=== PATIENT | female | born 1950 | race Caucasian/White ===

== ENCOUNTER 2018-04-04 17:33 | Inpatient (IN) | payer MEDICARE, SELFPAY ==
[2018-04-04] VITALS (7 sets, daily range): BP systolic 137–157; BP diastolic 79–88; PULSE 57–83; RESP 16–18; TEMP 36.6–36.8; O2SAT 94–99; BMI 20.1
--- NOTE | 2018-04-04 17:55 | EKG12_ITS ---
Test Reason : ADMIT EKG Blood Pressure : / mmHG Vent. Rate : 064 BPM Atrial Rate : 064 BPM P-R Int : 160 ms QRS Dur : 074 ms QT Int : 420 ms P-R-T Axes : 075 -65 054 degrees QTc Int : 433 ms Normal sinus rhythm Left anterior fascicular block Abnormal ECG When compared with ECG of 13-MAY-2017 10:36, Premature ventricular complexes are no longer Present Confirmed by ADA BRISCOE, STEPHY ([id number]), videotape editor MEJIA HERNÁNDEZ ([id number]) on 04/09/2018 2:33:49 PM Referred By: Pablo Sena Confirmed By:STEPHY CABALLERO MD
--- NOTE | 2018-04-04 18:12 | PCM.HP.STD ---
Problem List (1) Atypical chest pain Status: Acute (2) Hypertension Status: Chronic (3) Dyslipidemia Status: Chronic (4) Non Hodgkin's lymphoma Status: Chronic (5) Right breast cancer partial mastectomy Status: Chronic History of Present Illness Date of Admission: 04/04/18 Chief Complaint: Recurrent chest pain for about 1 month The patient is a 67 year old F with history of hypertension and dyslipidemia is directly admitted from [facility] where she went 3 times in last 1 month for chest pain. Today, she had sudden onset of chest heaviness with radiation to neck and jaws along with mild diaphoresis and shortness of breath. Prior to that C had similar chest heaviness with collapse and shortness of breath on past Saturday. She had a stress test recently by Dr. Herron on 03/25/2018 which reported as moderate perfusion defect at basal mid inferior septal wall, mid basal anterior wall. EF 44% with diffuse hypokinesis. ER physician Dr. Jacques discussed with her senior maintenance machinist Dr. Herron and he recommended transfer to [facility] for possible cardiac catheterization. He already discussed with Dr. landon. 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 She also has right breast cancer status post partial mastectomy about 25 years ago and is in remission. She Follows [facility] Past Medical History Past Medical History (Chronic Problems): Chronic Problems (Last Updated 12/21/17 @ 09:15 by Savanna Carrillo) Hypertension (Chronic) Dyslipidemia (Chronic) Non Hodgkin's lymphoma (Chronic) Right breast cancer partial mastectomy (Chronic) Allergies No Known Allergies Allergy (Verified 12/21/17 09:14) Home Medications: Ambulatory Orders Medication Instructions Recorded Acetaminophen [Tylenol] 325 mg PO PRN PRN 05/27/15 Multivitamins,Therapeutic 1 tab PO DAILY 05/27/15 [Multivitamin] Sertraline HCl 25 mg PO DAILY 05/27/15 Lisinopril [Lisinopril] 20 mg PO DAILY 04/04/18 Smoking Status: Never smoker - *Family History Paternal History Items: Hypertension Review of Systems Constitutional: Denies: Chills, Fever, Weight Change HEENT: Denies: Head Aches, Sinus Congestion, Sinus Drainage Cardiovascular: Denies: Chest Pain, Palpitations Respiratory: Denies: Cough, Shortness of breath at rest, Sputum production Gastrointestinal: Denies: Abdominal Pain, Nausea, Vomiting Genitourinary: Denies: Dysuria Musculoskeletal: Denies: Joint Pain, Joint Tenderness Skin: Denies: Rash, Wounds Neurological: Denies: Numbness, Tingling, Focal weakness Psychiatric: Denies: Anxiety, Depression, Homicidal Ideations, Suicidal Ideations Hematologic/ Lymphatic: Denies: Easy Bruising, Easy Bleeding VTE Information - Inpt Only VTE Present on Admission: No VTE Mechan Device Prophylaxis: SCD's VTE Pharm Prophylaxis ordered?: Yes Patient Problems: Active and Suspected Problems (Last Updated 12/21/17 @ 09:15 by Savanna Carrillo) Atypical chest pain (Acute) - Physical Exam General: Alert, Oriented x3, Cooperative HEENT: Atraumatic, PERRLA, EOMI, Normocephalic Neck: Supple, No JVD, Negative Carotid Bruits Lungs: Clear to auscultation, Normal air movement Cardiovascular: Regular rate, Regular Rhythm, Normal S1, Normal S2, No murmurs, - - Occasional PVCs on EKG Abdomen: Bowel Sounds Present, Soft, Non Tender, Non-Distended Extremities: No edema, Capillary Refill Less than 3 Seconds Skin: No rashes, No breakdown Musculoskeletal: No Tenderness to Palpation of Joints or Extremities, Arthritic Changes Neurological: Cranial nerves II-XII grossly intact Psych/Mental Status: Normal Affect, Appropriate Vital Signs Temp Pulse Resp BP Pulse Ox 97.8 F 67 18 157/88 H 99 04/04/18 17:36 04/04/18 17:36 04/04/18 17:36 04/04/18 17:36 04/04/18 17:36 Oxygen Delivery Method Room Air Weight: 132 lb 0.91 oz Body Mass Index (BMI) 20.0 Assessment/Plan Active and Suspected Problems (Last Updated 12/21/17 @ 09:15 by Savanna Carrillo) Atypical chest pain (Acute) The patient is a 67 year old F with history of hypertension and dyslipidemia is directly admitted from [facility] where she went 3 times in last 1 month for chest pain. Today, she had sudden onset of chest heaviness with radiation to neck and jaws along with mild diaphoresis and shortness of breath. Prior to that C had similar chest heaviness with collapse and shortness of breath on past Saturday. She had a stress test recently by Dr. Herron on 03/25/2018 which reported as moderate perfusion defect at basal mid inferior septal wall, mid basal anterior wall. EF 44% with diffuse hypokinesis. ER physician Dr. Jacques discussed with her senior maintenance machinist Dr. Herron and he recommended transfer to [facility] for possible cardiac catheterization. He already discussed with Dr. landon. 1. Atypical chest pain with abnormal stress test, possibility of unstable angina: The patient is admitted directly on PCU. Serial cardiac enzymes ordered. Board Writer Dr. Landon is aware and is being consulted. On nitroglycerin ointment as needed for chest pain and baby aspirin. Heart rate is controlled in 60s-70s. Will start on low-dose of metoprolol. Initial workup in ER in [place] shows normal chest x-ray. CBC, BMP normal except glucose 140. First set of troponin normal. EKG shows normal sinus rhythm with left axis deviation, QRS duration 78 ms, LVH with left anterior fascicular block with nonspecific ST-T changes 2. Hypertension: Blood pressure is slightly elevated. On lisinopril 20 mg daily. 3. 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 She also has right breast cancer status post partial mastectomy about 25 years ago and is in remission. She Follows [facility] DVT prophylaxis: On heparin 5000 units subcutaneous twice daily and bilateral SCDs. Code Visit Inpatient E&M: 68418 Init Hosp L3
--- NOTE | 2018-04-04 18:23 | HP.PCM_ITS ---
Problem List (1) Atypical chest pain Status: Acute (2) Hypertension Status: Chronic (3) Dyslipidemia Status: Chronic (4) Non Hodgkin's lymphoma Status: Chronic (5) Right breast cancer partial mastectomy Status: Chronic History of Present Illness Date of Admission: 04/04/18 Chief Complaint: Recurrent chest pain for about 1 month The patient is a 67 year old F with history of hypertension and dyslipidemia is directly admitted from [place] [facility] where she went 3 times in last 1 month for chest pain. Today, she had sudden onset of chest heaviness with radiation to neck and jaws along with mild diaphoresis and shortness of breath. Prior to that C had similar chest heaviness with collapse and shortness of breath on past Saturday. She had a stress test recently by Dr. Herron on 03/25/2018 which reported as moderate perfusion defect at basal mid inferior septal wall, mid basal anterior wall. EF 44% with diffuse hypokinesis. ER physician Dr. Jacques discussed with her pulp screen operator Dr. Herron and he recommended transfer to [facility] for possible cardiac catheterization. He already discussed with Dr. landon. 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 She also has right breast cancer status post partial mastectomy about 25 years ago and is in remission. She Follows [facility] Past Medical History Past Medical History (Chronic Problems): Chronic Problems (Last Updated 12/21/17 @ 09:15 by Savanna Carrillo) Hypertension (Chronic) Dyslipidemia (Chronic) Non Hodgkin's lymphoma (Chronic) Right breast cancer partial mastectomy (Chronic) Allergies No Known Allergies Allergy (Verified 12/21/17 09:14) Home Medications: Ambulatory Orders Medication Instructions Recorded Acetaminophen [Tylenol] 325 mg PO PRN PRN 05/27/15 Multivitamins,Therapeutic 1 tab PO DAILY 05/27/15 [Multivitamin] Sertraline HCl 25 mg PO DAILY 05/27/15 Lisinopril [Lisinopril] 20 mg PO DAILY 04/04/18 Smoking Status: Never smoker - *Family History Paternal History Items: Hypertension Review of Systems Constitutional: Denies: Chills, Fever, Weight Change HEENT: Denies: Head Aches, Sinus Congestion, Sinus Drainage Cardiovascular: Denies: Chest Pain, Palpitations Respiratory: Denies: Cough, Shortness of breath at rest, Sputum production Gastrointestinal: Denies: Abdominal Pain, Nausea, Vomiting Genitourinary: Denies: Dysuria Musculoskeletal: Denies: Joint Pain, Joint Tenderness Skin: Denies: Rash, Wounds Neurological: Denies: Numbness, Tingling, Focal weakness Psychiatric: Denies: Anxiety, Depression, Homicidal Ideations, Suicidal Ideations Hematologic/ Lymphatic: Denies: Easy Bruising, Easy Bleeding VTE Information - Inpt Only VTE Present on Admission: No VTE Mechan Device Prophylaxis: SCD's VTE Pharm Prophylaxis ordered?: Yes Patient Problems: Active and Suspected Problems (Last Updated 12/21/17 @ 09:15 by Savanna Carrillo) Atypical chest pain (Acute) - Physical Exam General: Alert, Oriented x3, Cooperative HEENT: Atraumatic, PERRLA, EOMI, Normocephalic Neck: Supple, No JVD, Negative Carotid Bruits Lungs: Clear to auscultation, Normal air movement Cardiovascular: Regular rate, Regular Rhythm, Normal S1, Normal S2, No murmurs, - - Occasional PVCs on EKG Abdomen: Bowel Sounds Present, Soft, Non Tender, Non-Distended Extremities: No edema, Capillary Refill Less than 3 Seconds Skin: No rashes, No breakdown Musculoskeletal: No Tenderness to Palpation of Joints or Extremities, Arthritic Changes Neurological: Cranial nerves II-XII grossly intact Psych/Mental Status: Normal Affect, Appropriate Vital Signs Temp Pulse Resp BP Pulse Ox 97.8 F 67 18 157/88 H 99 04/04/18 17:36 04/04/18 17:36 04/04/18 17:36 04/04/18 17:36 04/04/18 17:36 Oxygen Delivery Method Room Air Weight: 132 lb 0.91 oz Body Mass Index (BMI) 20.0 Assessment/Plan Active and Suspected Problems (Last Updated 12/21/17 @ 09:15 by Savanna Carrillo) Atypical chest pain (Acute) The patient is a 67 year old F with history of hypertension and dyslipidemia is directly admitted from [place] [facility] where she went 3 times in last 1 month for chest pain. Today, she had sudden onset of chest heaviness with radiation to neck and jaws along with mild diaphoresis and shortness of breath. Prior to that C had similar chest heaviness with collapse and shortness of breath on past Saturday. She had a stress test recently by Dr. Herron on 03/25/2018 which reported as moderate perfusion defect at basal mid inferior septal wall, mid basal anterior wall. EF 44% with diffuse hypokinesis. ER physician Dr. Jacques discussed with her pulp screen operator Dr. Herron and he recommended transfer to [facility] for possible cardiac catheterization. He already discussed with Dr. landon. 1. Atypical chest pain with abnormal stress test, possibility of unstable angina: The patient is admitted directly on PCU. Serial cardiac enzymes ordered. Shirrer Dr. Landon is aware and is being consulted. On nitroglycerin ointment as needed for chest pain and baby aspirin. Heart rate is controlled in 60s-70s. Will start on low-dose of metoprolol. Initial workup in ER in [place] shows normal chest x-ray. CBC, BMP normal except glucose 140. First set of troponin normal. EKG shows normal sinus rhythm with left axis deviation, QRS duration 78 ms, LVH with left anterior fascicular block with nonspecific ST-T changes 2. Hypertension: Blood pressure is slightly elevated. On lisinopril 20 mg daily. 3. 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 She also has right breast cancer status post partial mastectomy about 25 years ago and is in remission. She Follows [facility] DVT prophylaxis: On heparin 5000 units subcutaneous twice daily and bilateral SCDs. Code Visit Inpatient E&M: 80938 Init Hosp L3
[2018-04-04 19:08] LABS: BNP,B-Type NATRIURETIC PEPTIDE 124.7 pg/mL (0-100)
[2018-04-04] MEDS: Metoprolol Tartrate 25 MG Tablet 12.5 MG PO (19:14)
[2018-04-04] MEDS: Atorvastatin Calcium 40 MG Tablet PO (22:09)
[2018-04-04] MEDS: Heparin Injection (Vial) 5,000 UNIT/ML VIAL 5000 UNIT SC (22:09)
[2018-04-05] VITALS (14 sets, daily range): BP systolic 112–143; BP diastolic 59–89; PULSE 55–74; RESP 16; TEMP 36.6–36.9; O2SAT 95–98
[2018-04-05] MEDS: Ondansetron 4 MG/2 ML Vial IV (01:17)
[2018-04-05] MEDS: 0.9% NaCl Peripheral Flush Adult/Peds IV ×2 (01:17→21:28)
[2018-04-05 03:53] LABS: Anion Gap 7 (5-15); BUN 8 mg/dL (7-18); BUN/Creat Ratio 13.8 RATIO (10-20); Calcium,Total 8.5 mg/dL (8.5-10.1); Chloride 109 mmol/L (98-107); Cholesterol 177 mg/dL (200); Creatinine, Serum 0.58 mg/dL (0.55-1.02); EST Glomerular Filtration Rate 110 mL/min (>60); Est Glom Filt Rate - Afr Amer 133 mL/min (>60); Estimated Creatinine Clearance 50.92 ml/min; Glucose 100 mg/dL (74-106); High Density Lipoprotein 86 mg/dL; Potassium 3.8 mmol/L (3.5-5.1); Sodium Level 144 mmol/L (136-145); Thyroid Stim Hormone (TSH) 2.45 uIU/mL (0.358-3.74); Triglycerides 47 mg/dL; Very Low Density Lipoprotein 9 mg/dL (5-40)
--- NOTE | 2018-04-05 04:00 | EKG12_ITS ---
Test Reason : AM EKG Blood Pressure : / mmHG Vent. Rate : 058 BPM Atrial Rate : 058 BPM P-R Int : 170 ms QRS Dur : 084 ms QT Int : 454 ms P-R-T Axes : 077 -55 055 degrees QTc Int : 445 ms Sinus bradycardia Left anterior fascicular block Left ventricular hypertrophy Abnormal ECG When compared with ECG of 04-APR-2018 20:25, MANUAL COMPARISON REQUIRED, DATA IS UNCONFIRMED Confirmed by ADA BRISCOE, STEPHY ([id number]), dictionary editor MEJIA HERNÁNDEZ ([id number]) on 04/09/2018 2:29:40 PM Referred By: Pablo Sena Confirmed By:STEPHY CABALLERO MD
[2018-04-05 04:11] LABS: Hematocrit 34.4 % (37-47); Hemoglobin 11.5 g/dl (12.0-15.0); Mean Corp Hgb Conc 33.4 g/gl (32-36); Mean Corpuscular Hgb 34.2 pg (27.0-32.0); Mean Corpuscular Volume 102.4 fL (81-99); Mean Platelet Vol. 8.8 fl (6.2-12.0); Platelet Count 211 K/mm3 (150-450); RBC Distribution Width CV 12.9 % (11.6-14.6); RBC Distribution Width SD 48.2 fl (35.1-43.9); Red Blood Count 3.36 M/mm3 (4.2-5.4); White Blood Count 3.7 K/mm3 (4.4-11.0)
[2018-04-05 04:22] LABS: Scan Indicated on CBC? Y/N NO
[2018-04-05] MEDS: Lisinopril 20 MG Tablet PO (06:08)
[2018-04-05] MEDS: Aspirin E.C. 81 MG Tablet PO (06:08)
[2018-04-05] MEDS: Metoprolol Tartrate 25 MG Tablet 12.5 MG PO ×2 (06:09→21:27)
--- NOTE | 2018-04-05 07:19 | PN_ITS ---
Patient Problems: Active and Suspected Problems (Last Updated 12/21/17 @ 09:15 by Savanna Carrillo) Atypical chest pain (Acute) Subjective: Patient was seen and examined. Denies chest pain or shortness of breath or palpitations. Discussed with cardiology, patient will have cardiac cath on Saturday. Vitals/I&O's: Vital Signs Temp Pulse Resp BP Pulse Ox 98.4 F 74 16 141/77 H 95 04/05/18 06:01 04/05/18 06:09 04/05/18 06:01 04/05/18 06:01 04/05/18 06:01 Oxygen Delivery Method Room Air Weight: 59.9 kg Body Mass Index (BMI) 20.0 General: Alert, Oriented x3, Cooperative HEENT: Atraumatic, PERRLA, EOMI, Normocephalic Oral: Moist Mucosa Neck: Supple Lungs: Clear to auscultation, Normal air movement Cardiovascular: Regular rate, Regular Rhythm, Normal S1, Normal S2, No murmurs Abdomen: Bowel Sounds Present, Soft, Non Tender, Non-Distended, No Hepato- splenomegaly Extremities: No edema Skin: No rashes, No breakdown Musculoskeletal: No Tenderness to Palpation of Joints or Extremities Lymphatic: No Cervical, Supraclavicular, or Inguinal Adenopathy Neurological: Cranial nerves II-XII grossly intact Psych/Mental Status: Normal Affect, Appropriate Laboratory Results 04/04/18 18:30: B-Natriuretic Peptide 124.7 H 04/04/18 18:30: Troponin I < 0.02 04/04/18 21:37: Troponin I < 0.02 04/05/18 02:40: Sodium 144, Potassium 3.8, Chloride 109 H, Carbon Dioxide 28.0, Anion Gap 7, BUN 8, Creatinine 0.58, Estim Creat Clear Calc 50.92, Est GFR (MDRD ) Af Amer 133, Est GFR (MDRD) Non-Af 110, BUN/Creatinine Ratio 13.8, Glucose 100 , Calcium 8.5, Triglycerides 47, Cholesterol 177, LDL Cholesterol 82, VLDL Cholesterol 9, HDL Cholesterol 86, TSH 2.45 04/05/18 02:40: Troponin I < 0.02 04/05/18 02:40: Hemoglobin A1c Pending 04/05/18 02:40: WBC 3.7 L, RBC 3.36 L, Hgb 11.5 L, Hct 34.4 L, MCV 102.4 H, MCH 34.2 H, MCHC 33.4, RDW 12.9, RDW Differential 48.2 H, Plt Count 211, MPV 8.8 Current Medications Aspirin (Ecotrin) 81 mg PO DAILY@0800 [facility] Last Admin: 04/05/18 06:08 Dose: 81 mg Atorvastatin Calcium (Lipitor) 40 mg PO QHS [facility] Last Admin: 04/04/18 22:09 Dose: 40 mg Heparin Sodium (Porcine) (Heparin Na) 5,000 unit SC BID [facility] Last Admin: 04/04/18 22:09 Dose: 5,000 units Lisinopril (Zestril) 20 mg PO DAILY [facility] Last Admin: 04/05/18 06:08 Dose: 20 mg Metoprolol Tartrate (Lopressor (Beta Morris)) 12.5 mg PO BID [facility] Last Admin: 04/05/18 06:09 Dose: 12.5 mg [facility]ivit[facility] ([facility]ivitamin) [facility] Nitroglycerin (Nitrostat) 0.4 mg SUBLINGUAL Q5M PRN PRN Reason: CHEST PAIN Nitroglycerin (Nitrobid) 1 inch TRANSDERM. Q6H PRN PRN PRN Reason: chest pain Ondansetron HCl (Zofran) 4 mg IV Q8H PRN PRN PRN Reason: NAUSEA Last Admin: 04/05/18 01:17 Dose: 4 mg Sertraline HCl (Zoloft) 25 mg PO DAILY [facility] Sodium Chloride () 5 - 30 ml IV UD PRN PRN Reason: SALINE FLUSH Last Admin: 04/05/18 01:17 Dose: 10 ml Medical Necessity - Tobacco Use Smoking Status: Never smoker Assessment/Plan Active and Suspected Problems (Last Updated 12/21/17 @ 09:15 by Savanna Carrillo) Atypical chest pain (Acute) 67-year-old female with past medical history of hypertension, hyperlipidemia, abnormal stress test comes in with complaints of chest pain, atypical, concerning for unstable angina. 1. Atypical chest pain, recent abnormal stress test with moderate perfusion deficit at the base mid inferior septal wall, myopathy with EF of 44% with diffuse hypokinesis, stable vitals, troponins have been negative, going for cardiac cath on Saturday 2. Hypertension, controlled, on Lisinopril, metoprolol 3. Hyperlipidemia, on statin 4. History of non-Hodgkin's lymphoma/breast cancer status post mastectomy, follows with Dr. Paredes. Code Visit Inpatient E&M: 01960 Subs Hosp L2
[2018-04-05 08:58] LABS: Hemoglobin A1c 5.2 % (4.2-6.3)
--- NOTE | 2018-04-05 09:09 | CON.PCM_ITS ---
Reason for Consult Date of Consultation: 04/05/18 History of Present Illness: The patient is a 67 year old F with a past medical history significant for lymphoma status post Rituxan treatment who has had 4 presentations to the emergency room at [facility] over the last 4 days as well as complaints of chest discomfort. She describes this as a heaviness across her chest and also radiating to her right side of her neck. She was admitted to the hospital there were no associated EKG or troponin changes but she had a pharmacologic stress test which demonstrated asymmetric wall motion abnormalities as well as moderate perfusion defect in the basal to mid inferior wall and the mid to basal anterior wall. She was noted to have an ejection fraction of 44%. Yesterday she saw Dr. Mitchell Herron in his office and he was planning on arranging for an outpatient cardiac catheterization. Shortly after that she experienced chest discomfort again and went back to [facility] and we were called for the patient to be transferred here. The patient has had intermittent heaviness while she has been here. She has not had any dizziness or diaphoresis no near syncope or syncope and she has been compliant with her medications. She does admit that she does have some issues with anxiety. [] Past Medical History Allergies/Adverse Reactions: Allergies No Known Allergies Allergy (Verified 12/21/17 09:14) Home Medications: Ambulatory Orders Medication Instructions Recorded Acetaminophen [Tylenol] 325 mg PO PRN PRN 05/27/15 Multivitamins,Therapeutic 1 tab PO DAILY 05/27/15 [Multivitamin] Sertraline HCl 25 mg PO DAILY 05/27/15 Lisinopril [Lisinopril] 20 mg PO DAILY 04/04/18 Past Medical History (Chronic Problems): Chronic Problems (Last Updated 12/21/17 @ 09:15 by Savanna Carrillo) Hypertension (Chronic) Dyslipidemia (Chronic) Non Hodgkin's lymphoma (Chronic) Right breast cancer partial mastectomy (Chronic) - *Family History Paternal History Items: Hypertension Smoking Status: Never smoker Alcohol: None Drugs: None Review of Systems - Review of Systems General: Denies: Fever, Night Sweats, Fatigue Cardiovascular: Reports: Chest Discomfort, Chest Discomfort with Exertion. Denies: Shortness of Breath, Orthopnea, PND, Peripheral Edema, Palpitations, Lightheadedness, Dizziness, Near Syncope, Syncope Respiratory: Denies: Cough, Sputum Production, Hemoptysis Gastrointestinal: Denies: Hematemesis, Hematochezia, Melena Genitourinary: Denies: Dysuria, Hematuria Skin: Denies: Rash Subjectve: Patient seen and evaluated. Objective: Vital Signs Temp Pulse Resp BP Pulse Ox 98.4 F 60 16 141/77 H 95 04/05/18 06:01 04/05/18 06:58 04/05/18 06:01 04/05/18 06:01 04/05/18 06:01 Oxygen Delivery Method Room Air Weight: 132 lb 0.91 oz Body Mass Index (BMI) 20.0 General: Awake, Alert, Oriented x 3 HEENT: PERRL, EOMI, Sclera Non Icteric Neck: Supple, Good ROM, No Lymph Node Enlargement Lungs: Clear to auscultation Cardiovascular: Regular Rhythm, Normal S1, Normal S2, No Murmurs, No Rubs, No Gallops Vascular: No Carotid Bruits, Normal Femoral Pulses, Normal Radial Pulses, Normal Dorsalis Pedal Pulse, Normal Posterior Tibial Pulses Abdomen: Bowel Sounds Present, Soft, Non Tender, No HSM, No Organomegaly Extremities: No Cyanosis, No Clubbing, No edema Neurological: No Focal Motor or Sensory Deficit 04/04/18 18:30: B-Natriuretic Peptide 124.7 H 04/04/18 18:30: Troponin I < 0.02 04/04/18 21:37: Troponin I < 0.02 04/05/18 02:40: Sodium 144, Potassium 3.8, Chloride 109 H, Carbon Dioxide 28.0, Anion Gap 7, BUN 8, Creatinine 0.58, Est GFR (MDRD) Af Amer 133, Est GFR (MDRD) Non-Af 110, BUN/Creatinine Ratio 13.8, Glucose 100, Calcium 8.5, Triglycerides 47, Cholesterol 177, LDL Cholesterol 82, VLDL Cholesterol 9, HDL Cholesterol 86 04/05/18 02:40: Troponin I < 0.02 04/05/18 02:40: Hemoglobin A1c 5.2 04/05/18 02:40: WBC 3.7 L, RBC 3.36 L, Hgb 11.5 L, Hct 34.4 L, MCV 102.4 H, MCH 34.2 H, MCHC 33.4, RDW 12.9, RDW Differential 48.2 H, Plt Count 211, MPV 8.8 Rhythm: EKG: Sinus bradycardia with a rate of 58 bpm left anterior fascicular block. Assessment/Plan 1. Chest pain with abnormal stress test. She presents with recurrent chest pain with an abnormal stress test and has had 4 admissions to the emergency room in the last 96 hours. At this time I would recommend that she consider a left heart catheterization as previously recommended by her primary aircraft powerplant repairer. This has been mentioned to her the risk benefits and alternatives she understands and agrees to proceed. Depending on the findings further recommendations will be made. 2. Hypertension Patient seen and evaluated her blood pressure appears to be better today. She will continue on the lisinopril at the same dosages. Thank you for allowing me to participate in the care of your patient. Please don't hesitate to call if any issues arise
[2018-04-05 09:38] LABS: Prothrombin Time (Protime)PT. 13.6 SECONDS (11.7-14.9)
[2018-04-05 09:39] LABS: Partial Thromboplast Time 26.9 Seconds (24.1-36.2)
[2018-04-05] MEDS: Clopidogrel Bisulfate 300 MG Tablet PO (10:25)
[2018-04-05] MEDS: 0.9% Normal Saline 1,000 ML 15 ML IV (10:25)
[2018-04-05] MEDS: Sertraline 50 MG Tablet 25 MG PO (13:55)
[2018-04-05] MEDS: Multivitamins,Therapeutic Tablet 1 TABLET PO (13:55)
[2018-04-05] MEDS: Heparin Injection (Vial) 5,000 UNIT/ML VIAL 5000 UNIT SC ×2 (14:18→21:27)
[2018-04-05] MEDS: Atorvastatin Calcium 40 MG Tablet PO (21:28)
[2018-04-06] VITALS (12 sets, daily range): BP systolic 107–126; BP diastolic 61–76; PULSE 54–92; RESP 12–18; TEMP 36.3–36.8; O2SAT 96–98
[2018-04-06] MEDS: Multivitamins,Therapeutic Tablet 1 TABLET PO (09:29)
[2018-04-06] MEDS: Aspirin E.C. 81 MG Tablet PO (09:29)
[2018-04-06] MEDS: Metoprolol Tartrate 25 MG Tablet 12.5 MG PO ×2 (09:29→21:38)
[2018-04-06] MEDS: Heparin Injection (Vial) 5,000 UNIT/ML VIAL 5000 UNIT SC ×2 (09:29→21:39)
[2018-04-06] MEDS: Clopidogrel Bisulfate 75 MG Tablet PO (09:30)
[2018-04-06] MEDS: Sertraline 50 MG Tablet 25 MG PO (09:30)
[2018-04-06] MEDS: Lisinopril 20 MG Tablet PO (09:30)
--- NOTE | 2018-04-06 09:46 | PN_ITS ---
<Juni Bejarano - Last Filed: 04/06/18 09:42> Patient Problems: Active and Suspected Problems (Last Updated 12/21/17 @ 09:15 by Savanna Carrillo) Atypical chest pain (Acute) Subjective: Pt currently without complaints, found ambulating around room with no issues. She has no CP/tightness/pressure, no further symptoms into neck, no dizziness, sweating, LH, SOB, nausea or vomiting. No edema. She is anxious. She is agreeable to cath tomorrow. She denies prior heart disease. - Physical Exam General: Alert, Oriented x3, Cooperative, - - frail HEENT: Atraumatic, PERRLA, EOMI, Normocephalic Neck: Supple, No JVD, Negative Carotid Bruits Lungs: Clear to auscultation, Normal air movement Cardiovascular: Regular rate, No murmurs Abdomen: Bowel Sounds Present, Soft, Non Tender Extremities: No edema, Capillary Refill Less than 3 Seconds Skin: No rashes, No breakdown Musculoskeletal: No Tenderness to Palpation of Joints or Extremities Neurological: Cranial nerves II-XII grossly intact Psych/Mental Status: Anxious, Alert and oriented to time, place, person, mood and affect Vital Signs Temp Pulse Resp BP Pulse Ox 98.3 F 92 16 107/71 98 04/06/18 09:25 04/06/18 09:29 04/06/18 09:25 04/06/18 09:25 04/06/18 09:25 Oxygen Delivery Method Room Air Weight: 59.9 kg Body Mass Index (BMI) 20.0 Intake and Output for Last 24 Hours 04/04/18 04/05/18 04/06/18 23:59 23:59 23:59 Intake Total 650 / 650 360 / 360 Balance 650 / 650 360 / 360 Laboratory Tests Past 24 Hrs 04/05/18 09:16 Troponin I < 0.02 Medical Necessity - Tobacco Use Smoking Status: Never smoker Assessment/Plan Active and Suspected Problems (Last Updated 12/21/17 @ 09:15 by Savanna Carrillo) Atypical chest pain (Acute) 1. Chest pain - recurrent. Recent abnormal stress test. Pt of Dr. Spain. No events on tele overnight. Trop negx4. No current chest pain. Heart cath tomorrow per Dr. Maradiaga. Nitro PRN. on asa/statin added at admit. LDL82. BNP somewhat elevated 124.7. 2. HTN - continue current medications. 3. Anxiety - zoloft 4. Mild macrocytic anemia - check folate/b12. DVT ppx: heparin DC planning: home pending results of cath. This patient was seen by Juni Bejarano PA-C under the supervision of Doctor Rachel. <Rossi Ramos - Last Filed: 04/06/18 11:53> - Physical Exam Vital Signs Temp Pulse Resp BP Pulse Ox 98.3 F 65 16 107/71 98 04/06/18 09:25 04/06/18 11:00 04/06/18 09:25 04/06/18 09:25 04/06/18 09:25 Oxygen Delivery Method Room Air Weight: 59.9 kg Body Mass Index (BMI) 20.0 Intake and Output for Last 24 Hours 04/04/18 04/05/18 04/06/18 23:59 23:59 23:59 Intake Total 650 / 650 360 / 360 Balance 650 / 650 360 / 360 Laboratory Tests Past 24 Hrs 04/06/18 04/06/18 10:20 10:20 Vitamin B12 Pending Folate 61.90 H Assessment/Plan Patient was seen and examined independently of physician environmental engineering assistant Juni Bejarano. I agree with his above interval history, physical exam and assessment and plan. Patient denies any new complaints. No chest pain no dizziness or palpitation. No acute events on telemetry. Vitals reviewed, were stable, physical exam is unremarkable. Labs reviewed, stable Patient will possibly have a heart cath tomorrow, continue to monitor on telemetry Code Visit Inpatient E&M: 90396 Subs Hosp L2
--- NOTE | 2018-04-06 10:37 | PN.CARD_ITS ---
Subjectve: Patient seen and evaluated and appears to be doing well has not had any more chest discomfort this morning. Objective: Vital Signs Temp Pulse Resp BP Pulse Ox 98.3 F 92 16 107/71 98 04/06/18 09:25 04/06/18 09:29 04/06/18 09:25 04/06/18 09:25 04/06/18 09:25 Oxygen Delivery Method Room Air Weight: 132 lb 0.91 oz Body Mass Index (BMI) 20.0 Intake and Output for Last 24 Hours 04/04/18 04/05/18 04/06/18 23:59 23:59 23:59 Intake Total 650 / 650 360 / 360 Balance 650 / 650 360 / 360 General: Awake, Alert, Oriented x 3 HEENT: PERRL, EOMI, Sclera Non Icteric Neck: Supple, Good ROM, No Lymph Node Enlargement Lungs: Clear to auscultation Cardiovascular: Regular Rhythm, Normal S1, Normal S2, No Murmurs, No Rubs, No Gallops Vascular: No Carotid Bruits, Normal Femoral Pulses, Normal Radial Pulses, Normal Dorsalis Pedal Pulse, Normal Posterior Tibial Pulses Abdomen: Bowel Sounds Present, Soft, Non Tender, No HSM, No Organomegaly Extremities: No Cyanosis, No Clubbing, No edema Neurological: No Focal Motor or Sensory Deficit Rhythm: EKG: ECHO: Stress Test: Cardiac Cath: PCI: CT Surgery: Holter monitor: EPS: PPM: CXR: Chest CT Scan: Medical Necessity - Tobacco Use Smoking Status: Never smoker Assessment/Plan 1. Chest pain with abnormal stress test. She presents with recurrent chest pain with an abnormal stress test and has had 4 admissions to the emergency room in the last 96 hours. At this time I would recommend that she consider a left heart catheterization as previously recommended by her primary on site services specialist. This has been mentioned to her the risk benefits and alternatives she understands and agrees to proceed. Depending on the findings further recommendations will be made. This will be scheduled for the a.m. 2. Hypertension Patient seen and evaluated her blood pressure appears to be better today. She will continue on the lisinopril at the same dosages. Thank you for allowing me to participate in the care of your patient. Please don't hesitate to call if any issues arise
[2018-04-06 21:17] LABS: Bacteria 0 SEEN /hpf (None Seen); Mucous, Urine 0 SEEN /hpf (<or=2+); Red Blood Cells-Urine 0 SEEN /hpf (0-5); White Blood Cells 0 SEEN /hpf (0-5)
[2018-04-06 21:21] LABS: Color, Urine Yellow (Yellow); Glucose, Dipstick Normal (Normal); Ketone-Dipstick Negative (Negative); Leukocyte Esterase-Dipstick 25 /ul (Negative); Nitrite-Dipstick Negative (Negative); Occult Blood-Urine Negative /ul (Negative); Protein-Dipstick Negative (Negative); Specific Gravity, Urine 1.005 (1.002-1.030); Urine Bilirubin Dipstick Negative (Negative); Urine Clarity Clear (Clear); Urine Urobilinogen Normal (Normal); Urine pH 6.5 (5.0 - 8.0)
[2018-04-06 21:25] LABS: Squamous Epithelial Cells - UA 0-5 SEEN /hpf (5-10)
[2018-04-06] MEDS: Atorvastatin Calcium 40 MG Tablet PO (21:38)
[2018-04-07] VITALS (14 sets, daily range): BP systolic 112–140; BP diastolic 61–90; PULSE 52–73; RESP 12–18; TEMP 36.2–36.8; O2SAT 96–99
[2018-04-07 05:17] LABS: Absolute Lymphocyte Count 0.74 X10^3/ul (0.83-4.51); Absolute Neutrophil Count 2.7 X10^3/uL (2.0-7.7); Basophil# 0.02 X10^3/uL; Basophil% 0.5 % (0-1); Eosinophil# 0.24 X10^3/uL; Eosinophils% 5.9 % (0-5); Hematocrit 35.7 % (37-47); Hemoglobin 11.9 g/dl (12.0-15.0); Lymphocyte # 0.74 X10^3/ul (4.0); Mean Corp Hgb Conc 33.3 g/gl (32-36); Mean Corpuscular Hgb 34.6 pg (27.0-32.0); Mean Corpuscular Volume 103.8 fL (81-99); Mean Platelet Vol. 8.3 fl (6.2-12.0); Monocyte# 0.35 X10^3/uL; Monocyte% 8.5 % (0-10); Neutrophil # 2.74 X10^3/uL (2.7-7.7); Neutrophil % 66.9 % (47-70); Platelet Count 208 K/mm3 (150-450); RBC Distribution Width CV 12.4 % (11.6-14.6); RBC Distribution Width SD 45.4 fl (35.1-43.9); Red Blood Count 3.44 M/mm3 (4.2-5.4); White Blood Count 4.1 K/mm3 (4.4-11.0)
[2018-04-07 05:21] LABS: Prothrombin Time (Protime)PT. 13.4 SECONDS (11.7-14.9)
[2018-04-07 05:22] LABS: Partial Thromboplast Time 34.3 Seconds (24.1-36.2)
[2018-04-07 05:28] LABS: Anion Gap 6 (5-15); BUN 8 mg/dL (7-18); Calcium,Total 8.5 mg/dL (8.5-10.1); Chloride 109 mmol/L (98-107); Creatinine, Serum 0.62 mg/dL (0.55-1.02); EST Glomerular Filtration Rate 102 mL/min (>60); Est Glom Filt Rate - Afr Amer 124 mL/min (>60); Estimated Creatinine Clearance 50.92 ml/min; Glucose 93 mg/dL (74-106); Potassium 4.1 mmol/L (3.5-5.1); Sodium Level 143 mmol/L (136-145)
[2018-04-07 05:34] LABS: POSITIVE COUNT NO; POSITIVE DIFFERENTIAL NO; POSITIVE MORPHOLOGY NO
--- NOTE | 2018-04-07 05:55 | EKG12_ITS ---
Test Reason : MORNING EKG Blood Pressure : / mmHG Vent. Rate : 061 BPM Atrial Rate : 061 BPM P-R Int : 184 ms QRS Dur : 086 ms QT Int : 438 ms P-R-T Axes : 075 -54 057 degrees QTc Int : 440 ms Normal sinus rhythm Left anterior fascicular block Abnormal ECG When compared with ECG of 05-APR-2018 05:44, MANUAL COMPARISON REQUIRED, DATA IS UNCONFIRMED Confirmed by ADA BRISCOE, STEPHY ([id number]), editor managing newspaper MEJIA HERNÁNDEZ ([id number]) on 04/09/2018 2:26:19 PM Referred By: Pablo Sena Confirmed By:STEPHY CABALLERO MD
--- NOTE | 2018-04-07 05:55 | RAD_ITS ---
STUDY: X-RAY CHEST REASON FOR EXAM: Female, 67 years old. Preop evaluation prior to cardiac catheterization. TECHNIQUE: Two AP portable views of the chest. COMPARISON: May 13, 2017. FINDINGS: Cardiac monitoring leads are present. Lungs are hyperexpanded. Lungs appear to be clear. There is no demonstrated pleural abnormality. There is mild cardiac enlargement. Normal mediastinum and ana. Normal visualized pulmonary arteries. There is atherosclerotic calcification of the aortic arch with tortuosity. There is demineralization of the osseous structures. Normal visualized ribs, clavicles, and shoulders. Surgical clips are visible in the right axilla. Patient may have had right-sided breast surgery. There is no demonstrated abnormality of the visualized soft tissue structures of the upper abdomen. RAD/Chest 1 View (Portable) IMPRESSION: No radiographic evidence of acute cardiopulmonary disease. Electronically Signed: Shahrzad Barba MD at 6:58 EDT , Service support ,
[2018-04-07] MEDS: Aspirin E.C. 81 MG Tablet PO (06:14)
[2018-04-07] MEDS: Metoprolol Tartrate 25 MG Tablet 12.5 MG PO (06:14)
[2018-04-07] MEDS: Clopidogrel Bisulfate 75 MG Tablet PO (06:15)
[2018-04-07] MEDS: Lisinopril 20 MG Tablet PO (06:15)
[2018-04-07] MEDS: 0.9% NaCl Peripheral Flush Adult/Peds IV (06:20)
--- NOTE | 2018-04-07 06:57 | NURSING ---
Called and gave report to ALPHONSO in [employer] at this time. No further questions. Patient still scheduled for same time.
--- NOTE | 2018-04-07 08:08 | PN.CARD_ITS ---
Subjectve: Patient seen and evaluated. Objective: Vital Signs Temp Pulse Resp BP Pulse Ox 97.4 F L 67 18 140/78 H 98 04/07/18 06:10 04/07/18 07:00 04/07/18 06:10 04/07/18 06:14 04/07/18 06:10 Oxygen Delivery Method Room Air Weight: 132 lb 0.91 oz Body Mass Index (BMI) 20.0 Intake and Output for Last 24 Hours 04/05/18 04/06/18 04/07/18 23:59 23:59 23:59 Intake Total 650 / 650 1100 / 1100 600 / 600 Balance 650 / 650 1100 / 1100 600 / 600 General: Awake, Alert, Oriented x 3 HEENT: PERRL, EOMI, Sclera Non Icteric Neck: Supple, Good ROM, No Lymph Node Enlargement Lungs: Clear to auscultation Cardiovascular: Regular Rhythm, Normal S1, Normal S2, No Murmurs, No Rubs, No Gallops Vascular: No Carotid Bruits, Normal Femoral Pulses, Normal Radial Pulses, Normal Dorsalis Pedal Pulse, Normal Posterior Tibial Pulses Abdomen: Bowel Sounds Present, Soft, Non Tender, No HSM, No Organomegaly Extremities: No Cyanosis, No Clubbing, No edema Neurological: No Focal Motor or Sensory Deficit 04/06/18 20:23: Urine Color Yellow, Urine Clarity Clear, Urine pH 6.5, Ur Specific [place] 1.005, Urine Protein Negative, Urine Glucose (UA) Normal, Urine Ketones Negative, Urine Occult Blood Negative, Urine Nitrite Negative, Urine Bilirubin Negative, Urine Urobilinogen Normal, Ur Leukocyte Esterase 25 H , Urine RBC 0 SEEN, Urine WBC 0 SEEN 04/07/18 05:04: WBC 4.1 L, RBC 3.44 L, Hgb 11.9 L, Hct 35.7 L, MCV 103.8 H, MCH 34.6 H, MCHC 33.3, RDW 12.4, RDW Differential 45.4 H, Plt Count 208, MPV 8.3, Immature Gran % (Auto) 0.200, Neut % (Auto) 66.9, Lymph % (Auto) 18.0 L, [place] % (Auto) 8.5, Eos % (Auto) 5.9 H, Baso % (Auto) 0.5, Absolute Neuts (auto) 2.7, Total Counted Not Reportable 04/07/18 05:04: PT 13.4, INR 1.0, APTT 34.3 04/07/18 05:04: Sodium 143, Potassium 4.1, Chloride 109 H, Carbon Dioxide 28.0, Anion Gap 6, BUN 8, Creatinine 0.62, Est GFR (MDRD) Af Amer 124, Est GFR (MDRD) Non-Af 102, BUN/Creatinine Ratio 13.0, Glucose 93, Calcium 8.5 Rhythm: EKG: ECHO: Stress Test: Cardiac Cath: PCI: CT Surgery: Holter monitor: EPS: PPM: CXR: Chest CT Scan: Medical Necessity - Tobacco Use Smoking Status: Never smoker Assessment/Plan 1. Chest pain with abnormal stress test. She presents with recurrent chest pain with an abnormal stress test and has had 4 admissions to the emergency room in the last 96 hours. Patient underwent cardiac catheterization this morning which demonstrated the following: Left main coronary artery which was normal. Left anterior descending artery with 40% proximal stenosis. Left circumflex artery with no significant stenosis. Dominant right coronary artery with no significant stenosis. Preserved ejection fraction. Based on the above angiographic findings it appears that the stress test findings were a false positive I do not see any significant angiographic lesion to explain her findings. I will therefore recommend aggressive medical therapy. 2. Hypertension Patient seen and evaluated her blood pressure appears to be better today. She will continue on the lisinopril at the same dosages. Thank you for allowing me to participate in the care of your patient. Please don't hesitate to call if any issues arise. She can be discharged later today.
--- NOTE | 2018-04-07 08:19 | CL.D_ITS ---
Patient Name: DIANNA WEBSTER Study Date: 04/07/2018 Performing: Jimbo Maradiaga MD Ht: 68.11 inches 173 cm : 1950 Wt: 132.28 lbs 60 kg Age: 67 Gender: female BSA: 1.72 PROCEDURE(S) PERFORMED TC21-VWL/COR/LV CLINICAL PROFILE AND INDICATIONS Indications: Suspected CAD Heart Failure: None Stress/Imaging Stress Test w/SPECT MPI: Yes Result: Positive Low RiskStress Test with SPECT MPI: Positive Low Risk Angina Classification Anginal Classification w/in 2 Weeks: CCS IV CAD Presentations: Symptom unlikely to be ischemic. CONCLUSIONS Mild CAD in the left anterior descending artery not thought to be significant. RECOMMENDATIONS Medical therapy DESCRIPTION OF PROCEDURE The patient arrived to the procedure lab. The risks and benefits of the procedure as well as a full d escription of our services here and current unavailability of surgical backup were fully explained to the patient and/or their significant other prior to the catheterization. The Timeout was completed, verifying the correct patient and procedure. The patient's procedural site was prepped and draped in the usual fashion. Local anesthetic was given subcutaneously to right radial region with Lidocaine 2% . Using a modified Seldinger technique, arterial access was obtained via the right radial artery, a 5 Fr sheath was inserted. Left Coronary Artery selective angiography was performed in multiple views u sing a 5 Fr. 4.0 Goodman catheter. Right Coronary Artery selective angiography was then performed in mu ltiple views using a 5 Fr. 4.0 Goodman catheter. Left Ventriculography was performed in CRUM projection using a 5 Fr. Pigtail catheter. LV to AO pullback pressures were then recorded.The arterial sheath wa s pulled and a TR Band was applied for hemostasis CORONARY ANGIOGRAPHY DOMINANCE: Right Dominant LEFT HEART ASSESSMENT Left Ventricular Ejection Fraction: by LV Gram 60 % Normal LV wall motion Normal Left Ventricular systolic function LEFT MAIN: Angiographically normal LEFT ANTERIOR DECENDING ARTERY: PROX LAD: 40 % Stenosis CIRCUMFLEX ARTERY: Angiographically normal RIGHT CORONARY ARTERY: Angiographically normal COMPLICATIONS No Complications PROCEDURE MEDICATIONS Fentanyl 50 mcg IV Versed 1 mg IV Oxygen: 2 L/min via nasal cannula Heparin diluted in 23cc Heparinized saline. Patient given 10cc IA of this solution. 04/07/2018 07:49:2 1 Verapamil 2.5mg, Ntg 100mcgs, 2000 units of Heparin diluted in 23cc Heparinized saline. Patient give n 10cc IA of this solution. 04/07/2018 07:49:21 SUMMARY OF HEMODYNAMIC DATA Time AIR REST ECG 07:31:48 AO 111/61 (82) SA 07:52:02 LV 112/-15, 0 07:58:34 LV 122/-15, 1 07:58:41 LV 111/-10, 4 07:59:31 AOp 115/54 (79) 07:59:41 Signed By Jimbo Maradiaga MD On 04/07/2018 8:18:56 AM Jimbo Maradiaga MD
[2018-04-07] MEDS: 0.9% Normal Saline 1,000 ML 75 ML IV (08:26)
[2018-04-07] MEDS: Multivitamins,Therapeutic Tablet 1 TABLET PO (08:46)
[2018-04-07] MEDS: Sertraline 50 MG Tablet 25 MG PO (08:46)
--- NOTE | 2018-04-07 10:07 | CASEMGMT ---
Face to Face with patient for initial transition planning/care coordination assessment. BUSTER ROSAS introduced self and role at [facility], pt voices understanding and consents to assessment at this time. Pt is lying in bed in no distress at this time. Pt is A/O x4 at this time and answers all questions appropriately at this time. Care providers, pharmacy, and demographics verified. See attached link. Pt voices no further questions/concerns/needs at this time. Advised pt to ask for CM if any further questions/concerns/needs arise, voices understanding. PLAN: [place] BUSTER ROSAS
--- NOTE | 2018-04-07 11:34 | PCM.DC ---
- Discharge Diagnoses Current Active Problems: Current Active and Chronic Problems (Last Updated 12/21/17 @ 09:15 by Savanna Carrillo) Atypical chest pain (Acute) Hypertension (Chronic) Dyslipidemia (Chronic) Non Hodgkin's lymphoma (Chronic) Right breast cancer partial mastectomy (Chronic) You will use the following diet at home:: Cardiac Your food should be the consistency of: Regular Your liquids should be the consistency of: Regular/Thin Discharge Activity: Return to Normal Activity Allergies/Adverse Reactions: Allergies No Known Allergies Allergy (Verified 12/21/17 09:14) Medications to take at Discharge Acetaminophen [Tylenol] 325 mg PO PRN PRN 05/27/15 Multivitamins,Therapeutic [Multivitamin] 1 tab PO DAILY 05/27/15 Sertraline HCl 25 mg PO DAILY 05/27/15 Lisinopril 20 mg PO DAILY 04/04/18 Aspirin E.C. [Ecotrin] 81 mg PO DAILY@0800 tablet 04/07/18 Atorvastatin Calcium [Lipitor] 40 mg PO QHS #30 tab 04/07/18 Metoprolol Tartrate [Lopressor (beta joel)] 12.5 mg PO BID #60 tab 04/07/18 The following prescriptions were given: Atorvastatin Calcium [Lipitor] 40 mg PO QHS #30 tab Metoprolol Tartrate [Lopressor (beta joel)] 12.5 mg PO BID #60 tab Primary Care Physician: Mitra Lackey MD [Primary Care Provider] - Please follow up with your Primary Care Physician in: 1-2 weeks Please Follow Up With: Anthony Spain MD When: 1-2 weeks Proposed Discharge Date: 04/07/18
[2018-04-07 12:21] LABS: Vitamin B12 610 pg/mL (211-911)
--- NOTE | 2018-04-07 14:29 | PCM.DC.SUM ---
Discharge Date and Diagnosis Date of Admission: 04/04/18 Date of Discharge: 04/07/18 - Primary Discharge Diagnosis Chest pain - musculoskeletal Anxiety HTN Atherosclerosis - Secondary Discharge Diagnosis Chronic Problems (Last Updated 12/21/17 @ 09:15 by Savanna Carrillo) Hypertension (Chronic) Dyslipidemia (Chronic) Non Hodgkin's lymphoma (Chronic) Right breast cancer partial mastectomy (Chronic) Hospital Course and Treatment Imaging Results: RAD/Chest 1 View (Portable) IMPRESSION: No radiographic evidence of acute cardiopulmonary disease. CORONARY ANGIOGRAPHY: DOMINANCE: Right Dominant LEFT HEART ASSESSMENT Left Ventricular Ejection Fraction: by LV Gram 60 % Normal LV wall motion Normal Left Ventricular systolic function LEFT MAIN: Angiographically normal LEFT ANTERIOR DECENDING ARTERY: PROX LAD: 40 % Stenosis CIRCUMFLEX ARTERY: Angiographically normal RIGHT CORONARY ARTERY: Angiographically normal Consultations: Hiren-cardiology Operations: None Procedures: Cardiac catheterization Summary of Care Provided: Physical exam on day of discharge: General: Resting comfortably NAD Psych: A/Ox3 normal affect HEENT: PEARRLA AT NC Neck: Supple NT CV: RRR no m/t/r/g/h Resp: CTA Abd: [id number] Soft NT no guarding or rigidity Ext: DP2+= no edema Skin: W/D normal turgor Lymph/Heme: No active bleeding or adenopathy Neuro: CN2-12 intact Hospital course: The patient is a 67 year old F who had presented to the ER 4 times in 96 hours for recurring chest pain who was sent here from [place] for left heart cath. She is a patient of Dr. Spain. She had intermittent substernal pressure with radiation into the jaw and lightheadedness. She had negative EKG and troponin. She had a prior stress test that was abnormal. She was maintained on tele and underwent a heart cath the following morning. No significant blockage was found that was felt to be contributing to her symptoms. She did have a lesion with 40% stenosis of the Proximal LAD. She had a 60% EF. She was placed on asa/statin/beta joel/ and maintained on her home lisinopril. She remained in stable condition without symptoms and was discharged home. Please follow up with Dr. Miller and your PCP in 1-2 weeks. This patient was seen by Juni Bejarano PA-C under the supervision of Doctor Rosanne. [] Discharge Diet: Low fat/ Low Cholesterol, 2000 mg Sodium Diet Discharge Activity: Return to Normal Activity Home Medications: Medications to take at Discharge Acetaminophen [Tylenol] 325 mg PO PRN PRN 05/27/15 Multivitamins,Therapeutic [Multivitamin] 1 tab PO DAILY 05/27/15 Sertraline HCl 25 mg PO DAILY 05/27/15 Lisinopril 20 mg PO DAILY 04/04/18 Aspirin E.C. [Ecotrin] 81 mg PO DAILY@0800 tablet 04/07/18 Atorvastatin Calcium [Lipitor] 40 mg PO QHS #30 tab 04/07/18 Metoprolol Tartrate [Lopressor (beta joel)] 12.5 mg PO BID #60 tab 04/07/18 Following Prescrptions Were Given to Patient: Atorvastatin Calcium [Lipitor] 40 mg PO QHS #30 tab Metoprolol Tartrate [Lopressor (beta joel)] 12.5 mg PO BID #60 tab Primary Care Physician: Mitra Lackey MD [Primary Care Provider] - Please follow up with your Primary Care Physician in: 1-2 weeks Please Follow Up With: Anthony Spain MD When: 1-2 weeks Disposition: Home Minutes spent on discharge:: 35 Patient Condition:: Stable Medical Necessity - Tobacco Use Smoking Status: Never smoker Meaningful Use Info Meaningful Use Diagnoses (Choose all that apply): None applicable
--- NOTE | 2018-04-07 14:39 | DS.PCM_ITS ---
Discharge Date and Diagnosis Date of Admission: 04/04/18 Date of Discharge: 04/07/18 - Primary Discharge Diagnosis Chest pain - musculoskeletal Anxiety HTN Atherosclerosis - Secondary Discharge Diagnosis Chronic Problems (Last Updated 12/21/17 @ 09:15 by Savanna Carrillo) Hypertension (Chronic) Dyslipidemia (Chronic) Non Hodgkin's lymphoma (Chronic) Right breast cancer partial mastectomy (Chronic) Hospital Course and Treatment Imaging Results: RAD/Chest 1 View (Portable) IMPRESSION: No radiographic evidence of acute cardiopulmonary disease. CORONARY ANGIOGRAPHY: DOMINANCE: Right Dominant LEFT HEART ASSESSMENT Left Ventricular Ejection Fraction: by LV Gram 60 % Normal LV wall motion Normal Left Ventricular systolic function LEFT MAIN: Angiographically normal LEFT ANTERIOR DECENDING ARTERY: PROX LAD: 40 % Stenosis CIRCUMFLEX ARTERY: Angiographically normal RIGHT CORONARY ARTERY: Angiographically normal Consultations: Hiren-cardiology Operations: None Procedures: Cardiac catheterization Summary of Care Provided: Physical exam on day of discharge: General: Resting comfortably NAD Psych: A/Ox3 normal affect HEENT: PEARRLA AT NC Neck: Supple NT CV: RRR no m/t/r/g/h Resp: CTA Abd: [id number] Soft NT no guarding or rigidity Ext: DP2+= no edema Skin: W/D normal turgor Lymph/Heme: No active bleeding or adenopathy Neuro: CN2-12 intact Hospital course: The patient is a 67 year old F who had presented to the ER 4 times in 96 hours for recurring chest pain who was sent here from [place] for left heart cath. She is a patient of Dr. Spain. She had intermittent substernal pressure with radiation into the jaw and lightheadedness. She had negative EKG and troponin. She had a prior stress test that was abnormal. She was maintained on tele and underwent a heart cath the following morning. No significant blockage was found that was felt to be contributing to her symptoms. She did have a lesion with 40 % stenosis of the Proximal LAD. She had a 60% EF. She was placed on asa/statin/ beta joel/ and maintained on her home lisinopril. She remained in stable condition without symptoms and was discharged home. Please follow up with Dr. Miller and your PCP in 1-2 weeks. This patient was seen by Juni Bejarano PA-C under the supervision of Doctor Rosanne. [] Discharge Diet: Low fat/ Low Cholesterol, 2000 mg Sodium Diet Discharge Activity: Return to Normal Activity Home Medications: Medications to take at Discharge Acetaminophen [Tylenol] 325 mg PO PRN PRN 05/27/15 Multivitamins,Therapeutic [Multivitamin] 1 tab PO DAILY 05/27/15 Sertraline HCl 25 mg PO DAILY 05/27/15 Lisinopril 20 mg PO DAILY 04/04/18 Aspirin E.C. [Ecotrin] 81 mg PO DAILY@0800 tablet 04/07/18 Atorvastatin Calcium [Lipitor] 40 mg PO QHS #30 tab 04/07/18 Metoprolol Tartrate [Lopressor (beta joel)] 12.5 mg PO BID #60 tab 04/07/18 Following Prescrptions Were Given to Patient: Atorvastatin Calcium [Lipitor] 40 mg PO QHS #30 tab Metoprolol Tartrate [Lopressor (beta joel)] 12.5 mg PO BID #60 tab Primary Care Physician: Mitra Lackey MD [Primary Care Provider] - Please follow up with your Primary Care Physician in: 1-2 weeks Please Follow Up With: Anthony Spain MD When: 1-2 weeks Disposition: Home Minutes spent on discharge:: 35 Patient Condition:: Stable Medical Necessity - Tobacco Use Smoking Status: Never smoker Meaningful Use Info Meaningful Use Diagnoses (Choose all that apply): None applicable
== END 2018-04-07 12:08 | disposition home or self-care (01) | DRG 287 ==
PROVIDERS: Internal Medicine Cardiovascular Disease; Physician Assistant; Admitting Provider Internal Medicine; Family Provider Internal Medicine; PCP Internal Medicine; Visit Provider Internal Medicine
DX: R07.89 Other chest pain (principal); I25.10 Atherosclerotic heart disease of native coronary artery without angina pectoris; D53.9 Nutritional anemia, unspecified; I10 Essential (primary) hypertension; E78.5 Hyperlipidemia, unspecified; R94.39 Abnormal result of other cardiovascular function study; F41.9 Anxiety disorder, unspecified; Z79.899 Other long term (current) drug therapy; Z85.3 Personal history of malignant neoplasm of breast; Z85.72 Personal history of non-Hodgkin lymphomas; Z90.11 Acquired absence of right breast and nipple
CPT/HCPCS: 36415; 71045; 80048; 80061; 81001; 82607; 82746; 83036; 83880; 84443; 84484; 85025; 85027; 85610; 85730; 93005; 93458; 97802; 99152; 99153; J7030; A4216; C1769; C1894; J2405; Q9967

== ENCOUNTER 2018-05-29 13:30 | Emergency (ER) | payer MEDICARE, SELFPAY ==
[2018-05-29 13:31] VITALS: BP 153/97; PULSE 77; RESP 16; TEMP 36.6; O2SAT 98; BMI 20.3
--- NOTE | 2018-05-29 13:43 | VDLE_ITS ---
Reason For Study: LEG PAIN RIGHT LEFT CFV is compressible, spontaneous, phasic, CFV is compressible, spontaneous, phasic, competent and demonstrates normal competent, and demonstrates normal augmentation. augmentation. Procedure GSV is normal. Exam performed portable in ED. FV is compressible, spontaneous, phasic, A preliminary report was called and/or faxed competent and demonstrates normal to Dr. Liu. augmentation. POP V is compressible, spontaneous, phasic, competent and demonstrates normal augmentation. T/P Trunk is compressible. PTV is compressible. LT PerV is compressible. Interpretation Summary Deep veins of the left lower extremity are patent and compressible segmentally. There is no evidence of left lower extremity deep vein thrombosis. Valvular competence appears intact within the proximal deep venous system on the left . The left greater saphenous vein appears patent and compressible segmentally. Ordering Physician: Amrik Liu Referring Physician: Mitra Lackey Performed By: Missy Brooks RVT
--- NOTE | 2018-05-29 14:30 | ED.DCSUM_ITS ---
- ER Visit Summary Date of Service: 05/29/18 Chief Complaint: Pain left leg] History of Present Illness: The patient is a 67 F [presents the emergency department with discomfort in her left leg for about 3-4 weeks. Patient states that she had been doing a lot of lifting and moving of things in her home and thought maybe she strained her groin. Patient was seen at urgent care today and was sent to the ER for concern about possible blood clot in the leg. Patient is to travel in 2 weeks to [place] and she was concerned about getting on an airplane without having it evaluated. Patient denies any chest pain or shortness of breath. Patient denies recent travel or surgery. She does not take any hormone replacement. Patient states that the pain seems to be localized to her left groin and then when she stands up on the leg or with certain movements she has a pain that shoots down to her knee anteriorly and laterally.] Physical Examination: [HEENT-PERRLA, EOMI. Cranial nerves II through XII grossly intact. TMs clear. Mucous membranes moist. No adenopathy. Cardiovascular-regular rate and rhythm without murmur or ectopy Lungs-clear to auscultation, chest wall stable without crepitus or subcu emphysema Abdomen-normoactive bowel sounds, soft, nontender, no rebound or rigidity, no peritoneal signs. Extremities-intact ?4, normal range of motion, normal pulses, atraumatic]. Left leg-patient has no tenderness over the left hip and negative straight leg raise. Patient has normal pulses at the femoral, popliteal, dorsal pedal, and posterior tibial locations. No significant edema noted. Patient has some mild discomfort over the left inguinal ligament somewhat reproduces her pain. Test Results: Venous duplex of the left lower extremity was negative for DVT [] Emergency Department Course and Treatment: [Patient is now anything for pain. Patient states that when she takes Tylenol at home that that seems to alleviate her discomfort.] Treatment Plan: [Patient to continue with her Tylenol and use heat to the area. Patient to follow-up with her primary care physician in 5-7 days.] Disposition: [Discharged home in stable condition] Impression: [Left groin strain-suspect meralgia paresthetica] This note was generated with [employer] software. It may contain incorrect words, spelling, and punctuation that were not noted in review of the chart prior to signing ED Disposition - Plan for ED Patient: Chief Complaint: Lower Extremity Injury Referrals: Mitra Lackey MD [Primary Care Provider] -
--- NOTE | 2018-05-29 14:30 | ED.DEP ---
ED Disposition - Plan for ED Patient: Chief Complaint: Lower Extremity Injury Instructions: ED Strain Groin Referrals: Mitra Lackey MD [Primary Care Provider] - 5-7 Days
[2018-05-29 14:34] VITALS: BP 135/75; PULSE 85; RESP 16; O2SAT 99
== END 2018-05-29 14:40 | disposition home or self-care (01) ==
LOC: ED 13:50
PROVIDERS: Emergency Provider Emergency Medicine; Family Provider Internal Medicine; PCP Internal Medicine
DX: S39.011A Strain of muscle, fascia and tendon of abdomen, initial encounter (principal); X50.9XXA Other and unspecified overexertion or strenuous movements or postures, initial encounter; Y93.9 Activity, unspecified; Y92.9 Unspecified place or not applicable; Y99.9 Unspecified external cause status; I10 Essential (primary) hypertension; Z79.899 Other long term (current) drug therapy; Z85.72 Personal history of non-Hodgkin lymphomas; Z85.3 Personal history of malignant neoplasm of breast
CPT/HCPCS: 93971; 99282

== ENCOUNTER 2019-05-18 13:18 | Day surgery (SDC) | payer MEDICARE, SELFPAY ==
--- NOTE | 2019-05-17 21:10 | HP.PCM_ITS ---
History and Physical Date of Admission: 05/18/19 Francine Polk 1950 ? ? REFERRING PHYSICIAN: Mary Paredes MD ? CHIEF COMPLAINT: New Patient (Port placement) ? HPI: The patient is a 68 year old female is here for consideraion of portacath She is found to have new diagnosis of lymphoma Denies history of rib or clavicular fractures. Had previous left sided port placed. Denies history of blood clots Has poor peripheral IV access. ? PAST MEDICAL HISTORY ? Family history of malignant neoplasm of gastrointestinal tract ? ? Hypertension ? ? Lymphoma (HCC) 2014 ? neck ? Malignant neoplasm of breast (female), unspecified site 1994 ? with lynphnode envolvement, right ? Osteoporosis, unspecified ? ? Personal history of malignant neoplasm of breast 05/13/2006 ? Rheumatic fever ? ? Screening for intestinal cancer 08/31/2011 ? SKIN CARCINOMA CHEST WALL 03/29/2009 ? Skin lesion 08/31/2011 ? PAST SURGICAL HISTORY ? ADD MAMOTOME BX Right 12/13/15 ? U/S mamotome bx right neck LN ? BX/REMV,LYMPH NODE,DEEP CERV Right 05-30-15 ? COLONOSCOP W/ OR W/O BRSH SPEC ? 09/21/11 ? CYSTOSCOPY ? 11/12/12 ? with bx-benign results ? FNA WITH IMAGING Right 05/24/15 ? U/S FNA right neck mass ? MAL LESION TRUNK,ARM,LEG 1.1-2.0 CM ? 03/23/09 ? Exc. chest lesions x 2 ? MASTEC PARTIAL W AXILL NODE REMOV ? 1994 ? Right- hx of radiation and chemo ? NEEDLE BIOPSY ? 2004 ? L breast ? PAST SURGICAL HISTORY OF ? 2003 ? Right stapedectomy ? PAST SURGICAL HISTORY OF ? 1978 ? left stapedectomy ? PAST SURGICAL HISTORY OF ? 10-05-08 ? BCCA nose ? SKIN BX, 1 LESION ? 09/01/11 ? Shave bx left medial proximal thigh lesion ? TUNNEL VAD W SUB Q PORT >=5 Left 06-23-15 ? ? Current Outpatient Medications: LORazepam (ATIVAN) 0.5 mg tab Take 0.5 mg by mouth twice daily as needed. atorvastatin (LIPITOR) 20 mg tablet Take 1 tablet by mouth once daily. metoprolol tartrate, short acting, (LOPRESSOR) 25 mg tablet Take 0.5 tablets by mouth twice daily. lisinopril (ZESTRIL, PRINIVIL) 20 mg tablet Take 1 tablet by mouth once daily. nitroglycerin sublingual (NITROSTAT) 0.4 mg SL tablet Dissolve 1 tablet under the tongue as needed for Chest Pain. If no pain relief call 911. aspirin 81 mg chewable tablet Take 1 tablet by mouth once daily. acetaminophen(TYLENOL EXTRA STRENGTH 500 MG TAB) as necessary. COMPLETE MULTIVITAMIN TAB Take one(1) tablet daily. prochlorperazine (COMPAZINE) 10 mg tablet Take 1 tablet by mouth every 6 hours as needed. allopurinol (ZYLOPRIM) 300 mg tablet Take 1 tablet by mouth once daily. X 7 - 10 days during chemotherapy CALCIUM CARBONATE/VITAMIN D3 (CALCIUM + D ORAL) Take 1 tablet by mouth once daily. ? ? ALLERGIES: Patient has no known allergies. ? PERSONAL HISTORY: Social History Socioeconomic History Marital status: Spouse name: Ti Number of children: 0 Years of education: Not on file Highest education level: Not on file Social Needs Financial resource strain: Not on file Food insecurity - worry: Not on file Food insecurity - inability: Not on file Transportation needs - medical: Not on file Transportation needs - non-medical: Not on file Occupational History Occupation: Retired Tobacco Use Smoking status: Former Smoker Packs/day: 0.50 Types: Cigarettes Start date: 12/05/1967 Quit date: 12/05/1970 Years since quittin.4 Smokeless tobacco: Never Used Substance and Sexual Activity Alcohol use: Yes Comment: occ Drug use: No Sexual activity: Not on file Other Topics Concerns: Not on file Social History Narrative Not on file FAMILY HISTORY ? Alzheimer's Disease Father ? ? Colon Cancer Father 78 ? Hypertension Mother ? ? Diabetes Paternal Grandmother ? ? ? REVIEW OF SYSTEMS: General: The patient NOTES fatigue, NOTES weight loss, denies weight gain, denies feeling hot, and denies feelings of cold. Eyes: The patient denies glaucoma, denies eye injury/surgery, wears g lasses or contacts. Ear/Nose/Throat: The patient denies allergies, denies hayfever, denies ear infections, and denies bloody noses. Cardiovascular: The patient denies chest pain, denies heart disease, NOTES high blood pressure,denies cardiac stent, denies prior heart attack, denies irregular heart beat, denies high cholesterol, denies poor circulation, denies heart failure, other cardiac issues, denies claudication, denies cold feet, denies peripheral arterial stent. Respiratory: The patient denies tuberculosis, denies pneumonia, denies frequent cough, denies pulmonary embolism, denies shortness of breath, and denies coughing up blood. Gastrointestinal: The patient denies difficulty swallowing, denies acid reflux, denies ulcers, denies vomiting, denies jaundice/hepatitis, denies gallbladder problems, denies black or tarry stools, denies hemorrhoids, denies bleeding from rectum, denies diverticulitis, denies constipation, denies diarrhea, denies loss of stool control, and denies hernias. Kidney/Bladder: The patient denies kidney stones, denies urine infections, and denies bloody urine. Skin: The patient denies a history of skin cancer, denies ble eding/changing moles, and denies a history of skin rash. Neurologic: The patient denies a history of epilepsy/convulsions, denies headaches, denies head/spinal injuries, and denies stroke/TIA. Psychiatric: The patient denies psychiatric medications, denies depression, and denies voices, denies substance abuse. Endocrine: The patient denies thyroid disorders, denies diabetes, and denies hormonal problems. Hematologic: The patient denies a history of bruising, denies bleeding, and denies anemia, denies blood clots. Infections: The patient denies a history of measles and mumps, NOTES rheumatic fever, and denies sexually transmitted diseases. Musculoskeletal: The patient denies back pain/injury, denies back problems, denies sciatica, denies knee/foot trouble, denies arthritis, or denies gout. ? PHYSICAL EXAMINATION: General: The patient is 68 year old female, well nourished, well hydrated in no acute distress. The patient is oriented to time, place, and person. VITALS: Blood pressure 132/76, pulse 76, temperature 36.3 ?C (97.3 ?F), resp. rate 16, height 171.5 cm (5' 7.5), weight 58.2 kg (128 lb 6.4 oz), SpO2 97 %. Body mass index is 19.81 kg/m?. Head ? Normocephalic. EOM intact with sclera clear and no icterus noted. Wearing glasses. Mouth with mucus membranes moist. Neck - supple with no jugular venous distention noted. Trachea is midline. Left submandibular mass noted Lungs ? clear to auscultation. Normal breath sounds. No rales/rhonchi/wheezing noted. No labored breathing noted, such as retractions. Heart ? normal S1 and S2 auscultated. No rubs/clicks/murmurs noted. Regular rate. Abdomen ? soft and benign. Normal bowel sounds. Extremities ? no pitting edema noted. Skin ? normal skin integrity. Lymph ? no cervical adenopathy detected, no supraclavicular adenopathy detected, submandibular mass as above Neurological ? gait normal, no focal deficits noted Psych ? calm and appropriate ? ? IMPRESSION: lymphoma, need for IV access ? PLAN: I have discussed the above with the patient and her who is present with her. I have offered placement of left sided portacath I have explained the procedure to the patient. Patient has been counseled as to the risks/benefits of the procedure. I have explained the risks of the surgery, including but not limited to: infection, bleeding, injury to any blood vessels/nerves, injury to lungs (such as pneumothorax or hemothorax and need for chest tube), not having any access, nonfunctioning of port due to thrombosis, infection of port, etc. ? the patient understands. The patient wishes to proceed. I have answered all questions to the patient?s satisfaction and the patient has no further questions. . ? Jasmin Gee MD
[2019-05-18 13:38] VITALS: BP 151/92; PULSE 70; RESP 18; TEMP 36.2; O2SAT 99; BMI 19.0
[2019-05-18] MEDS: Cefazolin 2 GM in 0.9% Normal Saline 100 ML IV (16:49)
--- NOTE | 2019-05-18 17:39 | PCM.OPRPT ---
Report of Operation Date of Procedure: 05/18/19 Pre-Operative Diagnosis: lymphoma, poor IV access Post-Operative Diagnosis: same Surgery/Procedure Performed:: placement of permanent indwelling tunnelled catheter in the left subclavian vein Description of Surgical Findings:: normal left subclavian anatomy to the SVC Type of Anesthesia:: General Anesthesiologist: Trisha Medrano Specimen's removed: none Estimated Blood Loss (mL): < 5 ml Fluids Replaced: 300 ml Description of Procedure: After informed consent was given, the patient was brought to the Operating Room. Appropriate time out protocol was followed. She was then placed in the supine position. She was then placed under anesthesia. The patient?s upper chest and neck were then prepped with a surgical skin preparation and sterile surgical drapes were placed. After proper landmarks were ascertained, the skin at the upper left chest area was then infiltrated with 1% xylocaine with epinephrine. A needle trocar was then inserted into the left subclavian vein and there was good aspiration of venous blood. A wire was then threaded into the needle trocar and this was visualized under fluoroscopy to ensure that the wire was in the left subclavian vein. Once this was done, then the needle trocar was removed. A small skin roselia was made with an 11 blade knife at the wire entrance site. The dilator with the introducer sheath attached was then placed over the wire into the left subclavian vein via the Seldinger technique and this was visualized under fluoroscopy. The dilator and sheath were in proper position as visualized by fluoroscopy. The wire and dilator were then removed. The catheter was then threaded into the introducer sheath and was positioned with its tip at the junction of the superior vena cava and the right atrium as visualized under fluoroscopy. The catheter was flushed with a heparin saline mixture prior to placement. A subcutaneous pocket was then created caudad to the catheter insertion site. A transverse skin incision was made at the previous incision site after the skin and subcutaneous tissues were infiltrated with local anesthetic. Blunt dissection was then used to create a space large enough for placement of the subcutaneous port. Hemostasis was carefully controlled with electrocautery. The port was sutured to the subcutaneous fascia using vicryl suture at three sites. The catheter was then tunneled into the subcutaneous pocket. The excess catheter was transected. The catheter was then attached to the subcutaneous port using supervisor slate splitting?s guidelines. The port was then placed in the subcutaneous pocket and the sutures were ligated. The subdermal incisional sites were reapproximated with interrupted vicryl suture. The skin was reapproximated with monocryl suture in a subcuticular fashion. Cavilon and steristrips were used for reinforcement of the skin closure and a sterile opsite dressing was applied. The patient was brought to the Recovery Room in stable condition. - Complications none noted - Admit VTE Documentation VTE Present on Admission: Yes VTE Mechan Device Prophylaxis: SCD's
--- NOTE | 2019-05-18 17:43 | DCINST_ITS ---
Discharge Diet: No Restrictions Discharge Activity: Return to Normal Activity, May not drive while taking narcotic pain medications. Call your doctor if your incision/area has: Continuous Slow Oozing, Foul Smelling Discharge Call your doctor if you observe: Fever of 101 or Higher Additional Dressing/Incision Instructions:: Leave dressing in place. May get wet in shower. Do not soak - no tub baths/swimming Allergies/Adverse Reactions: Allergies No Known Allergies Allergy (Verified 05/15/19 09:05) Medications to take at Discharge RX: Acetaminophen [Tylenol] 325 mg PO PRN PRN 05/27/15 RX: Multivitamins,Therapeutic [Multivitamin] 1 tab PO DAILY 05/27/15 RX: Lisinopril 20 mg PO DAILY 04/04/18 Aspirin [Aspirin, Baby] 81 mg PO DAILY@0800 05/15/19 RX: Atorvastatin Calcium [Lipitor] 20 mg PO DAILY 05/15/19 RX: Metoprolol Tartrate [Lopressor (beta joel)] 12.5 mg PO BID 05/15/19 Primary Care Physician: Mitra Lackey MD [Primary Care Provider] - Test Results: Test results from this visit will be discussed in further detail at your follow- up appointment, if applicable. Please Follow Up With: Jasmin Gee MD - call When: to be seen in 7-10 days, please call for time and date, thank you
[2019-05-18 17:50] VITALS: BP 135/69; BP 151/92; PULSE 79; RESP 16; TEMP 36.6; O2SAT 96
[2019-05-18 18:00] VITALS: BP 132/73; BP 151/92; PULSE 67; RESP 16; O2SAT 93
--- NOTE | 2019-05-18 18:10 | RAD_ITS ---
STUDY: X-RAY CHEST REASON FOR EXAM: Female, 68 years old. Chest port placement TECHNIQUE: Single AP portable view of the chest. COMPARISON: 04/07/2018 FINDINGS: Interval placement of left subclavian chest port with tip of the catheter overlying the superior vena cava. No pneumothorax. Status post right axillary lymph node dissection. The lungs are clear and expanded. There is no demonstrated pleural abnormality. There is moderate cardiac enlargement. Normal mediastinum and ana. Normal visualized pulmonary arteries. Normal visualized aortic arch and descending thoracic aorta. Normal visualized thoracic spine. Normal visualized ribs, clavicles, and shoulders. There is no demonstrated abnormality of the visualized soft tissue structures of the upper abdomen. RAD/CXR for Line Placement IMPRESSION: Interval placement of left subclavian chest port with tip of the catheter overlying the superior vena cava and no pneumothorax. Electronically Signed: Tom Thao MD at 18:30 EDT Tel , Service support ,
[2019-05-18 18:15] VITALS: BP 133/78; BP 151/92; PULSE 68; RESP 16; O2SAT 97
[2019-05-18 18:28] VITALS: BP 128/78; BP 151/92; PULSE 63; RESP 16; TEMP 36.8; O2SAT 100
[2019-05-18 18:45] VITALS: BP 151/92
== END 2019-05-18 18:51 | disposition home or self-care (01) ==
LOC: SDC 13:19 → AC 13:21
PROVIDERS: Family Provider Internal Medicine; PCP Internal Medicine; Referring Provider Surgery; Visit Provider Surgery
PROC: (CPT 36561; principal; 2019-05-18 14:35)
DX: Z45.2 Encounter for adjustment and management of vascular access device (principal); C85.91 Non-Hodgkin lymphoma, unspecified, lymph nodes of head, face, and neck; I10 Essential (primary) hypertension; M81.0 Age-related osteoporosis without current pathological fracture; Z79.899 Other long term (current) drug therapy; Z79.82 Long term (current) use of aspirin; Z78.0 Asymptomatic menopausal state; Z85.3 Personal history of malignant neoplasm of breast; Z92.21 Personal history of antineoplastic chemotherapy; Z92.3 Personal history of irradiation; Z87.891 Personal history of nicotine dependence
CPT/HCPCS: 00532; 36561; 71045; 77001; J7050; J7120; C1788; J2405

== ENCOUNTER 2021-08-25 08:31 | Observation (INO) | payer MEDICARE, SELFPAY ==
[2021-08-25] VITALS (7 sets, daily range): BP systolic 122–154; BP diastolic 74–88; PULSE 68–89; RESP 12–20; TEMP 36.9–37.2; O2SAT 94–99; BMI 19.0; BMI 16.6
--- NOTE | 2021-08-25 09:28 | EDS_ITS ---
HPI History of Present Illness Chief Complaint: General Illness Informant: patient Onset/Context/Timing Onset: Days (8) Context: Gradual Onset Timing: Intermittent Quality: Sharp Location: Right parasternal chest Worsened by: Cough Relieved by: Nothing Narrative Narrative: Presents with persistent cough. Patient tested positive for Covid 8 days ago. Patient denies any sputum production. Patient states she gets a sharp pain in her chest whenever she coughs. Patient states it is over the right parasternal area. Patient also admits to a fever of 101 at home. Patient denies any shortness of breath. Patient denies any palpitations. Patient denies any nausea or vomiting. Patient has a history of breast cancer and lymphoma and her oncologist referred her to the emergency department to get checked out before she can continue her cancer treatments. [facility] Medical History History of breast cancer HTN (hypertension) Home Medications acetaminophen 325 mg PO PRN PRN 05/27/15 [History Last Taken 04/04/18 08:00] multivitamin with folic acid 1 tab PO DAILY 05/27/15 [History Last Taken 04/04/18 05:00] lisinopril 20 mg PO DAILY 04/04/18 [History Last Taken 05/18/19] aspirin 81 mg PO DAILY@0800 05/15/19 [History Last Taken 05/17/19] atorvastatin 20 mg PO DAILY 05/15/19 [History Last Taken Unknown] metoprolol tartrate 12.5 mg PO BID 05/15/19 [History Last Taken 05/18/19] meloxicam 15 mg PO PRN PRN 08/25/21 [History Last Taken Unknown] Allergy/AdvReac Type Severity Reaction Status Date / Time No Known Allergies Allergy Verified 08/25/21 08:32 Surgical History Hx of cardiac catheterization S/P colonoscopy S/P mastectomy Social History Smoking Status: Never smoker ROS ROS ED Constitutional Constitutional ED: Reports fever(s); Denies chills Eyes Eyes: Denies blurry vision or change in vision ENT ENT ED: Denies rhinorrhea or sore throat Cardiovascular Cardiovascular: Reports chest pain; Denies palpitations Respiratory/Chest Respiratory/Chest: Reports cough; Denies dyspnea Gastrointestinal Gastrointestinal: Denies nausea or vomiting Genitourinary Genitourinary ED: Denies dysuria or hematuria Musculoskeletal Musculoskeletal: Denies back pain or neck pain Integumentary Denies abscess or rash Neurologic Neurologic: Denies headache(s) or weakness Allergic/Immunologic Allergic/Immunologic ED: Denies mouth swelling or urticaria EXAM Physical Exam Const Vital Signs: 08/25/21 08:33 08/25/21 08:59 08/25/21 12:35 Temperature 98.4 F Temperature Source Temporal Pulse Rate 89 76 Respiratory Rate 12 19 H Respiratory Effort Normal Respiratory Pattern Normal Blood Pressure 122/82 H 145/78 H Blood Pressure Mean 95 100 Pulse Ox 95 96 Oxygen Delivery Method Room Air Room Air Positive well nourished and well developed General Appearance ED: well developed HEENT Reports moist mucous membranes Neck supple and no JVD Chest Wall Chest Narrative: There is tenderness palpation over the right parasternal chest. There is no bony crepitance or step-off. There is no edema or ecchymosis. Resp normal respiratory effort and clear to auscultation bilaterally Cardio regular rate, regular rhythm and no murmurs GI normal to inspection, nondistended, normoactive bowel sounds and non-tender Palpation: soft Neuro oriented x3, CN's II-XII intact bilaterally and no sensory deficits noted Sensorium / Orientation: alert Motor Exam: strength 5/5 throughout Psych mental status grossly normal MDM MDM MDM Narrative Medical decision making narrative: EKG was obtained. On my interpretation, it showed a normal sinus rhythm with a rate of 80. DC interval, QRS interval, and QTc intervals were all normal. There is left axis deviation at -64 with a left anterior fascicular block. There is left ventricular hypertrophy is noted. There are no acute ST or T wave changes. CBC shows a white blood cell count of 0.7. Platelets were low at 122. Absolute neutrophil count was 0.2. Comprehensive metabolic profile was within normal limits. Urinalysis does not show any evidence of urinary tract infection. Portable 1 view chest x-ray was obtained. On my interpretation, lung lake are clear. There is some hyperinflation noted. There is normal cardiac silhouette. Bony thorax is normal. There is no acute process noted. Radiologist also interpreted the x- ray and agrees. Case was discussed with Dr. Bermudez. He stated the patient call their office and told them that she had a fever. Because of this, the patient will be admitted for neutropenic fever. Lactate and blood cultures were ordered. Patient was started on vancomycin and Zosyn. Case was discussed with the hospitalist. He will admit the patient to his service. Patient understood and was agreeable with the plan. All questions were answered. Lab Data Attestation: I reviewed the patient's lab results. Labs: Laboratory Results - last 24 hr 08/25/21 08/25/21 08/25/21 10:00 10:00 10:00 WBC 0.7 L* RBC 3.49 L Hgb 12.6 Hct 35.5 L MCV 101.7 H MCH 36.1 H MCHC 35.5 RDW Std Deviation 43.6 RDW Coeff of Stevenson 11.6 Plt Count 122 L MPV 9.1 Neut % (Auto) Not Reportable Absolute Neuts (auto) 0.2 L Absolute Lymphs (auto) 0.20 L Total Counted 100 Neutrophils % (Manual) 27 L Lymphocytes % (Manual) 24 Monocytes % (Manual) 48 H Metamyelocytes % 1 Diff Path Review May foll Platelet Estimate SLT DEC RBC Morphology NORM C+C Sodium 134 L Potassium 3.7 Chloride 99 Carbon Dioxide 30.0 Anion Gap 5 BUN 9 Creatinine 0.63 Estim Creat Clear Calc 46.19 Est GFR (MDRD) Af Amer 119 Est GFR (MDRD) Non-Af 98 BUN/Creatinine Ratio 14.2 Glucose 104 Lactic Acid Calcium 9.0 Phosphorus 3.1 Total Bilirubin 0.50 AST 45 H ALT 35 Alkaline Phosphatase 65 Lactate Dehydrogenase Total Creatine Kinase Troponin I High Sens C-React Prot Ext Range B-Natriuretic Peptide Total Protein 6.1 L Albumin 2.7 L Globulin 3.4 Albumin/Globulin Ratio 0.8 L Procalcitonin Urine Color Urine Clarity Urine pH Ur Specific [place] Urine Protein Urine Glucose (UA) Urine Ketones Urine Occult Blood Urine Nitrite Urine Bilirubin Urine Urobilinogen Ur Leukocyte Esterase Urine RBC Urine WBC Ur Squamous Epith Cells Urine Bacteria Urine Mucus 08/25/21 08/25/21 08/25/21 10:00 10:00 10:00 WBC RBC Hgb Hct MCV MCH MCHC RDW Std Deviation RDW Coeff of Stevenson Plt Count MPV Neut % (Auto) Absolute Neuts (auto) Absolute Lymphs (auto) Total Counted Neutrophils % (Manual) Lymphocytes % (Manual) Monocytes % (Manual) Metamyelocytes % Diff Path Review Platelet Estimate RBC Morphology Sodium Potassium Chloride Carbon Dioxide Anion Gap BUN Creatinine Estim Creat Clear Calc Est GFR (MDRD) Af Amer Est GFR (MDRD) Non-Af BUN/Creatinine Ratio Glucose Lactic Acid Calcium Phosphorus Total Bilirubin AST ALT Alkaline Phosphatase Lactate Dehydrogenase 223 Total Creatine Kinase 84 Troponin I High Sens 32 C-React Prot Ext Range 8.13 H B-Natriuretic Peptide 49.6 Total Protein Albumin Globulin Albumin/Globulin Ratio Procalcitonin 0.07 Urine Color Urine Clarity Urine pH Ur Specific [place] Urine Protein Urine Glucose (UA) Urine Ketones Urine Occult Blood Urine Nitrite Urine Bilirubin Urine Urobilinogen Ur Leukocyte Esterase Urine RBC Urine WBC Ur Squamous Epith Cells Urine Bacteria Urine Mucus 08/25/21 08/25/21 12:35 14:10 WBC RBC Hgb Hct MCV MCH MCHC RDW Std Deviation RDW Coeff of Stevenson Plt Count MPV Neut % (Auto) Absolute Neuts (auto) Absolute Lymphs (auto) Total Counted Neutrophils % (Manual) Lymphocytes % (Manual) Monocytes % (Manual) Metamyelocytes % Diff Path Review Platelet Estimate RBC Morphology Sodium Potassium Chloride Carbon Dioxide Anion Gap BUN Creatinine Estim Creat Clear Calc Est GFR (MDRD) Af Amer Est GFR (MDRD) Non-Af BUN/Creatinine Ratio Glucose Lactic Acid 0.6 Calcium Phosphorus Total Bilirubin AST ALT Alkaline Phosphatase Lactate Dehydrogenase Total Creatine Kinase Troponin I High Sens C-React Prot Ext Range B-Natriuretic Peptide Total Protein Albumin Globulin Albumin/Globulin Ratio Procalcitonin Urine Color Yellow Urine Clarity Sl. Cloudy Urine pH 7.0 Ur Specific [place] 1.005 Urine Protein Negative Urine Glucose (UA) Normal Urine Ketones 5 H Urine Occult Blood Negative Urine Nitrite Negative Urine Bilirubin Negative Urine Urobilinogen Normal Ur Leukocyte Esterase Negative Urine RBC 0 SEEN Urine WBC 0 SEEN Ur Squamous Epith Cells 0 SEEN Urine Bacteria 0 SEEN Urine Mucus 0 SEEN Radiography Chest X-Ray - ED: 1 View, Read by ED Physician, Read by Radiologist and Normal Diagnostic Testing: Radiology Impression Chest X-Ray 08/25/21 09:40 IMPRESSION: Hyperinflation. The lungs are clear. Electronically Signed: Shady Fox MD at 10:13 EDT , Service support , EKG Initial EKG: Attestation: I personally reviewed and interpreted this EKG as follows: Interpretation: Sinus Rhythm (80), No Acute Injury Pattern and LAFB Comments: Left ventricular hypertrophy Prior EKG tracings: available for review Prior: Unchanged (04/07/2018) Treatment and Re-Evaluation Vital Sign Attestation:: Vital signs were reviewed prior to admission. They are stable. Discharge Plan Dx/Rx/DC Orders Clinical Impression: Neutropenic fever, COVID-19 Disposition Disposition: Acute Care [facility] Discharge Date/Time: 08/25/21 15:45
--- NOTE | 2021-08-25 09:29 | EKG12_ITS ---
Test Reason : SOB Blood Pressure : / mmHG Vent. Rate : 080 BPM Atrial Rate : 080 BPM P-R Int : 162 ms QRS Dur : 080 ms QT Int : 398 ms P-R-T Axes : 085 -64 071 degrees QTc Int : 459 ms Normal sinus rhythm Left anterior fascicular block Left ventricular hypertrophy Abnormal ECG Confirmed by CHAUNCEY BRISCOE, WILLAM ([id number]), ovens supervisor MARCUS LIM ([id number]) on 08/28/2021 12:46:47 PM Referred By: Rossi Rowley Confirmed By:WILLAM GROSSMAN MD
--- NOTE | 2021-08-25 09:40 | RAD_ITS ---
STUDY: X-RAY CHEST REASON FOR EXAM: Female, 70 years old. Cough TECHNIQUE: Single AP portable view of the chest. COMPARISON: Comparison is made with prior study dated 05/18/2019. FINDINGS: Surgical clips are seen in the right axillary region. The patient is status post right mastectomy. A left-sided portacatheter seen with the tip at the junction of the superior vena cava and right atrium. There is hyperinflation of the lungs consistent with chronic obstructive lung disease (COPD). There is no demonstrated pleural abnormality. There is mild cardiac enlargement. Normal mediastinum and ana. Normal visualized pulmonary arteries. Normal visualized aortic arch and descending thoracic aorta. Normal visualized thoracic spine. Normal visualized ribs, clavicles, and shoulders. There is no demonstrated abnormality of the visualized soft tissue structures of the upper abdomen. RAD/Chest 1 View (Portable) IMPRESSION: Hyperinflation. The lungs are clear. Electronically Signed: Shady Fox MD at 10:13 EDT , Service support ,
[2021-08-25 10:12] LABS: Hematocrit 35.5 % (37-47); Hemoglobin 12.6 g/dL (12.0-15.0); Mean Corp Hgb Conc 35.5 g/dL (32-36); Mean Corpuscular Hgb 36.1 pg (27.0-32.0); Mean Corpuscular Volume 101.7 fL (81-99); Mean Platelet Vol. 9.1 fl (6.2-12.0); POSITIVE COUNT YES; POSITIVE DIFFERENTIAL YES; POSITIVE MORPHOLOGY YES; Platelet Count 122 K/mm3 (150-450); RBC Distribution Width CV 11.6 % (11.6-14.6); RBC Distribution Width SD 43.6 fl (35.1-43.9); Red Blood Count 3.49 M/mm3 (4.2-5.4)
[2021-08-25 10:19] LABS: Differential Indicated MANUAL DIFF
[2021-08-25 10:25] LABS: White Blood Count 0.7 K/mm3 (4.4-11.0)
[2021-08-25 10:28] LABS: ALB/GLOB Ratio 0.8 RATIO (0.9-2.4); AST(SGOT) 45 U/L (15-37); Alanine Aminotransfer ALT/SGPT 35 U/L (13-56); Albumin, Serum 2.7 g/dL (3.2-5.0); Alkaline Phosphatase 65 U/L (45-117); Anion Gap 5 (5-15); BUN 9 mg/dL (7-18); BUN/Creat Ratio 14.2 RATIO (10-20); Chloride 99 mmol/L (98-107); Creatinine, Serum 0.63 mg/dL (0.55-1.02); EST Glomerular Filtration Rate 98 mL/min (>60); Est Glom Filt Rate - Afr Amer 119 mL/min (>60); Estimated Creatinine Clearance 46.19 ml/min; Globulin 3.4 g/dL (2.2-4.2); Glucose 104 mg/dL (74-106); Potassium 3.7 mmol/L (3.5-5.1); Protein, Total 6.1 g/dL (6.4-8.2); Sodium Level 134 mmol/L (136-145)
[2021-08-25 10:54] LABS: Lymphocyte 24 % (19-41); Metamyelocyte 1 % (0-1); Monocyte 48 % (0-10); Neutrophil-Segmented 27 % (47-70); Platelet Estimate SLT DEC (ADEQ); Red Cell Morphology NORM C+C NORMAL (NORM C&C); Total Cells Counted 100 (MANUAL DIFF)
[2021-08-25 10:59] LABS: Absolute Neutrophil Count 0.2 X10^3/uL (2.0-7.7)
[2021-08-25 12:40] LABS: Bacteria 0 SEEN /hpf (None Seen); Mucous, Urine 0 SEEN /hpf (<or=2+); Red Blood Cells-Urine 0 SEEN /hpf (0-5); Squamous Epithelial Cells - UA 0 SEEN /hpf (5-10); White Blood Cells 0 SEEN /hpf (0-5)
[2021-08-25 12:45] LABS: Color, Urine Yellow (Yellow); Glucose, Dipstick Normal (Normal); Ketone-Dipstick 5 mg/dl (Negative); Leukocyte Esterase-Dipstick Negative /ul (Negative); Nitrite-Dipstick Negative (Negative); Occult Blood-Urine Negative /ul (Negative); Protein-Dipstick Negative (Negative); Specific Gravity, Urine 1.005 (1.002-1.030); Urine Bilirubin Dipstick Negative (Negative); Urine Clarity Sl. Cloudy (Clear); Urine Urobilinogen Normal (Normal)
[2021-08-25 14:53] LABS: Lactic Acid 0.6 mmol/L (0.4-1.9)
--- NOTE | 2021-08-25 15:21 | PCM.HP.STD ---
HPI - General HPI Narrative DIANNA WEBSTER, is a 70 F who went for routine follow-up with Dr. Paredes before next chemotherapy supposed to be on 08/28 and was sent to ER for low-grade fever since last , 8 days ago along with dry cough and pleuritic chest pain whenever she coughs. Pain is mainly on the right parasternal area. Patient noticed fever 101 at home today. Denies any shortness of breath, vomiting, burning micturition or change in the urinary frequency or urgency. Patient has chronic loose bowel movement once or twice a day but did not report any change. Patient is on immunotherapy for NHL once in 2 months, last one about 2 months ago. Not on any chemotherapeutic agent at home. [facility] Medical History History of breast cancer HTN (hypertension) Home Medications acetaminophen 325 mg PO PRN PRN 05/27/15 [History Last Taken 04/04/18 08:00] multivitamin with folic acid 1 tab PO DAILY 05/27/15 [History Last Taken 04/04/18 05:00] lisinopril 20 mg PO DAILY 04/04/18 [History Last Taken 05/18/19] aspirin 81 mg PO DAILY@0800 05/15/19 [History Last Taken 05/17/19] atorvastatin 20 mg PO DAILY 05/15/19 [History Last Taken Unknown] metoprolol tartrate 12.5 mg PO BID 05/15/19 [History Last Taken 05/18/19] meloxicam 15 mg PO PRN PRN 08/25/21 [History Last Taken Unknown] Allergy/AdvReac Type Severity Reaction Status Date / Time No Known Allergies Allergy Verified 08/25/21 08:32 Surgical History Hx of cardiac catheterization S/P colonoscopy S/P mastectomy Social History Smoking Status: Never smoker ROS ROS Narrative Constitutional: Reports extreme fatigue and weakness HEENT: Reports systems reviewed and no addt'l complaints, except as documented Respiratory/Chest: As mentioned in HPI Gastrointestinal: Denies coffee ground emesis, hematemesis or vomiting. Genitourinary: Denies burning urination or new urinary tract symptoms Musculoskeletal: Reports joint pain and limited range of motion Neurologic: Denies seizure-like activity skin: No ulcer. No rash Endocrinology: Reports systems reviewed and no addt'l complaints, except as documented Hematologic/Lymphatic: Reports systems reviewed and no addt'l complaints, except as documented Rest 12 ROS are negative except as mentioned in HPI Vital Signs Vital Signs Vital Signs: 08/25/21 08:33 08/25/21 08:59 08/25/21 12:35 Temperature 98.4 F Temperature Source Temporal Pulse Rate 89 76 Respiratory Rate 12 19 H Respiratory Effort Normal Respiratory Pattern Normal Blood Pressure 122/82 H 145/78 H Blood Pressure Mean 95 100 Pulse Ox 95 96 Oxygen Delivery Method Room Air Room Air Weight Weight: 125 lb Body Mass Index (BMI) 19.0 Physical Exam Narrative Physical exam General: Alert, Oriented x3, Cooperative HEENT: Atraumatic, PERRLA, EOMI, Normocephalic Oral: No Gingival or Mucosal Lesions/ Ulcerations Neck: Supple, No JVD, Negative Carotid Bruits Lungs: Air entry equal in bilateral lung bases. No crepitation/rhonchi. No hypoxia or tachypnea Cardiovascular: Regular rate, Regular Rhythm, Normal S1, Normal S2, No murmurs Abdomen: Bowel Sounds Present, Soft, Non Tender, Non-Distended : No renal angle tenderness. No suprapubic tenderness. Extremities: No edema, Capillary Refill Less than 3 Seconds Skin: No rashes, No breakdown Musculoskeletal: No Tenderness to Palpation of Joints or Extremities Neurological: Cranial nerves II-XII grossly intact, DTR 2+/4 and Symmetrical, Neuro grossly intact Psych/Mental Status: Flat affect. Results Lab / Micro Data Result Diagrams: 08/25/21 10:00 08/25/21 10:00 Labs: Laboratory Results - last 24 hr 08/25/21 10:00: WBC 0.7 L*, RBC 3.49 L, Hgb 12.6, Hct 35.5 L, MCV 101.7 H, MCH 36.1 H, MCHC 35.5, RDW Std Deviation 43.6, RDW Coeff of Stevenson 11.6, Plt Count 122 L, MPV 9.1, Neut % (Auto) Not Reportable, Absolute Neuts (auto) 0.2 L, Absolute Lymphs (auto) 0.20 L, Total Counted 100, Neutrophils % (Manual) 27 L, Lymphocytes % (Manual) 24, Monocytes % (Manual) 48 H, Metamyelocytes % 1, Diff Path Review April, Platelet Estimate SLT DEC, RBC Morphology NORM C+C 08/25/21 10:00: Sodium 134 L, Potassium 3.7, Chloride 99, Carbon Dioxide 30.0, Anion Gap 5, BUN 9, Creatinine 0.63, Estim Creat Clear Calc 46.19, Est GFR (MDRD) Af Amer 119, Est GFR (MDRD) Non-Af 98, BUN/Creatinine Ratio 14.2, Glucose 104, Calcium 9.0, Total Bilirubin 0.50, AST 45 H, ALT 35, Alkaline Phosphatase 65, Total Protein 6.1 L, Albumin 2.7 L, Globulin 3.4, Albumin/Globulin Ratio 0.8 L 08/25/21 12:35: Urine Color Yellow, Urine Clarity Sl. Cloudy, Urine pH 7.0, Ur Specific [place] 1.005, Urine Protein Negative, Urine Glucose (UA) Normal, Urine Ketones 5 H, Urine Occult Blood Negative, Urine Nitrite Negative, Urine Bilirubin Negative, Urine Urobilinogen Normal, Ur Leukocyte Esterase Negative, Urine RBC 0 SEEN, Urine WBC 0 SEEN, Ur Squamous Epith Cells 0 SEEN, Urine Bacteria 0 SEEN, Urine Mucus 0 SEEN 08/25/21 14:10: Lactic Acid 0.6 Radiology Impression Chest X-Ray 08/25/21 09:40 IMPRESSION: Hyperinflation. The lungs are clear. Electronically Signed: Shady Fox MD at 10:13 EDT , Service support , Assessment & Plan Assessment/Plan (1) Neutropenic fever: (2) COVID-19: PLAN: This 70-year-old female was sent by her oncologist to ER for low-grade fever. 1. Neutropenic fever, exact source unclear possible COVID-19 infection: Patient is being admitted to [facility] floor. Patient was tested positive for Covid about 8 days ago, last although documentary evidence not available. COVID-19 PCR and respiratory panel ordered. Panculture with blood culture, sputum culture urinary antigens, urine culture ordered. Patient is started on IV cefepime. 2. 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 ALC 0.2 thousand. Manual count neutrophils 27%, lymphocytes 24%, monocyte 48%. Metamyelocytes 1%. Patient is started on Neupogen. Monitor CBC daily. H&H 12.6/35 platelet count 122,000. Continue multivitamin and multivitamin. 3. Mild to moderate coronary artery disease: Patient was admitted in April 2018 for atypical chest pain. At that time cardiac cath was done showed EF 60% with normal LV wall motion LAD 40% stenosis in the right other normal. On medical management. On aspirin, metoprolol, lisinopril and atorvastatin. 4. Anxiety: Currently not on antianxiety and depression pill. Patient was on Zoloft in the past. 5 HTN - continue current medications. VT prophylaxis, high risk with COVID-19 infection and cancer history: Lovenox 30 mg subcu twice daily. Discontinue if platelet count drops less than 50,000 or hemoglobin less than 8 g% Living will/advanced directive/end of life care: Patient does have living will and advanced directive and patient's is power of health care attorney for health.. After discussion of benefits/risks procedures involved with full code, DNR CC arrest and DNR CC, the patient and her is not very sure but elected full code for now. Patient does want artificial life support including intubation, tube feed, ventilator and/chest compression, central venous catheter, vasopressor and DC shock if needed Total time spent in [id number] encounter in discussion of advanced directive 16 minutes. Charges/Coding Visit Charges Inpatient E&M: 69127 Init Hosp L3 Procedures Hospitalists Procedures: 15598 Advncd Care Plan 30 Min
[2021-08-25 16:25] LABS: CPK Total, Creatine Kinase 84 U/L (26-192); CRP 8.13 mg/L (0.0-3.0); LDH 223 U/L (84-246); Troponin-I HS 32 pg/mL (3.0-54.0)
[2021-08-25 16:32] LABS: Procalcitonin 0.07 ng/mL (0.00-0.09)
[2021-08-25 16:33] LABS: Probe Check PASS; Specimen Processing Control PASS
[2021-08-25 16:37] LABS: Phosphorus 3.1 mg/dL (2.5-4.9)
[2021-08-25] MEDS: 0.9% Normal Saline 1,000 ML 100 ML IV (16:47)
[2021-08-25] MEDS: TBO-FILGRASTIM 480 MCG/0.8 ML ML SC (16:49)
[2021-08-25 16:56] LABS: BNP,B-Type NATRIURETIC PEPTIDE 49.6 pg/mL (0-100)
[2021-08-25 16:57] LABS: Prothrombin Time (Protime)PT. 12.9 SECONDS (11.7-14.9)
[2021-08-25 16:58] LABS: Partial Thromboplast Time 27.1 Seconds (24.1-36.2)
[2021-08-25 16:59] LABS: Fibrinogen 479 mg/dl (203-444)
[2021-08-25 17:19] LABS: D-Dimer Quantitative (DVT/PE) 1.51 FEU/ug/m (0.27-0.49)
--- NOTE | 2021-08-25 17:49 | CT_ITS ---
HISTORY: SOB, COVID EXAMINATION: CTA Chest WO/W Contrast Injection TECHNIQUE: Helically acquired images were obtained of the chest following IV contrast as per pulmonary angiogram protocol with 3D reconstructions. A radiation dose optimization technique was used for this scan. IV Contrast dosage and agent: 100mL [id number] COMPARISON: None FINDINGS: LUNGS, PLEURA AND LARGE AIRWAYS: Left lower lobe bronchiectasis. Patchy peripheral groundglass opacities without consolidations or pleural effusions. No pneumothorax. No pulmonary masses. THYROID: No thyroid lesions. PULMONARY ARTERIES: Normal in caliber. No pulmonary embolism. AORTA AND GREAT VESSELS: No aneurysm or dissection. HEART AND PERICARDIUM: Heart size is normal. No pericardial effusion. MEDIASTINUM AND ALEX: No mediastinal or hilar adenopathy. Esophagus is unremarkable. No hiatal hernia. UPPER ABDOMEN: No acute pathology. BONES: No acute or aggressive abnormality. CT/CTA Chest W/WO Contrast IMPRESSION: Negative CTA Chest. Left basilar bronchiectasis. Pulmonary findings suspicious for pneumonia including atypical or viral pneumonia. Individualized dose optimization techniques were used for this CT. at 2010 Reported and signed by: Bradley Sutherland MD Electronically Signed: Braldey Sutherland MD at 20:08 EDT Tel , Service support ,
--- NOTE | 2021-08-25 22:50 | PCS.PANDOC ---
PANDEMIC DOCUMENTATION INITIATED: Date: 08/25/2021 Time:
[2021-08-25] MEDS: Enoxaparin 30 MG/0.3 ML Syringe SC (23:19)
[2021-08-25] MEDS: Metoprolol Tartrate 25 MG Tablet 12.5 MG PO (23:19)
[2021-08-26] VITALS (8 sets, daily range): BP systolic 121–149; BP diastolic 76–86; PULSE 66–93; RESP 18–20; TEMP 36.6–37.2; O2SAT 93–95
[2021-08-26 08:17] LABS: Hematocrit 36.3 % (37-47); Hemoglobin 12.2 g/dL (12.0-15.0); Mean Corp Hgb Conc 33.6 g/dL (32-36); Mean Corpuscular Hgb 35.4 pg (27.0-32.0); Mean Corpuscular Volume 105.2 fL (81-99); Mean Platelet Vol. 9.3 fl (6.2-12.0); POSITIVE COUNT YES; POSITIVE DIFFERENTIAL YES; POSITIVE MORPHOLOGY YES; Platelet Count 116 K/mm3 (150-450); RBC Distribution Width CV 11.7 % (11.6-14.6); RBC Distribution Width SD 45.1 fl (35.1-43.9); Red Blood Count 3.45 M/mm3 (4.2-5.4)
[2021-08-26 08:19] LABS: Differential Indicated MANUAL DIFF
[2021-08-26] MEDS: 0.9% Normal Saline 1,000 ML 100 ML IV (08:32)
[2021-08-26] MEDS: Multivitamins,Therapeutic Tablet 1 TABLET PO (08:34)
[2021-08-26] MEDS: Aspirin 81 MG TAB.CHEW PO (08:34)
[2021-08-26 08:45] LABS: Anion Gap 8 (5-15); BUN 8 mg/dL (7-18); BUN/Creat Ratio 12.4 RATIO (10-20); Calcium,Total 8.1 mg/dL (8.5-10.1); Chloride 104 mmol/L (98-107); Creatinine, Serum 0.65 mg/dL (0.55-1.02); EST Glomerular Filtration Rate 96 mL/min (>60); Est Glom Filt Rate - Afr Amer 116 mL/min (>60); Estimated Creatinine Clearance 40.41 ml/min; Glucose 89 mg/dL (74-106); Potassium 3.3 mmol/L (3.5-5.1); Sodium Level 137 mmol/L (136-145)
[2021-08-26 08:47] LABS: Eosinophil 1 % (0-5); Lymphocyte 25 % (19-41); Monocyte 3 % (0-10); Neutrophil-Band 4 % (0-5); Neutrophil-Segmented 67 % (47-70); Platelet Estimate SLT DEC (ADEQ); Red Cell Morphology NORM C+C NORMAL (NORM C&C); Total Cells Counted 100 (MANUAL DIFF)
[2021-08-26 08:52] LABS: Absolute Neutrophil Count 1.4 X10^3/uL (2.0-7.7); Neutrophil # 1.35 X10^3/uL (2.7-7.7); White Blood Count 1.9 K/mm3 (4.4-11.0)
[2021-08-26 08:53] LABS: Absolute Lymphocyte Count 0.48 X10^3/uL (0.83-4.51); Lymphocyte # 0.48 X10^3/ul (0.83-4.51)
--- NOTE | 2021-08-26 09:31 | PCM.PN.HOSP ---
Subjective Subjective Patient was seen and examined. No fevers overnight. She feels improved. She is not on oxygen. No other acute events overnight Objective Data Objective Data Vital Signs: Vital Signs Temp Pulse Resp BP Pulse Ox 99.0 F 72 20 H 133/76 H 93 08/26/21 08:35 08/26/21 08:48 08/26/21 08:48 08/26/21 08:35 08/26/21 08:48 Oxygen Delivery Method Room Air Weight: 49.612 kg Body Mass Index (BMI) 16.6 Intake & Output: Intake and Output for Last 24 Hours 08/24/21 08/25/21 08/26/21 23:59 23:59 23:59 Intake Total 768.34 / 768.34 1096.66 / 1096.66 Output Total 200 / 200 Balance 768.34 / 768.34 896.66 / 896.66 Lab / Micro Data Result Diagrams: 08/26/21 06:35 08/26/21 06:35 Labs: Laboratory Results - last 24 hr 08/25/21 10:00: WBC 0.7 L*, RBC 3.49 L, Hgb 12.6, Hct 35.5 L, MCV 101.7 H, MCH 36.1 H, MCHC 35.5, RDW Std Deviation 43.6, RDW Coeff of Stevenson 11.6, Plt Count 122 L, MPV 9.1, Neut % (Auto) Not Reportable, Absolute Neuts (auto) 0.2 L, Absolute Lymphs (auto) 0.20 L, Total Counted 100, Neutrophils % (Manual) 27 L, Lymphocytes % (Manual) 24, Monocytes % (Manual) 48 H, Metamyelocytes % 1, Diff Path Review April, Platelet Estimate SLT DEC, RBC Morphology NORM C+C 08/25/21 10:00: Sodium 134 L, Potassium 3.7, Chloride 99, Carbon Dioxide 30.0, Anion Gap 5, BUN 9, Creatinine 0.63, Estim Creat Clear Calc 46.19, Est GFR (MDRD) Af Amer 119, Est GFR (MDRD) Non-Af 98, BUN/Creatinine Ratio 14.2, Glucose 104, Calcium 9.0, Total Bilirubin 0.50, AST 45 H, ALT 35, Alkaline Phosphatase 65, Total Protein 6.1 L, Albumin 2.7 L, Globulin 3.4, Albumin/Globulin Ratio 0.8 L 08/25/21 10:00: Phosphorus 3.1 08/25/21 10:00: Lactate Dehydrogenase 223, Total Creatine Kinase 84, Troponin I High Sens 32, C-React Prot Ext Range 8.13 H 08/25/21 10:00: B-Natriuretic Peptide 49.6 08/25/21 10:00: Procalcitonin 0.07 08/25/21 12:35: Urine Color Yellow, Urine Clarity Sl. Cloudy, Urine pH 7.0, Ur Specific [place] 1.005, Urine Protein Negative, Urine Glucose (UA) Normal, Urine Ketones 5 H, Urine Occult Blood Negative, Urine Nitrite Negative, Urine Bilirubin Negative, Urine Urobilinogen Normal, Ur Leukocyte Esterase Negative, Urine RBC 0 SEEN, Urine WBC 0 SEEN, Ur Squamous Epith Cells 0 SEEN, Urine Bacteria 0 SEEN, Urine Mucus 0 SEEN 08/25/21 14:10: Lactic Acid 0.6 08/25/21 15:38: COVID-19 (ANCELMO) Positive 08/25/21 16:30: PT 12.9, INR 1.0, APTT 27.1, Fibrinogen 479 H, D-Dimer Quant (PE/DVT) 1.51 H* 08/26/21 06:35: WBC 1.9 L, RBC 3.45 L, Hgb 12.2, Hct 36.3 L, MCV 105.2 H, MCH 35.4 H, MCHC 33.6 D, RDW Std Deviation 45.1 H, RDW Coeff of Stevenson 11.7, Plt Count 116 L, MPV 9.3, Neut % (Auto) Not Reportable, Absolute Neuts (auto) 1.4 L, Absolute Lymphs (auto) 0.48 L, Total Counted 100, Neutrophils % (Manual) 67, Band Neutrophils % 4, Lymphocytes % (Manual) 25, Monocytes % (Manual) 3, Eosinophils % (Manual) 1, Platelet Estimate SLT DEC, RBC Morphology NORM C+C 08/26/21 06:35: Sodium 137, Potassium 3.3 L, Chloride 104, Carbon Dioxide 25.0, Anion Gap 8, BUN 8, Creatinine 0.65, Estim Creat Clear Calc 40.41, Est GFR (MDRD) Af Amer 116, Est GFR (MDRD) Non-Af 96, BUN/Creatinine Ratio 12.4, Glucose 89, Calcium 8.1 L Micro: Microbiology 08/25/21 15:38 Mucosa - Nasopharyngeal Respiratory Panel (PCR) - Final 08/25/21 12:35 Urine, Clean Catch Streptococcus pneumoniae Antigen (M - Final 08/25/21 12:35 Urine, Clean Catch Legionella Antigen - Final Radiography Diagnostic Testing: Radiology Impression Chest X-Ray 08/25/21 09:40 IMPRESSION: Hyperinflation. The lungs are clear. Electronically Signed: Shady Fox MD at 10:13 EDT , Service support , Chest CTA 08/25/21 17:49 IMPRESSION: Negative CTA Chest. Left basilar bronchiectasis. Pulmonary findings suspicious for pneumonia including atypical or viral pneumonia. Individualized dose optimization techniques were used for this CT. at 2010 Reported and signed by: Bradley Sutherland MD Electronically Signed: Bradley Sutherland MD at 20:08 EDT Tel , Service support , Physical Exam Narrative Physical exam: General: Alert, Oriented x3, Cooperative, No apparent distress, Well developed HEENT: Atraumatic Oral: Moist Mucosa Neck: Supple Lungs: Clear to auscultation Cardiovascular: HS I+II, regular, no murmurs Abdomen: Bowel Sounds Present, Soft, Non Tender Extremities: No edema Assessment & Plan Assessment/Plan (1) Neutropenic fever: (2) COVID-19: PLAN: 1. Acute neutropenic fever, likely secondary to acute COVID-19 infection/pneumonia Present generally is stable WBC count is improved from 0.2-1.4 Absolute neutrophil count was 1400 We will continue to monitor on IV cefepime Repeat blood work in a.m. 2. Acute pancytopenia secondary to immunotherapy, improving Off immunotherapy, on Neupogen 3. Acute COVID-19 pneumonia without hypoxia, Patient does not qualify for dexamethasone Will continue to encourage use of incentive spirometer Continue to monitor oxygen requirements 4. Rest of chronic medical conditions including CAD, anxiety, hypertension all remained stable Continue on aspirin, statin, metoprolol, lisinopril Charges/Coding Visit Charges Inpatient E&M: 00989 Subs Hosp L2
[2021-08-26] MEDS: TBO-FILGRASTIM 480 MCG/0.8 ML ML SC (09:43)
[2021-08-26] MEDS: Atorvastatin Calcium 20 MG Tablet PO (09:43)
[2021-08-26] MEDS: Lisinopril 20 MG Tablet PO (09:44)
[2021-08-26] MEDS: Enoxaparin 30 MG/0.3 ML Syringe SC ×2 (09:45→21:00)
[2021-08-26] MEDS: Metoprolol Tartrate 25 MG Tablet 12.5 MG PO ×2 (09:45→21:00)
--- NOTE | 2021-08-26 10:04 | NURSING ---
assisted pt with making phone call to pt oriented to hospital setting, unsure of day, blind lifted to orient to time of day bed exit is on
--- NOTE | 2021-08-26 11:26 | CASEMGMT ---
BUSTER ROSAS Assessment: Initial transition planning/care coordination assessment. RN ALISON introduced self and role at [facility], pt voices understanding and consents to assessment. Pt is A/Ox4 and answers all questions appropriately. Pt is currently on room air and in no distress. Pt states no concerns getting resources once home. Care providers, pharmacy, and demographics verified. Presentation: Pt sent by Dr. Paredes's office d/t COVID + and to be evaluated prior to getting treatment for cancer next week Admitting dx: Neutropenic fever w/ COVID PCP: Ziyad Specialists: magali Paredes Preferred Pharmacy: [facility] Insurance: [facility] Prescription Benefit: AnthR Living Will/HPOA: Pt states has LW/HPOA and states her , Ti Polk, is HPOA. LNOK: Ti Polk, ; Halle Shabazz, sister Living Arrangements: Pt states lives with in 1 story home and states no concerns at home. Pt states is independent with ADL's. Transportation: Pt states drives self or drives and states no transportation concerns. DME/HHC: Pt states no current DME or need for any DME. CM to follow for home oxygen need and pt states no preference for DME company, if qualifies for home oxygen at discharge. Pt states no hx of HHC or SNF. Pt states no concerns with going home at time of discharge. Pt is retired. Pt states does not smoke cigarettes but does have a glass of wine occasionally. Pt states no further concerns/needs. CM to follow for home oxygen testing and any further discharge planning/needs. Advised pt to ask for CM if any further questions/concerns/needs arise, voices understanding. Pt Goal: Home Plan: Home, pending home oxygen testing. S[place]en BUSTER ROSAS
--- NOTE | 2021-08-26 12:44 | CON.PCM_ITS ---
HPI Consult Data Date of Consult: 08/26/21 HPI Narrative HPI Narrative: DIANNA WEBSTER, is a 70 F who presents with fever, COVID infection. history of diffuse large B ell lymphoma 2015 eceied treatment with RCHOP x 6, [place], persistent disease noted, follicular NHL grade 2, currently post bendamustine obinotuzumab receiving maintenance obinotuzumab, has had progressiv e neutropenia requiring treatment delays. now hospitalized with COVID, noted to be profoundly neutropenic on presentation. received 2 doses Granix since admission ANC much better. [facility] Medical History History of breast cancer HTN (hypertension) Medical History unable to obtain Home Medications acetaminophen 325 mg PO PRN PRN 05/27/15 [History Last Taken 04/04/18 08:00] multivitamin with folic acid 1 tab PO DAILY 05/27/15 [History Last Taken 04/04/18 05:00] lisinopril 20 mg PO DAILY 04/04/18 [History Last Taken 05/18/19] aspirin 81 mg PO DAILY@0800 05/15/19 [History Last Taken 05/17/19] atorvastatin 20 mg PO DAILY 05/15/19 [History Last Taken Unknown] metoprolol tartrate 12.5 mg PO BID 05/15/19 [History Last Taken 05/18/19] meloxicam 15 mg PO PRN PRN 08/25/21 [History Last Taken Unknown] Allergy/AdvReac Type Severity Reaction Status Date / Time No Known Allergies Allergy Verified 08/25/21 08:32 Surgical History Hx of cardiac catheterization S/P colonoscopy S/P mastectomy Social History Smoking Status: Never smoker ROS Review of Systems ROS Unobtainable: other Lab / Micro Data Result Diagrams: 08/26/21 06:35 08/26/21 06:35 Labs: Laboratory Results - last 24 hr 08/25/21 10:00: Phosphorus 3.1 08/25/21 10:00: Lactate Dehydrogenase 223, Total Creatine Kinase 84, Troponin I High Sens 32, C-React Prot Ext Range 8.13 H 08/25/21 10:00: B-Natriuretic Peptide 49.6 08/25/21 10:00: Procalcitonin 0.07 08/25/21 12:35: Urine Color Yellow, Urine Clarity Sl. Cloudy, Urine pH 7.0, Ur Specific [place] 1.005, Urine Protein Negative, Urine Glucose (UA) Normal, Urine Ketones 5 H, Urine Occult Blood Negative, Urine Nitrite Negative, Urine Bilirubin Negative, Urine Urobilinogen Normal, Ur Leukocyte Esterase Negative, Urine RBC 0 SEEN, Urine WBC 0 SEEN, Ur Squamous Epith Cells 0 SEEN, Urine Bacteria 0 SEEN, Urine Mucus 0 SEEN 08/25/21 14:10: Lactic Acid 0.6 08/25/21 15:38: COVID-19 (ANCELMO) Positive 08/25/21 16:30: PT 12.9, INR 1.0, APTT 27.1, Fibrinogen 479 H, D-Dimer Quant (PE/DVT) 1.51 H* 08/26/21 06:35: WBC 1.9 L, RBC 3.45 L, Hgb 12.2, Hct 36.3 L, MCV 105.2 H, MCH 35.4 H, MCHC 33.6 D, RDW Std Deviation 45.1 H, RDW Coeff of Stevenson 11.7, Plt Count 116 L, MPV 9.3, Neut % (Auto) Not Reportable, Absolute Neuts (auto) 1.4 L, Absolute Lymphs (auto) 0.48 L, Total Counted 100, Neutrophils % (Manual) 67, Band Neutrophils % 4, Lymphocytes % (Manual) 25, Monocytes % (Manual) 3, Eosinophils % (Manual) 1, Platelet Estimate SLT DEC, RBC Morphology NORM C+C 08/26/21 06:35: Sodium 137, Potassium 3.3 L, Chloride 104, Carbon Dioxide 25.0, Anion Gap 8, BUN 8, Creatinine 0.65, Estim Creat Clear Calc 40.41, Est GFR (MDRD) Af Amer 116, Est GFR (MDRD) Non-Af 96, BUN/Creatinine Ratio 12.4, Glucose 89, Calcium 8.1 L Micro: Microbiology 08/25/21 15:38 Mucosa - Nasopharyngeal Respiratory Panel (PCR) - Final 08/25/21 12:35 Urine, Clean Catch Streptococcus pneumoniae Antigen (M - Final 08/25/21 12:35 Urine, Clean Catch Legionella Antigen - Final Radiology Impression Chest CTA 08/25/21 17:49 IMPRESSION: Negative CTA Chest. Left basilar bronchiectasis. Pulmonary findings suspicious for pneumonia including atypical or viral pneumonia. Individualized dose optimization techniques were used for this CT. at 2010 Reported and signed by: Bradley Sutherland MD Electronically Signed: Bradley Sutherland MD at 20:08 EDT Tel , Service support , Charges/Coding Visit Charges Inpatient E&M: 82534 Init Hosp L1
--- NOTE | 2021-08-26 14:44 | NURSING ---
per dr romo-no flu vaccine at this time
--- NOTE | 2021-08-26 15:01 | NURSING ---
spoke w/ shirlene in micro and she verified there is enough stool to complete both c-diff and enteric panels
[2021-08-27 02:26] LABS: Pathologist Review May foll
[2021-08-27 02:31] VITALS: BP 131/87; PULSE 80; RESP 20; TEMP 37.6; O2SAT 94
[2021-08-27 06:12] LABS: Hematocrit 35.7 % (37-47); Hemoglobin 12.2 g/dL (12.0-15.0); Mean Corp Hgb Conc 34.2 g/dL (32-36); Mean Corpuscular Hgb 35.5 pg (27.0-32.0); Mean Corpuscular Volume 103.8 fL (81-99); Mean Platelet Vol. 9.8 fl (6.2-12.0); POSITIVE COUNT YES; POSITIVE DIFFERENTIAL YES; POSITIVE MORPHOLOGY YES; Platelet Count 112 K/mm3 (150-450); RBC Distribution Width CV 11.6 % (11.6-14.6); RBC Distribution Width SD 44.2 fl (35.1-43.9); Red Blood Count 3.44 M/mm3 (4.2-5.4)
[2021-08-27 06:45] LABS: ALB/GLOB Ratio 0.8 RATIO (0.9-2.4); AST(SGOT) 45 U/L (15-37); Alanine Aminotransfer ALT/SGPT 31 U/L (13-56); Albumin, Serum 2.4 g/dL (3.2-5.0); Alkaline Phosphatase 56 U/L (45-117); Anion Gap 9 (5-15); BUN 7 mg/dL (7-18); BUN/Creat Ratio 11.9 RATIO (10-20); Calcium,Total 8.1 mg/dL (8.5-10.1); Chloride 104 mmol/L (98-107); Creatinine, Serum 0.59 mg/dL (0.55-1.02); EST Glomerular Filtration Rate 107 mL/min (>60); Est Glom Filt Rate - Afr Amer 130 mL/min (>60); Estimated Creatinine Clearance 40.41 ml/min; Globulin 3.1 g/dL (2.2-4.2); Glucose 97 mg/dL (74-106); Potassium 2.9 mmol/L (3.5-5.1); Protein, Total 5.5 g/dL (6.4-8.2); Sodium Level 138 mmol/L (136-145)
[2021-08-27 06:46] LABS: Differential Indicated MANUAL DIFF
[2021-08-27 07:05] LABS: Lymphocyte 3 % (19-41); Metamyelocyte 4 % (0-1); Monocyte 10 % (0-10); Neutrophil-Band 22 % (0-5); Neutrophil-Segmented 61 % (47-70); Total Cells Counted 100 (MANUAL DIFF)
[2021-08-27 07:06] LABS: Hypersegmented Neutrophils RARE; Neutrophil # 2.49 X10^3/uL (2.7-7.7); Platelet Estimate SLT DEC (ADEQ); Red Cell Morphology NORM C+C NORMAL (NORM C&C)
[2021-08-27 07:07] LABS: Absolute Neutrophil Count 0.1 X10^3/uL (2.0-7.7); Lymphocyte # 0.09 X10^3/ul (0.83-4.51)
[2021-08-27 07:38] LABS: Magnesium 1.4 mg/dL (1.6-2.6)
[2021-08-27 08:03] VITALS: BP 138/82; PULSE 86; RESP 18; TEMP 37.7; O2SAT 94
[2021-08-27 08:10] LABS: Absolute Lymphocyte Count 0.09 X10^3/uL (0.83-4.51)
--- NOTE | 2021-08-27 08:23 | NURSING ---
mag supp and or k-riders not on unit for pt administration
[2021-08-27 08:32] VITALS: O2SAT 94
[2021-08-27] MEDS: Potassium Chloride Oral Tablet 20 MEQ 60 MEQ PO (08:44)
[2021-08-27] MEDS: Multivitamins,Therapeutic Tablet 1 TABLET PO (08:46)
[2021-08-27] MEDS: Potassium Chloride 10mEq/100mL 10 MEQ/100 ML IV.SOLN. 100 MEQ IV BOLUS ×4 (08:46→12:44)
[2021-08-27] MEDS: Atorvastatin Calcium 20 MG Tablet PO (08:46)
[2021-08-27] MEDS: Lisinopril 20 MG Tablet PO (08:46)
[2021-08-27] MEDS: Aspirin 81 MG TAB.CHEW PO (08:46)
[2021-08-27] MEDS: Enoxaparin 30 MG/0.3 ML Syringe SC (08:46)
[2021-08-27 08:47] VITALS: PULSE 88
[2021-08-27] MEDS: Metoprolol Tartrate 25 MG Tablet 12.5 MG PO (08:47)
--- NOTE | 2021-08-27 11:38 | DS.PCM_ITS ---
Providers Date of Admission: 08/25/21 Date of Discharge: 08/27/21 Primary Care Physician: Dr. Mitra Lackey MD Consultations 08/25/21 15:54 Consult: Oncology/Hematology Routine Consulting Provider: CCAlyson Hem/Onc Kareen Reason for Consult: NHL, neutropenic fever with COVID-19 infection EMERGENT Consult: Yes MD Notified: Yes Date Notified: 08/26/21 Time Notified: 07:40 Method of Notification: Page Method of Consult:: In-Person Reason For Visit: NEUTROPENIC FEVER WITH COVID Diagnosis Discharge Diagnosis (1) Neutropenic fever: Status: Acute Code(s): D70.9 - Neutropenia, unspecified; R50.81 - Fever presenting with conditions classified elsewhere (2) COVID-19: Status: Acute Code(s): U07.1 - COVID-19 Medications at Discharge Home Medications multivitamin with folic acid 1 tab PO DAILY 05/27/15 lisinopril 20 mg PO DAILY 04/04/18 aspirin 81 mg PO DAILY@0800 05/15/19 atorvastatin 20 mg PO DAILY 05/15/19 metoprolol tartrate 12.5 mg PO BID 05/15/19 loperamide 2 mg PO Q2H PRN PRN 3 Days #10 cap 08/27/21 magnesium oxide 400 mg PO DAILY 5 Days #5 cap 08/27/21 potassium chloride [Klor-Con M20] 40 meq PO DAILY 3 Days #6 tab 08/27/21 Hospital Course Operations None Procedures None Summary of Care Provided Minutes Spent on Discharge: 45 Hospital Course: 70-year-old female with past medical history of non-Hodgkin's lymphoma, who has been vaccinated comes in from the oncologist office with low- grade fever, dry cough and pleuritic chest pain ongoing for 8 days. Patient was found to have COVID-19 infection. She was admitted to the [facility] floor and started on IV cefepime. Blood cultures were negative. Patient never required oxygen. Patient developed diarrhea during the hospital stay. Stool for C. difficile enteric panel were negative. Patient was seen by oncology during this hospital stay. She had electrolyte imbalances from the diarrhea. These were replaced. Patient will follow-up with her primary care doctor and oncologist within 1 to 2 weeks. Physical Exam Narrative Physical exam: General: Alert, Oriented x3, Cooperative, No apparent distress, appears frail HEENT: Atraumatic Oral: Moist Mucosa Neck: Supple Lungs: Clear to auscultation Cardiovascular: HS I+II, regular, no murmurs Abdomen: Bowel Sounds Present, Soft, Non Tender Extremities: No edema Weight / BMI Weight Weight: 49.612 kg Body Mass Index (BMI) 16.6 ABG / Lab / Microbiology Data Result Diagrams: 08/27/21 05:35 08/27/21 05:35 Laboratory: Laboratory Results - last 24 hr 08/26/21 06:35: Diff Path Review April foll 08/27/21 05:35: WBC 3.0 L, RBC 3.44 L, Hgb 12.2, Hct 35.7 L, MCV 103.8 H, MCH 35.5 H, MCHC 34.2, RDW Std Deviation 44.2 H, RDW Coeff of Stevenson 11.6, Plt Count 112 L, MPV 9.8, Neut % (Auto) Not Reportable, Absolute Neuts (auto) 0.1 L, Absolute Lymphs (auto) 0.09 L, Total Counted 100, Neutrophils % (Manual) 61, Band Neutrophils % 22 H, Lymphocytes % (Manual) 3 L, Monocytes % (Manual) 10, Metamyelocytes % 4 H, Diff Path Review April, Hypersegmented Neuts RARE, Platelet Estimate SLT DEC, RBC Morphology NORM C+C 08/27/21 05:35: Sodium 138, Potassium 2.9 L, Chloride 104, Carbon Dioxide 25.0, Anion Gap 9, BUN 7, Creatinine 0.59, Estim Creat Clear Calc 40.41, Est GFR (MDRD) Af Amer 130, Est GFR (MDRD) Non-Af 107, BUN/Creatinine Ratio 11.9, Glucose 97, Calcium 8.1 L, Total Bilirubin 0.40, AST 45 H, ALT 31, Alkaline Phosphatase 56, Total Protein 5.5 L, Albumin 2.4 L, Globulin 3.1, Albumin/Globulin Ratio 0.8 L 08/27/21 05:35: Magnesium 1.4 L Microbiology: Microbiology 08/25/21 12:35 Urine, Clean Catch Urine Culture - Final Mixed Gram Pos & Gram Neg Org 08/26/21 14:50 Stool Enteric Bacteriology - Final 08/26/21 14:50 Stool C. difficile DNA Amplification - Final 08/25/21 15:38 Mucosa - Nasopharyngeal Respiratory Panel (PCR) - Final 08/25/21 12:35 Urine, Clean Catch Streptococcus pneumoniae Antigen (M - Final 08/25/21 12:35 Urine, Clean Catch Legionella Antigen - Final D/C Instructions Discharge Diet: No restrictions Meaningful Use Info Meaningful Use Diagnoses (Choose all that apply): None applicable Discharge Plan Admission Admit Date/Time: 08/25/21 15:09 Primary Reason for Your Visit: Acute COVID-19 infection, neutropenia Attending Provider: Rossi Rowley Primary Care Provider: Mitra Lackey Consulting Providers: Mike Andrews ; Madeline Byrne ; Mary Paredes ; Laci Caballero ; Joshua Bermudez Instructions Additional Instructions / Restrictions: Continue to keep yourself hydrated. Continue to use your incentive spirometer. You may take an Imodium as needed for diarrhea. You have been referred for monoclonal antibody in the outpatient. Follow-up with your oncologist and primary care doctor within 1 week. Discharge Orders/Prescriptions Prescriptions: New loperamide 2 mg Capsule 2 mg PO Q2H PRN PRN (Reason: diarrhea) 3 Days Qty: 10 RF: 0 potassium chloride [Klor-Con M20] 20 mEq tablet,ER particles/crystals 40 meq PO DAILY 3 Days Qty: 6 RF: 0 magnesium oxide 400 mg magnesium capsule 400 mg PO DAILY 5 Days Qty: 5 RF: 0 Continued multivitamin with folic acid 1 TABLET tablet 1 tab PO DAILY RF: 0 lisinopril 20 MG tablet 20 mg PO DAILY RF: 0 aspirin 81 MG tablet,chewable 81 mg PO DAILY@0800 RF: 0 atorvastatin 40 MG tablet 20 mg PO DAILY RF: 0 metoprolol tartrate 25 MG tablet 12.5 mg PO BID RF: 0 Discontinued acetaminophen 325 MG tablet 325 mg PO PRN PRN (Reason: Pain) RF: 0 meloxicam 15 mg tablet 15 mg PO PRN PRN (Reason: Pain) RF: 0 Referrals / Follow Up: Mitra Lackey MD [Primary Care Provider] - Within 2 Weeks Mary Paredes MD [STAFF PHYSICIAN] - Within 2 Weeks Disposition Disposition (needs filled in before D/C Order can be placed): Home, Self Care Charges/Coding Visit Charges Inpatient E&M: 84432 Disch Hosp
--- NOTE | 2021-08-27 11:52 | NURSING ---
4 gm mag sulfate not on unit for pt administration
[2021-08-27] MEDS: Loperamide 2 MG Capsule PO (12:27)
--- NOTE | 2021-08-27 12:49 | NURSING ---
awaiting 2g dose of magnesium for iv administration to arrive to unit-#4th k rider currently running
[2021-08-27 15:01] VITALS: BP 121/75; PULSE 96; RESP 18; TEMP 37.1; O2SAT 96
[2021-08-27 15:57] VITALS: O2SAT 96
[2021-08-27 17:24] LABS: Potassium 3.2 mmol/L (3.5-5.1)
[2021-08-27] MEDS: 0.9 % NaCl (Sterile) Posiflush 10 mL IV (18:12)
[2021-08-27] MEDS: Potassium Chloride Oral Tablet 20 MEQ 40 MEQ PO (18:37)
[2021-08-28 14:02] LABS: Pathologist Review Reviewed
[2021-08-28 14:16] LABS: Pathologist Review Reviewed
--- NOTE | 2021-08-28 14:16 | CASEMGMT ---
BUSTER ROSAS Discharge Follow-up Phone Call: HERNAN: Aimee Strata: 3 Call Date: 08/28/21 Discharge Date: 08/27/21 Time of Call: 1417 Duration: 1 min Admitting Diagnosis: covid BUSTER ROSAS attempted to complete follow-up phone call after recent hospitalization. No answer, voice message left with return contact information.
== END 2021-08-27 18:16 | disposition home or self-care (01) | DRG 177 ==
LOC: ED 15:11 → MS3 08-26 07:06
PROVIDERS: Admitting Provider Internal Medicine; Emergency Provider Emergency Medicine; PCP Internal Medicine; Referring Provider Internal Medicine; Visit Provider Internal Medicine
DX: U07.1 COVID-19 (principal); C82.10 Follicular lymphoma grade II, unspecified site; D61.810 Antineoplastic chemotherapy induced pancytopenia; D70.9 Neutropenia, unspecified; J12.82 Pneumonia due to coronavirus disease 2019; R50.81 Fever presenting with conditions classified elsewhere; I25.10 Atherosclerotic heart disease of native coronary artery without angina pectoris; I10 Essential (primary) hypertension; F41.9 Anxiety disorder, unspecified; E87.8 Other disorders of electrolyte and fluid balance, not elsewhere classified; R19.7 Diarrhea, unspecified; Z79.82 Long term (current) use of aspirin; Z79.899 Other long term (current) drug therapy; Z85.3 Personal history of malignant neoplasm of breast; R50.9 Fever, unspecified; I44.4 Left anterior fascicular block; R94.31 Abnormal electrocardiogram [ECG] [EKG]; R07.82 Intercostal pain
CPT/HCPCS: 36415; 36591; 71045; 71275; 80048; 80053; 81001; 82550; 83605; 83615; 83735; 83880; 84100; 84132; 84145; 84484; 85025; 85379; 85384; 85610; 85730; 86140; 87040; 87086; 87088; 87449; 87493; 87506; 87633; 87635; 93005; 96361; 96365; 96366; 96367; 96372; 96375; 99218; 99251; 99285; J7030; J7050; Q9967; U0005; A4216; G0378; G0463; J1447; U0003

== ENCOUNTER 2021-09-23 17:56 | Inpatient (IN) | payer MEDICARE, SELFPAY ==
[2021-09-23] VITALS (8 sets, daily range): BP systolic 118–120; BP diastolic 55–64; PULSE 84–92; RESP 14–22; TEMP 37.2–37.5; O2SAT 85–100; BMI 15.0; BMI 17.2
--- NOTE | 2021-09-23 18:59 | EKG12_ITS ---
Test Reason : ARRYTHMIA Blood Pressure : / mmHG Vent. Rate : 103 BPM Atrial Rate : 103 BPM P-R Int : 166 ms QRS Dur : 076 ms QT Int : 376 ms P-R-T Axes : 067 -62 069 degrees QTc Int : 492 ms Sinus tachycardia Left anterior fascicular block Anteroseptal infarct , age undetermined , cannot be excluded Abnormal ECG Confirmed by CHAUNCEY BRISCOE, WILLAM ([id number]), content editor MARCUS LIM ([id number]) on 09/27/2021 9:46:58 AM Referred By: SEAN Confirmed By:WILLAM GROSSMAN MD
[2021-09-23] MEDS: 0.9% Normal Saline 1,000 ML 999 ML IV (19:19)
[2021-09-23 19:21] LABS: Absolute Lymphocyte Count 0.04 X10^3/uL (0.83-4.51); Absolute Neutrophil Count 0.6 X10^3/uL (2.0-7.7); Eosinophil# 0.02 X10^3/uL; Eosinophils% 2.3 % (0-5); Hematocrit 25.5 % (37-47); Hemoglobin 8.6 g/dL (12.0-15.0); Lymphocyte # 0.04 X10^3/ul (0.83-4.51); Lymphocyte % 4.5 % (19-41); Mean Corp Hgb Conc 33.7 g/dL (32-36); Mean Corpuscular Hgb 34.8 pg (27.0-32.0); Mean Corpuscular Volume 103.2 fL (81-99); Mean Platelet Vol. 9.7 fl (6.2-12.0); Monocyte# 0.21 X10^3/uL; Monocyte% 23.9 % (0-10); NRBC Flagged by Analyzer 0 % (0-5); Neutrophil # 0.59 X10^3/uL (2.7-7.7); POSITIVE COUNT YES; POSITIVE DIFFERENTIAL YES; POSITIVE MORPHOLOGY YES; Platelet Count 153 K/mm3 (150-450); RBC Distribution Width CV 12.5 % (11.6-14.6); RBC Distribution Width SD 46.5 fl (35.1-43.9); Red Blood Count 2.47 M/mm3 (4.2-5.4)
[2021-09-23 19:24] LABS: Differential Indicated SCAN CRITERIA MET; White Blood Count 0.9 K/mm3 (4.4-11.0)
[2021-09-23 19:29] LABS: ALB/GLOB Ratio 0.5 RATIO (0.9-2.4); AST(SGOT) 50 U/L (15-37); Alanine Aminotransfer ALT/SGPT 38 U/L (13-56); Albumin, Serum 1.8 g/dL (3.2-5.0); Alkaline Phosphatase 51 U/L (45-117); Anion Gap 7 (5-15); BUN 11 mg/dL (7-18); BUN/Creat Ratio 12.2 RATIO (10-20); Calcium,Total 8.4 mg/dL (8.5-10.1); Chloride 99 mmol/L (98-107); EST Glomerular Filtration Rate 65 mL/min (>60); Est Glom Filt Rate - Afr Amer 79 mL/min (>60); Estimated Creatinine Clearance 40.81 ml/min; Globulin 3.9 g/dL (2.2-4.2); Glucose 120 mg/dL (74-106); Lactic Acid 1.1 mmol/L (0.4-1.9); Potassium 4.4 mmol/L (3.5-5.1); Protein, Total 5.7 g/dL (6.4-8.2); Sodium Level 133 mmol/L (136-145); Troponin-I HS 21 pg/mL (3.0-54.0)
--- NOTE | 2021-09-23 19:29 | EDS_ITS ---
HPI History of Present Illness Chief Complaint: Fever Informant: patient Narrative Narrative: 70-year-old female with a history of non-Hodgkin's lymphoma presents with fever. The patient reportedly has had fevers up to 104 over the past 4 days. notes some diarrhea. Patient denies any pain. She had Covid at the end of August and was hospitalized here. She was receiving immunotherapy up until 6 months ago. states that she was hospitalized at [facility] 2 weeks ago. He states that that hospitalization was for pneumonia. notes that she is more confused than normal. Reportedly home health and Dr. Baugh sent her in. The tells me that she has not been eating over the past couple days and has lost close to [address] [facility] Medical History History of breast cancer HTN (hypertension) Home Medications multivitamin with folic acid 1 tab PO DAILY 05/27/15 [History Last Taken 04/04/18 05:00] aspirin 81 mg PO DAILY@0800 05/15/19 [History Last Taken 05/17/19] atorvastatin 20 mg PO DAILY 05/15/19 [History Last Taken Unknown] metoprolol tartrate 12.5 mg PO BID 05/15/19 [History Last Taken 05/18/19] loperamide 2 mg PO Q2H PRN PRN 3 Days #10 cap 08/27/21 [Rx Last Taken Unknown] potassium chloride [Klor-Con M20] 40 meq PO DAILY 3 Days #6 tab 08/27/21 [Rx Last Taken Unknown] amoxicillin-pot clavulanate 1 tab PO BID 09/23/21 [History Last Taken Unknown] Allergy/AdvReac Type Severity Reaction Status Date / Time No Known Allergies Allergy Verified 08/25/21 08:32 Surgical History Hx of cardiac catheterization S/P colonoscopy S/P mastectomy Social History (Updated 09/23/21 @ 19:[address] Jw Medina DO) Smoking Status: Never smoker substance use type: does not use ROS ROS ED Constitutional Constitutional ED: Reports chills and fever(s); Denies weight loss Eyes Eyes: Denies change in vision or diplopia ENT ENT ED: Denies ear pain, rhinorrhea or sore throat Cardiovascular Cardiovascular: Denies chest pain, orthopnea, palpitations or racing heartbeat Respiratory/Chest Respiratory/Chest: Denies cough, dyspnea or orthopnea Gastrointestinal Gastrointestinal: Reports diarrhea; Denies abdominal pain, nausea or vomiting Genitourinary Genitourinary ED: Denies dysuria, hematuria or urinary frequency Musculoskeletal Musculoskeletal: Denies arthralgias or myalgias Integumentary Denies abscess or rash Neurologic Neurologic: Denies headache(s) or weakness Psychiatric Psychiatric: Denies anxiety, depression, suicidal ideation or suicidal thoughts Endocrine Endocrinology: Denies polydipsia, polyphagia or polyuria Allergic/Immunologic Allergic/Immunologic ED: Denies mouth swelling, tongue swelling or urticaria EXAM Physical Exam Const Vital Signs: 09/23/21 17:57 09/23/21 18:07 09/23/21 19:34 Temperature 99.5 F H Temperature Source Oral Pulse Rate 84 92 Respiratory Rate 18 18 Respiratory Effort Respiratory Pattern Blood Pressure 118/55 L Blood Pressure Mean 76 Pulse Ox 85 94 98 Oxygen Delivery Method Room Air Nasal Cannula Nasal Cannula Oxygen Flow Rate (L/min) 2 2 09/23/21 20:37 09/23/21 20:38 Temperature Temperature Source Pulse Rate 84 Respiratory Rate 22 H Respiratory Effort Normal Respiratory Pattern Normal Blood Pressure Blood Pressure Mean Pulse Ox 96 Oxygen Delivery Method Room Air Oxygen Flow Rate (L/min) Positive well nourished and well developed General Appearance ED: well developed HEENT Reports normocephalic, head/scalp atraumatic, TM's clear and moist mucous membranes Negative for trauma Tympanic Membrane ED: Yes TM's clear Eyes PERRL and EOMs intact bilaterally Neck no lymphadenopathy, supple and no JVD Resp normal respiratory effort and clear to auscultation bilaterally Cardio regular rate, regular rhythm and no murmurs GI normal to inspection, nondistended, normoactive bowel sounds and non-tender Palpation: soft Back/Spine no CVA tenderness and normal ROM Extremity normal to inspection General Extremety ED: Negative for edema General Extremity: Negative for edema Neuro CN's II-XII intact bilaterally Sensorium / Orientation: alert and orientation impaired Motor Exam: strength 5/5 throughout Psych mental status grossly normal Mood & Affect: Negative for depressed or tearful Skin no rashes or lesions noted and no wounds MDM MDM MDM Narrative Medical decision making narrative: White blood cell count returns at 0.9 hemoglobin 8.6 platelets are 153. Lactic acid 1.1. The patient's chest x-ray appears to have bibasilar infiltrates. Similar in pattern to when she had Covid at the end of August. Reportedly she was hospitalized at [facility] 2 weeks ago for pneumonia. I wonder if this could just be Covid changes that have not yet resolved. I wonder this that she is not short of breath hypoxic or coughing. Blood cultures were obtained and the patient received cefepime. Lab Data Attestation: I reviewed the patient's lab results. Labs: Laboratory Results - last 24 hr 09/23/21 09/23/21 09/23/21 18:30 18:30 18:30 WBC 0.9 L* RBC 2.47 L Hgb 8.6 L Hct 25.5 L MCV 103.2 H MCH 34.8 H MCHC 33.7 RDW Std Deviation 46.5 H RDW Coeff of Stevenson 12.5 Plt Count 153 MPV 9.7 Immature Gran % (Auto) 2.300 H Neut % (Auto) 67.0 Lymph % (Auto) 4.5 L [place] % (Auto) 23.9 H Eos % (Auto) 2.3 Baso % (Auto) 0.0 Absolute Neuts (auto) 0.6 L Absolute Lymphs (auto) 0.04 L Nucleated RBC % 0 Differential Comment SCANNED Diff Path Review April foll PT INR APTT Sodium 133 L Potassium 4.4 Chloride 99 Carbon Dioxide 27.0 Anion Gap 7 BUN 11 Creatinine 0.90 Estim Creat Clear Calc 40.81 Est GFR (MDRD) Af Amer 79 Est GFR (MDRD) Non-Af 65 BUN/Creatinine Ratio 12.2 Glucose 120 H Lactic Acid 1.1 Calcium 8.4 L Total Bilirubin 0.30 AST 50 H ALT 38 Alkaline Phosphatase 51 Troponin I High Sens 21 Total Protein 5.7 L Albumin 1.8 L Globulin 3.9 Albumin/Globulin Ratio 0.5 L 09/23/21 19:10 WBC RBC Hgb Hct MCV MCH MCHC RDW Std Deviation RDW Coeff of Stevenson Plt Count MPV Immature Gran % (Auto) Neut % (Auto) Lymph % (Auto) [place] % (Auto) Eos % (Auto) Baso % (Auto) Absolute Neuts (auto) Absolute Lymphs (auto) Nucleated RBC % Differential Comment Diff Path Review PT 13.2 INR 1.1 APTT 35.3 Sodium Potassium Chloride Carbon Dioxide Anion Gap BUN Creatinine Estim Creat Clear Calc Est GFR (MDRD) Af Amer Est GFR (MDRD) Non-Af BUN/Creatinine Ratio Glucose Lactic Acid Calcium Total Bilirubin AST ALT Alkaline Phosphatase Troponin I High Sens Total Protein Albumin Globulin Albumin/Globulin Ratio Radiography Diagnostic Testing: Clinical Impression(s) from Imaging Studies Chest X-Ray 09/23/21 19:55 IMPRESSION: 1. Unfavorable change. Developing bibasilar pulmonary infiltrates, worrisome for pneumonia Electronically Signed: Srinath Cortes MD ([place]) at 20:21 EDT , Service support , Discharge Plan Dx/Rx/DC Orders Clinical Impression: Neutropenic fever Disposition Disposition: Acute Care [facility]
[2021-09-23 19:30] LABS: International Normalized Ratio 1.1; Prothrombin Time (Protime)PT. 13.2 SECONDS (11.7-14.9)
[2021-09-23 19:31] LABS: Partial Thromboplast Time 35.3 Seconds (24.1-36.2)
[2021-09-23 19:52] LABS: Differential Comment SCANNED
--- NOTE | 2021-09-23 19:55 | RAD_ITS ---
STUDY: X-RAY CHEST REASON FOR EXAM: Female, 70 years old. fever TECHNIQUE: AP COMPARISON: 08/25/2021 FINDINGS: Left subclavian chest port stable. Right mastectomy with surgical clips. There are groundglass and reticular opacities of the bilateral lungs particularly in the lung bases with some component of consolidation. No sizable effusion. Normal size heart. Normal mediastinum and ana. Normal visualized pulmonary arteries. Normal visualized aortic arch and descending thoracic aorta. No acute bony process. There is no demonstrated abnormality of the visualized soft tissue structures of the upper abdomen. RAD/Chest 1 View (Portable) IMPRESSION: 1. Unfavorable change. Developing bibasilar pulmonary infiltrates, worrisome for pneumonia Electronically Signed: Srinath Cortes MD ([place]) at 20:21 EDT , Service support ,
--- NOTE | 2021-09-23 20:40 | PCM.HP.STD ---
HPI - General General Date of Admission: 09/23/21 Date of Service: 09/23/21 Chief Complaint: Fevers HPI Narrative The patient is a 70 y/o F w/ PMHx: HTN, HLD, Non-hodgkins lymphoma on immunotherapy following w/ Dr. Paredes until ~ 6 weeks prior held at that time secondary to poor counts, breast CA s/p partial mastectomy, recent discharge 08/27/2021 with treatment for neutropenic fever and acute COVID-19 viral syndrome but at that time never required any oxygen therapy with diarrhea associated with Covid infection resulting in electrolyte imbalances that were corrected who now re-presents to the [facility] ED on 09/23/21 with history of persistent ongoing fatigue, malaise, poor oral intake with approximately 10 pound weight loss, ongoing mild confusion and intermittent diarrhea as well as dry cough and exertional dyspnea despite hospitalization and treatment with repeat admission per family report 2 weeks prior to current presentation at [place] similarly treated. does report that she seems to have decreased sense of taste and smell potentially contributing to poor intake. Patient reports being vaccinated against COVID-19 with a [employer] [facility] vaccination. Work-up in the ED included T 99.5, heart rate 84, BP 118/55, respiratory rate 18, initially 85% on room air with improvement to 94% on 2 L nasal cannula, CBC with WBC 0.9, hemoglobin 8.6, platelet 153 with increased immature granulocytes with neutropenia and lymphopenia present, unremarkable coags, CMP with sodium 133, glucose 120, lactic acid 1.1, AST 50/ALT 38, alk phos 51, high-sensitivity troponin for 21, presumptive negative influenza rapid panel, blood culture x2 pending per ED, chest x-ray with bibasilar pulmonary infiltrates. In the ED patient administered NS, cefepime. FORMERLY [facility], [facility]–1983 Medical History (Updated 09/23/21 @ 22:[address] Stefanie Durant MD) Dementia Former smoker History of breast cancer HTN (hypertension) Home Medications multivitamin with folic acid 1 tab PO DAILY 05/27/15 [History Last Taken 04/04/18 05:00] aspirin 81 mg PO DAILY@0800 05/15/19 [History Last Taken 05/17/19] atorvastatin 20 mg PO DAILY 05/15/19 [History Last Taken Unknown] metoprolol tartrate 12.5 mg PO BID 06/14/19 [History Last Taken 05/18/19] loperamide 2 mg PO Q2H PRN PRN 3 Days #10 cap 08/27/21 [Rx Last Taken Unknown] potassium chloride [Klor-Con M20] 40 meq PO DAILY 3 Days #6 tab 08/27/21 [Rx Last Taken Unknown] amoxicillin-pot clavulanate 1 tab PO BID 09/23/21 [History Last Taken Unknown] Allergy/AdvReac Type Severity Reaction Status Date / Time No Known Allergies Allergy Verified 08/25/21 08:32 Family History (Updated 09/23/21 @ 22:[address] Stefanie Durant MD) Mother Hypertension Father Colon cancer Alzheimer disease Surgical History (Updated 09/23/21 @ 22:[address] Stefanie Durant MD) H/O stapedectomy Hx of cardiac catheterization S/P colonoscopy S/P fine needle aspiration S/P mastectomy Social History (Updated 09/23/21 @ 22:[address] Stefanie Durant MD) household members: spouse Smoking Status: Never smoker alcohol intake: never substance use type: does not use ROS ROS Narrative Admission Review of Systems: CONSTITUTIONAL: + weight loss, fever, chills, weakness or fatigue. HEENT: + [place], sore throat. Eyes: No visual loss, blurred vision, double vision or yellow sclerae. Ears, Nose, Throat: No hearing loss, sneezing. SKIN: No rash or itching, lesions, wounds. CARDIOVASCULAR: No chest pain, chest pressure or chest discomfort, palpitations, edema, orthopnea, syncopal events. RESPIRATORY: + Cough, No shortness of breath, sputum, wheezing, hemoptysis. GASTROINTESTINAL: + Anorexia, diarrhea. No nausea, vomiting, abdominal pain, melena, BRBPR. GENITOURINARY: No dysuria, frequency, urgency or retention. NEUROLOGICAL: + Increased fatigue, malaise, headache, No dizziness, syncope, paralysis, ataxia, numbness or tingling in the extremities, focal weakness, change in bowel or bladder control, seizure. MUSCULOSKELETAL: + muscle, back pain, joint pain or stiffness. HEMATOLOGIC: + anemia, bleeding or bruising. LYMPHATICS: No enlarged nodes. No history of splenectomy. PSYCHIATRIC: No history of depression or anxiety. ENDOCRINOLOGIC: No reports of sweating, cold or heat intolerance. No polyuria or polydipsia. ALLERGIES: No history of asthma, hives, eczema or rhinitis. Vital Signs Vital Signs Vital Signs: 09/23/21 17:57 09/23/21 18:07 09/23/21 19:34 Temperature 99.5 F H Temperature Source Oral Pulse Rate 84 92 Respiratory Rate 18 18 Respiratory Effort Respiratory Pattern Blood Pressure 118/55 L Blood Pressure Mean 76 Pulse Ox 85 94 98 Oxygen Delivery Method Room Air Nasal Cannula Nasal Cannula Oxygen Flow Rate (L/min) 2 2 09/23/21 20:37 09/23/21 20:38 Temperature Temperature Source Pulse Rate 84 Respiratory Rate 22 H Respiratory Effort Normal Respiratory Pattern Normal Blood Pressure Blood Pressure Mean Pulse Ox 96 Oxygen Delivery Method Room Air Oxygen Flow Rate (L/min) Weight Weight: 99 lb 6.4 oz Body Mass Index (BMI) 15.0 Physical Exam Narrative Physical Examination: General: Awake, alert, oriented to self, place and some events, suspect some underlying cognitive impairment from discussion with spouse ongoing, seated upright in the ED bed, anxious. Skin: Normal color, normal turgor, no icterus, no cyanosis. HEENT: AT/NC, EOMI, PERRLA, dry MM, no carotid bruits or JVD noted. Lungs: Diminished, greater bases, mild crackles, no obvious evidence of any distress, no rales, ronchi or wheezing. Heart: Regular rate and rhythm; no gallop, rub audible. Abdomen: Soft, NTTP, ND, mildly hyperactive BS, no HSM. Extremities: No cyanosis, clubbing, or edema. Neurological: Patient awake, alert, oriented as noted, cognitive function decreased from baseline; pupils equally reactive to light and accommodation, cranial nerves II-XII grossly normal, moving all 4 extremities, no focal deficits, strength moderately to severely global decreased. Psychiatric: Affect appears fatigued and anxious, no acute evidence of depressive feelings. Results Lab / Micro Data Result Diagrams: 09/23/21 18:30 09/23/21 18:30 Labs: Laboratory Results - last 24 hr 09/23/21 18:30: WBC 0.9 L*, RBC 2.47 L, Hgb 8.6 L, Hct 25.5 L, MCV 103.2 H, MCH 34.8 H, MCHC 33.7, RDW Std Deviation 46.5 H, RDW Coeff of [place] 12.5, Plt Count 153, MPV 9.7, Immature Gran % (Auto) 2.300 H, Neut % (Auto) 67.0, Lymph % (Auto) 4.5 L, [place] % (Auto) 23.9 H, Eos % (Auto) 2.3, Baso % (Auto) 0.0, Absolute Neuts (auto) 0.6 L, Absolute Lymphs (auto) 0.04 L, Nucleated RBC % 0, Differential Comment SCANNED, Diff Path Review April09/23/21 18:30: Sodium 133 L, Potassium 4.4, Chloride 99, Carbon Dioxide 27.0, Anion Gap 7, BUN 11, Creatinine 0.90, Estim Creat Clear Calc 40.81, Est GFR (MDRD) Af Amer 79, Est GFR (MDRD) Non-Af 65, BUN/Creatinine Ratio 12.2, Glucose 120 H, Calcium 8.4 L, Total Bilirubin 0.30, AST 50 H, ALT 38, Alkaline Phosphatase 51, Troponin I High Sens 21, Total Protein 5.7 L, Albumin 1.8 L, Globulin 3.9, Albumin/Globulin Ratio 0.5 L 09/23/21 18:30: Lactic Acid 1.1 09/23/21 19:10: PT 13.2, INR 1.1, APTT 35.3 Micro: Microbiology 09/23/21 19:16 Mucosa - Nasopharyngeal Influenza Types A,B Direct FA (MERLENE) - Final Radiology Impression Chest X-Ray 09/23/21 19:55 IMPRESSION: 1. Unfavorable change. Developing bibasilar pulmonary infiltrates, worrisome for pneumonia Electronically Signed: Srinath Cortes MD ([place]) at 20:21 EDT , Service support , Assessment & Plan Assessment/Plan (1) Pneumonia due to COVID-19 virus: (2) Hypoxia: PLAN: The patient is a 70 y/o F w/ PMHx: HTN, HLD, Non-hodgkins lymphoma on immunotherapy following rubi/ Dr. Paredes until ~ 6 weeks prior held at that time secondary to poor counts, breast CA s/p partial mastectomy, recent discharge 08/27/2021 with treatment for neutropenic fever and acute COVID-19 viral syndrome but at that time never required any oxygen therapy with diarrhea associated with Covid infection resulting in electrolyte imbalances that were corrected who now re-presents to the [facility] ED on 09/23/21 with history of persistent ongoing fatigue, malaise, poor oral intake with approximately 10 pound weight loss, ongoing mild confusion and intermittent diarrhea as well as dry cough and exertional dyspnea despite hospitalization and treatment with repeat admission per family report 2 weeks prior to current presentation at [place] similarly treated. 1. Acute Hypoxia secondary to Acute Bilateral Pneumonia secondary to Acute Viral Syndrome, COVID-19 with Acute Pancytopenia/Neutropenia with Fever, Possible Superimposed bacterial infection: Will admit to the [facility], already completed quarantine since initial onset symptoms, will maintain on oxygen with wean as tolerated to room air, PRN albuterol, HOB, IS parameters w/ pending sputum cultures, respiratory viral panel and urine antigens, will obtain D-dimer, procalcitonin, CRP, CPK, Ferritin, LDH and BNP, continue supportive care including q 2 hour turning including prone given no prone bed availability and judicious hydration, closely monitor for worsening status for ARDS and multiorgan failure, given hypoxia will initiate and continue IV decadron x 10 doses given hypoxia, will start on abx therapy including Vanc and Zosyn pending further work-up although higher suspicion potentially advancing COVID infection. Given timeline patient is not remdesivir candidate. Will request ID consultation per discussion with family. PT/OT/CM consultation. Given intermittent diarrhea ED physician did initiate request for C. difficile, enteric pathogen and ova and parasites. Blood culture x2 pending per ED. 2. Severe protein calorie malnutrition: Evidenced by reduced BMI, poor oral intake, recent extensive weight loss likely secondary to underlying lymphoma and complicated by recent Covid infection with decreased sense of taste and smell, will request nutrition consultation and add supplementations per their discretion. 3. Non-Hodgkin's lymphoma with acute on chronic pancytopenia: Patient with previously ongoing immunotherapy following with Dr. Ann however they discontinued this approximately 6 weeks prior secondary to worsening lab values, specifically pancytopenia, magnesium and phosphorus levels requested, if necessary may consider oncology involvement. Will trend CBC. 4. History of breast cancer: Status post prior partial mastectomy, considered in remission, encourage continued follow-up with oncology. 5. Hypertension: Continue home regimen including metoprolol with hold parameters, PRN hydralazine. 6. Hyperlipidemia: We will continue patient on statin therapy. 7. DVT prophylaxis: SCDs, Lovenox. 8. CODE status: Patient HCPOA is her who is present and living will is currently in place. Discussed CODE status at length including difference between FULL code, DNR-CCA and DNR-CC status. Following discussions about the differences in these status, requested DNR-CCA, no intubation status. Advanced Care Planning Face to Face Time: 16 minutes. Charges/Coding Visit Charges Inpatient E&M: 73910 Init Hosp L3 Procedures Hospitalists Procedures: 83324 Advncd Care Plan 30 Min
[2021-09-23 20:45] LABS: Bacteria 0 SEEN /hpf (None Seen); Mucous, Urine 0 SEEN /hpf (<or=2+); Red Blood Cells-Urine 0 SEEN /hpf (0-5); Squamous Epithelial Cells - UA 0 SEEN /hpf (5-10); White Blood Cells 0 SEEN /hpf (0-5)
[2021-09-23 20:58] LABS: Color, Urine Yellow (Yellow); Glucose, Dipstick Normal (Normal); Ketone-Dipstick Negative (Negative); Leukocyte Esterase-Dipstick Negative /ul (Negative); Nitrite-Dipstick Negative (Negative); Occult Blood-Urine Negative /ul (Negative); Protein-Dipstick Negative (Negative); Specific Gravity, Urine 1.005 (1.002-1.030); Urine Bilirubin Dipstick Negative (Negative); Urine Clarity Clear (Clear); Urine Urobilinogen Normal (Normal)
--- NOTE | 2021-09-23 21:30 | PCS.PANDOC ---
PANDEMIC DOCUMENTATION INITIATED: Date: 07/17/2021 Time: 1900 Emergency documentation initiated 09/23/21 @ 2131
[2021-09-23 22:12] LABS: BNP,B-Type NATRIURETIC PEPTIDE 69.3 pg/mL (0-100)
[2021-09-23 22:18] LABS: D-Dimer Quantitative (DVT/PE) 4.82 FEU/ug/m (0.27-0.49)
[2021-09-23 22:28] LABS: Ferritin 2810 ng/mL (8-252); LDH 341 U/L (84-246); Magnesium 1.7 mg/dL (1.6-2.6); Phosphorus 2.7 mg/dL (2.5-4.9)
[2021-09-23] MEDS: 0.9% Normal Saline 1,000 ML 100 ML IV (22:30)
[2021-09-23] MEDS: Famotidine 20 MG Tablet PO (22:31)
[2021-09-23] MEDS: Metoprolol Tartrate 25 MG Tablet 12.5 MG PO (22:31)
--- NOTE | 2021-09-23 22:36 | CT_ITS ---
STUDY: CTA CHEST REASON FOR EXAM: Female, 70 years old. suspect PE RADIATION DOSAGE (If Supplied By Facility): CTDIvol = ( 9.85 ) mGy, DLP = ( 210.96 ) mGycm TECHNIQUE: The examination was performed with the intravenous administration of IV 75mL Isovue-370. Post-processing of the angiographic images was performed, with multiplanar reformation and 3D reconstruction. Individualized dose optimization techniques were used for this CT. COMPARISON: Chest x-ray from earlier today FINDINGS: Left chest port. Normal enhancement of the main pulmonary artery and right and left pulmonary arteries. Normal enhancement of the bilateral peripheral pulmonary arteries. There is no demonstrated pulmonary embolism. Normal thoracic aorta and visualized great vessels. There is no demonstrated aortic dissection. Stable cardiomegaly. Normal mediastinum. Normal hilar regions. Central, cylindrical bronchiectasis. The lungs are well expanded. Peribronchial thickening and peribronchial consolidation involving the bilateral lower lobes with patchy groundglass opacities and interstitial thickening of the left more than right upper lobes. Normal pleura. Normal chest wall structures. There are degenerative changes of thoracic spine. Pectus excavatum. Normal visualized upper abdomen. CT/CTA Chest W/WO Contrast IMPRESSION: 1. No central or segmental pulmonary embolism. 2. Multilobar infiltrates suggesting pneumonia including viral causes. Probable component of atelectasis in the lung bases. Electronically Signed: Srinath Cortes MD ([place]) at 23:24 EDT , Service support ,
--- NOTE | 2021-09-23 22:53 | PCM.RX.CS ---
Consult Pharmacy has been consulted to manage selected antiobiotic: Vancomycin Type of Consult: New start Suspected Infection: Pneumonia Labs: Sodium 133 mmol/L (136-145) L 09/23/21 18:30 Potassium 4.4 mmol/L (3.5-5.1) 09/23/21 18:30 Chloride 99 mmol/L (98-107) 09/23/21 18:30 Carbon Dioxide 27.0 mmol/L (21.0-32.0) 09/23/21 18:30 Anion Gap 7 (5-15) 09/23/21 18:30 BUN 11 mg/dL (7-18) 09/23/21 18:30 Creatinine 0.90 mg/dL (0.55-1.02) 09/23/21 18:30 Est GFR (MDRD) Af Amer 79 mL/min (>60) 09/23/21 18:30 Est GFR (MDRD) Non-Af 65 mL/min (>60) 09/23/21 18:30 BUN/Creatinine Ratio 12.2 RATIO (10-20) 09/23/21 18:30 Glucose 120 mg/dL (74-106) H 09/23/21 18:30 Microbiology: Microbiology 09/23/21 19:16 Mucosa - Nasopharyngeal Influenza Types A,B Direct FA (MERLENE) - Final Weight used for dosin.5 kg Estimated Creatinine Clearance: 46.6 Goal Trough: 15-20 mcg/mL Pharmacy Plan for Drug Dosing: Pharmacy Service will continue to monitor and adjust dosing as required. Medications Vancomycin HCl 1,250 mg/ (Sodium Chloride) 275 mls @ 167 mls/hr IV X1 ONE Stop: 09/23/21 23:38 Last Admin: 09/23/21 22:35 Dose: 167 mls/hr Documented by: Vancomycin HCl (Vancomycin) 1,000 mg in 200 mls @ 200 mls/hr IV Q24H MAURI Follow-Up Labs: Trough Vancomycin Labs to be done on [date and time ordered]: 09/25 @ 2200
[2021-09-24] VITALS (17 sets, daily range): BP systolic 100–135; BP diastolic 62–84; PULSE 74–162; RESP 15–16; TEMP 36.6–39.6; O2SAT 93–96
[2021-09-24 03:00] LABS: Absolute Neutrophil Count 0.5 X10^3/uL (2.0-7.7); Eosinophil# 0.01 X10^3/uL; Eosinophils% 1.3 % (0-5); Hematocrit 22.7 % (37-47); Hemoglobin 7.6 g/dL (12.0-15.0); Mean Corp Hgb Conc 33.5 g/dL (32-36); Mean Corpuscular Hgb 35.2 pg (27.0-32.0); Mean Corpuscular Volume 105.1 fL (81-99); Mean Platelet Vol. 9.9 fl (6.2-12.0); Monocyte# 0.17 X10^3/uL; Monocyte% 22.1 % (0-10); NRBC Flagged by Analyzer 0 % (0-5); Neutrophil # 0.47 X10^3/uL (2.7-7.7); POSITIVE COUNT YES; POSITIVE DIFFERENTIAL YES; POSITIVE MORPHOLOGY YES; Platelet Count 133 K/mm3 (150-450); RBC Distribution Width CV 12.8 % (11.6-14.6); RBC Distribution Width SD 48.6 fl (35.1-43.9); Red Blood Count 2.16 M/mm3 (4.2-5.4)
[2021-09-24] MEDS: Acetaminophen 325 MG Tablet 650 MG PO (03:01)
[2021-09-24 03:19] LABS: Differential Indicated SCAN CRITERIA MET; White Blood Count 0.8 K/mm3 (4.4-11.0)
[2021-09-24 03:35] LABS: Procalcitonin 1.05 ng/mL (0.00-0.09)
[2021-09-24 03:51] LABS: ALB/GLOB Ratio 0.4 RATIO (0.9-2.4); AST(SGOT) 42 U/L (15-37); Alanine Aminotransfer ALT/SGPT 31 U/L (13-56); Albumin, Serum 1.6 g/dL (3.2-5.0); Alkaline Phosphatase 45 U/L (45-117); Anion Gap 7 (5-15); BUN 9 mg/dL (7-18); BUN/Creat Ratio 11.3 RATIO (10-20); Calcium,Total 7.9 mg/dL (8.5-10.1); Chloride 101 mmol/L (98-107); EST Glomerular Filtration Rate 75 mL/min (>60); Est Glom Filt Rate - Afr Amer 91 mL/min (>60); Estimated Creatinine Clearance 52.45 ml/min; Globulin 3.7 g/dL (2.2-4.2); Glucose 103 mg/dL (74-106); Protein, Total 5.3 g/dL (6.4-8.2); Sodium Level 134 mmol/L (136-145)
[2021-09-24 06:38] LABS: Anisocytosis 1+; Differential Comment SCANNED; Hypochromasia 1+; Macrocytosis 1+; Ovalocyte RARE
[2021-09-24] MEDS: Multivitamins,Therapeutic Tablet 1 TABLET PO (08:25)
--- NOTE | 2021-09-24 08:59 | CT_ITS ---
STUDY: CT BRAIN WITH AND WITHOUT CONTRAST REASON FOR EXAM: Female, 70 years old. confusion RADIATION DOSAGE (If Supplied By Facility): CTDIvol = ( 44.99 ) mGy, DLP = ( 1513.48 ) mGycm TECHNIQUE: Transaxial CT imaging of the brain was performed pre and post contrast administration. The examination was performed with intravenous administration of IV 50mL Isovue-370. Individualized dose optimization techniques were used for this CT. COMPARISON: None. FINDINGS: Normal soft tissue structures. Normal calvarium. There is mild cerebral atrophy with widening of the extra-axial spaces and ventricular dilatation. Normal white matter tracts of the cerebral hemispheres. Normal basal ganglia and thalami. Normal brainstem. Normal cerebellum. There is no intracranial hemorrhage. There are no findings of an acute ischemic infarction. Normal visualized paranasal sinuses. CT/Brain/Head W/WO Contrast IMPRESSION: Chronic involutional changes of the brain. Electronically Signed: Tom Thao MD at 12:07 EDT Tel , Service support ,
[2021-09-24 09:07] LABS: M R Staph aureus DNA By PCR Negative (Negative); Probe Check PASS; Specimen Processing Control PASS
[2021-09-24] MEDS: LORazepam 2 MG/ML Syringe 1 MG IV (09:55)
[2021-09-24] MEDS: Famotidine 20 MG Tablet PO ×2 (10:41→22:32)
[2021-09-24] MEDS: Metoprolol Tartrate 25 MG Tablet 12.5 MG PO (10:41)
[2021-09-24] MEDS: Potassium Chloride Oral Tablet 20 MEQ 40 MEQ PO (10:41)
[2021-09-24] MEDS: Enoxaparin 30 MG/0.3 ML Syringe SC (10:43)
[2021-09-24] MEDS: dexAMETHasone 4 MG/ML Vial 6 MG IV (11:16)
[2021-09-24] MEDS: 0.9% Normal Saline 1,000 ML 100 ML IV ×2 (11:16→20:56)
--- NOTE | 2021-09-24 15:48 | PN.HOSP_ITS ---
Subjective Subjective Patient seen and examined. She was admitted with a complaint of fever. SHe is being managed for pneumonia, thought to be a superimposed bacterial infection in the setting of recent covid 19 infection in August 2021. Patient seen this morning. SHe was very paranoid and kept asking who I was. I informed her I was the internal medicine doctor who would be taking care of her. She kept saying she only wanted to talk to her . She had no active complaints and denied any fever chills, cough, chest pain, palpitations, dizziness, nausea or vomiting. Review of systems is otherwise negative. Objective Data Objective Data Vital Signs: Vital Signs Temp Pulse Resp BP Pulse Ox 98.6 F 92 15 113/62 95 09/24/21 14:24 09/24/21 14:24 09/24/21 14:24 09/24/21 14:24 09/24/21 14:24 Oxygen Flow Rate (L/min) 2 Oxygen Delivery Method Room Air Weight: 114 lb 15.996 oz Body Mass Index (BMI) 17.2 Intake & Output: Intake and Output for Last 24 Hours 09/22/21 09/23/21 09/24/21 23:59 23:59 23:59 Intake Total 1100 / 1100 1615 / 1615 Output Total 350 / 350 Balance 1100 / 750 1265 / 1265 Lab / Micro Data Result Diagrams: 09/24/21 02:37 09/24/21 02:37 Labs: Laboratory Results - last 24 hr 09/23/21 18:30: WBC 0.9 L*, RBC 2.47 L, Hgb 8.6 L, Hct 25.5 L, MCV 103.2 H, MCH 34.8 H, MCHC 33.7, RDW Std Deviation 46.5 H, RDW Coeff of Stevenson 12.5, Plt Count 153, MPV 9.7, Immature Gran % (Auto) 2.300 H, Neut % (Auto) 67.0, Lymph % (Auto) 4.5 L, Bollinger % (Auto) 23.9 H, Eos % (Auto) 2.3, Baso % (Auto) 0.0, Absolute Neuts (auto) 0.6 L, Absolute Lymphs (auto) 0.04 L, Nucleated RBC % 0, Differential Comment SCANNED, Diff Path Review April09/23/21 18:30: Sodium 133 L, Potassium 4.4, Chloride 99, Carbon Dioxide 27.0, Anion Gap 7, BUN 11, Creatinine 0.90, Estim Creat Clear Calc 40.81, Est GFR (MDRD) Af Amer 79, Est GFR (MDRD) Non-Af 65, BUN/Creatinine Ratio 12.2, Glucose 120 H, Calcium 8.4 L, Total Bilirubin 0.30, AST 50 H, ALT 38, Alkaline Phosphatase 51, Troponin I High Sens 21, Total Protein 5.7 L, Albumin 1.8 L, Globulin 3.9, Albumin/Globulin Ratio 0.5 L 09/23/21 18:30: Lactic Acid 1.1 09/23/21 18:30: D-Dimer Quant (PE/DVT) 4.82 H* 09/23/21 18:30: Phosphorus 2.7, Magnesium 1.7, Ferritin 2810 H, Lactate De hydrogenase 341 H, C-React Prot Ext Range 38.10 H 09/23/21 18:30: B-Natriuretic Peptide 69.3 09/23/21 19:10: PT 13.2, INR 1.1, APTT 35.3 09/23/21 20:40: Urine Color Yellow, Urine Clarity Clear, Urine pH 7.0, Ur Specific [place] 1.005, Urine Protein Negative, Urine Glucose (UA) Normal, Urine Ketones Negative, Urine Occult Blood Negative, Urine Nitrite Negative, Urine Bilirubin Negative, Urine Urobilinogen Normal, Ur Leukocyte Esterase Negative, Urine RBC 0 SEEN, Urine WBC 0 SEEN, Ur Squamous Epith Cells 0 SEEN, Urine Bacteria 0 SEEN, Urine Mucus 0 SEEN 09/23/21 23:20: MRSA (PCR) Negative 09/24/21 02:37: Procalcitonin 1.05 H 09/24/21 02:37: WBC 0.8 L*, RBC 2.16 L, Hgb 7.6 L, Hct 22.7 L, MCV 105.1 H, MCH 35.2 H, MCHC 33.5, RDW Std Deviation 48.6 H, RDW Coeff of Stevenson 12.8, Plt Count 133 L, MPV 9.9, Immature Gran % (Auto) 2.600 H, Neut % (Auto) 61.0, Lymph % (Auto) 13.0 L, Bollinger % (Auto) 22.1 H, Eos % (Auto) 1.3, Baso % (Auto) 0.0, A bsolute Neuts (auto) 0.5 L, Absolute Lymphs (auto) 0.10 L, Nucleated RBC % 0, Differential Comment SCANNED, Diff Path Review May foll, Hypochromasia 1+, Anisocytosis 1+, Macrocytosis 1+, Ovalocytes RARE 09/24/21 02:37: Sodium 134 L, Potassium 4.0, Chloride 101, Carbon Dioxide 26.0, Anion Gap 7, BUN 9, Creatinine 0.80, Estim Creat Clear Calc 52.45, Est GFR (MDRD) Af Amer 91, Est GFR (MDRD) Non-Af 75, BUN/Creatinine Ratio 11.3, Glucose 103, Calcium 7.9 L, Total Bilirubin 0.30, AST 42 H, ALT 31, Alkaline Phosphatase 45, Total Protein 5.3 L, Albumin 1.6 L, Globulin 3.7, Albumin/Globulin Ratio 0.4 L Micro: Microbiology 09/23/21 20:40 Urine Catheter - Catheter Urine Culture - Preliminary Culture exhibits no growth. 09/23/21 22:40 Mucosa - Nasopharyngeal Respiratory Panel (PCR) - Final 09/23/21 20:40 Urine Catheter - Catheter Legionella Antigen - Final 09/23/21 20:40 Urine Catheter - Catheter Streptococcus pneumoniae Antigen (M - Final 09/23/21 19:16 Mucosa - Nasopharyngeal Influenza Types A,B Direct FA (MERLENE) - Final Radiography Diagnostic Testing: Radiology Impression Chest X-Ray 09/23/21 19:55 IMPRESSION: 1. Unfavorable change. Developing bibasilar pulmonary infiltrates, worrisome for pneumonia Electronically Signed: Srinath Cortes MD ([place]) at 20:21 EDT , Service support , Chest CTA 09/23/21 22:36 IMPRESSION: 1. No central or segmental pulmonary embolism. 2. Multilobar infiltrates suggesting pneumonia including viral causes. Probable component of atelectasis in the lung bases. Electronically Signed: Srinath Cortes MD (Bro[facility]) at 23:24 EDT , Service support , Brain CT 09/24/21 08:59 IMPRESSION: Chronic involutional changes of the brain. Electronically Signed: Tom Thao MD at 12:07 EDT Tel , Service support , Physical Exam Const alert and no apparent distress Constitutional Narrative: confused, very suspicious Exam Limitations: altered mental status Nutritional Appearance: cachectic HEENT head/scalp atraumatic and moist oral mucous membranes Head and Scalp: normocephalic Eyes PERRL, EOMs intact bilaterally and conjunctivae normal Neck no lymphadenopathy Resp normal respiratory effort, no retractions, no use of accessory muscles and clear to auscultation bilaterally Cardio regular rate, regular rhythm, S1 normal heart sound and S2 normal heart sound Cardio Narrative: grade 2-3 systolic murmur loudest in the aortic region. GI normal to inspection, nondistended, normoactive bowel sounds, soft to palpation, non-tender and non-distended Extremity normal to inspection, full ROM and no clubbing, cyanosis or edema Peripheral Pulses: Yes pulses 2+ throughout Skin no rashes or lesions noted Neuro oriented x3 Sensorium / Orientation: awake and alert Psych Psych Narrative: anxious, paranoid Assessment & Plan Assessment/Plan (1) Atypical chest pain: (2) Pneumonia due to COVID-19 virus: (3) Hypoxia: PLAN: #Febrile neutropenia due to possible pneumonia * was hypoxic on admission; patient on room air now * she was diagnosed with covid back in August 2021; she tested positive on August. * patient was only briefly saturatiung at 85% once when she came in, and has been on room air ever since. * CTA of the chest was negative for PE, and showed multilobar infiltrates suggesting pneumonia and probable component of atelectasis * in light of patient's leucopenia, I agree with starting her on vancomycin and zosyn. However, I will dc the decadron * she did have a fever with a peak of 103.2F * blood cultures pending. * will consult ID * #Non Hodgkin's lymphoma * has acute on chronic pancytopenia * was previously on immunotherapy, which was stopped 6 months ago er oncology. * to follow up with oncology on outpatient basis * #Acute metabolic encephalopathy * patient very paranoid and suspicious. No focal neurological deficit * CT brain ordered today showed n acute intracranial pathology * #Acute on chronic anemia * Hb is 7.6; was 7.6 on admission * likely due to NHL. * transfuse if Hb <7 * #Hypertension: on metoprolol. IV hydralazine prn #Hyperlipidemia: on statin #Severe protein calorie malnutrition: * BMI is only 17.5. * She has apparently lost 10 pounds over the last few weeks. Dietitian consulted. * DVT prophylaxis: lovenox Charges/Coding Visit Charges Inpatient E&M: 12331 Subs Hosp L3
[2021-09-24] MEDS: Vancomycin IV 1,000 MG/200 ML BAG 200 MG IV (21:55)
[2021-09-24] MEDS: Atorvastatin Calcium 20 MG Tablet PO (22:32)
[2021-09-24] MEDS: Metoprolol Tartrate 25 MG Tablet PO (22:32)
[2021-09-25] VITALS (17 sets, daily range): BP systolic 119–143; BP diastolic 67–84; PULSE 58–90; RESP 16–18; TEMP 36.4–39.4; O2SAT 94–100
--- NOTE | 2021-09-25 05:55 | ECHOD_ITS ---
Reason For Study: Arryhthmia Procedure This was a 2D Doppler, Color Flow transthoracic echocardiogram. Exam performed portable in patient room. Left Ventricle Normal LV size. Left ventricular systolic function is normal. The estimated ejection fraction is 60 %. Stage 1 diastolic dysfunction. No regional wall motion abnormalities noted. Right Ventricle Normal RV size. Normal systolic function. Atria Normal left atrium. Normal right atrium. Mitral Valve Normal mitral valve. Tricuspid Valve Normal tricuspid valve. Mild tricuspid valve insufficiency. Pulmonary artery systolic pressure is 25 mmHg. Aortic Valve Normal aortic valve. Trisinus/trileaflet aortic valve. Pulmonic Valve Normal pulmonic valve. Great Vessels Normal aortic root. The pulmonary artery is normal size. Normal inferior vena cava. Pericardium/Pleural No pericardial effusion. MMode/2D Measurements & Calculations LVIDd: 3.8 cm IVSd: 0.92 cm Ao root diam: 3.2 cm LVIDs: 2.7 cm LVPWd: 0.81 cm RVDd: 2.7 cm FS: 28.1 % LAV(MOD-bp): 12.8 ml LVAd ap4: 19.4 cm2 SV(MOD-sp4): 26.8 ml LAV(MOD-bp) Indexed: 7.9 ml/m2 LVLd ap4: 6.8 cm LAV(MOD-sp2): 12.9 ml EDV(MOD-sp4): 46.3 ml LAV(MOD-sp4): 11.2 ml EDV(sp4-el): 47.4 ml LVAs ap4: 11.7 cm2 LVLs ap4: 6.3 cm ESV(MOD-sp4): 19.5 ml ESV(sp4-el): 18.5 ml EF(MOD-sp4): 57.9 % EF(sp4-el): 60.9 % SV(sp4-el): 28.9 ml LA A4 area: 7.6 cm2 LA dimension(2D): 2.6 cm RA A4 area: 13.5 cm2 Doppler Measurements & Calculations MV E max ramana: 58.9 cm/sec Lat Peak E' Ramana: 9.4 cm/sec Med Peak E' Ramana: 7.9 cm/sec MV A max ramana: 64.5 cm/sec E/E' lat: 6.3 E/E' med: 7.5 MV E/A: 0.91 Ao V2 max: 138.2 cm/sec LV V1 max: 112.5 cm/sec PA V2 max: 95.3 cm/sec Ao max P.6 mmHg LV V1 max P.1 mmHg Ao V2 mean: 98.2 cm/sec Ao mean P.2 mmHg Ao V2 VTI: 23.2 cm PI end-d ramana: 108.8 cm/sec TR max ramana: 233.5 cm/sec TR max P.8 mmHg ECHO/Echo Complete Interpretation Summary Normal LV size. Left ventricular systolic function is normal. The estimated ejection fraction is 60 %. Stage 1 diastolic dysfunction. Ordering Physician: Xochilt Christianson Referring Physician: Mitra Lackey Performed By: Cait Holly, ARLIN, RVT
[2021-09-25] MEDS: 0.9% Normal Saline 1,000 ML 100 ML IV (06:26)
[2021-09-25 07:00] LABS: Absolute Lymphocyte Count 0.05 X10^3/uL (0.83-4.51); Absolute Neutrophil Count 0.8 X10^3/uL (2.0-7.7); Hematocrit 22.2 % (37-47); Hemoglobin 7.3 g/dL (12.0-15.0); Lymphocyte # 0.05 X10^3/ul (0.83-4.51); Lymphocyte % 4.2 % (19-41); Mean Corp Hgb Conc 32.9 g/dL (32-36); Mean Corpuscular Volume 103.3 fL (81-99); Mean Platelet Vol. 9.9 fl (6.2-12.0); Monocyte# 0.28 X10^3/uL; Monocyte% 23.5 % (0-10); NRBC Flagged by Analyzer 0 % (0-5); Neutrophil % 67.3 % (47-70); POSITIVE COUNT YES; POSITIVE DIFFERENTIAL YES; POSITIVE MORPHOLOGY YES; Platelet Count 140 K/mm3 (150-450); RBC Distribution Width CV 12.7 % (11.6-14.6); RBC Distribution Width SD 47.4 fl (35.1-43.9); Red Blood Count 2.15 M/mm3 (4.2-5.4)
[2021-09-25 07:19] LABS: Anion Gap 6 (5-15); BUN 10 mg/dL (7-18); BUN/Creat Ratio 12.9 RATIO (10-20); Calcium,Total 7.5 mg/dL (8.5-10.1); Chloride 105 mmol/L (98-107); Creatinine, Serum 0.78 mg/dL (0.55-1.02); EST Glomerular Filtration Rate 77 mL/min (>60); Est Glom Filt Rate - Afr Amer 94 mL/min (>60); Estimated Creatinine Clearance 42.49 ml/min; Glucose 138 mg/dL (74-106); Potassium 3.3 mmol/L (3.5-5.1); Sodium Level 136 mmol/L (136-145)
[2021-09-25 07:28] LABS: Differential Indicated SCAN CRITERIA MET; White Blood Count 1.2 K/mm3 (4.4-11.0)
[2021-09-25 07:29] LABS: Platelet Estimate ADEQUATE (ADEQ)
[2021-09-25 07:30] LABS: Acanthocytes 1+; Hypochromasia 1+; Macrocytosis 1+; Ovalocyte 2+; Polychromasia RARE; Schistocytes RARE; Tear Drop Cell 1+
[2021-09-25] MEDS: Aspirin 81 MG TAB.CHEW PO (09:41)
[2021-09-25] MEDS: Potassium Chloride Oral Tablet 20 MEQ 40 MEQ PO (09:41)
[2021-09-25] MEDS: Multivitamins,Therapeutic Tablet 1 TABLET PO (09:41)
[2021-09-25] MEDS: Metoprolol Tartrate 25 MG Tablet PO ×2 (09:42→22:03)
[2021-09-25] MEDS: Famotidine 20 MG Tablet PO (09:43)
--- NOTE | 2021-09-25 10:08 | CASEMGMT ---
SW called in regard to how pt has been managing at home and anticipated discharge plan. message left, SW will speak w/ he calls back or should come in to visit patient. ELLE Tirado
--- NOTE | 2021-09-25 10:33 | CASEMGMT ---
Addendum entered by Naz Harris 09/25/21 14:17: Francisca from [facility] requested additional information including cultures and respiratory panel. SW faxed this information. ELLE Tirado Addendum entered by Naz Harris 09/25/21 12:18: SW spoke w/ again, he would like a referral sent to 1. [facility] and 2. [facility]. SW explained [facility] may not be an option as they will likely want 2 negative COVID tests, and pt had COVID a month ago so may still test positive. SW explained will start with a referral to [facility]. states understanding. SW called [facility], spoke w/Brianna, she states they do have beds and would consider pt given she had COVID a month ago. SW faxed referral, will continue to follow. ELLE Tirado Original Note: SW met w/pt's outside of room, in regard to prior level of function and anticipated discharge plan. As per , since the last time pt was here, pt has needed assist with all ADLs. At times she can get to the restroom on her own, otherwise assists. states pt did not go home on oxygen, still not using DME. He states at times, depending on how she is moving, he stands close to her when she gets up. He states she has been having fevers intermittently, he thinks due to the COVID. He states her confusion comes and goes. SW asked how he is managing, states he I just go with the flow, though does state is very tired. SW spoke w/ about pt going somewhere for rehab at discharge. SW provided list of longterm facilities in the area, that take pt's insurance, complete with quality and resource use data. Pt's states he has considered this, is not certain what to do. SW will check in w/ again to see if he would like SW to make a referral. Plan: SNF anticipated, SW to send referral once decides where he would like referral sent. ELLE Tirado
--- NOTE | 2021-09-25 10:43 | NURSING ---
BLOOD TEACHING/CONSENT OBTAINED FROM SPOUSE AND PLACED IN CHART.
--- NOTE | 2021-09-25 12:14 | PN.HOSP_ITS ---
Subjective Subjective Patient seen and examined. Patient was calmer today. She had no active complaints. She Just kept saying she wanted to go home. Hemoglobin has dropped to 7.3 and nurse tells me the patient was noted to be having dark stools. Review of symptoms otherwise negative. She denies any abdominal pain. Vitals have remained stable. Objective Data Objective Data Vital Signs: Vital Signs Temp Pulse Resp BP Pulse Ox 97.6 F L 81 16 122/69 H 94 09/25/21 08:05 09/25/21 11:54 09/25/21 08:05 09/25/21 09:42 09/25/21 07:21 Oxygen Flow Rate (L/min) 2 Oxygen Delivery Method Room Air Weight: 114 lb 15.996 oz Body Mass Index (BMI) 17.2 Intake & Output: Intake and Output for Last 24 Hours 09/23/21 09/24/21 09/25/21 23:59 23:59 23:59 Intake Total 1100 / 1100 3281.67 / 3531.67 1400 / 1400 Output Total 350 / 350 300 / 300 Balance 1100 / 750 2931.67 / 3181.67 1100 / 1100 Lab / Micro Data Result Diagrams: 09/25/21 04:50 09/25/21 04:50 Labs: Laboratory Results - last 24 hr 09/25/21 04:50: WBC 1.2 L*, RBC 2.15 L, Hgb 7.3 L, Hct 22.2 L, MCV 103.3 H, MCH 34.0 H, MCHC 32.9, RDW Std Deviation 47.4 H, RDW Coeff of Stevenson 12.7, Plt Count 1 40 L, MPV 9.9, Immature Gran % (Auto) 5.000 H, Neut % (Auto) 67.3, Lymph % (Auto) 4.2 L, Casey % (Auto) 23.5 H, Eos % (Auto) 0.0, Baso % (Auto) 0.0, Absolute Neuts (auto) 0.8 L, Absolute Lymphs (auto) 0.05 L, Nucleated RBC % 0, Diff Path Review April, Platelet Estimate ADEQUATE, Polychromasia RARE, Hypochromasia 1+, Macrocytosis 1+, Tear Drop Cells 1+, Ovalocytes 2+, Ac anthocytes (Spur) 1+, Schistocytes RARE 09/25/21 04:50: Sodium 136, Potassium 3.3 L, Chloride 105, Carbon Dioxide 25.0, Anion Gap 6, BUN 10, Creatinine 0.78, Estim Creat Clear Calc 42.49, Est GFR (MDRD) Af Amer 94, Est GFR (MDRD) Non-Af 77, BUN/Creatinine Ratio 12.9, Glucose 138 H, Calcium 7.5 L Micro: Microbiology 09/23/21 20:40 Urine Catheter - Catheter Urine Culture - Preliminary Culture exhibits no growth. 09/23/21 22:40 Mucosa - Nasopharyngeal Respiratory Panel (PCR) - Final 09/23/21 20:40 Urine Catheter - Catheter Legionella Antigen - Final 09/23/21 20:40 Urine Catheter - Catheter Streptococcus pneumoniae Antigen (M - Final 09/23/21 19:16 Mucosa - Nasopharyngeal Influenza Types A,B Direct FA (MERLENE) - Final Physical Exam Const alert and no apparent distress Constitutional Narrative: confused, Exam Limitations: altered mental status Nutritional Appearance: cachectic HEENT head/scalp atraumatic and moist oral mucous membranes Eyes PERRL, EOMs intact bilaterally and conjunctivae normal Neck no lymphadenopathy Resp normal respiratory effort, no retractions, no use of accessory muscles and clear to auscultation bilaterally Cardio regular rate, regular rhythm, S1 normal heart sound and S2 normal heart sound Cardio Narrative: grade 2-3 systolic murmur loudest in the aortic region. GI normal to inspection, nondistended, normoactive bowel sounds, soft to palpation, non-tender and non-distended Extremity normal to inspection, full ROM and no clubbing, cyanosis or edema Skin no rashes or lesions noted Neuro oriented x3 Sensorium / Orientation: awake and alert Psych Psych Narrative: anxious Assessment & Plan Assessment/Plan (1) Atypical chest pain: (2) Pneumonia due to COVID-19 virus: (3) Hypoxia: PLAN: #Febrile neutropenia due to possible pneumonia * remains on room air. * Temperature appears to be settling. * wbc today is up to 1.2. * remains on IV vancomycin and zosyn. urine culture was negative. Blood cultures are pending. * continue IV antibiotics for now. * #Non Hodgkin's lymphoma * has acute on chronic pancytopenia * was previously on immunotherapy, which was stopped 6 months ago per oncology. * to follow up with oncology on outpatient basis * #Acute metabolic encephalopathy * resolving. Patient is much more calm today. CT of the brain was negative for any acute intracranial pathology * * #Acute on chronic anemia * Hb today is 7.3. Having dark stools * start on PO pantoprazole 40mg bid. * transfuse with 2 units of PRBCs * check stool for occult blood; if positive, consult GI * #Hypertension: on metoprolol. IV hydralazine prn #Hyperlipidemia: on statin #History of right breast cancer s/p partial mastectomy: Stable. #Severe protein calorie malnutrition: * BMI is only 17.5. * She has apparently lost 10 pounds over the last few weeks. Dietitian consulted. * DVT prophylaxis: SCDs. lovenox dc'd o/a of dark stools and acute on chronic anemia Disposition: will need placement. Case managemnt on board. Charges/Coding Visit Charges Inpatient E&M: 90636 Subs Hosp L3
[2021-09-25 13:08] LABS: Pathologist Review Reviewed
[2021-09-25 13:09] LABS: Pathologist Review Reviewed
[2021-09-25 13:09] LABS: Pathologist Review Reviewed
[2021-09-25] MEDS: Pantoprazole Sodium 40 MG Tablet PO ×2 (14:04→22:03)
--- NOTE | 2021-09-25 15:29 | CON.PCM.ID_ITS ---
Assessment & Plan Assessment/Plan (1) Hypoxia: (2) Non Hodgkin's lymphoma: (3) COVID-19: (4) Neutropenic fever: PLAN: Neutropenic fever with covid a month ago. On vanc/zosyn, cxs neg so far. Will follow, thank you HPI Consult Data Date of Consult: 09/25/21 HPI Narrative HPI Narrative: DIANNA WEBSTER, is a 70 F who presented 09/23 with confusion, cough, dyspnea, fatigue. On chemo for NHL. Had covid 08/25/21. Admitted here with neutropenic fever. On vanc/zosyn. Pt thinks she is at her house, unable to provide history. Full ROS performed and neg except as noted above. [facility] Medical History Dementia Former smoker History of breast cancer HTN (hypertension) Home Medications multivitamin with folic acid 1 tab PO DAILY 05/27/15 [History Last Taken 04/04/18 05:00] aspirin 81 mg PO DAILY@0800 05/15/19 [History Last Taken 05/17/19] atorvastatin 20 mg PO DAILY 05/15/19 [History Last Taken Unknown] metoprolol tartrate 12.5 mg PO BID 05/15/19 [History Last Taken 05/18/19] loperamide 2 mg PO Q2H PRN PRN 3 Days #10 cap 08/27/21 [Rx Last Taken Unknown] potassium chloride [Klor-Con M20] 40 meq PO DAILY 3 Days #6 tab 08/27/21 [Rx Last Taken Unknown] amoxicillin-pot clavulanate 1 tab PO BID 09/23/21 [History Last Taken Unknown] Allergy/AdvReac Type Severity Reaction Status Date / Time No Known Allergies Allergy Verified 08/25/21 08:32 Family History (Updated 09/23/21 @ 22:[address] Stefanie Durant MD) Mother Hypertension Father Colon cancer Alzheimer disease Surgical History (Updated 09/23/21 @ 22:[address] Stefanie Durant MD) H/O stapedectomy Hx of cardiac catheterization S/P colonoscopy S/P fine needle aspiration S/P mastectomy Social History (Updated 09/23/21 @ 22:[address] Stefanie Durant MD) household members: spouse Smoking Status: Never smoker alcohol intake: never substance use type: does not use Physical Exam Const alert and no apparent distress Constitutional Narrative: oriented x1 General Appearance: cooperative Exam Limitations: altered mental status HEENT normocephalic and head/scalp atraumatic Eyes PERRL and EOMs intact bilaterally Neck supple and No nodes Resp normal air movement and clear to auscultation bilaterally Cardio regular rate and regular rhythm GI normal to inspection, nondistended, normoactive bowel sounds Extremity no clubbing, cyanosis or edema Skin no rashes or lesions noted Skin Narrative: Port with no redness Neuro CN's II-XII intact bilaterally Lab / Micro Data Result Diagrams: 09/25/21 04:50 09/25/21 04:50 Labs: Laboratory Results - last 24 hr 09/23/21 18:30: Diff Path Review Reviewed 09/24/21 02:37: Diff Path Review Reviewed 09/25/21 04:50: WBC 1.2 L*, RBC 2.15 L, Hgb 7.3 L, Hct 22.2 L, MCV 103.3 H, MCH 34.0 H, MCHC 32.9, RDW Std Deviation 47.4 H, RDW Coeff of Stevenson 12.7, Plt Count 140 L, MPV 9.9, Immature Gran % (Auto) 5.000 H, Neut % (Auto) 67.3, Lymph % (Auto) 4.2 L, [place] % (Auto) 23.5 H, Eos % (Auto) 0.0, Baso % (Auto) 0.0, Absolute Neuts (auto) 0.8 L, Absolute Lymphs (auto) 0.05 L, Nucleated RBC % 0, Diff Path Review Reviewed, Platelet Estimate ADEQUATE, Polychromasia RARE, Hypochromasia 1+, Macrocytosis 1+, Tear Drop Cells 1+, Ovalocytes 2+, Acanthocytes (Spur) 1+, Schistocytes RARE 09/25/21 04:50: Sodium 136, Potassium 3.3 L, Chloride 105, Carbon Dioxide 25.0, Anion Gap 6, BUN 10, Creatinine 0.78, Estim Creat Clear Calc 42.49, Est GFR (MDRD) Af Amer 94, Est GFR (MDRD) Non-Af 77, BUN/Creatinine Ratio 12.9, Glucose 138 H, Calcium 7.5 L 09/25/21 14:30: Crossmatch See Detail Micro: Microbiology 09/25/21 10:40 Stool Enteric Bacteriology - Final 09/25/21 10:40 Stool Stool Occult Blood (MERLENE) - Final 09/23/21 20:40 Urine Catheter - Catheter Urine Culture - Preliminary Culture exhibits no growth. Radiology Impression Echocardiogram 09/25/21 05:55 Interpretation Summary Normal LV size. Left ventricular systolic function is normal. The estimated ejection fraction is 60 %. Stage 1 diastolic dysfunction. Ordering Physician: Xochilt Christianson Referring Physician: Mitra Lackey Performed By: Cait Holly, ARLIN, RVT
--- NOTE | 2021-09-25 15:34 | CHAPLAIN ---
Type of Pastoral Visit _x__ Initial Visit ___ Follow-up Visit ___ On-call Visit ___ General Patient Visit ___ Spiritual Assessment ___ Family Conference ___ Bereavement ___ Rapid Response ___ Code Blue ___ Other (describe below) Pastoral Care Referral From _x__ Patient ___ Family ___ Nurse ___ Physician ___ Video Game Tester ___ Human Services Professional ___ Other (describe below) Sacrament/Intervention _x__ Active listening ___ Anointing ___ Yarsani ___ Bereavement ___ Communion ___ Ira exploration ___ _x__ Life review _x__ Prayer ___ Reconciliation ___ Sacrament of Sick _x__ Supportive presence ___ Wedding ___ Other (describe below) Pastoral Comments spouse was in room and was helpful to clarify some information; pt is talkative but does have some difficulty with details and certain facts at this time; pt open to spiritual care and prayer; pt does have pastoral support but her clinical professor also has health issues
[2021-09-25] MEDS: Acetaminophen 325 MG Tablet 650 MG PO (17:34)
[2021-09-25] MEDS: Atorvastatin Calcium 20 MG Tablet PO (22:03)
[2021-09-25] MEDS: Vancomycin IV 1,000 MG/200 ML BAG 200 MG IV (22:16)
[2021-09-25 23:06] LABS: Vancomycin, Trough Level 9.4 ug/mL (5.0-15.0)
[2021-09-26] VITALS (17 sets, daily range): BP systolic 128–143; BP diastolic 60–84; PULSE 85–99; RESP 18; TEMP 36.6–39.6; O2SAT 92–96
--- NOTE | 2021-09-26 02:01 | PCM.RX.CS ---
Consult Pharmacy has been consulted to manage selected antiobiotic: Vancomycin Type of Consult: Follow-up Labs: Sodium 136 mmol/L (136-145) 09/25/21 04:50 Potassium 3.3 mmol/L (3.5-5.1) L 09/25/21 04:50 Chloride 105 mmol/L (98-107) 09/25/21 04:50 Carbon Dioxide 25.0 mmol/L (21.0-32.0) 09/25/21 04:50 Anion Gap 6 (5-15) 09/25/21 04:50 BUN 10 mg/dL (7-18) 09/25/21 04:50 Creatinine 0.78 mg/dL (0.55-1.02) 09/25/21 04:50 Est GFR (MDRD) Af Amer 94 mL/min (>60) 09/25/21 04:50 Est GFR (MDRD) Non-Af 77 mL/min (>60) 09/25/21 04:50 BUN/Creatinine Ratio 12.9 RATIO (10-20) 09/25/21 04:50 Glucose 138 mg/dL (74-106) H 09/25/21 04:50 Vancomycin Trough 9.4 ug/mL (5.0-15.0) 09/25/21 22:05 Microbiology: Microbiology 09/25/21 10:40 Stool Enteric Bacteriology - Final 09/25/21 10:40 Stool Stool Occult Blood (MERLENE) - Final 09/23/21 20:40 Urine Catheter - Catheter Urine Culture - Preliminary Culture exhibits no growth. 09/23/21 22:40 Mucosa - Nasopharyngeal Respiratory Panel (PCR) - Final 09/23/21 20:40 Urine Catheter - Catheter Legionella Antigen - Final 09/23/21 20:40 Urine Catheter - Catheter Streptococcus pneumoniae Antigen (M - Final 09/23/21 19:16 Mucosa - Nasopharyngeal Influenza Types A,B Direct FA (MERLENE) - Final Goal Trough: 15-20 mcg/mL Pharmacy Plan for Drug Dosing: Pharmacy Service will continue to monitor and adjust dosing as required. TROUGH 9.4 AT 24 HRS, INCREASE TO 1250 Q24H AND FOLLOW UP TROUGH PRIOR TO 3RD DOSE Follow-Up Labs: Trough Vancomycin Labs to be done on [date and time ordered]: 09/28 @ 2200
[2021-09-26] MEDS: Acetaminophen 325 MG Tablet 650 MG PO (03:46)
[2021-09-26 06:33] LABS: Absolute Lymphocyte Count 0.05 X10^3/uL (0.83-4.51); Absolute Neutrophil Count 0.9 X10^3/uL (2.0-7.7); Eosinophil# 0.01 X10^3/uL; Eosinophils% 0.9 % (0-5); Hematocrit 30.8 % (37-47); Hemoglobin 10.3 g/dL (12.0-15.0); Lymphocyte # 0.05 X10^3/ul (0.83-4.51); Lymphocyte % 4.3 % (19-41); Mean Corp Hgb Conc 33.4 g/dL (32-36); Mean Corpuscular Hgb 31.5 pg (27.0-32.0); Mean Corpuscular Volume 94.2 fL (81-99); Monocyte% 17.1 % (0-10); NRBC Flagged by Analyzer 1.7 % (0-5); Neutrophil # 0.85 X10^3/uL (2.7-7.7); Neutrophil % 72.6 % (47-70); POSITIVE COUNT YES; POSITIVE DIFFERENTIAL YES; POSITIVE MORPHOLOGY YES; Platelet Count 142 K/mm3 (150-450); RBC Distribution Width CV 15.9 % (11.6-14.6); Red Blood Count 3.27 M/mm3 (4.2-5.4)
[2021-09-26 06:36] LABS: Differential Indicated SCAN CRITERIA MET; White Blood Count 1.2 K/mm3 (4.4-11.0)
[2021-09-26] MEDS: 0.9% Saline Lock 10 ML Syringe IV ×2 (06:52→22:25)
[2021-09-26 06:58] LABS: Anion Gap 10 (5-15); BUN 8 mg/dL (7-18); BUN/Creat Ratio 10.2 RATIO (10-20); Calcium,Total 7.8 mg/dL (8.5-10.1); Chloride 102 mmol/L (98-107); Creatinine, Serum 0.79 mg/dL (0.55-1.02); EST Glomerular Filtration Rate 76 mL/min (>60); Est Glom Filt Rate - Afr Amer 93 mL/min (>60); Glucose 99 mg/dL (74-106); Potassium 3.1 mmol/L (3.5-5.1); Sodium Level 135 mmol/L (136-145)
[2021-09-26 07:13] LABS: Differential Comment SCANNED
[2021-09-26] MEDS: Multivitamins,Therapeutic Tablet 1 TABLET PO (07:38)
[2021-09-26] MEDS: Aspirin 81 MG TAB.CHEW PO (07:38)
--- NOTE | 2021-09-26 08:10 | CASEMGMT ---
Addendum entered by Naz Harris 09/26/21 11:05: SW did receive a call back from [facility] that they are reviewing the referral, will let SW know if they can take pt. ELLE Tirado Original Note: [facility] as she is too high of a risk for readmission. SW called [facility], left a message, and faxed the referral. SW will continue to follow. ELLE Tirado
[2021-09-26] MEDS: Metoprolol Tartrate 25 MG Tablet PO ×2 (09:15→21:28)
[2021-09-26] MEDS: Potassium Chloride Oral Tablet 20 MEQ 40 MEQ PO (09:15)
[2021-09-26] MEDS: Pantoprazole Sodium 40 MG Tablet PO ×2 (09:16→21:28)
--- NOTE | 2021-09-26 10:56 | PCM.PN.ID ---
Physical Exam Narrative Denies fever, but temp of 103.2 overnight. No cough, denies dyspnea, no abd pain, no diarrhea. Const General Appearance: cooperative HEENT HEENT Narrative: no thrush Resp normal air movement and clear to auscultation bilaterally Cardio regular rate and regular rhythm GI normal to inspection, nondistended, normoactive bowel sounds Skin no rashes or lesions noted ID ID: Route of nutrition/ use of supplements: [] Nutritional Intake: [] IV Site: [] Putnam Catheter: [] Assessment & Plan Assessment/Plan (1) Hypoxia: (2) Non Hodgkin's lymphoma: (3) COVID-19: (4) Neutropenic fever: PLAN: Neutropenic fever with covid a month ago. On vanc/zosyn, cxs neg so far. Still fever overnight. CT neg for PE on 09/23. Neg resp pcr panel. Stool pcr panel neg. Cdiff was neg last month. If fevers continue, will need to repeat cxs, consider antifungal therapy and workup for cancer recurrence. Will follow, thank you
--- NOTE | 2021-09-26 13:06 | CASEMGMT ---
Addendum entered by Naz Harris 09/26/21 15:58: SW spoke w/Carmencita at [facility], she is going to start precert as it is anticipated pt will go to [facility]. This can always be canceled if changes his mind. ELLE Tirado Addendum entered by Naz Harris 09/26/21 15:50: SW spoke w/ again, he states Sandra from [facility] called him, said she was an insurance underwriter and also said that one of her drawer in could meet with him. This didn't set well with him, as he became concerned about a conflict of interest(with an insurance underwriter working at a penitentiary), and why he would want to meet with one of her kitchen porter. SW called Carmencita at [facility] for clarification. She did confirm they can take pt. She confirmed that Sandra is the SW there, but she is also an insurance underwriter and works salesperson parts for an elder care civil rights attorney. Carmencita states that the elder care civil rights attorney with whom she works offers a one time free consult to families at [facility]. Carmencita states in regard to the insurance, anyone there can assist w/changing pt's insurance, though Sandra is well versed in this. SW explained all of this to pt's . He is not sure what he wants to do, if he wants pt to go to [facility] or not, but will think about it and let SW know. SW will check in w/ tomorrow to see what he wants to do. ELLE Tirado Original Note: SW spoke w/pt's in regard to plan. SW let know that [facility] cannot take pt, and that SW is waiting to hear back from [facility]. SW spoke w/ about other options if [facility] is not able to take pt. would like TCU if [facility] cannot take pt. SW spoke w/ about the plan, if he is looking at short term or network associate placement for pt. He is considering fpc placement for pt. SW explained to that insurance will pay short term, but not for fpc placement. SW spoke w/ about the cost for fpc placement vs applying for Medicaid. vague about their financial situation. did ask about home care options, SW reviewed what is covered by Medicare. SW explained that ongoing aide services would be private pay. SW did also speak w/ about applying for [employer]port [employer], again explained that pt would need to qualify for Medicaid for this. states he is thinking if it's network associate placement, he would want her to go to [facility]. SW explained will find out if his insurance has any out of network benefits so it can be partially covered by insurance, and will find out the cost per day as well, in the event he decides he would just like pt to go straight there. SW spoke w/[facility], they cannot take pt. SW spoke w/[facility], they have no beds. SW called [facility], spoke w/Carmencita. She confirms that they are not in network with [facility]. Carmencita states however it pt were to come there, they could convert her to regular Medicare on 10/02 and then bill Medicare. She states they could pay privately for pt until 10/02 and then bill Medicare. SW explained will call insurance, and will then speak to about it, and fax referral. Cost for [facility] is $199/day for a shared room, and $226/day for a private room. SW called pt's [facility] insurance. Pt would be covered at 50% for out of network SNF, until the maximum out of network of $10,000 is met, $6,000 has been met so far. This would be for days 1-100. Once pt hits $10,000 out of pocket, SNF would be covered at 100%--subject to precert. For in network, SNF benefit is days 1-20 covered at 100%, and days 21-100 there would be a copay of $184/day--however, pt has met the $6,000 for in network out of pocket so would actually be covered at 100%, subject to precert. SW reviewed all of the above information w/. He is agreeable for SW to send referral to [facility]. SW explained will put him in touch with someone at [facility], if they can take pt, to review the plan financially. SW explained he may need to pay for the first few days until they can convert pt's insurance to Medicare, states understanding. SW faxed referral to [facility]. CHAUNCEY called Carmencita back to let her know pt's benefits, and that if they can take pt, would like her or someone there to speak w/ directly so there is no miscommunication. Carmencita rice will review the referral and let SW know, if they can take pt will call . SW will continue to follow. ELLE Tirado
[2021-09-26 13:32] LABS: Pathologist Review Reviewed
--- NOTE | 2021-09-26 14:31 | CASEMGMT ---
RN CM chart review: patient was admitted 08/25/21-08/27/21 for neutropenic fever with covid. See RN CM assessment from 08/26/21 Patient was discharged to home with [facility]. Patient returned 09/23 for fever and admitted for pneumonia and neutropenic fevers. SW following patient and plan is for SNF. Referral being sent out to [facility] Disposition Plan: SNF pending acceptance.
--- NOTE | 2021-09-26 19:23 | PCM.PN.HOSP ---
Subjective Subjective Patient was seen and examined today, I also discussed her care with Dr. Paredes who is her oncologist. Dr. Paredes stated that he did not know what was causing the patient's pancytopenia, he recommended that if we were going to work it up with that a bone marrow be obtained. I talked to the patient's about this today and he finally consented to have this done. Patient's absolute neutrophil count today was 900. I discussed her care with infectious diseases today also Objective Data Objective Data Vital Signs: Vital Signs Temp Pulse Resp BP Pulse Ox 97.9 F 98 18 131/72 H 95 09/26/21 14:30 09/26/21 14:30 09/26/21 14:30 09/26/21 14:30 09/26/21 14:30 Oxygen Flow Rate (L/min) 94 Oxygen Delivery Method Room Air Weight: 53.4 kg Body Mass Index (BMI) 17.2 Intake & Output: Intake and Output for Last 24 Hours 09/24/21 09/25/21 09/26/21 23:59 23:59 23:59 Intake Total 3281.67 / 3531.67 2890 / 2890 860 / 860 Output Total 350 / 350 300 / 300 600 / 600 Balance 2931.67 / 3181.67 2590 / 2590 260 / 260 Lab / Micro Data Result Diagrams: 09/26/21 06:00 09/26/21 06:00 Labs: Laboratory Results - last 24 hr 09/25/21 14:30: Blood Type A POSITIVE, Antibody Screen NEGATIVE, Crossmatch See Detail 09/25/21 22:05: Vancomycin Trough 9.4 09/26/21 06:00: WBC 1.2 L*, RBC 3.27 L, Hgb 10.3 L, Hct 30.8 L, MCV 94.2 D, MCH 31.5, MCHC 33.4, RDW Std Deviation 55.0 H, RDW Coeff of Stevenson 15.9 H, Plt Count 142 L, MPV 10.0, Immature Gran % (Auto) 5.100 H, Neut % (Auto) 72.6 H, Lymph % (Auto) 4.3 L, [place] % (Auto) 17.1 H, Eos % (Auto) 0.9, Baso % (Auto) 0.0, Absolute Neuts (auto) 0.9 L, Absolute Lymphs (auto) 0.05 L, Nucleated RBC % 1.7, Differential Comment SCANNED, Diff Path Review Reviewed 09/26/21 06:00: Sodium 135 L, Potassium 3.1 L, Chloride 102, Carbon Dioxide 23.0, Anion Gap 10, BUN 8, Creatinine 0.79, Estim Creat Clear Calc 43.50, Est GFR (MDRD) Af Amer 93, Est GFR (MDRD) Non-Af 76, BUN/Creatinine Ratio 10.2, Glucose 99, Calcium 7.8 L Micro: Microbiology 09/23/21 19:10 Blood Culture (Wb) - Right Forearm Blood Culture - Preliminary No growth in 48 hours. 09/23/21 18:30 Blood Culture (Wb) - Port Blood Culture - Preliminary No growth in 48 hours. 09/23/21 20:40 Urine Catheter - Catheter Urine Culture - Final Culture exhibits no growth. 09/25/21 10:40 Stool Enteric Bacteriology - Final 09/25/21 10:40 Stool Stool Occult Blood (MERLENE) - Final 09/23/21 22:40 Mucosa - Nasopharyngeal Respiratory Panel (PCR) - Final 09/23/21 20:40 Urine Catheter - Catheter Legionella Antigen - Final 09/23/21 20:40 Urine Catheter - Catheter Streptococcus pneumoniae Antigen (M - Final 09/23/21 19:16 Mucosa - Nasopharyngeal Influenza Types A,B Direct FA (MERLENE) - Final Physical Exam Const alert and no apparent distress Constitutional Narrative: Patient was alert but confused, she did not appear agitated General Appearance: cooperative, well kempt and well developed Orientation / Consciousness: awake, oriented to person, oriented to place and oriented to time HEENT normocephalic, head/scalp atraumatic and moist oral mucous membranes Head and Scalp: normocephalic Eyes PERRL, EOMs intact bilaterally and conjunctivae normal Neck nuchal rigidity, supple, no JVD, thyroid normal and no carotid bruits General: trachea midline Resp normal respiratory effort, no retractions, no use of accessory muscles and clear to auscultation bilaterally Auscultation: Negative for rales, rhonchi or wheezes Cardio regular rate, regular rhythm, S1 normal heart sound, S2 normal heart sound, no murmurs, no rub and no gallops GI normal to inspection, nondistended, normoactive bowel sounds, soft to palpation, non-tender and non-distended Extremity normal to inspection and no clubbing, cyanosis or edema Skin no rashes or lesions noted and no wounds General Skin Exam: no breakdown Neuro CN's II-XII intact bilaterally, no focal motor deficits and no sensory deficits noted Neuro Narrative: Patient is alert but confused Sensorium / Orientation: awake and alert Speech: speech normal Psych thought process normal Psych Narrative: Patient is confused Assessment & Plan Assessment/Plan (1) Neutropenic fever: PLAN: 1. Neutropenic fever-etiology unclear, antibiotics will continue at the direction of infectious diseases #2 pancytopenia-patient will undergo a bone marrow biopsy tomorrow #3 dementia-patient's states that the patient's mental status has declined over the last several months #4 essential hypertension #5 history of non-Hodgkin's lymphoma #6 coronary artery disease #7 recent history of COVID-19 infection #8 acute metabolic encephalopathy-on a backdrop of dementia #9 hyperlipidemia Charges/Coding Visit Charges Inpatient E&M: 84367 Subs Hosp L2
[2021-09-26] MEDS: Atorvastatin Calcium 20 MG Tablet PO (21:28)
[2021-09-27] VITALS (22 sets, daily range): BP systolic 102–131; BP diastolic 55–81; PULSE 50–89; RESP 12–22; TEMP 36.5–39.2; O2SAT 91–98; BMI 17.1
[2021-09-27] MEDS: Acetaminophen 325 MG Tablet 650 MG PO ×2 (05:49→20:42)
[2021-09-27] MEDS: Metoprolol Tartrate 25 MG Tablet PO ×2 (07:54→21:53)
[2021-09-27] MEDS: Pantoprazole Sodium 40 MG Tablet PO ×2 (07:55→21:53)
[2021-09-27] MEDS: Potassium Chloride Oral Tablet 20 MEQ 40 MEQ PO (07:56)
[2021-09-27] MEDS: Loperamide 2 MG Capsule PO (08:02)
--- NOTE | 2021-09-27 08:43 | CT_ITS ---
PROCEDURE: CT GUIDED right posterior iliac bone marrow biopsy and aspirates. DATE: 09/27/2021. INDICATION: Female, 70 years old. Pancytopenia. PHYSICIAN: Shady Fox M.D. RADIATION DOSAGE (If Supplied By Facility): CTDIvol = ( 15 ) mGy, DLP = ( 298.5 ) mGycm. Individualized dose optimization techniques were utilized. PROCEDURE: The risks, benefits, and alternatives to the procedure were explained to the patient. The specific risk of hemorrhage requiring further treatment or intervention was detailed and accepted. Follow-up instructions were discussed with the patient as well. Written informed consent was obtained. The patient was brought into the CT suite and placed in the prone position. . An appropriate entry site was identified. The overlying skin was prepped and draped in the usual sterile fashion. 1% lidocaine was administered subcutaneously for local anesthesia. Conscious sedation was performed. The patient received 1 mg of VERSED and 25 mcg of FENTANYL intravenously. The patient was independently monitored by the department nurse. Conscious sedation was started at 10:20 AM and terminated at 10:[address] guidance, a bone marrow biopsy and bone marrow aspirates of the posterior aspect of the right iliac bone were performed The specimens were then placed in the appropriate fluid and transported to the laboratory for analysis. Hemostasis was obtained. The patient tolerated the procedure well without immediate complications. CT/Biopsy/Inj or Needle Placement IMPRESSION: Successful CT guided right iliac bone marrow biopsy and aspirates, as described above. Conscious sedation protocol was followed. Electronically Signed: Shady Fox MD at 10:55 EDT , Service support ,
[2021-09-27 09:02] LABS: Eosinophil# 0.01 X10^3/uL; Hematocrit 31.3 % (37-47); Hemoglobin 10.6 g/dL (12.0-15.0); Mean Corp Hgb Conc 33.9 g/dL (32-36); Mean Corpuscular Hgb 31.4 pg (27.0-32.0); Mean Corpuscular Volume 92.6 fL (81-99); Mean Platelet Vol. 9.1 fl (6.2-12.0); Monocyte# 0.26 X10^3/uL; NRBC Flagged by Analyzer 0 % (0-5); POSITIVE COUNT YES; POSITIVE DIFFERENTIAL YES; POSITIVE MORPHOLOGY YES; Platelet Count 122 K/mm3 (150-450); RBC Distribution Width CV 16.1 % (11.6-14.6); RBC Distribution Width SD 54.7 fl (35.1-43.9); Red Blood Count 3.38 M/mm3 (4.2-5.4); White Blood Count 1.5 K/mm3 (4.4-11.0)
[2021-09-27 09:06] LABS: Differential Indicated SCAN CRITERIA MET
[2021-09-27 09:29] LABS: International Normalized Ratio 1.3; Prothrombin Time (Protime)PT. 15.4 SECONDS (11.7-14.9)
[2021-09-27 09:30] LABS: Partial Thromboplast Time 32.1 Seconds (24.1-36.2)
[2021-09-27 09:36] LABS: Lymphocyte 4 % (19-41); Metamyelocyte 4 % (0-1); Monocyte 14 % (0-10); Neutrophil-Band 8 % (0-5); Neutrophil-Segmented 70 % (47-70); Nucleated Red Bld Cells,Manual 4 % (0-5)
[2021-09-27 09:37] LABS: Platelet Estimate SLT DEC (ADEQ); Red Cell Morphology NORM C+C NORMAL (NORM C&C)
[2021-09-27 09:38] LABS: Absolute Lymphocyte Count 0.06 X10^3/uL (0.83-4.51); Absolute Neutrophil Count 1.2 X10^3/uL (2.0-7.7); Lymphocyte # 0.06 X10^3/ul (0.83-4.51); Neutrophil # 1.17 X10^3/uL (2.7-7.7)
[2021-09-27 09:58] LABS: Anion Gap 9 (5-15); BUN 8 mg/dL (7-18); BUN/Creat Ratio 10.6 RATIO (10-20); Calcium,Total 7.8 mg/dL (8.5-10.1); Chloride 103 mmol/L (98-107); Creatinine, Serum 0.76 mg/dL (0.55-1.02); EST Glomerular Filtration Rate 80 mL/min (>60); Est Glom Filt Rate - Afr Amer 97 mL/min (>60); Estimated Creatinine Clearance 41.63 ml/min; Glucose 95 mg/dL (74-106); Potassium 2.7 mmol/L (3.5-5.1); Sodium Level 136 mmol/L (136-145)
[2021-09-27] MEDS: fentaNYL 100 MCG/2 ML Ampul IV (10:20)
[2021-09-27] MEDS: Midazolam 2 MG/2 ML Syringe IV (10:20)
[2021-09-27] MEDS: Lidocaine 2% (20 ml mdv) 20 ML Vial INFILT (10:25)
--- NOTE | 2021-09-27 10:30 | BMB_PTH ---
PATIENT: DIANNA WEBSTER LOC: [facility] U#:[id number] AGE/SX: 70/F ROOM: MI325 RE09/23/[address]: Dr. Pablo Sena MD : 1950 BED: 1 DIS: 10/10/2021 SPEC #: [id number] RECD: 09/27/21 10:49 STATUS: GLENDA REQ #: [id number] SAKSHI: 09/27/21 10:[address]: Mary Paredes DEPT: BONE MARROW RECD BY: Liliana Rojas ENTERED: 09/27/21 10:49 SP TYPE: BMB OTHR DR: MD Dr. Mitra Pop MD Dr. Mark Tereletsky, DO Dr. Robert Leininger, MD Tissues: A - Bone marrow, NOS B - Bone marrow, NOS C - Bone marrow, NOS Procedures: Decalcification bone/plaque Bone Marrow Aspiration Special Stain Group I AFB Stain (control) GMS Stain (control) Bone Marrow Core Biopsy Iron Stain Bone Marrow Comments: @ Ordering doctor for DEC edited from to @ by AMANDA at 09/27/21 145 @ Ordering doctor for BMA edited from to @ by AMANDA at 09/27/21 1450 @ Ordering doctor for BMCB edited from to DR.LLUN Chadwick by AMANDA at 09/27/21 145 @ Ordering doctor for FEBM edited from to @ by AMANDA at 09/27/21 1450 @ Submitting doctor edited from to DR.LLUN Chadwick by AMANDA at 09/27/21 1450 HEADER OPERATION: CT-guided bone marrow biopsy and aspiration PRE-OP DIAGNOSIS: Pancytopenia, past history lymphoma TISSUE SUBMITTED: A - Core, B - Clot, C - Smears, and send outs (flow and FISH) BONE MARROW DIAGNOSIS Bone marrow core, clot and aspirate smears: Hypocellular marrow (~10% cellularity) with trilineage hematopoiesis. Peripheral blood - pancytopenia. Negative for acid fast bacilli and fungal organisms. See comment. SJ:bassem 10/02/2021 COMMENT Flow cytometry study from [facility] shows no evidence of B-cell or T-cell lymphoma. The complete report is viewable in patient?s EMR. FISH studies are pending at this time. 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 Clinical correlation and appropriate follow up are necessary. This case is discussed with Dr. Paredes and Dr. Cabral on 09/28/2021. Case has been reviewed in consultation with Dr. Lou who concurs with the above diagnosis. IDC:AM BONE MARROW STUDY Slides are reviewed. CBC DATE: 09/27/21 WBC 1.5; RBC 3.38; HGB 10.6; HCT 31.3; MCV 92.6; RDW 16.1; PLTS 122,000 SEGS 70%; LYMPHS 8%; MONOS 4%; EOS 0%; BASOS 0%, band neutrophils 8, metamyelocytes 4 PERIPHERAL SMEAR: Submitted. RBC: Normocytic anemia WBC: Leukopenia and neutropenia. The WBC count is compatible to as reported above. PLTS: Mildly decreased BONE MARROW ASPIRATE DIFFERENTIAL: Not performed ASPIRATE FINDINGS: Site: Not specified Paucispicular, Hypocellular Aspirate smear show marked hemodilution. Erythroid cells myeloid cells and megakaryocytes are noted. CORE BIOPSY FINDINGS: Site: Not specified Adequacy: Adequate Cellularity: ~10% M/E ratio: Relative myeloid hypoplasia is noted. Mature myeloid cells are decreased in number. Megakaryocytes: Present and adequate in number. Bony trabeculae: unremarkable. Granulomas: Absent. Lymphoid aggregates: Absent. Atypical infiltrates: Absent. Comment: Negative for involvement by lymphoma. ASPIRATE CLOT FINDINGS: Site: Not specified Marrow particles: Numerous Cellularity: ~10% M/E ratio: Relative myeloid hypoplasia is noted. Mature myeloid cells are decreased in number. Megakaryocytes: Present and adequate in number. Granulomas: Absent. Lymphoid aggregates: Absent. Atypical infiltrates: Absent. Comment: Negative for involvement by lymphoma. SPECIAL STAINS WITH MATCHED CONTROLS: Iron: 2+ (clot sections). Atypical or ring sideroblasts are not seen Reticulin: No significant increase of reticulin fibers is noted. PAS: Highlights myeloid cells and megakaryocytes. AFB: Negative for organisms. GMS: Negative for organisms. BONE MARROW GROSS A - Received is a container labeled with the patient's name and designated bone marrow. The specimen consists of multiple fragments of blood clot mixed with fragments of bone measuring in aggregate 1.5 x 0.5 x 0.1 cm. The specimen is totally submitted in one cassette after decalcification. B - Received labeled with the patient's name and designated bone marrow is a specimen that consists of approximately 5 cc of bloody fluid that on filtration yields multiple minute fragments of blood clots measuring in aggregate 2.5 x 2.5 x 0.1 cm. The specimen is totally submitted in one cassette. C - Also received are 17 unstained and 1 peripheral stained slides. The unstained slides are submitted for appropriate staining. Also received are 1 green top tube which is sent to our reference lab for flow and FISH. / SJ:rg 09/27/2021 TC:5 CPT: 81367, 61788, 40404 x2, 94423 x3, 95588, 23336 x2 ADDENDUM ADDENDUM ADDENDUM ADDENDUM ADDENDUM ADDENDUM ADDENDUM ADDENDUM ADDENDUM ADDENDUM ADDENDUM ADDENDUM ADDENDUM ADDENDUM ADDENDUM ADDENDUM 10/03/2021 09:34 ADDENDUM 10/03/2021 09:34 ADDENDUM 10/03/2021 09:34 ADDENDUM 10/03/2021 09:34 ADDENDUM 10/03/2021 09:34 FLUORESCENCE IN-SITU HYBRIDIZATION (FISH) FROM [employer] MDS-RELATED DISEASES AND OTHER INTERPRETATION: 1. No evidence of deletion of 5q or monosomy 5. 2. No evidence of monosomy 7 or deletion of 7q. 3. No evidence of trisomy 8 (+8). 4. No evidence of deletion of 20q12. 5. No evidence of BCR/ABL rearrangement. 6. No evidence of PML/LEXX gene rearrangement. 7. No evidence of RUNX1/ZOQQ6V2 [t(8;21)]. 8. No evidence of MLL gene locus 11q23 translocation. 9. No evidence of CBFB [inversion(16) or translocation t(16;16)] gene rearrangement. Please see complete report in e-chart or EMR
[2021-09-27] MEDS: Potassium Chloride Oral Tablet 20 MEQ 60 MEQ PO (12:23)
[2021-09-27 13:27] LABS: Pathologist Review Reviewed
[2021-09-27 14:09] LABS: Scan Smear per Review Criteria MANUAL DIFF
[2021-09-27] MEDS: 0.9% Saline Lock 10 ML Syringe IV ×2 (14:28→22:39)
--- NOTE | 2021-09-27 14:45 | CASEMGMT ---
Social Work SW met with pt's to discuss discharge plan. Pt stating that he would like his to go to [facility] upon discharge. CHAUNCEY informed pts that per Carmencita at [facility], [place] will not consider precert for pt unless 5 facilities have denied pt (currently [facility]CU, [facility] and [facility] have denied) and then if precert is granted they will cover at only 50%. The other option is for pt to go to facility private pay, and facility staff will assist pt in changing insurance to regular Medicare once she gets there. CHAUNCEY also presented option of looking for a facility that is in network with [facility] and would be accepting of pt. At this time, pt is requesting to go to [facility] and states he will pay privately until insurance is changed. Phone number for Carmencita at [facility] provided to Mr. Polk and he will call and talk to her about insurance changes. Pt is not ready for discharge at this time. Carmencita at [facility] updated. CHAUNCEY will continue to follow. ASHA Bales
--- NOTE | 2021-09-27 15:18 | CASEMGMT ---
BUSTER CM NOTE: TC abby Muro @ [facility]. VM left re: plan @ d/c is for SNF. Joseph ROCHA RN RM
--- NOTE | 2021-09-27 17:50 | PN.HOSP_ITS ---
Subjective Subjective Patient was seen and examined today, I talked extensively with her . Patient remains confused, she had a bone marrow biopsy and aspiration this morning, patient's white blood cell count is improved today at an absolute neutrophil count of 1200, patient's potassium was low this morning at 2.7. Patient's is considering a detention in [place] for temporary placement for skilled care for the patient. He asked that I talk with the patient tomorrow about this and I told him that I would. Objective Data Objective Data Vital Signs: Vital Signs Temp Pulse Resp BP Pulse Ox 98.2 F 72 18 115/70 98 09/27/21 14:30 09/27/21 14:30 09/27/21 14:30 09/27/21 14:30 09/27/21 15:57 Oxygen Flow Rate (L/min) [3] 2 Oxygen Flow Rate (L/min) [2] 2 Oxygen Flow Rate (L/min) [1 ( 2 Initial Baseline)] Oxygen Flow Rate (L/min) 94 Oxygen Delivery Method [3] Nasal Cannula Oxygen Delivery Method [2] Nasal Cannula Oxygen Delivery Method [1 ( Nasal Cannula Initial Baseline)] Oxygen Delivery Method Room Air Weight: 51.1 kg Body Mass Index (BMI) 17.1 Intake & Output: Intake and Output for Last 24 Hours 09/25/21 09/26/21 09/27/21 23:59 23:59 23:59 Intake Total 2890 / 2890 910 / 910 725 / 725 Output Total 300 / 300 600 / 600 Balance 2590 / 2590 310 / 310 725 / 725 Lab / Micro Data Result Diagrams: 09/27/21 08:48 09/27/21 08:48 Labs: Laboratory Results - last 24 hr 09/27/21 08:48: WBC 1.5 L, RBC 3.38 L, Hgb 10.6 L, Hct 31.3 L, MCV 92.6, MCH 31. 4, MCHC 33.9, RDW Std Deviation 54.7 H, RDW Coeff of Stevenson 16.1 H, Plt Count 122 L , MPV 9.1, Immature Gran % (Auto) BREASTFEEDING PROGRAM COORDINATOR, Neut % (Auto) BREASTFEEDING PROGRAM COORDINATOR, Lymph % (Auto) BREASTFEEDING PROGRAM COORDINATOR, [place] % (Auto) BREASTFEEDING PROGRAM COORDINATOR, Eos % (Auto) BREASTFEEDING PROGRAM COORDINATOR, Baso % (Auto) BREASTFEEDING PROGRAM COORDINATOR, Absolute Neuts (auto) 1.2 L, Absolute Lymphs (auto) 0.06 L, Total Counted BREASTFEEDING PROGRAM COORDINATOR, Neutrophils % (Manual) 70, Band Neutrophils % 8 H, Lymphocytes % (Manual) 4 L, Monocytes % (Manual) 14 H, Metamyelocytes % 4 H, Nucleated RBC % 0, Nucleated RBCs/100 WBC 4, Diff Path Review Reviewed, Platelet Estimate SLT DEC, RBC Morphology NORM C+C 09/27/21 08:48: Sodium 136, Potassium 2.7 L*, Chloride 103, Carbon Dioxide 24.0, Anion Gap 9, BUN 8, Creatinine 0.76, Estim Creat Clear Calc 41.63, Est GFR (MDRD) Af Amer 97, Est GFR (MDRD) Non-Af 80, BUN/Creatinine Ratio 10.6, Glucose 95, Calcium 7.8 L 09/27/21 08:48: PT 15.4 H, INR 1.3, APTT 32.1 Micro: Microbiology 09/23/21 19:10 Blood Culture (Wb) - Right Forearm Blood Culture - Preliminary No growth in 48 hours. 09/23/21 18:30 Blood Culture (Wb) - Port Blood Culture - Preliminary No growth in 48 hours. 09/23/21 20:40 Urine Catheter - Catheter Urine Culture - Final Culture exhibits no growth. 09/25/21 10:40 Stool Enteric Bacteriology - Final 09/25/21 10:40 Stool Stool Occult Blood (MERLENE) - Final 09/23/21 22:40 Mucosa - Nasopharyngeal Respiratory Panel (PCR) - Final 09/23/21 20:40 Urine Catheter - Catheter Legionella Antigen - Final 09/23/21 20:40 Urine Catheter - Catheter Streptococcus pneumoniae Antigen (M - Final 09/23/21 19:16 Mucosa - Nasopharyngeal Influenza Types A,B Direct FA (MERLENE) - Final Radiography Diagnostic Testing: Radiology Impression Biopsy CT 09/27/21 08:43 IMPRESSION: Successful CT guided right iliac bone marrow biopsy and aspirates, as described above. Conscious sedation protocol was followed. Electronically Signed: Shady Fox MD at 10:55 EDT , Service support , Physical Exam Const alert, no apparent distress and average body habitus General Appearance: cooperative, well kempt and well developed Orientation / Consciousness: awake, oriented to person, oriented to place and oriented to time HEENT normocephalic, head/scalp atraumatic and moist oral mucous membranes Head and Scalp: normocephalic Eyes PERRL, EOMs intact bilaterally and conjunctivae normal Neck nuchal rigidity, supple, no JVD, thyroid normal and no carotid bruits General: trachea midline Resp normal respiratory effort, no retractions, no use of accessory muscles and clear to auscultation bilaterally Auscultation: Negative for rales, rhonchi or wheezes Cardio regular rate, regular rhythm, S1 normal heart sound, S2 normal heart sound, no murmurs, no rub and no gallops GI normal to inspection, nondistended, normoactive bowel sounds, soft to palpation, non-tender and non-distended Extremity no clubbing, cyanosis or edema Skin no rashes or lesions noted, no wounds and skin turgor normal General Skin Exam: no breakdown Neuro CN's II-XII intact bilaterally, no focal motor deficits and no sensory deficits noted Sensorium / Orientation: awake and alert Speech: speech normal Psych thought process normal Psych Narrative: Patient is alert but confused, she is not agitated Assessment & Plan Assessment/Plan (1) Pancytopenia: (2) Neutropenic fever: PLAN: 1. Neutropenic fever-etiology unclear, antibiotics will continue at the direction of infectious diseases #2 pancytopenia-patient underwent a bone marrow biopsy and aspiration today, I will recheck her CBC tomorrow #3 dementia-patient's states that the patient's mental status has declined over the last several months #4 essential hypertension #5 history of non-Hodgkin's lymphoma #6 coronary artery disease #7 recent history of COVID-19 infection #8 acute metabolic encephalopathy-on a backdrop of dementia, patient appears more alert today #9 hyperlipidemia #10 hypokalemia-patient was given potassium supplementation today, BMP will be rechecked tomorrow Charges/Coding Visit Charges Inpatient E&M: 71929 Subs Hosp L2
--- NOTE | 2021-09-27 20:08 | PCS.PANDOC ---
PANDEMIC DOCUMENTATION INITIATED: Date: 09/27/21 Time: 1899
[2021-09-27] MEDS: Atorvastatin Calcium 20 MG Tablet PO (21:52)
[2021-09-28] VITALS (17 sets, daily range): BP systolic 108–141; BP diastolic 68–84; PULSE 71–98; RESP 16–28; TEMP 36.7–39.8; O2SAT 92–98
[2021-09-28 06:45] LABS: Absolute Lymphocyte Count 0.08 X10^3/uL (0.83-4.51); Absolute Neutrophil Count 1.3 X10^3/uL (2.0-7.7); Basophil# 0.01 X10^3/uL; Basophil% 0.6 % (0-1); Eosinophil# 0.03 X10^3/uL; Eosinophils% 1.9 % (0-5); Hematocrit 33.7 % (37-47); Hemoglobin 11.7 g/dL (12.0-15.0); Lymphocyte # 0.08 X10^3/ul (0.83-4.51); Mean Corp Hgb Conc 34.7 g/dL (32-36); Mean Corpuscular Hgb 32.3 pg (27.0-32.0); Mean Corpuscular Volume 93.1 fL (81-99); Mean Platelet Vol. 9.2 fl (6.2-12.0); Monocyte# 0.18 X10^3/uL; Monocyte% 11.3 % (0-10); NRBC Flagged by Analyzer 0 % (0-5); Neutrophil # 1.25 X10^3/uL (2.7-7.7); Neutrophil % 78.7 % (47-70); POSITIVE DIFFERENTIAL YES; POSITIVE MORPHOLOGY YES; Platelet Count 130 K/mm3 (150-450); RBC Distribution Width CV 16.1 % (11.6-14.6); RBC Distribution Width SD 55.5 fl (35.1-43.9); Red Blood Count 3.62 M/mm3 (4.2-5.4); White Blood Count 1.6 K/mm3 (4.4-11.0)
[2021-09-28 07:11] LABS: Differential Indicated SCAN CRITERIA MET
[2021-09-28 07:12] LABS: Anion Gap 6 (5-15); BUN 7 mg/dL (7-18); Calcium,Total 7.9 mg/dL (8.5-10.1); Chloride 102 mmol/L (98-107); Creatinine, Serum 0.78 mg/dL (0.55-1.02); Differential Comment SCANNED; EST Glomerular Filtration Rate 77 mL/min (>60); Est Glom Filt Rate - Afr Amer 93 mL/min (>60); Estimated Creatinine Clearance 42.16 ml/min; Glucose 108 mg/dL (74-106); Potassium 3.4 mmol/L (3.5-5.1); Sodium Level 134 mmol/L (136-145)
[2021-09-28] MEDS: Pantoprazole Sodium 40 MG Tablet PO ×2 (09:08→20:23)
[2021-09-28] MEDS: Metoprolol Tartrate 25 MG Tablet PO ×2 (09:08→20:23)
[2021-09-28] MEDS: Multivitamins,Therapeutic Tablet 1 TABLET PO (09:09)
[2021-09-28] MEDS: Aspirin 81 MG TAB.CHEW PO (09:09)
[2021-09-28] MEDS: Potassium Chloride Oral Tablet 20 MEQ 40 MEQ PO ×2 (09:12→20:22)
[2021-09-28] MEDS: Acetaminophen 325 MG Tablet 650 MG PO ×2 (09:17→20:22)
--- NOTE | 2021-09-28 10:46 | PCM.PN.ID ---
Physical Exam Narrative Feeling about the same, fever overnight. No dysuria, no cough or SOB, no n/v/d. Const alert General Appearance: cooperative Resp normal air movement and clear to auscultation bilaterally Cardio regular rate and regular rhythm GI normal to inspection, nondistended, normoactive bowel sounds Skin no rashes or lesions noted ID ID: Route of nutrition/ use of supplements: [] Nutritional Intake: [] IV Site: [] Putnam Catheter: [] Assessment & Plan Assessment/Plan (1) Hypoxia: (2) Non Hodgkin's lymphoma: (3) COVID-19: (4) Neutropenic fever: PLAN: Neutropenic fever with covid a month ago. On vanc/zosyn, cxs neg so far. Still fever overnight. CT neg for PE on 09/23. Neg resp pcr panel. Stool pcr panel neg. Cdiff was neg last month. ANC recovered. BMBx done yesterday. Plan on po abx at discharge for short course. Will follow, thank you
--- NOTE | 2021-09-28 12:32 | CASEMGMT ---
Social Work SW met with pt spouse to discuss discharge plans. Reviewed options for discharge as stated in the note 09/27/21. Mr. Polk is frustrated that he has not been able to speak with anyone from [facility] regarding insurance issues. Phone call to Carmencita at [facility] requesting a call to Mr. Polk as soon as possible. Mr. Polk is understanding that per [facility], if pt is discharged prior to 10/02 then pt's insurance can be changed to Medicare and initial stay at SNF will be covered. He is aware that this is for short term stay only. SW discussed plan B in case pt was not ready to be discharged prior to this time. Mr. Polk is agreeable to referral to [facility]. Phone call to Zakia at [facility] and they do accept [place] and are able to review referral. Clinical information faxed. Pt updated. CHAUNCEY will continue to follow for discharge planning. ASHA Bales
[2021-09-28 13:22] LABS: Pathologist Review Reviewed
--- NOTE | 2021-09-28 18:19 | PN.HOSP_ITS ---
Subjective Subjective Patient was seen and examined today, I talked with her who is in the room during the time my examination. Patient's bone marrow resulted today and showing no evidence of leukemia, it appears the bone marrow is not making cells, there is no evidence on staining of fungal or TB organisms. I talked briefly w [facility], Dr. Jackson agreed to stop antibiotics today and observe the patient. I also talked with Dr. Paredes who stated that the patient was no longer neutropenic and in his opinion antibiotic should also be stopped. Objective Data Objective Data Vital Signs: Vital Signs Temp Pulse Resp BP Pulse Ox 98.2 F 77 18 134/77 H 93 09/28/21 16:35 09/28/21 16:35 09/28/21 16:35 09/28/21 16:35 09/28/21 16:35 Oxygen Flow Rate (L/min) [3] 2 Oxygen Flow Rate (L/min) [2] 2 Oxygen Flow Rate (L/min) [1 ( 2 Initial Baseline)] Oxygen Flow Rate (L/min) 94 Oxygen Delivery Method [3] Nasal Cannula Oxygen Delivery Method [2] Nasal Cannula Oxygen Delivery Method [1 ( Nasal Cannula Initial Baseline)] Oxygen Delivery Method Room Air Weight: 51.755 kg Body Mass Index (BMI) 17.1 Intake & Output: Intake and Output for Last 24 Hours 09/26/21 09/27/21 09/28/21 23:59 23:59 23:59 Intake Total 910 / 910 775.25 / 775.25 975 / 975 Output Total 600 / 600 1900 / 1900 Balance 310 / 310 775.25 / 775.25 -925 / -925 Lab / Micro Data Result Diagrams: 09/28/21 06:10 09/28/21 06:10 Labs: Laboratory Results - last 24 hr 09/28/21 06:10: WBC 1.6 L, RBC 3.62 L, Hgb 11.7 L, Hct 33.7 L, MCV 93.1, MCH 32.3 H, MCHC 34.7, RDW Std Deviation 55.5 H, RDW Coeff of Stevenson 16.1 H, Plt Count 130 L, MPV 9.2, Immature Gran % (Auto) 2.500 H, Neut % (Auto) 78.7 H, Lymph % (Auto) 5.0 L, [place] % (Auto) 11.3 H, Eos % (Auto) 1.9, Baso % (Auto) 0.6, Absolute Neuts (auto) 1.3 L, Absolute Lymphs (auto) 0.08 L, Nucleated RBC % 0, Differential Comment SCANNED, Diff Path Review Reviewed 09/28/21 06:10: Sodium 134 L, Potassium 3.4 L, Chloride 102, Carbon Dioxide 26.0, Anion Gap 6, BUN 7, Creatinine 0.78, Estim Creat Clear Calc 42.16, Est GFR (MDRD) Af Amer 93, Est GFR (MDRD) Non-Af 77, BUN/Creatinine Ratio 9.0 L, Glucose 108 H, Calcium 7.9 L Micro: Microbiology 09/23/21 19:10 Blood Culture (Wb) - Right Forearm Blood Culture - Pr eliminary No growth in 48 hours. 09/23/21 18:30 Blood Culture (Wb) - Port Blood Culture - Preliminary No growth in 48 hours. 09/23/21 20:40 Urine Catheter - Catheter Urine Culture - Final Culture exhibits no growth. 09/25/21 10:40 Stool Enteric Bacteriology - Final 09/25/21 10:40 Stool Stool Occult Blood (MERLENE) - Final 09/23/21 22:40 Mucosa - Nasopharyngeal Respiratory Panel (PCR) - Final 09/23/21 20:40 Urine Catheter - Catheter Legionella Antigen - Final 09/23/21 20:40 Urine Catheter - Catheter Streptococcus pneumoniae Antigen (M - Final 09/23/21 19:16 Mucosa - Nasopharyngeal Influenza Types A,B Direct FA (MERLENE) - Final Physical Exam Const alert and no apparent distress Constitutional Narrative: Patient is alert with moderate confusion, she is not agitated General Appearance: cooperative, well kempt and well developed Orientation / Consciousness: awake, oriented to person, oriented to place and oriented to time HEENT normocephalic, head/scalp atraumatic and moist oral mucous membranes Head and Scalp: normocephalic Eyes PERRL, EOMs intact bilaterally and conjunctivae normal Neck nuchal rigidity, supple, no JVD, thyroid normal and no carotid bruits General: trachea midline Resp normal respiratory effort, no retractions, no use of accessory muscles and clear to auscultation bilaterally Auscultation: Negative for rales, rhonchi or wheezes Cardio regular rate, regular rhythm, no murmurs, no rub and no gallops GI normal to inspection, nondistended, normoactive bowel sounds, soft to palpation, non-tender and non-distended Extremity no clubbing, cyanosis or edema Skin no rashes or lesions noted General Skin Exam: no breakdown Neuro CN's II-XII intact bilaterally, no focal motor deficits and no sensory deficits noted Sensorium / Orientation: awake and alert Speech: speech normal Psych thought process normal Psych Narrative: Patient has flat affect, she is confused Assessment & Plan Assessment/Plan (1) Pancytopenia: (2) Neutropenic fever: PLAN: 1. Neutropenic fever-etiology unclear, antibiotics were stopped today, patient is no longer neutropenic #2 pancytopenia-bone marrow results do not show any evidence of leukemia or any acute hematological disease. CBC will be rechecked tomorrow #3 dementia-patient's states that the patient's mental status has declined over the last several months #4 essential hypertension #5 history of non-Hodgkin's lymphoma #6 coronary artery disease #7 recent history of COVID-19 infection #8 acute metabolic encephalopathy-on a backdrop of dementia, patient appears more alert today #9 hyperlipidemia #10 hypokalemia-patient's potassium today was 3.4, I will give the patient potassium supplementation Charges/Coding Visit Charges Inpatient E&M: 76899 Subs Hosp L2
[2021-09-28] MEDS: LORazepam 0.5 MG Tablet PO (20:22)
[2021-09-28] MEDS: Atorvastatin Calcium 20 MG Tablet PO (20:23)
[2021-09-29] VITALS (16 sets, daily range): BP systolic 101–157; BP diastolic 62–84; PULSE 79–103; RESP 16–18; TEMP 36.9–38.7; O2SAT 89–94
[2021-09-29] MEDS: Acetaminophen 325 MG Tablet 650 MG PO ×3 (03:25→18:39)
[2021-09-29 06:26] LABS: Absolute Lymphocyte Count 0.04 X10^3/uL (0.83-4.51); Absolute Neutrophil Count 0.9 X10^3/uL (2.0-7.7); Basophil# 0.01 X10^3/uL; Basophil% 0.8 % (0-1); Eosinophil# 0.03 X10^3/uL; Eosinophils% 2.3 % (0-5); Hematocrit 31.8 % (37-47); Lymphocyte # 0.04 X10^3/ul (0.83-4.51); Lymphocyte % 3.1 % (19-41); Mean Corp Hgb Conc 34.6 g/dL (32-36); Mean Corpuscular Volume 92.4 fL (81-99); Mean Platelet Vol. 9.8 fl (6.2-12.0); Monocyte# 0.21 X10^3/uL; NRBC Flagged by Analyzer 0 % (0-5); Neutrophil # 0.92 X10^3/uL (2.7-7.7); Neutrophil % 70.2 % (47-70); POSITIVE COUNT YES; POSITIVE DIFFERENTIAL YES; POSITIVE MORPHOLOGY YES; Platelet Count 114 K/mm3 (150-450); RBC Distribution Width CV 16.1 % (11.6-14.6); RBC Distribution Width SD 54.5 fl (35.1-43.9); Red Blood Count 3.44 M/mm3 (4.2-5.4)
[2021-09-29 06:35] LABS: Differential Indicated SCAN CRITERIA MET; White Blood Count 1.3 K/mm3 (4.4-11.0)
[2021-09-29 06:52] LABS: Anion Gap 7 (5-15); BUN 8 mg/dL (7-18); BUN/Creat Ratio 13.4 RATIO (10-20); Calcium,Total 7.8 mg/dL (8.5-10.1); Chloride 103 mmol/L (98-107); EST Glomerular Filtration Rate 106 mL/min (>60); Est Glom Filt Rate - Afr Amer 128 mL/min (>60); Glucose 103 mg/dL (74-106); Potassium 3.7 mmol/L (3.5-5.1); Sodium Level 133 mmol/L (136-145)
[2021-09-29 07:04] LABS: Differential Comment SCANNED
[2021-09-29 07:05] LABS: Ovalocyte RARE
[2021-09-29] MEDS: Multivitamins,Therapeutic Tablet 1 TABLET PO (10:57)
[2021-09-29] MEDS: Pantoprazole Sodium 40 MG Tablet PO ×2 (10:57→22:14)
[2021-09-29] MEDS: Aspirin 81 MG TAB.CHEW PO (10:57)
[2021-09-29] MEDS: Metoprolol Tartrate 25 MG Tablet PO ×2 (10:57→22:15)
[2021-09-29] MEDS: Potassium Chloride Oral Tablet 20 MEQ 40 MEQ PO (11:00)
--- NOTE | 2021-09-29 11:41 | CASEMGMT ---
Addendum entered by Shaniqua Cam 09/29/21 15:16: SW called [facility] to check on referral. [facility] [employer] states admissions has left for the day. SW states permission was given to send referral at 1000 and it was faxed and no one has called this SW. [facility] states that admissions was in at that time but have since left for the day and no one has reviewed the case nor is anyone available to review and make determination. Phone call to Carmencita at [facility]. Carmencita will request precert from [facility] with the information that 5 in network facilities have not accepted pt. Pt updated and agreeable. Plan: If pt is medically ready for discharge Saturday or Saturday, pt can go to [facility] care without precert If pt is not medically ready until Saturday or after, precert will be required to go to [facility] ASHA Bales Original Note: Social Work SW received call from Zakia at [facility] and they are unable to accept pt at this time due to care needs. Pt updated and he continues to wish for pt to transfer to [facility] if possible. Agreeable to referral to [facility] as plan B if [facility] denies [facility]. Phone call to [facility] and they are agreeable to review referral. Referral faxed. Will await determination. ASHA Bales
--- NOTE | 2021-09-29 12:52 | CT_ITS ---
STUDY: CT ABDOMEN AND PELVIS WITH CONTRAST REASON FOR EXAM: Female, 70 years old. Neutropenic fever. History of non-Hodgkin''s lymphoma. RADIATION DOSAGE (If Supplied By Facility): CTDIvol = ( 11.79 ) mGy, DLP = ( 366.17 ) mGycm TECHNIQUE: Transaxial images were obtained from the dome of the diaphragm to the symphysis pubis without oral contrast. IV 75mL Isovue-300 was administered. Sagittal and coronal images were reconstructed. Individualized dose optimization techniques were used for this CT. COMPARISON: None. FINDINGS: Tiny bilateral pleural effusions with bibasilar infiltrations and/or atelectasis. The visualized portions of the heart are within normal limits. Normal liver. The gallbladder is contracted. Normal spleen. Normal pancreas. Normal bilateral adrenal glands. Normal right kidney. Normal left kidney. Normal visualized stomach. Normal small intestine. There are scattered colonic diverticula consistent with diverticulosis. Fluid is seen throughout the colon. The appendix is visualized and appears normal. Normal abdominal aorta. Normal inferior vena cava. Normal retroperitoneum. Normal urinary bladder. Small amount of free fluid is seen in the pelvis. Normal abdominal wall. Disc space narrowing and disc degeneration at the L5-S1 level. CT/Abdomen/Pelvis WITH Contrast IMPRESSION: Small bilateral pleural effusions with bibasilar atelectasis and/or infiltration. Scattered sigmoid diverticulosis. Fluid is seen throughout the colon. Small amount of free fluid is seen in the pelvis. Electronically Signed: Shady Fox MD at 14:42 EDT , Service support ,
[2021-09-29 13:23] LABS: Pathologist Review Reviewed
--- NOTE | 2021-09-29 13:44 | PCM.PN.ID ---
Physical Exam Narrative Still fever overnight, feeling about the same. No cough or SOB, no abd pain. Const no apparent distress General Appearance: cooperative Resp normal air movement and clear to auscultation bilaterally Cardio regular rate and regular rhythm GI normal to inspection, nondistended, normoactive bowel sounds Skin no rashes or lesions noted ID ID: Route of nutrition/ use of supplements: [] Nutritional Intake: [] IV Site: [] Putnam Catheter: [] Assessment & Plan Assessment/Plan (1) Hypoxia: (2) Non Hodgkin's lymphoma: (3) COVID-19: (4) Neutropenic fever: PLAN: Neutropenic fever with covid a month ago. Cxs neg so far. Still fever overnight. CT neg for PE on 09/23. Neg resp pcr panel. Stool pcr panel neg. Cdiff was neg last month. ANC remains borderline. BMBx done. Vanc/zosyn stopped last evening. Will check CT abd/pelvis. Will follow
--- NOTE | 2021-09-29 15:56 | NURSING ---
reviewed documentation by Marcial Harrison, student RN
--- NOTE | 2021-09-29 19:23 | PN.HOSP_ITS ---
Subjective Subjective Patient was seen and examined today, I talked with her who was in the room today, she remains pleasantly confused. She has been having episodes of fever, infectious diseases performed a CT of her abdomen and pelvis today which did not show any evidence of pathology that would explain the fever. I talked w ith infectious diseases and we decided that the patient would not go back on antibiotics unless she became more neutropenic. She is marginally neutropenic today with an absolute neutrophil count of 900. Objective Data Objective Data Vital Signs: Vital Signs Temp Pulse Resp BP Pulse Ox 99.5 F H 103 H 16 132/84 H 92 09/29/21 18:37 09/29/21 18:37 09/29/21 18:37 09/29/21 18:37 09/29/21 18:37 Oxygen Flow Rate (L/min) [3] 2 Oxygen Flow Rate (L/min) [2] 2 Oxygen Flow Rate (L/min) [1 ( 2 Initial Baseline)] Oxygen Flow Rate (L/min) 2 Oxygen Delivery Method [3] Nasal Cannula Oxygen Delivery Method [2] Nasal Cannula Oxygen Delivery Method [1 ( Nasal Cannula Initial Baseline)] Oxygen Delivery Method Room Air Weight: 51.8 kg Body Mass Index (BMI) 17.1 Intake & Output: Intake and Output for Last 24 Hours 09/27/21 09/28/21 09/29/21 23:59 23:59 23:59 Intake Total 775.25 / 775.25 975 / 975 1100 / 1100 Output Total 1900 / 1900 1950 / 1950 Balance 775.25 / 775.25 -925 / -925 -850 / -850 Lab / Micro Data Result Diagrams: 09/29/21 05:40 09/29/21 05:40 Labs: Laboratory Results - last 24 hr 09/28/21 22:00: Vancomycin Trough 11.0 09/29/21 05:40: WBC 1.3 L*, RBC 3.44 L, Hgb 11.0 L, Hct 31.8 L, MCV 92.4, MCH 32.0, MCHC 34.6, RDW Std Deviation 54.5 H, RDW Coeff of Stevenson 16.1 H, Plt Count 114 L, MPV 9.8, Immature Gran % (Auto) 7.600 H, Neut % (Auto) 70.2 H, Lymph % (Auto) 3.1 L, [place] % (Auto) 16.0 H, Eos % (Auto) 2.3, Baso % (Auto) 0.8, Absol alejandro Neuts (auto) 0.9 L, Absolute Lymphs (auto) 0.04 L, Nucleated RBC % 0, Differential Comment SCANNED, Diff Path Review Reviewed, Ovalocytes RARE 09/29/21 05:40: Sodium 133 L, Potassium 3.7, Chloride 103, Carbon Dioxide 23.0, Anion Gap 7, BUN 8, Creatinine 0.60, Estim Creat Clear Calc 42.20, Est GFR (MDRD) Af Amer 128, Est GFR (MDRD) Non-Af 106, BUN/Creatinine Ratio 13.4, Glucose 103, Calcium 7.8 L Micro: Microbiology 09/23/21 19:10 Blood Culture (Wb) - Right Forearm Blood Culture - Final No growth in 5 days. 09/23/21 18:30 Blood Culture (Wb) - Port Blood Culture - Final No growth in 5 days. 09/23/21 20:40 Urine Catheter - Catheter Urine Culture - Final Culture exhibits no growth. 09/25/21 10:40 Stool Enteric Bacteriology - Final 09/25/21 10:40 Stool Stool Occult Blood (MERLENE) - Final 09/23/21 22:40 Mucosa - Nasopharyngeal Respiratory Panel (PCR) - Final 09/23/21 20:40 Urine Catheter - Catheter Legionella Antigen - Final 09/23/21 20:40 Urine Catheter - Catheter Streptococcus pneumoniae Antigen (M - Final 09/23/21 19:16 Mucosa - Nasopharyngeal Influenza Types A,B Direct FA (MERLENE) - Final Radiography Diagnostic Testing: Radiology Impression Abdomen/Pelvis CT 09/29/21 12:52 IMPRESSION: Small bilateral pleural effusions with bibasilar atelectasis and/or infiltration. Scattered sigmoid diverticulosis. Fluid is seen throughout the colon. Small amount of free fluid is seen in the pelvis. Electronically Signed: Shady Fox MD at 14:42 EDT , Service support , Physical Exam Const alert and no apparent distress General Appearance: cooperative, well kempt and well developed Orientation / Consciousness: awake, oriented to person, oriented to place and oriented to time HEENT normocephalic, head/scalp atraumatic and moist oral mucous membranes Head and Scalp: normocephalic Eyes PERRL, EOMs intact bilaterally and conjunctivae normal Neck nuchal rigidity, supple, no JVD, thyroid normal and no carotid bruits General: trachea midline Resp normal respiratory effort and clear to auscultation bilaterally Auscultation: Negative for rales, rhonchi or wheezes Cardio regular rate, regular rhythm, no murmurs, no rub and no gallops GI normal to inspection, nondistended, normoactive bowel sounds, soft to palpation, non-tender and non-distended Extremity no clubbing, cyanosis or edema Skin no rashes or lesions noted General Skin Exam: no breakdown Neuro CN's II-XII intact bilaterally, no focal motor deficits and no sensory deficits noted Neuro Narrative: Patient is alert and pleasantly confused Sensorium / Orientation: awake and alert Speech: speech normal Psych thought process normal Psych Narrative: Patient is alert and pleasantly confused Assessment & Plan Assessment/Plan (1) Pneumonia due to COVID-19 virus: (2) Pancytopenia: (3) Neutropenic fever: PLAN: 1. Neutropenic fever-etiology unclear, patient is marginally neutropenic however she does not appear unwell or toxic. I have elected not to place her back on antibiotics after discussing the case with infectious diseases at this time. #2 pancytopenia-bone marrow results do not show any evidence of leukemia or any acute hematological disease. CBC will be rechecked tomorrow #3 dementia-patient's states that the patient's mental status has declined over the last several months #4 essential hypertension #5 history of non-Hodgkin's lymphoma #6 coronary artery disease #7 recent history of COVID-19 infection #8 acute metabolic encephalopathy-on a backdrop of dementia #9 hyperlipidemia #10 hypokalemia-resolved Charges/Coding Visit Charges Inpatient E&M: 30442 Subs Hosp L2
[2021-09-29] MEDS: LORazepam 0.5 MG Tablet PO (22:14)
[2021-09-29] MEDS: Atorvastatin Calcium 20 MG Tablet PO (22:14)
[2021-09-29] MEDS: MELATONIN 3 MG TABLET PO (22:14)
[2021-09-30] VITALS (11 sets, daily range): BP systolic 107–148; BP diastolic 64–81; PULSE 78–98; RESP 16–18; TEMP 36.6–39; O2SAT 92–96
[2021-09-30] MEDS: Acetaminophen 325 MG Tablet 650 MG PO ×2 (03:35→17:29)
[2021-09-30 07:46] LABS: Hematocrit 33.4 % (37-47); Hemoglobin 11.4 g/dL (12.0-15.0); Mean Corp Hgb Conc 34.1 g/dL (32-36); Mean Corpuscular Hgb 32.2 pg (27.0-32.0); Mean Corpuscular Volume 94.4 fL (81-99); Mean Platelet Vol. 10.7 fl (6.2-12.0); POSITIVE COUNT YES; POSITIVE DIFFERENTIAL YES; POSITIVE MORPHOLOGY YES; Platelet Count 124 K/mm3 (150-450); RBC Distribution Width SD 55.2 fl (35.1-43.9); Red Blood Count 3.54 M/mm3 (4.2-5.4)
[2021-09-30 07:51] LABS: Differential Indicated MANUAL DIFF; White Blood Count 1.3 K/mm3 (4.4-11.0)
[2021-09-30 08:36] LABS: Eosinophil 2 % (0-5); Hypochromasia 1+; Lymphocyte 10 % (19-41); Metamyelocyte 2 % (0-1); Monocyte 14 % (0-10); Neutrophil-Band 4 % (0-5); Neutrophil-Segmented 68 % (47-70); Platelet Estimate SLT DEC (ADEQ); Total Cells Counted 50 (MANUAL DIFF)
[2021-09-30 08:38] LABS: Absolute Lymphocyte Count 0.13 X10^3/uL (0.83-4.51); Absolute Neutrophil Count 0.9 X10^3/uL (2.0-7.7)
[2021-09-30] MEDS: Multivitamins,Therapeutic Tablet 1 TABLET PO (09:42)
[2021-09-30] MEDS: Potassium Chloride Oral Tablet 20 MEQ 40 MEQ PO (09:42)
[2021-09-30] MEDS: Aspirin 81 MG TAB.CHEW PO (09:42)
[2021-09-30] MEDS: Metoprolol Tartrate 25 MG Tablet PO ×2 (09:43→20:53)
[2021-09-30] MEDS: Pantoprazole Sodium 40 MG Tablet PO ×2 (09:43→20:59)
--- NOTE | 2021-09-30 10:18 | RAD_ITS ---
STUDY: X-RAY CHEST REASON FOR EXAM: Female, 70 years old. fever, pneumonia TECHNIQUE: PA and lateral views of the chest. COMPARISON: 09/23/2021 FINDINGS: Left subclavian chest port which is unchanged. 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 No change in alveolar opacities in both lung bases consistent with bibasilar atelectasis or pneumonia. There is no demonstrated pleural abnormality. Normal size heart. Normal mediastinum and ana. Normal visualized pulmonary arteries. Normal visualized aortic arch and descending thoracic aorta. Normal visualized thoracic spine. Normal visualized ribs, clavicles, and shoulders. There is no demonstrated abnormality of the visualized soft tissue structures of the upper abdomen. RAD/Chest PA and Lateral IMPRESSION: No change in bibasilar atelectasis or pneumonia. Electronically Signed: Tom Thao MD at 10:47 EDT Tel , Service support ,
[2021-09-30] MEDS: 0.9% Saline Lock 10 ML Syringe IV (13:16)
--- NOTE | 2021-09-30 19:25 | PCM.PN.HOSP ---
Subjective Subjective Patient was seen and examined today, she is still spiking fevers, patient has neutropenia today and I briefly talked with infectious diseases and we have decided to place the patient back on IV antibiotic coverage. I also talked with Dr. Paredes the patient's oncologist, he stated that the patient could receive Granix to elevate her white blood cell count 3 times a week but I have preferred not to give her the Granix-I would rather conservatively treat the patient to see if her white count would come off on its own. Objective Data Objective Data Vital Signs: Vital Signs Temp Pulse Resp BP Pulse Ox 97.8 F 98 16 109/68 94 09/30/21 18:46 09/30/21 18:46 09/30/21 18:46 09/30/21 18:46 09/30/21 18:46 Oxygen Flow Rate (L/min) [3] 2 Oxygen Flow Rate (L/min) [2] 2 Oxygen Flow Rate (L/min) [1 ( 2 Initial Baseline)] Oxygen Flow Rate (L/min) 2 Oxygen Delivery Method [3] Nasal Cannula Oxygen Delivery Method [2] Nasal Cannula Oxygen Delivery Method [1 ( Nasal Cannula Initial Baseline)] Oxygen Delivery Method Nasal Cannula Weight: 51 kg Body Mass Index (BMI) 17.1 Intake & Output: Intake and Output for Last 24 Hours 09/28/21 09/29/21 09/30/21 23:59 23:59 23:59 Intake Total 975 / 975 1100 / 1300 1124 / 1124 Output Total 1900 / 1900 1950 / 2300 900 / 900 Balance -925 / -925 -850 / -1000 224 / 224 Lab / Micro Data Result Diagrams: 09/30/21 07:12 09/29/21 05:40 Labs: Laboratory Results - last 24 hr 09/30/21 07:12: WBC 1.3 L*, RBC 3.54 L, Hgb 11.4 L, Hct 33.4 L, MCV 94.4, MCH 32.2 H, MCHC 34.1, RDW Std Deviation 55.2 H, RDW Coeff of Stevenson 16.0 H, Plt Count 124 L, MPV 10.7, Neut % (Auto) Not Reportable, Absolute Neuts (auto) 0.9 L, Absolute Lymphs (auto) 0.13 L, Total Counted 50, Neutrophils % (Manual) 68, Band Neutrophils % 4, Lymphocytes % (Manual) 10 L, Monocytes % (Manual) 14 H, Eosinophils % (Manual) 2, Metamyelocytes % 2 H, Diff Path Review May foll, Platelet Estimate SLT DEC, Hypochromasia 1+ Micro: Microbiology 09/28/21 09:48 Blood Culture (Wb) - Left Hand Blood Culture - Preliminary No growth in 48 hours. 09/28/21 09:48 Blood Culture (Wb) - Anticubital Left Blood Culture - Preliminary No growth in 48 hours. 09/23/21 19:10 Blood Culture (Wb) - Right Forearm Blood Culture - Final No growth in 5 days. 09/23/21 18:30 Blood Culture (Wb) - Port Blood Culture - Final No growth in 5 days. 09/23/21 20:40 Urine Catheter - Catheter Urine Culture - Final Culture exhibits no growth. 09/25/21 10:40 Stool Enteric Bacteriology - Final 09/25/21 10:40 Stool Stool Occult Blood (MERLENE) - Final 09/23/21 22:40 Mucosa - Nasopharyngeal Respiratory Panel (PCR) - Final 09/23/21 20:40 Urine Catheter - Catheter Legionella Antigen - Final 09/23/21 20:40 Urine Catheter - Catheter Streptococcus pneumoniae Antigen (M - Final 09/23/21 19:16 Mucosa - Nasopharyngeal Influenza Types A,B Direct FA (MERLENE) - Final Radiography Diagnostic Testing: Radiology Impression Chest X-Ray 09/30/21 10:18 IMPRESSION: No change in bibasilar atelectasis or pneumonia. Electronically Signed: Tom Thao MD at 10:47 EDT Tel , Service support , Physical Exam Const alert and no apparent distress Constitutional Narrative: Patient is confused and appears older than her stated age General Appearance: cooperative, well kempt and well developed Orientation / Consciousness: awake, oriented to person, oriented to place and oriented to time HEENT normocephalic, head/scalp atraumatic and moist oral mucous membranes Head and Scalp: normocephalic Eyes PERRL, EOMs intact bilaterally and conjunctivae normal Neck nuchal rigidity, supple, no JVD, thyroid normal and no carotid bruits General: trachea midline Resp normal respiratory effort, no retractions, no use of accessory muscles and clear to auscultation bilaterally Auscultation: Negative for rales, rhonchi or wheezes Cardio regular rate, regular rhythm, S1 normal heart sound, S2 normal heart sound, no murmurs, no rub and no gallops GI normal to inspection, nondistended, normoactive bowel sounds, soft to palpation, non-tender and non-distended Extremity no clubbing, cyanosis or edema Skin no rashes or lesions noted, no wounds and skin turgor normal General Skin Exam: no breakdown Neuro CN's II-XII intact bilaterally, no focal motor deficits and no sensory deficits noted Sensorium / Orientation: awake and alert Psych thought process normal Psych Narrative: Patient is alert but confused Assessment & Plan Assessment/Plan (1) Pancytopenia: (2) Pneumonia due to COVID-19 virus: (3) Neutropenic fever: PLAN: 1. Neutropenic fever-etiology unclear, patient is marginally neutropenic however she does not appear unwell or toxic. I have elected to place her back on antibiotics after discussing the case with infectious diseases at this time. I ordered a chest x-ray for the patient today which was unchanged from previous chest x-rays. I do not believe the patient has a documented pneumonia at this time. #2 pancytopenia-bone marrow results do not show any evidence of leukemia or any acute hematological disease. CBC will be rechecked tomorrow. Oncology does not feel the patient has an active cancer #3 dementia-patient's states that the patient's mental status has declined over the last several months #4 essential hypertension #5 history of non-Hodgkin's lymphoma #6 coronary artery disease #7 recent history of COVID-19 infection #8 acute metabolic encephalopathy-on a backdrop of dementia #9 hyperlipidemia #10 hypokalemia-resolved Charges/Coding Visit Charges Inpatient E&M: 34100 Subs Hosp L2
--- NOTE | 2021-09-30 19:43 | CASEMGMT ---
SW Note SW was not advised of weekend discharge for patient. SW will updated in Daily Report. Federica CANALES
[2021-09-30] MEDS: Atorvastatin Calcium 20 MG Tablet PO (20:53)
[2021-10-01] VITALS (11 sets, daily range): BP systolic 111–167; BP diastolic 71–104; PULSE 77–119; RESP 15–22; TEMP 36.6–38.8; O2SAT 90–94
[2021-10-01] MEDS: Acetaminophen 325 MG Tablet 650 MG PO ×3 (06:24→22:14)
[2021-10-01 07:10] LABS: Absolute Lymphocyte Count 0.06 X10^3/uL (0.83-4.51); Absolute Neutrophil Count 0.8 X10^3/uL (2.0-7.7); Basophil# 0.01 X10^3/uL; Basophil% 0.8 % (0-1); Eosinophil# 0.03 X10^3/uL; Eosinophils% 2.4 % (0-5); Hematocrit 31.3 % (37-47); Hemoglobin 10.6 g/dL (12.0-15.0); Lymphocyte # 0.06 X10^3/ul (0.83-4.51); Lymphocyte % 4.8 % (19-41); Mean Corp Hgb Conc 33.9 g/dL (32-36); Mean Corpuscular Hgb 31.7 pg (27.0-32.0); Mean Corpuscular Volume 93.7 fL (81-99); Mean Platelet Vol. 9.3 fl (6.2-12.0); Monocyte# 0.25 X10^3/uL; Monocyte% 20.2 % (0-10); NRBC Flagged by Analyzer 0 % (0-5); Neutrophil # 0.81 X10^3/uL (2.7-7.7); Neutrophil % 65.3 % (47-70); POSITIVE COUNT YES; POSITIVE DIFFERENTIAL YES; POSITIVE MORPHOLOGY YES; Platelet Count 108 K/mm3 (150-450); Red Blood Count 3.34 M/mm3 (4.2-5.4); White Blood Count 1.2 K/mm3 (4.4-11.0)
[2021-10-01 07:29] LABS: Differential Indicated SCAN CRITERIA MET
[2021-10-01 07:31] LABS: Ovalocyte 1+; Platelet Estimate SLT DEC (ADEQ)
[2021-10-01] MEDS: Pantoprazole Sodium 40 MG Tablet PO ×2 (08:46→22:16)
[2021-10-01] MEDS: Multivitamins,Therapeutic Tablet 1 TABLET PO (08:46)
[2021-10-01] MEDS: Potassium Chloride Oral Tablet 20 MEQ 40 MEQ PO (08:46)
[2021-10-01] MEDS: Metoprolol Tartrate 25 MG Tablet PO ×2 (08:47→22:15)
[2021-10-01] MEDS: Aspirin 81 MG TAB.CHEW PO (08:47)
--- NOTE | 2021-10-01 14:55 | PCM.PN.HOSP ---
Subjective Subjective Patient was seen and examined today, she continues to spike temperatures, she is neutropenic again today with an absolute neutrophil count of 800 Objective Data Objective Data Vital Signs: Vital Signs Temp Pulse Resp BP Pulse Ox 97.9 F 77 16 119/76 92 10/01/21 08:40 10/01/21 08:47 10/01/21 08:40 10/01/21 08:40 10/01/21 08:40 Oxygen Flow Rate (L/min) [3] 2 Oxygen Flow Rate (L/min) [2] 2 Oxygen Flow Rate (L/min) [1 ( 2 Initial Baseline)] Oxygen Flow Rate (L/min) 2 Oxygen Delivery Method [3] Nasal Cannula Oxygen Delivery Method [2] Nasal Cannula Oxygen Delivery Method [1 ( Nasal Cannula Initial Baseline)] Oxygen Delivery Method Room Air Weight: 49.9 kg Body Mass Index (BMI) 17.1 Intake & Output: Intake and Output for Last 24 Hours 09/29/21 09/30/21 10/01/21 23:59 23:59 23:59 Intake Total 1100 / 1300 1302 / 1302 1168 / 1168 Output Total 1950 / 2300 900 / 900 Balance -850 / -1000 402 / 402 1168 / 1168 Medical Nutrition Assessment Dietitian: Malnutrition Criteria Met Start: 10/01/21 14:30 Freq: Status: Active Protocol: Document 10/01/21 14:30 RMA (Rec: 10/01/21 14:30 RMA [id number]) Nutrition Malnutrition Evidence of Malnutrition Exists Yes Malnutrition (severe): Acute Illness/Injury Evidenced By Suboptimal Energy Intake ( Severe),Weight Loss (Severe) Clinical Problem Acute Disease or Injury Related Malnutrition Etiology Severe protein/calorie malnutrition in the context of acute illness related to ongoing inadequate oral intake Signs/Symptoms as evidenced by ~3% wt loss x past 1 week and PO meeting less than 50% estimated nutrition needs for calories and protein Status Active Problem Recommendation Dietitian Recommendations/Changes Continue Regular diet with fortified foods, 240ml ensure enlive w/breakfast, magic cup BID w/ lunch and dinner. Ensure compact 4 times per day w/medpass as tolerated. Adjust ONS as needed to optimize intake. Consider TF due to pt continued poor oral intake and declining weight. Lab / Micro Data Result Diagrams: 10/01/21 06:57 09/29/21 05:40 Labs: Laboratory Results - last 24 hr 10/01/21 06:57: WBC 1.2 L*, RBC 3.34 L, Hgb 10.6 L, Hct 31.3 L, MCV 93.7, MCH 31.7, MCHC 33.9, RDW Std Deviation 55.0 H, RDW Coeff of Stevenson 16.0 H, Plt Count 108 L, MPV 9.3, Immature Gran % (Auto) 6.500 H, Neut % (Auto) 65.3, Lymph % (Auto) 4.8 L, [place] % (Auto) 20.2 H, Eos % (Auto) 2.4, Baso % (Auto) 0.8, Absolute Neuts (auto) 0.8 L, Absolute Lymphs (auto) 0.06 L, Nucleated RBC % 0, Diff Path Review April, Platelet Estimate SLT DEC, Ovalocytes 1+ Micro: Microbiology 09/28/21 09:48 Blood Culture (Wb) - Left Hand Blood Culture - Preliminary No growth in 48 hours. 09/28/21 09:48 Blood Culture (Wb) - Anticubital Left Blood Culture - Preliminary No growth in 48 hours. 09/23/21 19:10 Blood Culture (Wb) - Right Forearm Blood Culture - Final No growth in 5 days. 09/23/21 18:30 Blood Culture (Wb) - Port Blood Culture - Final No growth in 5 days. 09/23/21 20:40 Urine Catheter - Catheter Urine Culture - Final Culture exhibits no growth. 09/25/21 10:40 Stool Enteric Bacteriology - Final 09/25/21 10:40 Stool Stool Occult Blood (MERLENE) - Final 09/23/21 22:40 Mucosa - Nasopharyngeal Respiratory Panel (PCR) - Final 09/23/21 20:40 Urine Catheter - Catheter Legionella Antigen - Final 09/23/21 20:40 Urine Catheter - Catheter Streptococcus pneumoniae Antigen (M - Final 09/23/21 19:16 Mucosa - Nasopharyngeal Influenza Types A,B Direct FA (MERLENE) - Final Physical Exam Const alert and no apparent distress Constitutional Narrative: Patient is alert and confused General Appearance: cooperative, well kempt and well developed Orientation / Consciousness: awake, oriented to person, oriented to place and oriented to time HEENT normocephalic, head/scalp atraumatic and moist oral mucous membranes Head and Scalp: normocephalic Eyes PERRL, EOMs intact bilaterally and conjunctivae normal Neck nuchal rigidity, supple, no JVD and thyroid normal General: trachea midline Resp normal respiratory effort, no retractions, no use of accessory muscles and clear to auscultation bilaterally Auscultation: Negative for rales, rhonchi or wheezes Cardio regular rate, regular rhythm, S1 normal heart sound, S2 normal heart sound, no murmurs, no rub and no gallops GI normal to inspection, nondistended, normoactive bowel sounds, soft to palpation, non-tender and non-distended Extremity normal to inspection and no clubbing, cyanosis or edema Skin no rashes or lesions noted General Skin Exam: no breakdown Neuro CN's II-XII intact bilaterally, no focal motor deficits and no sensory deficits noted Sensorium / Orientation: awake and alert Psych thought process normal Psych Narrative: Patient is confused, she has a flat affect Assessment & Plan Assessment/Plan (1) Hypertension: (2) Pancytopenia: (3) Pneumonia due to COVID-19 virus: (4) Neutropenic fever: PLAN: 1. Neutropenic fever-etiology unclear, patient is marginally neutropenic however she does not appear unwell or toxic. She continues on meropenem at this time, ID will see the patient tomorrow #2 pancytopenia-bone marrow results do not show any evidence of leukemia or any acute hematological disease. CBC will be rechecked tomorrow. Oncology does not feel the patient has an active cancer #3 dementia-patient's states that the patient's mental status has declined over the last several months #4 essential hypertension #5 history of non-Hodgkin's lymphoma #6 coronary artery disease #7 recent history of COVID-19 infection #8 acute metabolic encephalopathy-on a backdrop of dementia #9 hyperlipidemia #10 hypokalemia-resolved Charges/Coding Visit Charges Inpatient E&M: 82601 Subs Hosp L2
[2021-10-01] MEDS: LORazepam 0.5 MG Tablet PO (20:18)
[2021-10-01] MEDS: TBO-FILGRASTIM 300 MCG/0.5 ML ML 250 MCG SC (20:21)
[2021-10-01] MEDS: Atorvastatin Calcium 20 MG Tablet PO (22:14)
[2021-10-02] VITALS (9 sets, daily range): BP systolic 91–142; BP diastolic 60–84; PULSE 77–99; RESP 14–20; TEMP 36.6–38.4; O2SAT 93–94
--- NOTE | 2021-10-02 08:04 | PCM.PN.HOSP ---
Subjective Subjective Patient is confused, disoriented and incoherent in regard to response to questions. Continues to be severely neutropenic and persistent fever. Last fever temperature 101 Fahrenheit at about 9 AM. Patient was evaluated by core worker for bronchoscopy. Objective Data Objective Data Vital Signs: Vital Signs Temp Pulse Resp BP Pulse Ox 99.7 F H 99 14 142/84 H 94 10/02/21 05:27 10/02/21 05:27 10/02/21 05:27 10/02/21 05:27 10/02/21 05:27 Oxygen Flow Rate (L/min) [3] 2 Oxygen Flow Rate (L/min) [2] 2 Oxygen Flow Rate (L/min) [1 ( 2 Initial Baseline)] Oxygen Flow Rate (L/min) 2 Oxygen Delivery Method [3] Nasal Cannula Oxygen Delivery Method [2] Nasal Cannula Oxygen Delivery Method [1 ( Nasal Cannula Initial Baseline)] Oxygen Delivery Method Room Air Weight: 108 lb 0.424 oz Body Mass Index (BMI) 17.1 Intake & Output: Intake and Output for Last 24 Hours 09/30/21 10/01/21 10/02/21 23:59 23:59 23:59 Intake Total 1302 / 1302 1528 / 1528 120 / 120 Output Total 900 / 900 Balance 402 / 402 1528 / 1528 120 / 120 Medical Nutrition Assessment Dietitian: Malnutrition Criteria Met Start: 10/01/21 14:30 Freq: Status: Active Protocol: Document 10/01/21 14:30 RMA (Rec: 10/01/21 14:30 RMA [id number]) Nutrition Malnutrition Evidence of Malnutrition Exists Yes Malnutrition (severe): Acute Illness/Injury Evidenced By Suboptimal Energy Intake ( Severe),Weight Loss (Severe) Clinical Problem Acute Disease or Injury Related Malnutrition Etiology Severe protein/calorie malnutrition in the context of acute illness related to ongoing inadequate oral intake Signs/Symptoms as evidenced by ~3% wt loss x past 1 week and PO meeting less than 50% estimated nutrition needs for calories and protein Status Active Problem Recommendation Dietitian Recommendations/Changes Continue Regular diet with fortified foods, 240ml ensure enlive w/breakfast, magic cup BID w/ lunch and dinner. Ensure compact 4 times per day w/medpass as tolerated. Adjust ONS as needed to optimize intake. Consider TF due to pt continued poor oral intake and declining weight. Lab / Micro Data Result Diagrams: 10/01/21 06:57 09/29/21 05:40 Micro: Microbiology 09/28/21 09:48 Blood Culture (Wb) - Left Hand Blood Culture - Preliminary No growth in 48 hours. 09/28/21 09:48 Blood Culture (Wb) - Anticubital Left Blood Culture - Preliminary No growth in 48 hours. 09/23/21 19:10 Blood Culture (Wb) - Right Forearm Blood Culture - Final No growth in 5 days. 09/23/21 18:30 Blood Culture (Wb) - Port Blood Culture - Final No growth in 5 days. 09/23/21 20:40 Urine Catheter - Catheter Urine Culture - Final Culture exhibits no growth. 09/25/21 10:40 Stool Enteric Bacteriology - Final 09/25/21 10:40 Stool Stool Occult Blood (MERLENE) - Final 09/23/21 22:40 Mucosa - Nasopharyngeal Respiratory Panel (PCR) - Final 09/23/21 20:40 Urine Catheter - Catheter Legionella Antigen - Final 09/23/21 20:40 Urine Catheter - Catheter Streptococcus pneumoniae Antigen (M - Final 09/23/21 19:16 Mucosa - Nasopharyngeal Influenza Types A,B Direct FA (MERLENE) - Final Physical Exam Narrative General: Confused, incomprehensible incoherent speech. Disoriented HEENT: Atraumatic, PERRLA, EOMI, Normocephalic Oral: No Gingival or Mucosal Lesions/ Ulcerations Neck: Supple, No JVD, Negative Carotid Bruits Lungs: Air entry diminished in bilateral lung bases. No crepitation/rhonchi Cardiovascular: Regular rate, Regular Rhythm, Normal S1, Normal S2, No murmurs Abdomen: Bowel Sounds Present, Soft, Non Tender, Non-Distended : No renal angle tenderness. No suprapubic tenderness. Extremities: No edema, Capillary Refill Less than 3 Seconds Skin: No rashes, No breakdown Musculoskeletal: Moderate atrophy of muscles of extremities. Weakness of muscles at peripheral joints of all extremities. Neurological: Cranial nerves II-XII grossly intact, DTR 2+/4 Psych/Mental Status: Flat affect Assessment & Plan Assessment/Plan (1) Hypertension: (2) Pancytopenia: (3) Pneumonia due to COVID-19 virus: (4) Neutropenic fever: PLAN: 1. Neutropenic fever-etiology unclear: Patient is being seen by ID. Cultures negative so far. Patient was seen by core worker and plan for flexible bronchoscopy at about 7:30 AM n.p.o. past midnight. Infectious work-up so far negative including respiratory PCR panel, enteric bacteriology panel, C. difficile. Bone marrow biopsy was done on 09/27 reported hypocellular marrow, 10% cellularity with trilineage hematopoiesis. Negative for acid-fast bacilli and fungal organisms. Flow cytometry negative for evidence of B-cell or T-cell lymphoma. Vanco Zosyn was stopped. On meropenem. WBC count 1.2 thousand. ANC 0.8 thousand. Platelet count 108,000. Platelet count slightly downtrending therefore baby aspirin discontinued. #2 pancytopenia- Oncology does not feel the patient has an active cancer. Rest as mentioned above #3 dementia-patient's states that the patient's mental status has declined over the last several months #4 essential hypertension #5 history of non-Hodgkin's B-cell lymphoma. #6 coronary artery disease #7 recent history of COVID-19 infection #8 acute metabolic encephalopathy-on a backdrop of dementia #9 hyperlipidemia #10 hypokalemia-resolved Active Medications Acetaminophen (Acetaminophen 325 Mg Tablet) 650 mg PO Q4H PRN PRN PRN Reason: Fever, pain 1-09/10 Last Admin: 10/02/21 09:24 Dose: 650 mg Documented by: Al Hydroxide/Mg Hydroxide (Mag Hydrox/Al Hydrox/Simeth 30 Ml Udc) 30 ml PO Q6H PRN PRN PRN Reason: Gastric Burning Albuterol Sulfate (Albuterol 2.5 Mg/3 Ml Vial.Neb.) 2.5 mg INHALATION Q2H PRN PRN PRN Reason: Dyspnea, wheezing Aspirin (Aspirin 81 Mg Tab.Chew) 81 mg PO DAILY@0800 [facility] Last Admin: 10/02/21 09:28 Dose: 81 mg Documented by: Atorvastatin Calcium (Atorvastatin Calcium 20 Mg Tablet) 20 mg PO QHS [facility] Last Admin: 10/01/21 22:14 Dose: 20 mg Documented by: Guaifenesin (Guaifenesin 10 Ml Udc (200mg/10ml)) 20 ml PO Q4H PRN PRN PRN Reason: COUGH Hydralazine HCl (Hydralazine 20 Mg/Ml Vial) 10 mg IV Q4H PRN PRN PRN Reason: SBP > 160 Sodium Chloride () 250 mls @ 15 mls/hr IV .[id number] PRN PRN Reason: Saline Flush Last Infusion: 10/02/21 12:04 Dose: Infused Documented by: Sodium Chloride () 250 mls @ 15 mls/hr IV .[id number] PRN PRN Reason: Additional IVPB Infusion Meropenem 1 gm/ Sodium (Chloride) 120 mls @ 33 mls/hr IV Q8 [facility] Last Admin: 10/02/21 14:21 Dose: 33 mls/hr Documented by: Loperamide HCl (Loperamide 2 Mg Capsule) 2 mg PO Q2H PRN PRN PRN Reason: diarrhea Last Admin: 09/27/21 08:02 Dose: 2 mg Documented by: Lorazepam (Lorazepam 0.5 Mg Tablet) 0.5 mg PO Q6H PRN PRN PRN Reason: ANXIETY/RESTLESSNESS/SLEEP Last Admin: 10/01/21 20:18 Dose: 0.5 mg Documented by: Melatonin (Melatonin 3 Mg Tablet) 3 mg PO QHS PRN PRN PRN Reason: INSOMNIA Last Admin: 09/29/21 22:14 Dose: 3 mg Documented by: Metoprolol Tartrate (Metoprolol Tartrate 25 Mg Tablet) 25 mg PO BID [facility] Last Admin: 10/02/21 09:28 Dose: 25 mg Documented by: Metoprolol Tartrate (Metoprolol Tartrate 5 Mg/5 Ml Vial) 5 mg IV Q6H PRN PRN Reason: HR>120 Multivitamins (Multivitamins,Therapeutic Tablet) 1 tablet PO BREAKFAST [facility] Last Admin: 10/02/21 12:02 Dose: 1 tablet Documented by: Nutritional Formula (Lactose Free) (Ensure Compact 118 Ml Liquid) 118 ml PO 4X/DAY [facility] Last Admin: 10/02/21 12:05 Dose: 118 ml Documented by: Ondansetron HCl (Ondansetron 4 Mg/2 Ml Vial) 4 mg IV Q8H PRN PRN PRN Reason: NAUSEA/VOMITING Pantoprazole Sodium (Pantoprazole Sodium 40 Mg Tablet) 40 mg PO BID [facility] Last Admin: 10/02/21 09:34 Dose: 40 mg Documented by: Potassium Chloride (Potassium Chloride Oral Tablet 20 Meq) 40 meq PO DAILY [facility] Last Admin: 10/02/21 12:02 Dose: 40 meq Documented by: Prochlorperazine Edisylate (Prochlorperazine 10 Mg/2 Ml Vial) 5 mg IV Q4H PRN PRN PRN Reason: Breakthrough nausea/vomiting Sodium Chloride (0.9% Saline Lock 10 Ml Syringe) 10 - 40 ml IV UD PRN PRN Reason: SALINE FLUSH Last Admin: 09/30/21 13:16 Dose: 30 ml Documented by: Tbo-Filgrastim (Tbo-Filgrastim 300 Mcg/0.5 Ml Ml) 250 mcg SC DAILY [facility] Last Admin: 10/02/21 09:24 Dose: 250 mcg Documented by: Throat Lozenges (Benzocaine/Menthol 1 Lozenge) 1 lozenge MUCOUS MEM Q2H PRN PRN PRN Reason: SORE THROAT
[2021-10-02] MEDS: Acetaminophen 325 MG Tablet 650 MG PO ×2 (09:24→17:18)
[2021-10-02] MEDS: TBO-FILGRASTIM 300 MCG/0.5 ML ML 250 MCG SC (09:24)
[2021-10-02] MEDS: Aspirin 81 MG TAB.CHEW PO (09:28)
[2021-10-02] MEDS: Metoprolol Tartrate 25 MG Tablet PO ×2 (09:28→22:44)
[2021-10-02] MEDS: Pantoprazole Sodium 40 MG Tablet PO ×2 (09:34→22:44)
--- NOTE | 2021-10-02 10:49 | CASEMGMT ---
CHAUNCEY received an email from Carmencita at [facility] requesting updates. CHAUNCEY faxed Carmencita the updates, updated her that pt is not ready for discharge today. CHAUNCEY also emailed Carmencita back to let her know SW on [facility] is now following this pt. ELLE Tirado
[2021-10-02] MEDS: Potassium Chloride Oral Tablet 20 MEQ 40 MEQ PO (12:02)
[2021-10-02] MEDS: Multivitamins,Therapeutic Tablet 1 TABLET PO (12:02)
--- NOTE | 2021-10-02 12:17 | NURSING ---
out of 250cc ns flush bags to had to use 500cc ns flush bag
[2021-10-02 12:31] LABS: Pathologist Review Reviewed
[2021-10-02 12:31] LABS: Pathologist Review Reviewed
--- NOTE | 2021-10-02 15:10 | CON.PCM.CC_ITS ---
Assessment & Plan Assessment/Plan (1) Neutropenic fever: PLAN: RECOMMENDATIONS: 1. Continue antimicrobials per ID recommendations. 2. Bronchoscopy tomorrow morning at 7:30 AM. 3. Patient to be made n.p.o. at midnight. IMPRESSIONS: 1. Neutropenic fever The patient was initially mated to the hospital on September 23 with neutropenic fevers. Despite being on broad-spectrum antimicrobials, the patient continues to have fevers. The etiology for these continued fevers are in question. Therefore, we were asked to evaluate the patient for potential bronchoscopy. Ongoing fevers could be related to possible underlying fungal infection or an underlying autoimmune/vasculitides. I did speak to the patient and her this afternoon at the bedside. Following a discussion regarding the risks and benefits, they are in agreement to proceed with bronchoscopy with BAL. The procedure has been tentatively scheduled for tomorrow morning at 7:30 AM. The patient should remain n.p.o. at midnight. This note was generated with Cloneless dictation software. It may contain incorrect words, spelling, and punctuation that were not noted in checking the note before signing. HPI Consult Data Date of Consult: 10/03/21 HPI Narrative Reason for Consultation: Neutropenic fever, consider bronchoscopy HPI Narrative: The patient is a 70-year-old female, with a history as outlined below, who was initially admitted to the hospital on September 23 with neutropenic fever. The patient has a history of non-Hodgkin's lymphoma and was previously on immunotherapy and following with Dr. Paredes. Her medical history is also significant for breast CA status post partial mastectomy along with a recent COVID-19 diagnosis. Her hospital course has been complicated by persistent fe vers, despite being on broad-spectrum antimicrobials. We were consulted to evaluate the patient for potential bronchoscopy. The patient is quite confused at baseline, but her , who was present at the bedside, was able to provide additional input in details. [facility] Medical History Dementia Former smoker History of breast cancer HTN (hypertension) Home Medications multivitamin with folic acid 1 tab PO DAILY 05/27/15 [History Last Taken 04/04/18 05:00] aspirin 81 mg PO DAILY@0800 05/15/19 [History Last Taken 05/17/19] atorvastatin 20 mg PO DAILY 05/15/19 [History Last Taken Unknown] metoprolol tartrate 12.5 mg PO BID 05/15/19 [History Last Taken 05/18/19] loperamide 2 mg PO Q2H PRN PRN 3 Days #10 cap 08/27/21 [Rx Last Taken Unknown] potassium chloride [Klor-Con M20] 40 meq PO DAILY 3 Days #6 tab 08/27/21 [Rx Last Taken Unknown] amoxicillin-pot clavulanate 1 tab PO BID 09/23/21 [History Last Taken Unknown] Allergy/AdvReac Type Severity Reaction Status Date / Time No Known Allergies Allergy Verified 08/25/21 08:32 Family History (Updated 09/23/21 @ 22:[address] Stefanie Durant MD) Mother Hypertension Father Colon cancer Alzheimer disease Surgical History (Updated 09/23/21 @ 22:[address] Stefanie Durant MD) H/O stapedectomy Hx of cardiac catheterization S/P colonoscopy S/P fine needle aspiration S/P mastectomy Social History (Updated 09/23/21 @ 22:[address] Stefanie Durant MD) household members: spouse Smoking Status: Never smoker alcohol intake: never substance use type: does not use ROS Constitutional Constitutional: Reports chills, fatigue and fever(s) Eyes Eyes: Denies blurry vision or change in vision ENT HEENT: Denies dizziness, epistaxis or headache(s) Cardiovascular Cardiovascular: Denies chest pain or dizziness Respiratory/Chest Respiratory/Chest: Denies cough or dyspnea Gastrointestinal Gastrointestinal: Denies abdominal pain, diarrhea, nausea or vomiting Genitourinary Genitourinary: Denies difficulty urinating Musculoskeletal Musculoskeletal: Denies arthralgias or back pain Integumentary Integumentary: Denies lesions, rash or skin ulcer Neurologic Neurologic: Reports confusion Psychiatric Psychiatric: Denies anxiety or depression Endocrine Endocrinology: Reports fatigue Hematologic/Lymphatic Hematologic/Lymphatic: Reports easy bleeding and easy bruising Physical Exam Const alert and no apparent distress General Appearance: cooperative Orientation / Consciousness: confused and disoriented Exam Limitations: altered mental status Nutritional Appearance: cachectic HEENT normocephalic and head/scalp atraumatic Eyes PERRL, EOMs intact bilaterally and conjunctivae normal Neck supple General: trachea midline Chest inspection of chest normal Resp normal respiratory effort Auscultation: diminished lung sounds; Negative for rales, rhonchi or wheezes Cardio regular rate and regular rhythm GI normal to inspection, nondistended, normoactive bowel sounds Extremity no clubbing, cyanosis or edema Skin no rashes or lesions noted Neuro moves all extremities and no focal motor deficits Psych Mood & Affect: flat affect Medical Records Data Medical Nutrition Assessment Dietitian: Malnutrition Criteria Met Start: 10/01/21 14:30 Freq: Status: Active Protocol: Document 10/01/21 14:30 RMA (Rec: 10/01/21 14:30 RMA [id number]) Nutrition Malnutrition Evidence of Malnutrition Exists Yes Malnutrition (severe): Acute Illness/Injury Evidenced By Suboptimal Energy Intake ( Severe),Weight Loss (Severe) Clinical Problem Acute Disease or Injury Related Malnutrition Etiology Severe protein/calorie malnutrition in the context of acute illness related to ongoing inadequate oral intake Signs/Symptoms as evidenced by ~3% wt loss x past 1 week and PO meeting less than 50% estimated nutrition needs for calories and protein Status Active Problem Recommendation Dietitian Recommendations/Changes Continue Regular diet with fortified foods, 240ml ensure enlive w/breakfast, magic cup BID w/ lunch and dinner. Ensure compact 4 times per day w/medpass as tolerated. Adjust ONS as needed to optimize intake. Consider TF due to pt continued poor oral intake and declining weight. Lab / Micro Data Result Diagrams: 10/01/21 06:57 09/29/21 05:40 Labs: Laboratory Results - last 24 hr 09/30/21 07:12: Diff Path Review Reviewed 10/01/21 06:57: Diff Path Review Reviewed Charges/Coding Visit Charges Inpatient E&M: 48055 Init Hosp L2
--- NOTE | 2021-10-02 16:28 | PCM.PN.ID ---
Physical Exam Narrative Feeling better, more awake. Fever overnight. No complaints. Const no apparent distress General Appearance: cooperative Resp normal air movement and clear to auscultation bilaterally Cardio regular rate GI normal to inspection, nondistended, normoactive bowel sounds Skin no rashes or lesions noted ID ID: Route of nutrition/ use of supplements: [] Nutritional Intake: [] IV Site: [] Putnam Catheter: [] Assessment & Plan Assessment/Plan (1) Hypoxia: (2) Non Hodgkin's lymphoma: (3) COVID-19: (4) Neutropenic fever: PLAN: Neutropenic fever with covid a month ago. Cxs neg so far. Still fever overnight. CT neg for PE on 09/23. Neg resp pcr panel. Stool pcr panel neg. Cdiff was neg last month. ANC remains borderline. BMBx done, path neg. On meropenem. Will check ebv panel and cmv pcr, fungal Abs, MESFIN with reflex panel, and esr. Will consult pulm for bronch. Will follow, d/w Dr. Torres and Dr. Paredes
[2021-10-02] MEDS: Atorvastatin Calcium 20 MG Tablet PO (22:44)
[2021-10-03] VITALS (21 sets, daily range): BP systolic 88–149; BP diastolic 65–109; PULSE 75–101; RESP 14–28; TEMP 36.3–38; O2SAT 85–99
[2021-10-03] MEDS: Acetaminophen 325 MG Tablet 650 MG PO (05:36)
--- NOTE | 2021-10-03 06:20 | NURSING ---
Addendum entered by Thong Guy 10/03/21 06:20: placed on 2L of oxygen Original Note: pt down to endo at this time via bed. taken by FRANCISCO Dinh and accompanied by her
[2021-10-03] MEDS: Lidocaine 2% Jelly 1 APPLIC Tube ×2 (07:40→07:53)
[2021-10-03] MEDS: Lidocaine 2% (5ml sdv) 5 ML VIAL.MPF ×2 (07:40→07:53)
--- NOTE | 2021-10-03 08:02 | OP.BRONCH_ITS ---
Patient Name: Francine Polk Procedure Date: 10/03/2021 7:12 AM Date of : 1950 Age: 70 Procedure: Bronchoscopy Indications: Diagnostic bronchoalveolar lavage Providers: Chele Torres MD Medicines: Monitored Anesthesia Care Complications: No immediate complications Procedure: Pre-Anesthesia Assessment: - A History and Physical has been performed. Patient meds and allergies have been reviewed. The patient is unable to give consent secondary to the patient's altered mental status. The risks and benefits of the procedure and the sedation options and risks were discussed with the patient's spouse. All questions were answered and informed consent was obtained. Patient identification and proposed procedure were verified prior to the procedure by the physician and the nurse in the procedure room. Mental Status Examination: alert but confused. Airway Examination: normal oropharyngeal airway. Respiratory Examination: poor air movement. CV Examination: normal. ASA Grade Assessment: III - A patient with severe systemic disease. After reviewing the risks and benefits, the patient was deemed in satisfactory condition to undergo the procedure. The anesthesia plan was to use monitored anesthesia care (MAC). Immediately prior to administration of medications, the patient was re-assessed for adequacy to receive sedatives. The heart rate, respiratory rate, oxygen saturations, blood pressure, adequacy of pulmonary ventilation, and response to care were monitored throughout the procedure. The physical status of the patient was re-assessed after the procedure. After I obtained informed consent, the scope was passed under direct vision. Throughout the procedure, the patient's blood pressure, pulse, and oxygen saturations were monitored continuously. The bronchoscope was introduced through the mouth and advanced to the tracheobronchial tree. The procedure was accomplished without difficulty. The patient tolerated the procedure well. Findings: The larynx appears normal. The vocal cords appear normal. The subglottic space is normal. The trachea is of normal caliber. The veto is sharp. Bilateral Lung Abnormalities: Areas of erythema was found throughout the tracheobronchial tree. The tracheobronchial tree of the right lung was examined to at least the first subsegmental level. There are no endobronchial lesions, and no secretions. Left Lung Abnormalities: Notable, thick secretions were found in the left lower lobe. They were not obstructing the airway. BAL was performed in the left lower lobe of the lung and sent for cell count, bacterial culture, viral smears & culture, and fungal & AFB analysis and cytology. 60 mL of fluid were instilled. 30 mL were returned. The return was bloody. There were no mucoid plugs in the return fluid. BAL was performed in the right middle lobe of the lung and sent for cell count, bacterial culture, viral smears & culture, and fungal & AFB analysis and cytology. 60 mL of fluid were instilled. 40 mL were returned. The return was bloody. There were no mucoid plugs in the return fluid. Impression: - The airway examination of the right lung was normal. - Erythema was present throughout the tracheobronchial tree. - Notable, thick secretions were found in the left lower lobe. - Bronchoalveolar lavage was performed in the left lower lobe. - Bronchoalveolar lavage was performed in the right middle lobe. Recommendation: - Await BAL results. Procedure Code(s): --- Professional --- 09064, Bronchoscopy, rigid or flexible, including fluoroscopic guidance, when performed; with bronchial alveolar lavage 16709, Bronchoscopy, rigid or flexible, including fluoroscopic guidance, when performed; with bronchial alveolar lavage 53678, Bronchoscopy, rigid or flexible, including fluoroscopic guidance, when performed; with bronchial alveolar lavage 58403, Bronchoscopy, rigid or flexible, including fluoroscopic guidance, when performed; with bronchial alveolar lavage Diagnosis Code(s): --- Professional --- R09.89, Other specified symptoms and signs involving the circulatory and respiratory systems CPT copyright 2017 [employer]. All rights reserved. The codes documented in this report are preliminary and upon grain miller helper review may be revised to meet current compliance requirements. DO Chele Newman MD 10/03/2021 8:02:07 AM This report has been signed electronically. Number of Addenda: 0 Note Initiated On: 10/03/2021 7:12 AM
--- NOTE | 2021-10-03 08:33 | FLU_PTH ---
PATIENT: DIANNA WEBSTER LOC: MS3 U#:[id number] AGE/SX: 70/F [place] [facility] [place]: Dr. Pablo Sena MD : 1950 BED: 1 DIS: 10/10/2021 SPEC #: [id number] RECD: 10/03/21 09:17 STATUS: SOUJean REQ #: [id number] SAKSHI: 10/03/21 08:[address]: Chele Torres DEPT: CYTOLOGY RECD BY: Liliana Rojas ENTERED: 10/03/21 09:18 SP TYPE: Fluid OTHR DR: MD Dr. Yosef Pop MD Dr. Chitra Ganta, MD Dr. Derek Brown, DO Dr. Prakash Chand, MD Dr. Robert Leininger, MD Christina Muller, CASINO GAMING INSPECTOR-C Tissues: A - Bronchus of left lower lobe B - Bronchus of right middle lobe Procedures: PC (control) Special Stain Group II Special Stain Group I Surgery Specimen Level IV AFB Stain (control) GMS Stain (control) Iron Stain (control) Cytospin Fluid Comments: @ Ordering doctor for SSII edited from to @ by AMANDA at 10/03/21 1004 @ Ordering doctor for SUIV edited from to [email or web address] [place] by AMANDA at 10/03/21 1004 @ Ordering doctor for CYSPIN edited from to @ by AMANDA at 10/03/21 1004 @ Submitting doctor edited from to [email or web address] [place] by AMANDA at 10/03/21 1004 HEADER OPERATION: Bronchoscopy with BAL PRE-OP DIAGNOSIS: Neutropenic fever TISSUE SUBMITTED: A ? BAL LLL fluid for cytology, B ? BAL RML fluid for cytology DIAGNOSIS CYTOLOGY A. BAL LLL fluid for cytology (cytospin and cell block): Negative for malignant cells. See comment. B. BAL RML fluid for cytology (cytospin and cell block): Negative for malignant cells. See comment. SJ:bassem 10/04/2021 COMMENT A. Organisms consistent with bacteria are noted. Special stain for fungi show organisms (yeast and pseudohyphae), consistent with Nica species; matched controls is appropriate. The findings may represent contaminant from mouth. Special stain for acid fast bacilli and pneumocystis carinii are negative for organisms; matched controls are appropriate. Iron stain does not show any hemosiderin laden macrophages; matched control is appropriate. B. Organisms consistent with bacteria are noted. Special stain for fungi show organisms (yeast and pseudohyphae), consistent with Nica species; matched controls is appropriate. The findings may represent contaminant from mouth. Special stain for acid fast bacilli and pneumocystis carinii are negative for organisms; matched controls are appropriate. Iron stain does not show any hemosiderin laden macrophages; matched control is appropriate. Clinical correlation and appropriate follow up are necessary. CYTOLOGY STUDY Slides are reviewed. CYTOLOGY GROSS A - Received is 25 ml of red, mucoidy, cloudy fluid labeled with the patient's name and and designated per the requisition as BAL LLL. Submitted for cytology preparation including cell block. B - Received is 25 ml of red, mucoidy, cloudy fluid labeled with the patient's name and and designated per the requisition as BAL RML. Submitted for cytology preparation including cell block. / bassem 10/03/2021 TC:5 CPT: 25345 x2, 27993 x2, 33107 x6, 79201 x2
[2021-10-03 08:36] LABS: Cytology, Washings SEE PATHOLOGY REPORT
[2021-10-03 08:38] LABS: Cytology, Washings SEE PATHOLOGY REPORT
--- NOTE | 2021-10-03 09:38 | CASEMGMT ---
Addendum entered by Socorro Rojas 10/03/21 11:52: CHAUNCEY received email from Carmencita at [facility] stating pt's pre-cert is good for 48 hours from last night but pt's is planning on paying privately for SNF so pt can admit to [facility] whenever she is medically cleared. CHAUNCEY faxed updated clinicals to [facility]. Plan: [facility] when medically cleared Addendum entered by Socorro Rojas 10/03/21 11:46: CHAUNCEY updated physician pre-cert is obtained. Pt is not medically ready for discharge today. CHAUNCEY placed a call to Carmencita at [facility] and left message regarding how long pt's pre-cert is good for. SW waiting for call back from [facility]. Original Note: Social Work Note SW received message from Carmencita at [facility] stating pre-cert has been obtained. Socorro Rojas FOOD SERVICE AGENT, IRONER HAND
[2021-10-03] MEDS: TBO-FILGRASTIM 300 MCG/0.5 ML ML 250 MCG SC (09:48)
[2021-10-03] MEDS: Multivitamins,Therapeutic Tablet 1 TABLET PO (09:49)
[2021-10-03] MEDS: Pantoprazole Sodium 40 MG Tablet PO ×2 (09:50→21:11)
[2021-10-03] MEDS: Potassium Chloride Oral Tablet 20 MEQ 40 MEQ PO (09:50)
[2021-10-03] MEDS: Metoprolol Tartrate 25 MG Tablet PO ×2 (09:50→21:09)
--- NOTE | 2021-10-03 09:58 | PCM.PN.ID ---
Physical Exam Narrative Bronch done this AM. No fever last night, feeling ok. Const no apparent distress General Appearance: cooperative Resp normal air movement and clear to auscultation bilaterally Cardio regular rate and regular rhythm GI normal to inspection, nondistended, normoactive bowel sounds Skin no rashes or lesions noted ID ID: Route of nutrition/ use of supplements: [] Nutritional Intake: [] IV Site: [] Putnam Catheter: [] Assessment & Plan Assessment/Plan (1) Hypoxia: (2) Non Hodgkin's lymphoma: (3) COVID-19: (4) Neutropenic fever: PLAN: Neutropenic fever with covid a month ago. Cxs neg so far. CT neg for PE on 09/23. Neg resp pcr panel. Stool pcr panel neg. Cdiff was neg last month. ANC remains borderline. BMBx done, path neg. On meropenem. Bronch done this AM. No fever last night. Will follow
[2021-10-03 10:00] LABS: Appearance/Body Fluid CLOUDY; Color/Body Fluid RED; Source- Body Fluid BRONCHIAL LAVAGE
[2021-10-03 10:01] LABS: Source- Body Fluid BRONCHIAL LAVAGE
[2021-10-03 10:02] LABS: Appearance/Body Fluid CLOUDY; Color/Body Fluid RED
[2021-10-03 10:11] LABS: Red Cell Count/Body Fluid 16528 /mm3
[2021-10-03 10:12] LABS: White Blood Count/Body Fluid 2013 /mm3
[2021-10-03 10:14] LABS: Red Cell Count/Body Fluid 14537 /mm3
[2021-10-03 10:15] LABS: White Blood Count/Body Fluid 1868 /mm3
[2021-10-03 10:41] LABS: Body Fluid QC Type(s) BF1Q; Lymphocytes 25 %; Monocytes 5 %; Neutrophil (Segs) 29 %; Other Cell Type/BF 41 %
[2021-10-03 10:52] LABS: Body Fluid QC Type(s) BF1Q; Lymphocytes 10 %; Monocytes 11 %; Neutrophil (Segs) 21 %; Other Cell Type/BF 58 %
[2021-10-03 10:57] LABS: Erythrocyte Sedimentation Rate 72 mm/hr (0-30)
--- NOTE | 2021-10-03 12:10 | PN.HOSP_ITS ---
Subjective Subjective Patient had bronchoscopy in the morning today. She looks more alert but still very speech is incomprehensible and her conversation does not make sense. Objective Data Objective Data Vital Signs: Vital Signs Temp Pulse Resp BP Pulse Ox 98.0 F 94 20 H 118/79 92 10/03/21 10:00 10/03/21 09:50 10/03/21 10:00 10/03/21 08:54 10/03/21 10:00 Oxygen Flow Rate (L/min) [3] 2 Oxygen Flow Rate (L/min) [2] 2 Oxygen Flow Rate (L/min) [1 ( 2 Initial Baseline)] Oxygen Flow Rate (L/min) 4 Oxygen Delivery Method [3] Nasal Cannula Oxygen Delivery Method [2] Nasal Cannula Oxygen Delivery Method [1 ( Nasal Cannula Initial Baseline)] Oxygen Delivery Method Nasal Cannula Weight: 105 lb 8 oz Body Mass Index (BMI) 17.1 Intake & Output: Intake and Output for Last 24 Hours 10/01/21 10/02/21 10/03/21 23:59 23:59 23:59 Intake Total 1528 / 1528 953.00 / 953.00 290 / 290 Balance 1528 / 1528 953.00 / 953.00 290 / 290 Medical Nutrition Assessment Dietitian: Malnutrition Criteria Met Start: 10/01/21 14:30 Freq: Status: Active Protocol: Document 10/01/21 14:30 RMA (Rec: 10/01/21 14:30 RMA [id number]) Nutrition Malnutrition Evidence of Malnutrition Exists Yes Malnutrition (severe): Acute Illness/Injury Evidenced By Suboptimal Energy Intake ( Severe),Weight Loss (Severe) Clinical Problem Acute Disease or Injury Related Malnutrition Etiology Severe protein/calorie malnutrition in the context of acute illness related to ongoing inadequate oral intake Signs/Symptoms as evidenced by ~3% wt loss x past 1 week and PO meeting less than 50% estimated nutrition needs for calories and protein Status Active Problem Recommendation Dietitian Recommendations/Changes Continue Regular diet with fortified foods, 240ml ensure enlive w/breakfast, magic cup BID w/ lunch and dinner. Ensure compact 4 times per day w/medpass as tolerated. Adjust ONS as needed to optimize intake. Consider TF due to pt continued poor oral intake and declining weight. Lab / Micro Data Result Diagrams: 10/01/21 06:57 09/29/21 05:40 Labs: Laboratory Results - last 24 hr 09/30/21 07:12: Diff Path Review Reviewed 10/01/21 06:57: Diff Path Review Reviewed 10/03/21 08:33: Fluid Source BRONCHIAL LAVAGE, Fluid Color RED, Fluid Appearance CLOUDY, Fluid WBC 2013, Fluid RBC 76981, Fluid Tot Cell Count TNP, Fluid Neutrophils 29, Fluid Lymphocytes 25, Fluid Monocytes 5, Fluid Other Cells 41, Fl Pathologist Comment May follow, Fluid Comment 2 Not Reportable 10/03/21 08:35: Fluid Source BRONCHIAL LAVAGE, Fluid Color RED, Fluid Appearance CLOUDY, Fluid WBC 1868, Fluid RBC 88819, Fluid Tot Cell Count TNP, Fluid Neutrop hils 21, Fluid Lymphocytes 10, Fluid Monocytes 11, Fluid Other Cells 58, Fl Pathologist Comment May follow, Fluid Comment 2 Not Reportable 10/03/21 10:38: ESR 72 H Micro: Microbiology 09/28/21 09:48 Blood Culture (Wb) - Left Hand Blood Culture - Final No growth in 5 days. 09/28/21 09:48 Blood Culture (Wb) - Anticubital Left Blood Culture - Final No growth in 5 days. 09/23/21 19:10 Blood Culture (Wb) - Right Forearm Blood Culture - Final No growth in 5 days. 09/23/21 18:30 Blood Culture (Wb) - Port Blood Culture - Final No growth in 5 days. 09/23/21 20:40 Urine Catheter - Catheter Urine Culture - Final Culture exhibits no growth. 09/25/21 10:40 Stool Enteric Bacteriology - Final 09/25/21 10:40 Stool Stool Occult Blood (MERLENE) - Final 09/23/21 22:40 Mucosa - Nasopharyngeal Respiratory Panel (PCR) - Final 09/23/21 20:40 Urine Catheter - Catheter Legionella Antigen - Final 09/23/21 20:40 Urine Catheter - Catheter Streptococcus pneumoniae Antigen (M - Final 09/23/21 19:16 Mucosa - Nasopharyngeal Influenza Types A,B Direct FA (MERLENE) - Final Physical Exam Narrative General: Awake and alert. Disoriented HEENT: Atraumatic, PERRLA, EOMI, Normocephalic Oral: No Gingival or Mucosal Lesions/ Ulcerations Neck: Supple, No JVD, Negative Carotid Bruits Lungs: Air entry diminished in bilateral lung bases. No crepitation/rhonchi Cardiovascular: Regular rate, Regular Rhythm, Normal S1, Normal S2, No murmurs Abdomen: Bowel Sounds Present, Soft, Non Tender, Non-Distended : No renal angle tenderness. No suprapubic tenderness. Extremities: No edema, Capillary Refill Less than 3 Seconds Skin: No rashes, No breakdown Musculoskeletal: Moderate atrophy of muscles of extremities. Muscle strength 4/5 at major joints Neurological: Cranial nerves II-XII grossly intact, DTR 2+/4 Psych/Mental Status: Flat affect Assessment & Plan Assessment/Plan (1) Hypertension: (2) Pancytopenia: (3) Pneumonia due to COVID-19 virus: (4) Neutropenic fever: PLAN: 1. Neutropenic fever-etiology unclear: Patient is being seen by ID. Cultures negative so far. Patient was seen by geological survey field assistant and plan for flexible bronchoscopy at about 7:30 AM n.p.o. past midnight. Infectious work-up so far negative including respiratory PCR panel, enteric bacteriology panel, C. difficile. Bone marrow biopsy was done on 09/27 reported hypocellular marrow, 10% cellularity with trilineage hematopoiesis. Negative for acid-fast bacilli and fungal organisms. Flow cytometry negative for evidence of B-cell or T-cell lymphoma. Vanco Zosyn was stopped. On meropenem. WBC count 1.2 thousand. ANC 0.8 thousand. Platelet count 108,000. Platelet count slightly downtrending therefore baby aspirin discontinued. 10/03: Patient had bronchoscopy today. BAL was sent and pending. ANC 2.8 thousand. WBC count 1.2 thousand. Platelet count 100,000. I talked to the patient's . #2 pancytopenia- Oncology does not feel the patient has an active cancer. Rest as mentioned above #3 dementia-patient's states that the patient's mental status has declined over the last several months #4 essential hypertension #5 history of non-Hodgkin's B-cell lymphoma. #6 coronary artery disease #7 recent history of COVID-19 infection #8 acute metabolic encephalopathy, fluctuates-on a backdrop of dementia #9 hyperlipidemia #10 hypokalemia-resolved
[2021-10-03 13:45] LABS: Pathologist Comment/Body Fluid Reviewed
[2021-10-03 13:45] LABS: Pathologist Comment/Body Fluid Reviewed
[2021-10-03] MEDS: LORazepam 0.5 MG Tablet PO ×2 (14:07→21:07)
--- NOTE | 2021-10-03 15:21 | CHAPLAIN ---
Type of Pastoral Visit ___ Initial Visit _x__ Follow-up Visit ___ On-call Visit ___ General Patient Visit ___ Spiritual Assessment ___ Family Conference ___ Bereavement ___ Rapid Response ___ Code Blue ___ Other (describe below) Pastoral Care Referral From ___ Patient _x__ Family ___ Nurse ___ Physician ___ [employer] Administrator ___ Sleep Lab Technician ___ Other (describe below) Sacrament/Intervention _x__ Active listening ___ Anointing ___ Pentecostalism ___ Bereavement ___ Communion ___ Ira exploration ___ ___ Life review _x__ Prayer ___ Reconciliation ___ Sacrament of Sick _x__ Supportive presence ___ Wedding ___ Other (describe below) Pastoral Comments patient is lying in bed and shows no emotional affect and states that she does not remember this rn recruitment even though there have been a couple of visits with her and she remembered this rn recruitment previously; spouse is with her and he attempts to answer questions and to engage her in the conversation; pt remains emotionless; spouse gives some updates and speaks of their cleaner carpet and upholstery being out of service for the time being due to his poor health
[2021-10-03] MEDS: MELATONIN 3 MG TABLET PO (21:07)
[2021-10-03] MEDS: Atorvastatin Calcium 20 MG Tablet PO (21:08)
[2021-10-04] VITALS (14 sets, daily range): BP systolic 110–131; BP diastolic 67–88; PULSE 80–113; RESP 16–19; TEMP 36.6–38.8; O2SAT 84–100
[2021-10-04 07:42] LABS: Hematocrit 34.2 % (37-47); Hemoglobin 11.1 g/dL (12.0-15.0); Mean Corp Hgb Conc 32.5 g/dL (32-36); Mean Corpuscular Hgb 32.1 pg (27.0-32.0); Mean Corpuscular Volume 98.8 fL (81-99); Mean Platelet Vol. 10.6 fl (6.2-12.0); POSITIVE COUNT YES; POSITIVE DIFFERENTIAL YES; POSITIVE MORPHOLOGY YES; Platelet Count 119 K/mm3 (150-450); RBC Distribution Width CV 16.2 % (11.6-14.6); RBC Distribution Width SD 58.8 fl (35.1-43.9); Red Blood Count 3.46 M/mm3 (4.2-5.4); White Blood Count 6.3 K/mm3 (4.4-11.0)
[2021-10-04 07:46] LABS: Differential Indicated MANUAL DIFF
[2021-10-04 08:13] LABS: ALB/GLOB Ratio 0.4 RATIO (0.9-2.4); AST(SGOT) 76 U/L (15-37); Alanine Aminotransfer ALT/SGPT 60 U/L (13-56); Albumin, Serum 1.7 g/dL (3.2-5.0); Alkaline Phosphatase 48 U/L (45-117); Anion Gap 7 (5-15); BUN 20 mg/dL (7-18); BUN/Creat Ratio 21.3 RATIO (10-20); Chloride 108 mmol/L (98-107); Creatinine, Serum 0.94 mg/dL (0.55-1.02); EST Glomerular Filtration Rate 62 mL/min (>60); Est Glom Filt Rate - Afr Amer 76 mL/min (>60); Estimated Creatinine Clearance 42.12 ml/min; Globulin 4.1 g/dL (2.2-4.2); Glucose 104 mg/dL (74-106); Potassium 4.7 mmol/L (3.5-5.1); Protein, Total 5.8 g/dL (6.4-8.2); Sodium Level 134 mmol/L (136-145)
[2021-10-04] MEDS: Pantoprazole Sodium 40 MG Tablet PO ×2 (08:54→20:21)
[2021-10-04] MEDS: TBO-FILGRASTIM 300 MCG/0.5 ML ML 250 MCG SC (08:54)
[2021-10-04] MEDS: Multivitamins,Therapeutic Tablet 1 TABLET PO (08:55)
[2021-10-04] MEDS: Metoprolol Tartrate 25 MG Tablet PO ×2 (08:55→20:21)
[2021-10-04] MEDS: Potassium Chloride Oral Tablet 20 MEQ 40 MEQ PO (08:55)
[2021-10-04 10:42] LABS: Eosinophil 1 % (0-5); Lymphocyte 6 % (19-41); Metamyelocyte 1 % (0-1); Neutrophil-Band 8 % (0-5); Neutrophil-Segmented 84 % (47-70); Platelet Estimate ADEQUATE (ADEQ); Red Cell Morphology NORM C+C NORMAL (NORM C&C); Total Cells Counted 100 (MANUAL DIFF)
[2021-10-04 10:43] LABS: Absolute Lymphocyte Count 0.38 X10^3/uL (0.83-4.51); Absolute Neutrophil Count 5.8 X10^3/uL (2.0-7.7)
--- NOTE | 2021-10-04 11:49 | TREXTCAR_ITS ---
Diet 10/03/21 10:22 Diet: Transitional Food consistency:: Mechanical (Minced/Moist) Liquid Consistency:: Regular/Thin Dietary Modifications:: Fortified Foods Neutropenic Type of Dietary Supplement:: Magic Cup Dessert Is pt able to select menu?: No Diet Comments: 240ml ensure enlive w/ breakfast; magic cup w/ lunch & dinner Routine Orders/Code Status Suppository Type: Dulcolax 10mg Suppository Frequency: Daily PRN Routine Lab Work: CBC and BMP (Weekly CBC and BMP) Code Status: DNRCC-A Wound(s) RT ILIUM: Wound Type: Puncture Therapies Weight Bearing: Weight bearing as tolerated Extremity Affected:: Bilateral Lower Physical Therapy: Eval and Treat Occupational Therapy: Eval and Treat Speech Therapy: Eval and Treat Problem/Diagnosis (1) Neutropenic fever: Status: Acute Allergies/Procedures Done in Hospital Allergies No Known Allergies Allergy (Verified 08/25/21 08:32) Type of Care/Length of Stay Estimated LOS: Convalescent Care Less Than 30 days Type of Care Needed: Skilled Rehab Potential: Fair Prognosis: Fair Additional Orders/Day of Discharge Day of Discharge: 10/04/21 Dietary and Speech Recommendations Dietitian Recommendations/Changes: Continue Regular diet with fortified foods, 240ml ensure enlive w/breakfast, magic cup BID w/ lunch and dinner. Ensure compact 4 times per day w/medpass as tolerated. Adjust ONS as needed to optimize intake. Consider TF due to pt continued poor oral intake and declining weight. Discharge Plan Admission Admit Date/Time: 09/23/21 21:34 Primary Reason for Your Visit: Bilateral pneumonia Attending Provider: aPblo Sena Primary Care Provider: Mitra Lackey Consulting Providers: Kareem Jackson ; Yosef Sosa ; Chele Torres ; Rivka Johnson MANAGER [employer]IVERSITY Discharge Orders/Prescriptions Prescriptions: New acetaminophen [Tylenol] 325 mg Tablet 650 mg PO Q4H PRN PRN (Reason: Fever, pain 1-09/10) Qty: 0 RF: 0 albuterol sulfate 2.5 mg /3 mL (0.083 %) Solution For Nebulization 2.5 mg inhalation Q2H PRN PRN (Reason: Dyspnea, wheezing) Qty: 0 RF: 0 Ensure Compact Liquid 118 ml PO 4X/DAY Qty: 0 RF: 0 Continued multivitamin with folic acid 1 TABLET tablet 1 tab PO DAILY RF: 0 aspirin 81 MG tablet,chewable 81 mg PO DAILY@0800 RF: 0 atorvastatin 40 MG tablet 20 mg PO DAILY RF: 0 metoprolol tartrate 25 MG tablet 12.5 mg PO BID RF: 0 loperamide 2 mg Capsule 2 mg PO Q2H PRN PRN (Reason: diarrhea) 3 Days Qty: 10 RF: 0 potassium chloride [Klor-Con M20] 20 mEq tablet,ER particles/crystals 40 meq PO DAILY 3 Days Qty: 6 RF: 0 Discontinued amoxicillin-pot clavulanate 875-125 mg tablet 1 tab PO BID RF: 0 Referrals / Follow Up: Mitra Lackey MD [Primary Care Provider] - Disposition Disposition (needs filled in before D/C Order can be placed): [facility]
--- NOTE | 2021-10-04 11:49 | PCM.DC.SUM ---
Providers Date of Admission: 09/23/21 Primary Care Physician: Dr. Mitra Lackey MD Consultations 09/23/21 21:52 Consult: Infectious Disease Routine Consulting Provider: Kareem Jackson Reason for Consult: COVID 08/2021 Dx, worsening sxs, poss superimposed infection EMERGENT Consult: No Notified: Yes Date Notified: 09/23/21 Time Notified: 21:36 Method of Notification: Text Method of Consult:: In-Person 10/02/21 13:40 Consult: Sonography Technologist / Pulmonary Medicine Routine Consulting Provider: Pulmonary Medicine jayden Dix Reason for Consult: neutropenic fever, consider bronch EMERGENT Consult: No Notified: Yes Date Notified: 10/02/21 Time Notified: 13:41 Method of Notification: Text Reason For Visit: COVID PNA, HYPOXIA,FEVERS,? SUPERIMPOSED INFECTION Diagnosis Discharge Diagnosis (1) Neutropenic fever: Status: Acute Code(s): D70.9 - Neutropenia, unspecified; R50.81 - Fever presenting with conditions classified elsewhere Medications at Discharge Home Medications multivitamin with folic acid 1 tab PO DAILY 05/27/15 aspirin 81 mg PO DAILY@0800 05/15/19 atorvastatin 20 mg PO DAILY 05/15/19 metoprolol tartrate 12.5 mg PO BID 05/15/19 loperamide 2 mg PO Q2H PRN PRN 3 Days #10 cap 08/27/21 potassium chloride [Klor-Con M20] 40 meq PO DAILY 3 Days #6 tab 08/27/21 amoxicillin-pot clavulanate 1 tab PO BID 09/23/21 Medical Records Data Medical Nutrition Assessment Dietitian: Malnutrition Criteria Met Start: 10/01/21 14:30 Freq: Status: Active Protocol: Document 10/01/21 14:30 RMA (Rec: 10/01/21 14:30 RMA [id number]) Nutrition Malnutrition Evidence of Malnutrition Exists Yes Malnutrition (severe): Acute Illness/Injury Evidenced By Suboptimal Energy Intake ( Severe),Weight Loss (Severe) Clinical Problem Acute Disease or Injury Related Malnutrition Etiology Severe protein/calorie malnutrition in the context of acute illness related to ongoing inadequate oral intake Signs/Symptoms as evidenced by ~3% wt loss x past 1 week and PO meeting less than 50% estimated nutrition needs for calories and protein Status Active Problem Recommendation Dietitian Recommendations/Changes Continue Regular diet with fortified foods, 240ml ensure enlive w/breakfast, magic cup BID w/ lunch and dinner. Ensure compact 4 times per day w/medpass as tolerated. Adjust ONS as needed to optimize intake. Consider TF due to pt continued poor oral intake and declining weight. Weight / BMI Weight Weight: 107 lb 2.314 oz Body Mass Index (BMI) 17.1 ABG / Lab / Microbiology Data Result Diagrams: 10/04/21 07:00 10/04/21 07:00 Laboratory: Laboratory Results - last 24 hr 10/03/21 08:33: Fl Pathologist Comment Reviewed 10/03/21 08:35: Fl Pathologist Comment Reviewed 10/04/21 07:00: WBC 6.3, RBC 3.46 L, Hgb 11.1 L, Hct 34.2 L, MCV 98.8 D, MCH 32.1 H, MCHC 32.5, RDW Std Deviation 58.8 H, RDW Coeff of Stevenson 16.2 H, Plt Count 119 L, MPV 10.6, Neut % (Auto) Not Reportable, Absolute Neuts (auto) 5.8, Absolute Lymphs (auto) 0.38 L, Total Counted 100, Neutrophils % (Manual) 84 H, Band Neutrophils % 8 H, Lymphocytes % (Manual) 6 L, Eosinophils % (Manual) 1, Metamyelocytes % 1, Diff Path Review April, Platelet Estimate ADEQUATE, RBC Morphology NORM C+C 10/04/21 07:00: Sodium 134 L, Potassium 4.7, Chloride 108 H, Carbon Dioxide 19.0 L, Anion Gap 7, BUN 20 H, Creatinine 0.94, Estim Creat Clear Calc 42.12, Est GFR (MDRD) Af Amer 76, Est GFR (MDRD) Non-Af 62, BUN/Creatinine Ratio 21.3 H, Glucose 104, Calcium 8.0 L, Total Bilirubin 0.60, AST 76 H, ALT 60 H, Alkaline Phosphatase 48, Total Protein 5.8 L, Albumin 1.7 L, Globulin 4.1, Albumin/Globulin Ratio 0.4 L Microbiology: Microbiology 10/03/21 08:35 Bronchial Lavage - Left Lower Lobe Gram Stain - Final 10/03/21 08:33 Bronchial Lavage - Left Lower Lobe Gram Stain - Final 09/28/21 09:48 Blood Culture (Wb) - Left Hand Blood Culture - Final No growth in 5 days. 09/28/21 09:48 Blood Culture (Wb) - Anticubital Left Blood Culture - Final No growth in 5 days. 09/23/21 19:10 Blood Culture (Wb) - Right Forearm Blood Culture - Final No growth in 5 days. 09/23/21 18:30 Blood Culture (Wb) - Port Blood Culture - Final No growth in 5 days. 09/23/21 20:40 Urine Catheter - Catheter Urine Culture - Final Culture exhibits no growth. 09/25/21 10:40 Stool Enteric Bacteriology - Final 09/25/21 10:40 Stool Stool Occult Blood (MERLENE) - Final 09/23/21 22:40 Mucosa - Nasopharyngeal Respiratory Panel (PCR) - Final 09/23/21 20:40 Urine Catheter - Catheter Legionella Antigen - Final 09/23/21 20:40 Urine Catheter - Catheter Streptococcus pneumoniae Antigen (M - Final 09/23/21 19:16 Mucosa - Nasopharyngeal Influenza Types A,B Direct FA (MERLENE) - Final Discharge Plan Admission Admit Date/Time: 09/23/21 21:34 Attending Provider: Pablo Sena Primary Care Provider: Mitra Lackey Consulting Providers: Kareem Jackson ; Yosef Sosa ; Chele Torres ; Rivka Johnson FAMILY RESOURCE MANAGEMENT PROFESSOR Discharge Orders/Prescriptions Prescriptions: No Action multivitamin with folic acid 1 TABLET tablet 1 tab PO DAILY RF: 0 aspirin 81 MG tablet,chewable 81 mg PO DAILY@0800 RF: 0 atorvastatin 40 MG tablet 20 mg PO DAILY RF: 0 metoprolol tartrate 25 MG tablet 12.5 mg PO BID RF: 0 loperamide 2 mg Capsule 2 mg PO Q2H PRN PRN (Reason: diarrhea) 3 Days Qty: 10 RF: 0 potassium chloride [Klor-Con M20] 20 mEq tablet,ER particles/crystals 40 meq PO DAILY 3 Days Qty: 6 RF: 0 amoxicillin-pot clavulanate 875-125 mg tablet 1 tab PO BID RF: 0 Referrals / Follow Up: Mitra Lackey MD [Primary Care Provider] -
[2021-10-04] MEDS: Acetaminophen 325 MG Tablet 650 MG PO ×2 (14:26→20:24)
--- NOTE | 2021-10-04 14:52 | PCM.PN.HOSP ---
Subjective Subjective Patient spiked temperature righted afternoon just before discharge 101 therefore discharge was canceled. Earlier I talked to ID and patient was afebrile for about 2 days. Recommend to discontinue antibiotic at time of discharge but will continue for now. Patient has dementia but she is awake Objective Data Objective Data Vital Signs: Vital Signs Temp Pulse Resp BP Pulse Ox 101 F H 113 H 18 129/88 H 92 10/04/21 14:19 10/04/21 14:19 10/04/21 14:19 10/04/21 14:19 10/04/21 14:19 Oxygen Flow Rate (L/min) [3] 2 Oxygen Flow Rate (L/min) [2] 2 Oxygen Flow Rate (L/min) [1 ( 2 Initial Baseline)] Oxygen Flow Rate (L/min) 2 Oxygen Delivery Method [3] Nasal Cannula Oxygen Delivery Method [2] Nasal Cannula Oxygen Delivery Method [1 ( Nasal Cannula Initial Baseline)] Oxygen Delivery Method Room Air Weight: 107 lb 2.314 oz Body Mass Index (BMI) 17.1 Intake & Output: Intake and Output for Last 24 Hours 10/02/21 10/03/21 10/04/21 23:59 23:59 23:59 Intake Total 953.00 / 953.00 590.5 / 590.5 482.00 / 482.00 Balance 953.00 / 953.00 590.5 / 590.5 482.00 / 482.00 Medical Nutrition Assessment Dietitian: Malnutrition Criteria Met Start: 10/01/21 14:30 Freq: Status: Active Protocol: Document 10/01/21 14:30 RMA (Rec: 10/01/21 14:30 RMA [id number]) Nutrition Malnutrition Evidence of Malnutrition Exists Yes Malnutrition (severe): Acute Illness/Injury Evidenced By Suboptimal Energy Intake ( Severe),Weight Loss (Severe) Clinical Problem Acute Disease or Injury Related Malnutrition Etiology Severe protein/calorie malnutrition in the context of acute illness related to ongoing inadequate oral intake Signs/Symptoms as evidenced by ~3% wt loss x past 1 week and PO meeting less than 50% estimated nutrition needs for calories and protein Status Active Problem Recommendation Dietitian Recommendations/Changes Continue Regular diet with fortified foods, 240ml ensure enlive w/breakfast, magic cup BID w/ lunch and dinner. Ensure compact 4 times per day w/medpass as tolerated. Adjust ONS as needed to optimize intake. Consider TF due to pt continued poor oral intake and declining weight. Lab / Micro Data Result Diagrams: 10/04/21 07:00 10/04/21 07:00 Labs: Laboratory Results - last 24 hr 10/04/21 07:00: WBC 6.3, RBC 3.46 L, Hgb 11.1 L, Hct 34.2 L, MCV 98.8 D, MCH 32.1 H, MCHC 32.5, RDW Std Deviation 58.8 H, RDW Coeff of Stevenson 16.2 H, Plt Count 119 L, MPV 10.6, Neut % (Auto) Not Reportable, Absolute Neuts (auto) 5.8, Absolute Lymphs (auto) 0.38 L, Total Counted 100, Neutrophils % (Manual) 84 H, Band Neutrophils % 8 H, Lymphocytes % (Manual) 6 L, Eosinophils % (Manual) 1, Metamyelocytes % 1, Diff Path Review April, Platelet Estimate ADEQUATE, RBC Morphology NORM C+C 10/04/21 07:00: Sodium 134 L, Potassium 4.7, Chloride 108 H, Carbon Dioxide 19.0 L, Anion Gap 7, BUN 20 H, Creatinine 0.94, Estim Creat Clear Calc 42.12, Est GFR (MDRD) Af Amer 76, Est GFR (MDRD) Non-Af 62, BUN/Creatinine Ratio 21.3 H, Glucose 104, Calcium 8.0 L, Total Bilirubin 0.60, AST 76 H, ALT 60 H, Alkaline Phosphatase 48, Total Protein 5.8 L, Albumin 1.7 L, Globulin 4.1, Albumin/Globulin Ratio 0.4 L Micro: Microbiology 10/03/21 08:35 Bronchial Lavage - Left Lower Lobe Gram Stain - Final 10/03/21 08:33 Bronchial Lavage - Left Lower Lobe Gram Stain - Final 09/28/21 09:48 Blood Culture (Wb) - Left Hand Blood Culture - Final No growth in 5 days. 09/28/21 09:48 Blood Culture (Wb) - Anticubital Left Blood Culture - Final No growth in 5 days. 09/23/21 19:10 Blood Culture (Wb) - Right Forearm Blood Culture - Final No growth in 5 days. 09/23/21 18:30 Blood Culture (Wb) - Port Blood Culture - Final No growth in 5 days. 09/23/21 20:40 Urine Catheter - Catheter Urine Culture - Final Culture exhibits no growth. 09/25/21 10:40 Stool Enteric Bacteriology - Final 09/25/21 10:40 Stool Stool Occult Blood (MERLENE) - Final 09/23/21 22:40 Mucosa - Nasopharyngeal Respiratory Panel (PCR) - Final 09/23/21 20:40 Urine Catheter - Catheter Legionella Antigen - Final 09/23/21 20:40 Urine Catheter - Catheter Streptococcus pneumoniae Antigen (M - Final 09/23/21 19:16 Mucosa - Nasopharyngeal Influenza Types A,B Direct FA (MERLENE) - Final Physical Exam Narrative General: Awake and alert. Dementia. Forgetfulness. HEENT: Atraumatic, PERRLA, EOMI, Normocephalic Oral: No Gingival or Mucosal Lesions/ Ulcerations Neck: Supple, No JVD, Negative Carotid Bruits Lungs: Air entry diminished in bilateral lung bases. No crepitation/rhonchi Cardiovascular: Regular rate, Regular Rhythm, Normal S1, Normal S2, No murmurs Abdomen: Bowel Sounds Present, Soft, Non Tender, Non-Distended : No renal angle tenderness. No suprapubic tenderness. Extremities: No edema, Capillary Refill Less than 3 Seconds Skin: No rashes, No breakdown Musculoskeletal: Moderate atrophy of muscles of extremities. Muscle strength 4/5 at major joints Neurological: Cranial nerves II-XII grossly intact, DTR 2+/4 Psych/Mental Status: Flat affect Assessment & Plan Assessment/Plan (1) Neutropenic fever: PLAN: 1. Neutropenic fever-etiology unclear: Patient is being seen by ID. Cultures negative so far. Patient was seen by corporate events director and plan for flexible bronchoscopy at about 7:30 AM n.p.o. past midnight. Infectious work-up so far negative including respiratory PCR panel, enteric bacteriology panel, C. difficile. Bone marrow biopsy was done on 09/27 reported hypocellular marrow, 10% cellularity with trilineage hematopoiesis. Negative for acid-fast bacilli and fungal organisms. Flow cytometry negative for evidence of B-cell or T-cell lymphoma. Vanco Zosyn was stopped. On meropenem. WBC count 1.2 thousand. ANC 0.8 thousand. Platelet count 108,000. Platelet count slightly downtrending therefore baby aspirin discontinued. 10/03: Patient had bronchoscopy today. BAL was sent and pending. ANC 2.8 thousand. WBC count 1.2 thousand. Platelet count 100,000. I talked to the patient's . 10/04: BAL shows rare gram-positive cocci. Spiked temperature after 2 days 101. Patient was given Tylenol. Discharge was canceled. Informed to ID. We will continue antibiotic for now. #2 pancytopenia- Oncology does not feel the patient has an active cancer. Rest as mentioned above 10/04: Leukopenia has resolved. #3 dementia-patient's states that the patient's mental status has declined over the last several months #4 essential hypertension #5 history of non-Hodgkin's B-cell lymphoma. #6 coronary artery disease #7 recent history of COVID-19 infection #8 acute metabolic encephalopathy, fluctuates-on a backdrop of dementia #9 hyperlipidemia #10 hypokalemia-resolved Charges/Coding Visit Charges Inpatient E&M: 11081 Subs Hosp L2
--- NOTE | 2021-10-04 15:25 | CASEMGMT ---
Social Work Note Pt is not discharging to SNF today. SW updated Carmencita with [facility]. SW faxed updated clinicals to [facility]. Plan: [facility] when medically cleared Socorro Rojas MSW, CONSTRUCTION MATERIALS TESTER
[2021-10-04] MEDS: Atorvastatin Calcium 20 MG Tablet PO (20:21)
[2021-10-04] MEDS: LORazepam 0.5 MG Tablet PO (20:24)
[2021-10-05] VITALS (8 sets, daily range): BP systolic 114–140; BP diastolic 71–84; PULSE 81–109; RESP 18–24; TEMP 36.6–37.9; O2SAT 92–94
--- NOTE | 2021-10-05 09:19 | PN.HOSP_ITS ---
Subjective Subjective Patient is spiking fever, T-max 101.8 Fahrenheit. Discussed with the ID. Patient on meropenem. Chest CT and abdominal CT reviewed shows peribronchial thickening, atelectasis and left upper more than right upper lobe interstitial thickening suggestive of possible interstitial pneumonia. Objective Data Objective Data Vital Signs: Vital Signs Temp Pulse Resp BP Pulse Ox 100.3 F H 103 H 24 H 140/71 H 94 10/05/21 05:57 10/05/21 05:57 10/05/21 05:57 10/05/21 05:57 10/05/21 00:38 Oxygen Flow Rate (L/min) [3] 2 Oxygen Flow Rate (L/min) [2] 2 Oxygen Flow Rate (L/min) [1 ( 2 Initial Baseline)] Oxygen Flow Rate (L/min) 2 Oxygen Delivery Method [3] Nasal Cannula Oxygen Delivery Method [2] Nasal Cannula Oxygen Delivery Method [1 ( Nasal Cannula Initial Baseline)] Oxygen Delivery Method Room Air Weight: 106 lb 7.732 oz Body Mass Index (BMI) 17.1 Intake & Output: Intake and Output for Last 24 Hours 10/03/21 10/04/21 10/05/21 23:59 23:59 23:59 Intake Total 590.5 / 590.5 1010.00 / 1010.00 Balance 590.5 / 590.5 1010.00 / 1010.00 Medical Nutrition Assessment Dietitian: Malnutrition Criteria Met Start: 10/01/21 14:30 Freq: Status: Active Protocol: Document 10/01/21 14:30 RMA (Rec: 10/01/21 14:30 RMA [id number]) Nutrition Malnutrition Evidence of Malnutrition Exists Yes Malnutrition (severe): Acute Illness/Injury Evidenced By Suboptimal Energy Intake ( Severe),Weight Loss (Severe) Clinical Problem Acute Disease or Injury Related Malnutrition Etiology Severe protein/calorie malnutrition in the context of acute illness related to ongoing inadequate oral intake Signs/Symptoms as evidenced by ~3% wt loss x past 1 week and PO meeting less than 50% estimated nutrition needs for calories and protein Status Active Problem Recommendation Dietitian Recommendations/Changes Continue Regular diet with fortified foods, 240ml ensure enlive w/breakfast, magic cup BID w/ lunch and dinner. Ensure compact 4 times per day w/medpass as tolerated. Adjust ONS as needed to optimize intake. Consider TF due to pt continued poor oral intake and declining weight. Lab / Micro Data Result Diagrams: 10/04/21 07:00 10/04/21 07:00 Labs: Laboratory Results - last 24 hr 10/04/21 07:00: Absolute Neuts (auto) 5.8, Absolute Lymphs (auto) 0.38 L, Total Counted 100, Neutrophils % (Manual) 84 H, Band Neutrophils % 8 H, Lymphocytes % (Manual) 6 L, Eosinophils % (Manual) 1, Metamyelocytes % 1, Diff Path Review April, Platelet Estimate ADEQUATE, RBC Morphology NORM C+C Micro: Microbiology 10/03/21 08:35 Bronchial Lavage - Left Lower Lobe Gram Stain - Final 10/03/21 08:33 Bronchial Lavage - Left Lower Lobe Gram Stain - Final 09/28/21 09:48 Blood Culture (Wb) - Left Hand Blood Culture - Final No growth in 5 days. 09/28/21 09:48 Blood Culture (Wb) - Anticubital Left Blood Culture - Final No growth in 5 days. 09/23/21 19:10 Blood Culture (Wb) - Right Forearm Blood Culture - Final No growth in 5 days. 09/23/21 18:30 Blood Culture (Wb) - Port Blood Culture - Final No growth in 5 days. 09/23/21 20:40 Urine Catheter - Catheter Urine Culture - Final Culture exhibits no growth. 09/25/21 10:40 Stool Enteric Bacteriology - Final 09/25/21 10:40 Stool Stool Occult Blood (MERLENE) - Final 09/23/21 22:40 Mucosa - Nasopharyngeal Respiratory Panel (PCR) - Final 09/23/21 20:40 Urine Catheter - Catheter Legionella Antigen - Final 09/23/21 20:40 Urine Catheter - Catheter Streptococcus pneumoniae Antigen (M - Final 09/23/21 19:16 Mucosa - Nasopharyngeal Influenza Types A,B Direct FA (MERLENE) - Final Physical Exam Narrative General: Awake and alert. Dementia. Forgetfulness. HEENT: Atraumatic, PERRLA, EOMI, Normocephalic Oral: No Gingival or Mucosal Lesions/ Ulcerations Neck: Supple, No JVD, Negative Carotid Bruits Lungs: Air entry diminished in bilateral lung bases. No crepitation/rhonchi Cardiovascular: Regular rate, Regular Rhythm, Normal S1, Normal S2, No murmurs Abdomen: Bowel Sounds Present, Soft, Non Tender, Non-Distended : No renal angle tenderness. No suprapubic tenderness. Extremities: No edema, Capillary Refill Less than 3 Seconds Skin: No rashes, No breakdown Musculoskeletal: Moderate atrophy of muscles of extremities. Muscle strength 4/5 at major joints Neurological: Cranial nerves II-XII grossly intact, DTR 2+/4 Psych/Mental Status: Flat affect Assessment & Plan Assessment/Plan (1) Neutropenic fever: PLAN: 1. Neutropenic fever-etiology unclear: Patient is being seen by ID. Cultures negative so far. Patient was seen by superintendent custodian janitor and plan for flexible bronchoscopy at about 7:30 AM n.p.o. past midnight. Infectious work-up so far negative including respiratory PCR panel, enteric bacteriology panel, C. difficile. Bone marrow biopsy was done on 09/27 reported hypocellular marrow, 10% cellularity with trilineage hematopoiesis. Negative for acid-fast bacilli and fungal organisms. Flow cytometry negative for evidence of B-cell or T-cell lymphoma. Vanco Zosyn was stopped. On meropenem. WBC count 1.2 thousand. ANC 0.8 thousand. Platelet count 108,000. Platelet count slightly downtrending therefore baby aspirin discontinued. 10/03: Patient had bronchoscopy today. BAL was sent and pending. ANC 2.8 thousand. WBC count 1.2 thousand. Platelet count 100,000. I talked to the patient's . 10/04: BAL shows rare gram-positive cocci. Spiked temperature after 2 days 101. Patient was given Tylenol. Discharge was canceled. Informed to ID. We will continue antibiotic for now. 10/05: Blood cultures x2 on 10/03 are negative. Discussed with the ID. Blood culture x2 ordered. Will need antifungal treatment. #2 pancytopenia- Oncology does not feel the patient has an active cancer. Rest as mentioned above 10/04: Leukopenia has resolved. 10/05: Bands 8%, monocyte 14%. Lymphopenia. Repeat labs CBC and CMP ordered. #3 dementia-patient's states that the patient's mental status has declined over the last several months #4 essential hypertension #5 history of non-Hodgkin's B-cell lymphoma. #6 coronary artery disease #7 recent history of COVID-19 infection #8 acute metabolic encephalopathy, fluctuates-on a backdrop of dementia #9 hyperlipidemia #10 hypokalemia-resolved Microbiology Past 72 Hours 10/03/21 08:35 Bronchial Lavage - Left Lower Lobe Gram Stain - Final 10/03/21 08:33 Bronchial Lavage - Left Lower Lobe Gram Stain - Final 09/28/21 09:48 Blood Culture (Wb) - Left Hand Blood Culture - Final No growth in 5 days. 09/28/21 09:48 Blood Culture (Wb) - Anticubital Left Blood Culture - Final No growth in 5 days. Laboratory Results 10/04/21 07:00: Absolute Neuts (auto) 5.8, Absolute Lymphs (auto) 0.38 L, Total Counted 100, Neutrophils % (Manual) 84 H, Band Neutrophils % 8 H, Lymphocytes % (Manual) 6 L, Eosinophils % (Manual) 1, Metamyelocytes % 1, Diff Path Review May foll, Platelet Estimate ADEQUATE, RBC Morphology NORM C+C Charges/Coding Visit Charges Inpatient E&M: 61038 Subs Hosp L2
[2021-10-05] MEDS: Multivitamins,Therapeutic Tablet 1 TABLET PO (09:27)
[2021-10-05] MEDS: Metoprolol Tartrate 25 MG Tablet PO ×2 (09:27→20:08)
[2021-10-05] MEDS: Potassium Chloride Oral Tablet 20 MEQ 40 MEQ PO (09:27)
[2021-10-05] MEDS: Pantoprazole Sodium 40 MG Tablet PO ×2 (09:28→20:08)
[2021-10-05 10:40] LABS: Hematocrit 33.2 % (37-47); Mean Corp Hgb Conc 33.1 g/dL (32-36); Mean Corpuscular Hgb 31.7 pg (27.0-32.0); Mean Corpuscular Volume 95.7 fL (81-99); Mean Platelet Vol. 10.5 fl (6.2-12.0); POSITIVE COUNT YES; POSITIVE DIFFERENTIAL YES; POSITIVE MORPHOLOGY YES; Platelet Count 138 K/mm3 (150-450); RBC Distribution Width CV 16.5 % (11.6-14.6); RBC Distribution Width SD 57.9 fl (35.1-43.9); Red Blood Count 3.47 M/mm3 (4.2-5.4); White Blood Count 4.6 K/mm3 (4.4-11.0)
[2021-10-05 10:45] LABS: Differential Indicated MANUAL DIFF
[2021-10-05] MEDS: Fluconazole 100 MG Tablet 400 MG PO (10:55)
[2021-10-05 11:07] LABS: ALB/GLOB Ratio 0.4 RATIO (0.9-2.4); AST(SGOT) 58 U/L (15-37); Alanine Aminotransfer ALT/SGPT 54 U/L (13-56); Albumin, Serum 1.6 g/dL (3.2-5.0); Alkaline Phosphatase 76 U/L (45-117); Anion Gap 8 (5-15); BUN 11 mg/dL (7-18); BUN/Creat Ratio 14.6 RATIO (10-20); Calcium,Total 8.5 mg/dL (8.5-10.1); Chloride 97 mmol/L (98-107); Creatinine, Serum 0.76 mg/dL (0.55-1.02); EST Glomerular Filtration Rate 80 mL/min (>60); Est Glom Filt Rate - Afr Amer 97 mL/min (>60); Estimated Creatinine Clearance 39.34 ml/min; Globulin 4.1 g/dL (2.2-4.2); Glucose 113 mg/dL (74-106); Potassium 3.9 mmol/L (3.5-5.1); Protein, Total 5.7 g/dL (6.4-8.2); Sodium Level 133 mmol/L (136-145)
--- NOTE | 2021-10-05 11:49 | CASEMGMT ---
Addendum entered by Socorro Rojas 10/05/21 12:17: Pt's Ti is in pt's room. SW in to speak with Ti. SW introduced self and role at [facility]. CHAUNCEY updated Ti that pre-cert has been obtained, pt can discharge to [facility] when medically ready. Ti states understanding. Addendum entered by Socorro Rojas 10/05/21 11:53: SW went to pt's room, pt's is not present. CHAUNCEY attempted to call pt's [place] to update, no answer, CHAUNCEY left message for Ti to call this worker back. Original Note: Social Work Note Pt is not medically ready for discharge. CHAUNCEY updated Carmencita at [facility]. SW faxed updated clinicals to [facility]. Plan: [facility] when medically cleared Socorro Rojas BOOM WORKER, BUSINESS CONTROLLER
[2021-10-05 11:56] LABS: Eosinophil 1 % (0-5); Lymphocyte 3 % (19-41); Metamyelocyte 1 % (0-1); Monocyte 2 % (0-10); Neutrophil-Band 3 % (0-5); Neutrophil-Segmented 90 % (47-70); Total Cells Counted 100 (MANUAL DIFF)
[2021-10-05 11:57] LABS: Absolute Lymphocyte Count 0.14 X10^3/uL (0.83-4.51); Absolute Neutrophil Count 4.3 X10^3/uL (2.0-7.7); Lymphocyte # 0.14 X10^3/ul (0.83-4.51); Neutrophil # 4.25 X10^3/uL (2.7-7.7)
[2021-10-05] MEDS: Acetaminophen 325 MG Tablet 650 MG PO (15:02)
--- NOTE | 2021-10-05 15:30 | PCM.PN.ID ---
Physical Exam Narrative Fever yesterday. Mild cough. Const alert and no apparent distress General Appearance: cooperative Resp normal air movement and clear to auscultation bilaterally Cardio regular rate and regular rhythm GI normal to inspection, nondistended, normoactive bowel sounds Skin no rashes or lesions noted ID ID: Route of nutrition/ use of supplements: [] Nutritional Intake: [] IV Site: [] [place] Catheter: [] Assessment & Plan Assessment/Plan (1) Hypoxia: (2) Non Hodgkin's lymphoma: (3) COVID-19: (4) Neutropenic fever: PLAN: Neutropenic fever with covid a month ago. Cxs neg so far. CT neg for PE on 09/23. Neg resp pcr panel. Stool pcr panel neg. Cdiff was neg last month. ANC recovered, will d/c [facility]. BMBx done, path neg. On meropenem. Bronch done. Mild yeast-like forms seen. Still with fever intermittently, will add fluc. Will follow
[2021-10-05 16:35] LABS: ANTINUCLEAR ANTIBODIES DIRECT Negative (Negative)
[2021-10-05] MEDS: Atorvastatin Calcium 20 MG Tablet PO (20:08)
[2021-10-06] VITALS (10 sets, daily range): BP systolic 113–135; BP diastolic 74–94; PULSE 87–114; RESP 16–18; TEMP 36.6–38.7; O2SAT 92–97
[2021-10-06] MEDS: Acetaminophen 325 MG Tablet 650 MG PO ×2 (03:10→20:49)
[2021-10-06 07:12] LABS: Hematocrit 32.3 % (37-47); Hemoglobin 10.6 g/dL (12.0-15.0); Mean Corp Hgb Conc 32.8 g/dL (32-36); Mean Corpuscular Hgb 30.9 pg (27.0-32.0); Mean Corpuscular Volume 94.2 fL (81-99); Mean Platelet Vol. 9.6 fl (6.2-12.0); POSITIVE COUNT YES; POSITIVE DIFFERENTIAL YES; POSITIVE MORPHOLOGY YES; Platelet Count 123 K/mm3 (150-450); RBC Distribution Width CV 16.2 % (11.6-14.6); RBC Distribution Width SD 56.1 fl (35.1-43.9); Red Blood Count 3.43 M/mm3 (4.2-5.4); White Blood Count 3.7 K/mm3 (4.4-11.0)
[2021-10-06 07:13] LABS: Differential Indicated MANUAL DIFF
[2021-10-06 07:54] LABS: Lymphocyte 5 % (19-41); Metamyelocyte 7 % (0-1); Monocyte 13 % (0-10); Myelocyte 1 % (0-0); Neutrophil-Band 5 % (0-5); Neutrophil-Segmented 69 % (47-70); Total Cells Counted 100 (MANUAL DIFF)
[2021-10-06 07:55] LABS: Platelet Estimate ADEQUATE (ADEQ); Red Cell Morphology NORM C+C NORMAL (NORM C&C)
[2021-10-06 07:57] LABS: Ovalocyte 1+
[2021-10-06 07:59] LABS: Absolute Neutrophil Count 2.7 X10^3/uL (2.0-7.7); Neutrophil # 2.73 X10^3/uL (2.7-7.7)
[2021-10-06 08:00] LABS: Absolute Lymphocyte Count 0.19 X10^3/uL (0.83-4.51); Lymphocyte # 0.19 X10^3/ul (0.83-4.51)
[2021-10-06 08:17] LABS: CMV by PCR Negative (Negative); EBV Acute VCA IgM < 36.0 U/mL (0.0-35.9); EBV-VCA IgG > 600.0 U/mL (0.0-17.9)
[2021-10-06] MEDS: Metoprolol Tartrate 25 MG Tablet PO ×2 (08:35→20:49)
[2021-10-06] MEDS: Multivitamins,Therapeutic Tablet 1 TABLET PO (08:35)
[2021-10-06] MEDS: Pantoprazole Sodium 40 MG Tablet PO ×2 (08:35→20:50)
[2021-10-06] MEDS: Potassium Chloride Oral Tablet 20 MEQ 40 MEQ PO (08:36)
[2021-10-06] MEDS: Fluconazole 100 MG Tablet 200 MG PO (08:36)
[2021-10-06 09:29] LABS: Pathologist Review Reviewed
--- NOTE | 2021-10-06 12:05 | CASEMGMT ---
Addendum entered by Socorro Rojas 10/06/21 17:01: Pt's Ti is requesting to speak to this worker. CHAUNCEY met with Ti. Ti states physician told him pt is close to being medically ready for discharge, asked how discharge will look since it is the weekend. CHAUNCEY informed Ti that nursing homes can accept admissions over the weekend and [facility] can do discharges over the weekend so pt will be able to discharge to [facility] over the weekend if pt is medically cleared. Ti asked about transportation. CHAUNCEY informed Ti that transportation can be arranged. Ti states understanding, denied additional needs or concerns at this time. Original Note: Social Work Note Pt not medically cleared for discharge today, possibly over the weekend. CHAUNCEY updated Carmencita at [facility]. CHAUNCEY faxed updated clinicals to [facility]. CHAUNCEY placed Green sheet, transport forms, COVID tool on pt's chart. Pt will need COVID test on day of discharge. Plan: [facility] skilled under convalescent stay when medically cleared Socorro Rojas MANAGER OF MANUFACTURING, TIME ANALYSIS CLERK
--- NOTE | 2021-10-06 12:59 | PCM.PN.ID ---
Physical Exam Narrative Feeling better, no fever, mild cough Const alert and no apparent distress General Appearance: cooperative Resp clear to auscultation bilaterally Auscultation: diminished lung sounds Cardio regular rate and regular rhythm GI normal to inspection, nondistended, normoactive bowel sounds Skin no rashes or lesions noted ID ID: Route of nutrition/ use of supplements: [] Nutritional Intake: [] IV Site: [] Putnam Catheter: [] Assessment & Plan Assessment/Plan (1) Hypoxia: (2) Non Hodgkin's lymphoma: (3) COVID-19: (4) Neutropenic fever: PLAN: Neutropenic fever with covid a month ago. Cxs neg so far. CT neg for PE on 09/23. Neg resp pcr panel. Stool pcr panel neg. Cdiff was neg last month. ANC recovered, will d/c gcsf. BMBx done, path neg. On meropenem. Bronch done. Mild yeast-like forms seen. Still with fever intermittently, so 10/05 added fluc. Tmax 100 overnight, wbc remains WNL. If temp and ANC remain normal over next 1-2 days, plan on home with one week po fluconazole. Will follow
[2021-10-06 13:25] LABS: Pathologist Review Reviewed
--- NOTE | 2021-10-06 14:53 | PCM.PN.HOSP ---
Subjective Subjective Patient is still spiking fever T-max 100 Fahrenheit Objective Data Objective Data Vital Signs: Vital Signs Temp Pulse Resp BP Pulse Ox 98.9 F 94 16 126/87 H 97 10/06/21 14:41 10/06/21 14:41 10/06/21 14:41 10/06/21 14:41 10/06/21 14:41 Oxygen Flow Rate (L/min) [3] 2 Oxygen Flow Rate (L/min) [2] 2 Oxygen Flow Rate (L/min) [1 ( 2 Initial Baseline)] Oxygen Flow Rate (L/min) 2 Oxygen Delivery Method [3] Nasal Cannula Oxygen Delivery Method [2] Nasal Cannula Oxygen Delivery Method [1 ( Nasal Cannula Initial Baseline)] Oxygen Delivery Method Room Air Weight: 105 lb 4.8 oz Body Mass Index (BMI) 17.1 Intake & Output: Intake and Output for Last 24 Hours 10/04/21 10/05/21 10/06/21 23:59 23:59 23:59 Intake Total 1010.00 / 1010.00 900 / 900 933.5 / 933.5 Balance 1010.00 / 1010.00 900 / 900 933.5 / 933.5 Medical Nutrition Assessment Dietitian: Malnutrition Criteria Met Start: 10/01/21 14:30 Freq: Status: Active Protocol: Document 10/01/21 14:30 RMA (Rec: 10/01/21 14:30 RMA [id number]) Nutrition Malnutrition Evidence of Malnutrition Exists Yes Malnutrition (severe): Acute Illness/Injury Evidenced By Suboptimal Energy Intake ( Severe),Weight Loss (Severe) Clinical Problem Acute Disease or Injury Related Malnutrition Etiology Severe protein/calorie malnutrition in the context of acute illness related to ongoing inadequate oral intake Signs/Symptoms as evidenced by ~3% wt loss x past 1 week and PO meeting less than 50% estimated nutrition needs for calories and protein Status Active Problem Recommendation Dietitian Recommendations/Changes Continue Regular diet with fortified foods, 240ml ensure enlive w/breakfast, magic cup BID w/ lunch and dinner. Ensure compact 4 times per day w/medpass as tolerated. Adjust ONS as needed to optimize intake. Consider TF due to pt continued poor oral intake and declining weight. Lab / Micro Data Result Diagrams: 10/06/21 06:05 10/05/21 10:24 Labs: Laboratory Results - last 24 hr 10/03/21 08:33: Miscellaneous Cytology SEE PATHOLOGY REPORT 10/03/21 10:38: CMV DNA Qual PCR Negative, EBV Capsid Ag IgG Ab > 600.0 H, EBV Capsid Ag IgM Ab < 36.0, EBV Nuclear Ag IgG Ab 146.0 H, EBV Antibody Interp Comment 10/03/21 10:38: MESFIN Screen Negative 10/04/21 07:00: Diff Path Review Reviewed 10/05/21 10:24: Diff Path Review Reviewed 10/06/21 06:05: WBC 3.7 L, RBC 3.43 L, Hgb 10.6 L, Hct 32.3 L, MCV 94.2, MCH 30.9, MCHC 32.8, RDW Std Deviation 56.1 H, RDW Coeff of Stevenson 16.2 H, Plt Count 123 L, MPV 9.6, Neut % (Auto) Not Reportable, Absolute Neuts (auto) 2.7, Absolute Lymphs (auto) 0.19 L, Total Counted 100, Neutrophils % (Manual) 69, Band Neutrophils % 5, Lymphocytes % (Manual) 5 L, Monocytes % (Manual) 13 H, Metamyelocytes % 7 H, Myelocytes % 1 H, Diff Path Review May , Platelet Estimate ADEQUATE, RBC Morphology NORM C+C, Spherocytes ..., Ovalocytes 1+ Micro: Microbiology 10/03/21 08:35 Bronchial Lavage - Left Lower Lobe Gram Stain - Final 10/03/21 08:35 Bronchial Lavage - Left Lower Lobe Respiratory Culture - Preliminary 10/03/21 08:33 Bronchial Lavage - Left Lower Lobe Gram Stain - Final 10/03/21 08:33 Bronchial Lavage - Left Lower Lobe Respiratory Culture - Preliminary 09/28/21 09:48 Blood Culture (Wb) - Left Hand Blood Culture - Final No growth in 5 days. 09/28/21 09:48 Blood Culture (Wb) - Anticubital Left Blood Culture - Final No growth in 5 days. 09/23/21 19:10 Blood Culture (Wb) - Right Forearm Blood Culture - Final No growth in 5 days. 09/23/21 18:30 Blood Culture (Wb) - Port Blood Culture - Final No growth in 5 days. 09/23/21 20:40 Urine Catheter - Catheter Urine Culture - Final Culture exhibits no growth. 09/25/21 10:40 Stool Enteric Bacteriology - Final 09/25/21 10:40 Stool Stool Occult Blood (MERLENE) - Final 09/23/21 22:40 Mucosa - Nasopharyngeal Respiratory Panel (PCR) - Final 09/23/21 20:40 Urine Catheter - Catheter Legionella Antigen - Final 09/23/21 20:40 Urine Catheter - Catheter Streptococcus pneumoniae Antigen (M - Final 09/23/21 19:16 Mucosa - Nasopharyngeal Influenza Types A,B Direct FA (MERLENE) - Final Physical Exam Narrative Denies burning micturition. No cough. No rash. Physical exam General: Awake and alert. Dementia. Forgetfulness. HEENT: Atraumatic, PERRLA, EOMI, Normocephalic Oral: No Gingival or Mucosal Lesions/ Ulcerations Neck: Supple, No JVD, Negative Carotid Bruits Lungs: Air entry diminished in bilateral lung bases. No crepitation/rhonchi Cardiovascular: Regular rate, Regular Rhythm, Normal S1, Normal S2, No murmurs Abdomen: Bowel Sounds Present, Soft, Non Tender, Non-Distended : No renal angle tenderness. No suprapubic tenderness. Extremities: No edema, Capillary Refill Less than 3 Seconds Skin: No rashes, No breakdown Musculoskeletal: Moderate atrophy of muscles of extremities. Muscle strength 4/5 at major joints Neurological: Cranial nerves II-XII grossly intact, DTR 2+/4 Psych/Mental Status: Flat affect Assessment & Plan Assessment/Plan (1) Neutropenic fever: PLAN: 1. Neutropenic fever-etiology unclear: Patient is being seen by ID. Cultures negative so far. Patient was seen by taxonomy teacher and plan for flexible bronchoscopy at about 7:30 AM n.p.o. past midnight. Infectious work-up so far negative including respiratory PCR panel, enteric bacteriology panel, C. difficile. Bone marrow biopsy was done on 09/27 reported hypocellular marrow, 10% cellularity with trilineage hematopoiesis. Negative for acid-fast bacilli and fungal organisms. Flow cytometry negative for evidence of B-cell or T-cell lymphoma. Vanco Zosyn was stopped. On meropenem. WBC count 1.2 thousand. ANC 0.8 thousand. Platelet count 108,000. Platelet count slightly downtrending therefore baby aspirin discontinued. 10/03: Patient had bronchoscopy today. BAL was sent and pending. ANC 2.8 thousand. WBC count 1.2 thousand. Platelet count 100,000. I talked to the patient's . 10/04: BAL shows rare gram-positive cocci. Spiked temperature after 2 days 101. Patient was given Tylenol. Discharge was canceled. Informed to ID. We will continue antibiotic for now. 10/05: Blood cultures x2 on 10/03 are negative. Discussed with the ID. Blood culture x2 ordered. Will need antifungal treatment. 10/06: Discussed with ID. Recommended if temperature and ANC remain normal over next 1 to 2 days, can discharge home on p.o. fluconazole. #2 pancytopenia- Oncology does not feel the patient has an active cancer. Rest as mentioned above 10/04: Leukopenia has resolved. 10/05: Bands 8%, monocyte 14%. Lymphopenia. Repeat labs CBC and CMP ordered. 10/06: WBC 3.7 thousand. Bands 5%. Metamyelocytes 1%, myelocytes 1%, suggestive of left shift. #3 dementia-patient's states that the patient's mental status has declined over the last several months #4 essential hypertension #5 history of non-Hodgkin's B-cell lymphoma. #6 coronary artery disease #7 recent history of COVID-19 infection #8 acute metabolic encephalopathy, fluctuates-on a backdrop of dementia #9 hyperlipidemia #10 hypokalemia-resolved Microbiology Past 72 Hours 10/03/21 08:35 Bronchial Lavage - Left Lower Lobe Gram Stain - Final 10/03/21 08:35 Bronchial Lavage - Left Lower Lobe Respiratory Culture - Preliminary 10/03/21 08:33 Bronchial Lavage - Left Lower Lobe Gram Stain - Final 10/03/21 08:33 Bronchial Lavage - Left Lower Lobe Respiratory Culture - Preliminary Laboratory Results 10/03/21 10:38: CMV DNA Qual PCR Negative, EBV Capsid Ag IgG Ab > 600.0 H, EBV Capsid Ag IgM Ab < 36.0, EBV Nuclear Ag IgG Ab 146.0 H, EBV Antibody Interp Comment 10/03/21 10:38: MESFIN Screen Negative 10/04/21 07:00: Diff Path Review Reviewed 10/05/21 10:24: Diff Path Review Reviewed 10/06/21 06:05: WBC 3.7 L, RBC 3.43 L, Hgb 10.6 L, Hct 32.3 L, MCV 94.2, MCH 30.9, MCHC 32.8, RDW Std Deviation 56.1 H, RDW Coeff of Stevenson 16.2 H, Plt Count 123 L, MPV 9.6, Neut % (Auto) Not Reportable, Absolute Neuts (auto) 2.7, Absolute Lymphs (auto) 0.19 L, Total Counted 100, Neutrophils % (Manual) 69, Band Neutrophils % 5, Lymphocytes % (Manual) 5 L, Monocytes % (Manual) 13 H, Metamyelocytes % 7 H, Myelocytes % 1 H, Diff Path Review May foll, Platelet Estimate ADEQUATE, RBC Morphology NORM C+C, Spherocytes ..., Ovalocytes 1+ Charges/Coding Visit Charges Inpatient E&M: 76039 Subs Hosp L2
[2021-10-06] MEDS: MELATONIN 3 MG TABLET PO (20:49)
[2021-10-06] MEDS: Atorvastatin Calcium 20 MG Tablet PO (20:50)
[2021-10-07] VITALS (9 sets, daily range): BP systolic 118–137; BP diastolic 53–87; PULSE 75–113; RESP 16–18; TEMP 36.4–39.4; O2SAT 94–100
[2021-10-07 00:06] LABS: Aspirgillus flavus Negative (Neg:<1:1); Aspirgillus fumigatus Negative (Neg:<1:1); Aspirgillus niger Negative (Neg:<1:1)
[2021-10-07] MEDS: LORazepam 0.5 MG Tablet PO (00:48)
[2021-10-07] MEDS: Acetaminophen 325 MG Tablet 650 MG PO ×3 (00:49→21:38)
[2021-10-07 06:23] LABS: Hematocrit 32.4 % (37-47); Hemoglobin 10.6 g/dL (12.0-15.0); Mean Corp Hgb Conc 32.7 g/dL (32-36); Mean Corpuscular Hgb 31.4 pg (27.0-32.0); Mean Corpuscular Volume 95.9 fL (81-99); Mean Platelet Vol. 10.2 fl (6.2-12.0); POSITIVE COUNT YES; POSITIVE DIFFERENTIAL YES; POSITIVE MORPHOLOGY YES; Platelet Count 126 K/mm3 (150-450); RBC Distribution Width CV 16.4 % (11.6-14.6); RBC Distribution Width SD 57.3 fl (35.1-43.9); Red Blood Count 3.38 M/mm3 (4.2-5.4); White Blood Count 3.5 K/mm3 (4.4-11.0)
[2021-10-07 06:29] LABS: Differential Indicated MANUAL DIFF
[2021-10-07 06:53] LABS: Eosinophil 1 % (0-5); Lymphocyte 1 % (19-41); Metamyelocyte 4 % (0-1); Monocyte 17 % (0-10); Neutrophil-Band 13 % (0-5); Neutrophil-Segmented 64 % (47-70); Total Cells Counted 100 (MANUAL DIFF)
[2021-10-07 06:57] LABS: Platelet Estimate SLT DEC (ADEQ); Red Cell Morphology NORM C+C NORMAL (NORM C&C)
[2021-10-07 08:38] LABS: Histoplasma Abs Negative (Neg:<1:1)
[2021-10-07] MEDS: Metoprolol Tartrate 25 MG Tablet PO ×2 (09:26→21:39)
[2021-10-07] MEDS: Pantoprazole Sodium 40 MG Tablet PO ×2 (09:26→21:40)
[2021-10-07] MEDS: Multivitamins,Therapeutic Tablet 1 TABLET PO (09:27)
[2021-10-07] MEDS: Fluconazole 100 MG Tablet 200 MG PO (09:27)
[2021-10-07] MEDS: Potassium Chloride Oral Tablet 20 MEQ 40 MEQ PO (09:27)
[2021-10-07] MEDS: NYSTATIN 500,000 UNIT/5 ML UDC 500000 UNIT PO ×4 (09:28→21:39)
[2021-10-07 09:34] LABS: Absolute Lymphocyte Count 0.04 X10^3/uL (0.83-4.51); Absolute Neutrophil Count 2.7 X10^3/uL (2.0-7.7)
--- NOTE | 2021-10-07 13:05 | PN.HOSP_ITS ---
Subjective Subjective Patient is still spiking temperature 101.7 last night. Today during daytime afebrile. Objective Data Objective Data Vital Signs: Vital Signs Temp Pulse Resp BP Pulse Ox 97.6 F L 95 16 122/53 H 94 10/07/21 09:47 10/07/21 09:47 10/07/21 09:47 10/07/21 09:47 10/07/21 09:47 Oxygen Flow Rate (L/min) [3] 2 Oxygen Flow Rate (L/min) [2] 2 Oxygen Flow Rate (L/min) [1 ( 2 Initial Baseline)] Oxygen Flow Rate (L/min) 2 Oxygen Delivery Method [3] Nasal Cannula Oxygen Delivery Method [2] Nasal Cannula Oxygen Delivery Method [1 ( Nasal Cannula Initial Baseline)] Oxygen Delivery Method Room Air Weight: 105 lb 2.568 oz Body Mass Index (BMI) 17.1 Intake & Output: Intake and Output for Last 24 Hours 10/05/21 10/06/21 10/07/21 23:59 23:59 23:59 Intake Total 900 / 900 1186.25 / 1186.25 340 / 340 Balance 900 / 900 1186.25 / 1186.25 340 / 340 Medical Nutrition Assessment Dietitian: Malnutrition Criteria Met Start: 10/01/21 14:30 Freq: Status: Active Protocol: Document 10/01/21 14:30 RMA (Rec: 10/01/21 14:30 RMA [id number]) Nutrition Malnutrition Evidence of Malnutrition Exists Yes Malnutrition (severe): Acute Illness/Injury Evidenced By Suboptimal Energy Intake ( Severe),Weight Loss (Severe) Clinical Problem Acute Disease or Injury Related Malnutrition Etiology Severe protein/calorie malnutrition in the context of acute illness related to ongoing inadequate oral intake Signs/Symptoms as evidenced by ~3% wt loss x past 1 week and PO meeting less than 50% estimated nutrition needs for calories and protein Status Active Problem Recommendation Dietitian Recommendations/Changes Continue Regular diet with fortified foods, 240ml ensure enlive w/breakfast, magic cup BID w/ lunch and dinner. Ensure compact 4 times per day w/medpass as tolerated. Adjust ONS as needed to optimize intake. Consider TF due to pt continued poor oral intake and declining weight. Lab / Micro Data Result Diagrams: 10/07/21 06:14 10/05/21 10:24 Labs: Laboratory Results - last 24 hr 10/03/21 10:38: Histoplasma Antibody Negative, Aspergillus flavus Ab Negative, Aspergill fumigatus Ab Negative, Aspergillus niger Ab Negative 10/03/21 10:38: YOBANI-1 Antibody Not Reportable, SS-A/Ro IgG Antibody Not Reportable, SS-B/La IgG Antibody Not Reportable, Sm (Almendarez) Antibody Not Reportable, CAN CRIMPER Antibody Not Reportable, Scl-70 Scleroderma Ab Not Reportable, Double Strand DNA Ab Not Reportable, Centromere B Antibody Not Reportable 10/05/21 10:24: Diff Path Review Reviewed 10/07/21 06:14: WBC 3.5 L, RBC 3.38 L, Hgb 10.6 L, Hct 32.4 L, MCV 95.9, MCH 31.4, MCHC 32.7, RDW Std Deviation 57.3 H, RDW Coeff of Stevenson 16.4 H, Plt Count 126 L, MPV 10.2, Neut % (Auto) Not Reportable, Absolute Neuts (auto) 2.7, Absolute Lymphs (auto) 0.04 L, Total Counted 100, Neutrophils % (Manual) 64, Band Neutrophils % 13 H, Lymphocytes % (Manual) 1 L, Monocytes % (Manual) 17 H, Eosinophils % (Manual) 1, Metamyelocytes % 4 H, Diff Path Review May , Platelet Estimate SLT DEC, RBC Morphology NORM C+C Micro: Microbiology 10/03/21 08:35 Bronchial Lavage - Left Lower Lobe Gram Stain - Final 10/03/21 08:35 Bronchial Lavage - Left Lower Lobe Respiratory Culture - Preliminary 10/03/21 08:33 Bronchial Lavage - Left Lower Lobe Gram Stain - Final 10/03/21 08:33 Bronchial Lavage - Left Lower Lobe Respiratory Culture - Preliminary 09/28/21 09:48 Blood Culture (Wb) - Left Hand Blood Culture - Final No growth in 5 days. 09/28/21 09:48 Blood Culture (Wb) - Anticubital Left Blood Culture - Final No growth in 5 days. 09/23/21 19:10 Blood Culture (Wb) - Right Forearm Blood Culture - Final No growth in 5 days. 09/23/21 18:30 Blood Culture (Wb) - Port Blood Culture - Final No growth in 5 days. 09/23/21 20:40 Urine Catheter - Catheter Urine Culture - Final Culture exhibits no growth. 09/25/21 10:40 Stool Enteric Bacteriology - Final 09/25/21 10:40 Stool Stool Occult Blood (MERLENE) - Final 09/23/21 22:40 Mucosa - Nasopharyngeal Respiratory Panel (PCR) - Final 09/23/21 20:40 Urine Catheter - Catheter Legionella Antigen - Final 09/23/21 20:40 Urine Catheter - Catheter Streptococcus pneumoniae Antigen (M - Final 09/23/21 19:16 Mucosa - Nasopharyngeal Influenza Types A,B Direct FA (MERLENE) - Final Physical Exam Narrative Denies burning micturition. No cough. No rash. Physical exam General: Awake and alert. Dementia. Forgetfulness. HEENT: Atraumatic, PERRLA, EOMI, Normocephalic Oral: No Gingival or Mucosal Lesions/ Ulcerations Neck: Supple, No JVD, Negative Carotid Bruits Lungs: Air entry diminished in bilateral lung bases. No crepitation/rhonchi Cardiovascular: Regular rate, Regular Rhythm, Normal S1, Normal S2, No murmurs Abdomen: Bowel Sounds Present, Soft, Non Tender, Non-Distended : No renal angle tenderness. No suprapubic tenderness. Extremities: No edema, Capillary Refill Less than 3 Seconds Skin: No rashes, No breakdown Musculoskeletal: Moderate atrophy of muscles of extremities. Muscle strength 4/5 at major joints Neurological: Cranial nerves II-XII grossly intact, DTR 2+/4 Psych/Mental Status: Flat affect Assessment & Plan Assessment/Plan (1) Neutropenic fever: PLAN: 1. Neutropenic fever-etiology unclear: Patient is being seen by ID. Cultures negative so far. Patient was seen by contact lens edge buffer and plan for flexible bronchoscopy at about 7:30 AM n.p.o. past midnight. Infectious work-up so far negative including respiratory PCR panel, enteric bacteriology panel, C. difficile. Bone marrow biopsy was done on 09/27 reported hypocellular marrow, 10% cellularity with trilineage hematopoiesis. Negative for acid-fast bacilli and fungal organisms. Flow cytometry negative for evidence of B-cell or T-cell lymphoma. Vanco Zosyn was stopped. On meropenem. WBC count 1.2 thousand. ANC 0.8 thousand. Platelet count 108,000. Platelet count slightly downtrending therefore baby aspirin discontinued. 10/03: Patient had bronchoscopy today. BAL was sent and pending. ANC 2.8 thousand. WBC count 1.2 thousand. Platelet count 100,000. I talked to the patient's . 10/04: BAL shows rare gram-positive cocci. Spiked temperature after 2 days 101. Patient was given Tylenol. Discharge was canceled. Informed to ID. We will continue antibiotic for now. 10/05: Blood cultures x2 on 10/03 are negative. Discussed with the ID. Blood culture x2 ordered. Will need antifungal treatment. 10/06: Discussed with ID. Recommended if temperature and ANC remain normal over next 1 to 2 days, can discharge home on p.o. fluconazole. 10/07: Histoplasma, Aspergillus antibodies are negative. Autoimmune antibodies also negative. Antibiotic changed from meropenem to Bactrim DS. Continued Diflucan. Patient still spiking fever mainly during nighttime. #2 pancytopenia- Oncology does not feel the patient has an active cancer. Rest as mentioned above 10/04: Leukopenia has resolved. 10/05: Bands 8%, monocyte 14%. Lymphopenia. Repeat labs CBC and CMP ordered. 10/06: WBC 3.7 thousand. Bands 5%. Metamyelocytes 1%, myelocytes 1%, suggestive of left shift. 10/07: Labs reviewed. Mild leukopenia 3.57 WBC count #3 dementia-patient's states that the patient's mental status has declined over the last several months #4 essential hypertension #5 history of non-Hodgkin's B-cell lymphoma. #6 coronary artery disease #7 recent history of COVID-19 infection #8 acute metabolic encephalopathy, fluctuates-on a backdrop of dementia #9 hyperlipidemia #10 hypokalemia-resolved Charges/Coding Visit Charges Inpatient E&M: 40898 Subs Hosp L2
[2021-10-07] MEDS: MELATONIN 3 MG TABLET PO (21:38)
[2021-10-07] MEDS: Smz/Tmp Ds Tablet 1 TABLET PO (21:38)
[2021-10-07] MEDS: Atorvastatin Calcium 20 MG Tablet PO (21:40)
[2021-10-08 01:14] VITALS: BP 106/70; PULSE 80; RESP 16; TEMP 37.3; O2SAT 94
[2021-10-08] MEDS: Acetaminophen 325 MG Tablet 650 MG PO ×2 (01:20→14:44)
[2021-10-08 08:25] VITALS: BP 123/85; PULSE 94; RESP 18; TEMP 36.4; O2SAT 93
[2021-10-08] MEDS: Fluconazole 100 MG Tablet 200 MG PO (08:31)
[2021-10-08] MEDS: Pantoprazole Sodium 40 MG Tablet PO ×2 (08:31→21:10)
[2021-10-08] MEDS: Smz/Tmp Ds Tablet 1 TABLET PO ×2 (08:31→21:10)
[2021-10-08 08:32] VITALS: BP 123/85; PULSE 94
[2021-10-08] MEDS: NYSTATIN 500,000 UNIT/5 ML UDC 500000 UNIT PO ×4 (08:32→21:08)
[2021-10-08] MEDS: Multivitamins,Therapeutic Tablet 1 TABLET PO (08:32)
[2021-10-08] MEDS: Metoprolol Tartrate 25 MG Tablet PO ×2 (08:32→21:09)
--- NOTE | 2021-10-08 12:17 | PN.HOSP_ITS ---
Subjective Subjective Patient still spiking fever, 102.6 and 102.4 Fahrenheit last night. Fever was accompanied with sinus tachycardia. Objective Data Objective Data Vital Signs: Vital Signs Temp Pulse Resp BP Pulse Ox 97.5 F L 94 18 123/85 H 93 10/08/21 08:25 10/08/21 08:32 10/08/21 08:25 10/08/21 08:32 10/08/21 08:25 Oxygen Flow Rate (L/min) [3] 2 Oxygen Flow Rate (L/min) [2] 2 Oxygen Flow Rate (L/min) [1 ( 2 Initial Baseline)] Oxygen Flow Rate (L/min) 2 Oxygen Delivery Method [3] Nasal Cannula Oxygen Delivery Method [2] Nasal Cannula Oxygen Delivery Method [1 ( Nasal Cannula Initial Baseline)] Oxygen Delivery Method Room Air Weight: 104 lb 7.986 oz Body Mass Index (BMI) 17.1 Intake & Output: Intake and Output for Last 24 Hours 10/06/21 10/07/21 10/08/21 23:59 23:59 22:59 Intake Total 1186.25 / 1186.25 590 / 1148 758 / 758 Output Total 400 / 400 Balance 1186.25 / 1186.25 590 / 1148 358 / 358 Medical Nutrition Assessment Dietitian: Malnutrition Criteria Met Start: 10/01/21 14:30 Freq: Status: Active Protocol: Document 10/01/21 14:30 RMA (Rec: 10/01/21 14:30 RMA [id number]) Nutrition Malnutrition Evidence of Malnutrition Exists Yes Malnutrition (severe): Acute Illness/Injury Evidenced By Suboptimal Energy Intake ( Severe),Weight Loss (Severe) Clinical Problem Acute Disease or Injury Related Malnutrition Etiology Severe protein/calorie malnutrition in the context of acute illness related to ongoing inadequate oral intake Signs/Symptoms as evidenced by ~3% wt loss x past 1 week and PO meeting less than 50% estimated nutrition needs for calories and protein Status Active Problem Recommendation Dietitian Recommendations/Changes Continue Regular diet with fortified foods, 240ml ensure enlive w/breakfast, magic cup BID w/ lunch and dinner. Ensure compact 4 times per day w/medpass as tolerated. Adjust ONS as needed to optimize intake. Consider TF due to pt continued poor oral intake and declining weight. Lab / Micro Data Result Diagrams: 10/07/21 06:14 10/05/21 10:24 Micro: Microbiology 10/03/21 08:35 Bronchial Lavage - Left Lower Lobe Gram Stain - Final 10/03/21 08:35 Bronchial Lavage - Left Lower Lobe Respiratory Culture - Preliminary Yeast 10/03/21 08:33 Bronchial Lavage - Left Lower Lobe Gram Stain - Final 10/03/21 08:33 Bronchial Lavage - Left Lower Lobe Respiratory Culture - Preliminary Yeast 10/05/21 10:28 Blood Culture (Wb) - Left Forearm Blood Culture - Final No growth. 10/05/21 10:24 Blood Culture (Wb) - Anticubital Left Blood Culture - Final No growth. 09/28/21 09:48 Blood Culture (Wb) - Left Hand Blood Culture - Final No growth in 5 days. 09/28/21 09:48 Blood Culture (Wb) - Anticubital Left Blood Culture - Final No growth in 5 days. 09/23/21 19:10 Blood Culture (Wb) - Right Forearm Blood Culture - Final No growth in 5 days. 09/23/21 18:30 Blood Culture (Wb) - Port Blood Culture - Final No growth in 5 days. 09/23/21 20:40 Urine Catheter - Catheter Urine Culture - Final Culture exhibits no growth. 09/25/21 10:40 Stool Enteric Bacteriology - Final 09/25/21 10:40 Stool Stool Occult Blood (MERLENE) - Final 09/23/21 22:40 Mucosa - Nasopharyngeal Respiratory Panel (PCR) - Final 09/23/21 20:40 Urine Catheter - Catheter Legionella Antigen - Final 09/23/21 20:40 Urine Catheter - Catheter Streptococcus pneumoniae Antigen (M - Final 09/23/21 19:16 Mucosa - Nasopharyngeal Influenza Types A,B Direct FA (MERLENE) - Final Physical Exam Narrative No acute change or source of fever found. Denies burning micturition. No cou gh. No rash. Physical exam General: Awake and alert. Dementia. Forgetfulness. HEENT: Atraumatic, PERRLA, EOMI, Normocephalic Oral: No Gingival or Mucosal Lesions/ Ulcerations Neck: Supple, No JVD, Negative Carotid Bruits Lungs: Air entry diminished in bilateral lung bases. No crepitation/rhonchi Cardiovascular: Regular rate, Regular Rhythm, Normal S1, Normal S2, No murmurs Abdomen: Bowel Sounds Present, Soft, Non Tender, Non-Distended : No renal angle tenderness. No suprapubic tenderness. Extremities: No edema, Capillary Refill Less than 3 Seconds Skin: No rashes, No breakdown Musculoskeletal: Moderate atrophy of muscles of extremities. Muscle strength 4/5 at major joints Neurological: Cranial nerves II-XII grossly intact, DTR 2+/4 Psych/Mental Status: Flat affect Assessment & Plan Assessment/Plan (1) Neutropenic fever: PLAN: 1. Neutropenic fever-etiology unclear: Patient is being seen by ID. Cultures negative so far. Patient was seen by ambulatory care coordinator and plan for flexible bronchoscopy at about 7:30 AM n.p.o. past midnight. Infectious work-up so far negative including respiratory PCR panel, enteric bacteriology panel, C. difficile. Bone marrow biopsy was done on 09/27 reported hypocellular marrow, 10% cellularity with trilineage hematopoiesis. Negative for acid-fast bacilli and fungal organisms. Flow cytometry negative for evidence of B-cell or T-cell lymphoma. Vanco Zosyn was stopped. On meropenem. WBC count 1.2 thousand. ANC 0.8 thousand. Platelet count 108,000. Platelet count slightly downtrending therefore baby aspirin discontinued. 10/03: Patient had bronchoscopy today. BAL was sent and pending. ANC 2.8 thousand. WBC count 1.2 thousand. Platelet count 100,000. I talked to the patient's . 10/04: BAL shows rare gram-positive cocci. Spiked temperature after 2 days 101. Patient was given Tylenol. Discharge was canceled. Informed to ID. We will continue antibiotic for now. 10/05: Blood cultures x2 on 10/03 are negative. Discussed with the ID. Blood culture x2 ordered. Will need antifungal treatment. 10/06: Discussed with ID. Recommended if temperature and ANC remain normal over next 1 to 2 days, can discharge home on p.o. fluconazole. 10/07: Histoplasma, Aspergillus antibodies are negative. Autoimmune antibodies also negative. Antibiotic changed from meropenem to Bactrim DS. Continued Diflucan. Patient still spiking fever mainly during nighttime. 10/08: ID follow-up regarding continued fever and no source found. No neoplastic source or origin as per oncologist. #2 pancytopenia- Oncology does not feel the patient has an active cancer. Rest as mentioned above 10/04: Leukopenia has resolved. 10/05: Bands 8%, monocyte 14%. Lymphopenia. Repeat labs CBC and CMP ordered. 10/06: WBC 3.7 thousand. Bands 5%. Metamyelocytes 1%, myelocytes 1%, suggestive of left shift. 10/07: Labs reviewed. Mild leukopenia 3.57 WBC count #3 dementia-patient's states that the patient's mental status has declined over the last several months #4 essential hypertension #5 history of non-Hodgkin's B-cell lymphoma. #6 coronary artery disease #7 recent history of COVID-19 infection #8 acute metabolic encephalopathy, fluctuates-on a backdrop of dementia #9 hyperlipidemia #10 hypokalemia-resolved Charges/Coding Visit Charges Inpatient E&M: 77452 Subs Hosp L2
[2021-10-08 14:25] VITALS: BP 132/106; PULSE 99; RESP 18; TEMP 37.8; O2SAT 100
[2021-10-08 20:51] VITALS: BP 128/77; PULSE 95; RESP 16; TEMP 36.3; O2SAT 96
[2021-10-08 21:09] VITALS: BP 128/77; PULSE 95
[2021-10-08] MEDS: Atorvastatin Calcium 20 MG Tablet PO (21:10)
[2021-10-09] VITALS (10 sets, daily range): BP systolic 115–137; BP diastolic 70–92; PULSE 84–107; RESP 16–18; TEMP 36.7–38.8; O2SAT 92–97
[2021-10-09] MEDS: Acetaminophen 325 MG Tablet 650 MG PO ×2 (00:44→13:35)
[2021-10-09] MEDS: LORazepam 0.5 MG Tablet PO (01:48)
[2021-10-09 07:19] LABS: Hemoglobin 9.9 g/dL (12.0-15.0); Mean Corpuscular Hgb 31.5 pg (27.0-32.0); Mean Corpuscular Volume 95.5 fL (81-99); Mean Platelet Vol. 10.3 fl (6.2-12.0); POSITIVE COUNT YES; POSITIVE DIFFERENTIAL YES; POSITIVE MORPHOLOGY YES; Platelet Count 139 K/mm3 (150-450); RBC Distribution Width CV 16.6 % (11.6-14.6); Red Blood Count 3.14 M/mm3 (4.2-5.4); White Blood Count 4.4 K/mm3 (4.4-11.0)
[2021-10-09 07:32] LABS: Differential Indicated MANUAL DIFF
[2021-10-09 07:39] LABS: ALB/GLOB Ratio 0.4 RATIO (0.9-2.4); AST(SGOT) 50 U/L (15-37); Alanine Aminotransfer ALT/SGPT 52 U/L (13-56); Albumin, Serum 1.7 g/dL (3.2-5.0); Alkaline Phosphatase 81 U/L (45-117); Anion Gap 3 (5-15); BUN 11 mg/dL (7-18); BUN/Creat Ratio 14.5 RATIO (10-20); Calcium,Total 8.7 mg/dL (8.5-10.1); Chloride 104 mmol/L (98-107); Creatinine, Serum 0.76 mg/dL (0.55-1.02); EST Glomerular Filtration Rate 80 mL/min (>60); Est Glom Filt Rate - Afr Amer 96 mL/min (>60); Estimated Creatinine Clearance 38.61 ml/min; Glucose 95 mg/dL (74-106); Potassium 3.8 mmol/L (3.5-5.1); Protein, Total 5.7 g/dL (6.4-8.2); Sodium Level 133 mmol/L (136-145)
[2021-10-09] MEDS: Metoprolol Tartrate 25 MG Tablet PO ×2 (08:20→22:34)
[2021-10-09] MEDS: Pantoprazole Sodium 40 MG Tablet PO ×2 (08:20→22:35)
[2021-10-09] MEDS: Multivitamins,Therapeutic Tablet 1 TABLET PO (08:20)
[2021-10-09] MEDS: Smz/Tmp Ds Tablet 1 TABLET PO ×2 (08:21→22:34)
[2021-10-09] MEDS: Fluconazole 100 MG Tablet 200 MG PO (08:21)
[2021-10-09] MEDS: NYSTATIN 500,000 UNIT/5 ML UDC 500000 UNIT PO ×4 (08:21→22:33)
[2021-10-09 08:34] LABS: Lymphocyte 3 % (19-41); Metamyelocyte 2 % (0-1); Monocyte 8 % (0-10); Neutrophil-Band 5 % (0-5); Neutrophil-Segmented 82 % (47-70); Total Cells Counted 100 (MANUAL DIFF)
[2021-10-09 08:35] LABS: Ovalocyte 1+
[2021-10-09 08:38] LABS: Absolute Lymphocyte Count 0.13 X10^3/uL (0.83-4.51); Absolute Neutrophil Count 3.8 X10^3/uL (2.0-7.7)
--- NOTE | 2021-10-09 10:11 | CASEMGMT ---
Social Work Note SW faxed updated clinicals to [facility]. Plan: [facility] when medically cleared Socorro Rojas ERGONOMIST, MANAGER THERAPY
[2021-10-09] MEDS: 0.9% Saline Lock 10 ML Syringe IV (11:23)
--- NOTE | 2021-10-09 14:47 | PN.HOSP_ITS ---
Subjective Subjective Patient still spiking fever temperature 91.9 ?F. No leukocytosis. Platelet and hemoglobin are maintained. Discussed with ID. Earlier, Dr. Paredes called me that BAL respiratory culture shows yeast, not Nica albicans 1+. BAL fluid cytology is negative for malignant cells. Objective Data Objective Data Vital Signs: Vital Signs Temp Pulse Resp BP Pulse Ox 101.9 F H 102 H 18 137/92 H 92 10/09/21 13:31 10/09/21 13:31 10/09/21 13:31 10/09/21 13:31 10/09/21 13:31 Oxygen Flow Rate (L/min) [3] 2 Oxygen Flow Rate (L/min) [2] 2 Oxygen Flow Rate (L/min) [1 ( 2 Initial Baseline)] Oxygen Flow Rate (L/min) 2 Oxygen Delivery Method [3] Nasal Cannula Oxygen Delivery Method [2] Nasal Cannula Oxygen Delivery Method [1 ( Nasal Cannula Initial Baseline)] Oxygen Delivery Method Room Air Weight: 104 lb 7.986 oz Body Mass Index (BMI) 17.1 Intake & Output: Intake and Output for Last 24 Hours 10/08/21 10/08/21 10/09/21 00:59 23:59 23:59 Intake Total 468 / 468 Output Total Balance 468 / 468 Medical Nutrition Assessment Dietitian: Malnutrition Criteria Met Start: 10/01/21 14:30 Freq: Status: Active Protocol: Document 10/09/21 14:43 SCARLETT (Rec: 10/09/21 14:43 [email or web address] [id number]) Nutrition Malnutrition Evidence of Malnutrition Exists Yes Malnutrition (severe): Acute Illness/Injury Evidenced By Suboptimal Energy Intake ( Severe),Weight Loss (Severe), Physical Changes (Severe) Clinical Problem Acute Disease or Injury Related Malnutrition Etiology Severe protein/calorie malnutrition in the context of acute illness related to ongoing inadequate oral intake Signs/Symptoms as evidenced by ~8.5% wt loss since admission and PO meeting less than 50% estimated nutrition needs for calories and protein - pt also has fat/ muscle loss as can be seen temporal/orbital areas on face , prominent clavicle and fat/ muscle loss of legs and arms Status Active Problem Recommendation Dietitian Recommendations/Changes Continue Regular diet with fortified foods, 240ml ensure enlive w/ breakfast, magic cup BID w/ lunch and dinner. Ensure compact 4 times per day w/medpass as tolerated. Adjust ONS as needed to optimize intake. Consider TF due to pt continued poor oral intake and declining weight if in accordance of pt/family wishes . Lab / Micro Data Result Diagrams: 10/09/21 06:44 10/09/21 06:44 Labs: Laboratory Results - last 24 hr 10/09/21 06:44: WBC 4.4, RBC 3.14 L, Hgb 9.9 L, Hct 30.0 L, MCV 95.5, MCH 31.5, MCHC 33.0, RDW Std Deviation 58.0 H, RDW Coeff of Stevenson 16.6 H, Plt Count 139 L, MPV 10.3, Neut % (Auto) Not Reportable, Absolute Neuts (auto) 3.8, Absolute Lymphs (auto) 0.13 L, Total Counted 100, Neutrophils % (Manual) 82 H, Band Neutrophils % 5, Lymphocytes % (Manual) 3 L, Monocytes % (Manual) 8, Metamyelocytes % 2 H, Diff Path Review May foll, Ovalocytes 1+ 10/09/21 06:44: Sodium 133 L, Potassium 3.8, Chloride 104, Carbon Dioxide 26.0, Anion Gap 3 L, BUN 11, Creatinine 0.76, Estim Creat Clear Calc 38.61, Est GFR (MDRD) Af Amer 96, Est GFR (MDRD) Non-Af 80, BUN/Creatinine Ratio 14.5, Glucose 95, Calcium 8.7, Total Bilirubin 0.30, AST 50 H, ALT 52, Alkaline Phosphatase 81, Total Protein 5.7 L, Albumin 1.7 L, Globulin 4.0, Albumin/Globulin Ratio 0.4 L Micro: Microbiology 10/03/21 08:35 Bronchial Lavage - Left Lower Lobe Gram Stain - Final 10/03/21 08:35 Bronchial Lavage - Left Lower Lobe Respiratory Culture - F inal Yeast, not Nica albicans 10/03/21 08:33 Bronchial Lavage - Left Lower Lobe Gram Stain - Final 10/03/21 08:33 Bronchial Lavage - Left Lower Lobe Respiratory Culture - Final Yeast, not Nica albicans 10/05/21 10:28 Blood Culture (Wb) - Left Forearm Blood Culture - Final No growth. 10/05/21 10:24 Blood Culture (Wb) - Anticubital Left Blood Culture - Final No growth. 09/28/21 09:48 Blood Culture (Wb) - Left Hand Blood Culture - Final No growth in 5 days. 09/28/21 09:48 Blood Culture (Wb) - Anticubital Left Blood Culture - Final No growth in 5 days. 09/23/21 19:10 Blood Culture (Wb) - Right Forearm Blood Culture - Final No growth in 5 days. 09/23/21 18:30 Blood Culture (Wb) - Port Blood Culture - Final No growth in 5 days. 09/23/21 20:40 Urine Catheter - Catheter Urine Culture - Final Culture exhibits no growth. 09/25/21 10:40 Stool Enteric Bacteriology - Final 09/25/21 10:40 Stool Stool Occult Blood (MERLENE) - Final 09/23/21 22:40 Mucosa - Nasopharyngeal Respiratory Panel (PCR) - Final 09/23/21 20:40 Urine Catheter - Catheter Legionella Antigen - Final 09/23/21 20:40 Urine Catheter - Catheter Streptococcus pneumoniae Antigen (M - Final 09/23/21 19:16 Mucosa - Nasopharyngeal Influenza Types A,B Direct FA (MERLENE) - Final Physical Exam Narrative No acute change or source of fever found. Denies burning micturition. No cough. No rash. Physical exam General: Awake, dementia. Forgetfulness. HEENT: Atraumatic, PERRLA, EOMI, Normocephalic Oral: No Gingival or Mucosal Lesions/ Ulcerations Neck: Supple, No JVD, Negative Carotid Bruits Lungs: Air entry diminished in bilateral lung bases. No crepitation/rhonchi Cardiovascular: Regular rate, Regular Rhythm, Normal S1, Normal S2, No murmurs Abdomen: Bowel Sounds Present, Soft, Non Tender, Non-Distended : No renal angle tenderness. No suprapubic tenderness. Extremities: No edema, Capillary Refill Less than 3 Seconds Skin: No rashes, No breakdown Musculoskeletal: Moderate atrophy of muscles of extremities. Neurological: Cranial nerves II-XII grossly intact, DTR 2+/4 Psych/Mental Status: Flat affect Assessment & Plan Assessment/Plan (1) Neutropenic fever: PLAN: 1. Neutropenic fever-etiology unclear: Patient is being seen by ID. Cultures negative so far. Patient was seen by director employee communications and plan for flexible bronchoscopy at about 7:30 AM n.p.o. past midnight. Infectious work-up so far negative including respiratory PCR panel, enteric bacteriology panel, C. difficile. Bone marrow biopsy was done on 09/27 reported hypocellular marrow, 10% cellularity with trilineage hematopoiesis. Negative for acid-fast bacilli and fungal organisms. Flow cytometry negative for evidence of B-cell or T-cell lymphoma. Vanco Zosyn was stopped. On meropenem. WBC count 1.2 thousand. ANC 0.8 thousand. Platelet count 108,000. Platelet count slightly downtrending therefore baby aspirin discontinued. 10/03: Patient had bronchoscopy today. BAL was sent and pending. ANC 2.8 thousand. WBC count 1.2 thousand. Platelet count 100,000. I talked to the patient's . 10/04: BAL shows rare gram-positive cocci. Spiked temperature after 2 days 101. Patient was given Tylenol. Discharge was canceled. Informed to ID. We will continue antibiotic for now. 10/05: Blood cultures x2 on 10/03 are negative. Discussed with the ID. Blood culture x2 ordered. Will need antifungal treatment. 10/06: Discussed with ID. Recommended if temperature and ANC remain normal over next 1 to 2 days, can discharge home on p.o. fluconazole. 10/07: Histoplasma, Aspergillus antibodies are negative. Autoimmune antibodies also negative. Antibiotic changed from meropenem to Bactrim DS. Continued Diflucan. Patient still spiking fever mainly during nighttime. 10/08: ID follow-up regarding continued fever and no source found. No neoplastic source or origin as per oncologist. 10/09: Discussed with ID and oncologist. BAL fluid shows 1+ yeast, Nica not albicans. Antifungal agent changed from Diflucan to voriconazole. #2 pancytopenia- Oncology does not feel the patient has an active cancer. Rest as mentioned above 10/04: Leukopenia has resolved. 10/05: Bands 8%, monocyte 14%. Lymphopenia. Repeat labs CBC and CMP ordered. 10/06: WBC 3.7 thousand. Bands 5%. Metamyelocytes 1%, myelocytes 1%, suggestive of left shift. 10/07: Labs reviewed. Mild leukopenia 3.57 WBC count #3 dementia-patient's states that the patient's mental status has declined over the last several months #4 essential hypertension #5 history of non-Hodgkin's B-cell lymphoma. #6 coronary artery disease #7 recent history of COVID-19 infection #8 acute metabolic encephalopathy, fluctuates-on a backdrop of dementia #9 hyperlipidemia #10 hypokalemia-resolved Charges/Coding Visit Charges Inpatient E&M: 76314 Subs Hosp L2
--- NOTE | 2021-10-09 15:28 | PCM.PN.ID ---
Physical Exam Narrative Still fever, no other complaints Const alert General Appearance: cooperative Resp clear to auscultation bilaterally Auscultation: diminished lung sounds Cardio regular rate and regular rhythm GI normal to inspection, nondistended, normoactive bowel sounds Skin no rashes or lesions noted ID ID: Route of nutrition/ use of supplements: [] Nutritional Intake: [] IV Site: [] [place] Catheter: [] Assessment & Plan Assessment/Plan (1) Hypoxia: (2) Non Hodgkin's lymphoma: (3) COVID-19: (4) Neutropenic fever: PLAN: Neutropenic fever with covid a month ago. Cxs neg so far. CT neg for PE on 09/23. Neg resp pcr panel. Stool pcr panel neg. Cdiff was neg last month. ANC recovered. BMBx done, path neg. Bronch done. Mild yeast-like forms seen. Still with fever intermittently, so 10/05 added fluc. Still with fever. Trupti was changed to bactrim. Now fluc changed to voriconazole. Will follow
--- NOTE | 2021-10-09 19:04 | EKG12_ITS ---
Test Reason : RHYTHMN CHANGE Blood Pressure : / mmHG Vent. Rate : 099 BPM Atrial Rate : 099 BPM P-R Int : 158 ms QRS Dur : 070 ms QT Int : 394 ms P-R-T Axes : 076 -66 057 degrees QTc Int : 505 ms Normal sinus rhythm Left anterior fascicular block Anterior infarct , age undetermined, cannot be excluded Abnormal ECG Confirmed by CHAUNCEY BRISCOE, WILLAM ([id number]), scientific publications editor MARCUS LIM ([id number]) on 10/11/2021 9:31:52 AM Referred By: HANNY Confirmed By:WILLAM GROSSMAN MD
[2021-10-09] MEDS: Atorvastatin Calcium 20 MG Tablet PO (22:34)
[2021-10-10] MEDS: LORazepam 0.5 MG Tablet PO (02:05)
[2021-10-10] MEDS: Acetaminophen 325 MG Tablet 650 MG PO (05:06)
[2021-10-10 05:15] VITALS: TEMP 37.7
[2021-10-10 07:56] LABS: Hematocrit 31.6 % (37-47); Hemoglobin 10.8 g/dL (12.0-15.0); Mean Corp Hgb Conc 34.2 g/dL (32-36); Mean Corpuscular Volume 93.5 fL (81-99); Mean Platelet Vol. 9.9 fl (6.2-12.0); POSITIVE COUNT YES; POSITIVE DIFFERENTIAL YES; POSITIVE MORPHOLOGY YES; Platelet Count 152 K/mm3 (150-450); RBC Distribution Width CV 16.9 % (11.6-14.6); RBC Distribution Width SD 57.3 fl (35.1-43.9); Red Blood Count 3.38 M/mm3 (4.2-5.4); White Blood Count 4.1 K/mm3 (4.4-11.0)
[2021-10-10 08:05] LABS: Differential Indicated MANUAL DIFF
[2021-10-10 08:32] VITALS: BP 114/84; PULSE 95; RESP 18; TEMP 36.7; O2SAT 93
[2021-10-10] MEDS: Multivitamins,Therapeutic Tablet 1 TABLET PO (08:35)
[2021-10-10] MEDS: NYSTATIN 500,000 UNIT/5 ML UDC 500000 UNIT PO (08:35)
[2021-10-10] MEDS: Smz/Tmp Ds Tablet 1 TABLET PO (08:35)
[2021-10-10] MEDS: Pantoprazole Sodium 40 MG Tablet PO (08:35)
[2021-10-10 08:36] VITALS: PULSE 95
[2021-10-10] MEDS: Metoprolol Tartrate 25 MG Tablet PO (08:36)
[2021-10-10 09:13] LABS: Lymphocyte 5 % (19-41); Metamyelocyte 3 % (0-1); Monocyte 10 % (0-10); Neutrophil-Band 1 % (0-5); Neutrophil-Segmented 81 % (47-70); Platelet Estimate ADEQUATE (ADEQ); Red Cell Morphology NORM C+C NORMAL (NORM C&C); Total Cells Counted 100 (MANUAL DIFF)
[2021-10-10 09:14] LABS: Absolute Lymphocyte Count 0.21 X10^3/uL (0.83-4.51); Absolute Neutrophil Count 3.4 X10^3/uL (2.0-7.7)
--- NOTE | 2021-10-10 11:00 | PCM.TXEXTCAR ---
Diet 10/06/21 12:33 Diet: Regular - General Food consistency:: Mechanical (Minced/Moist) Liquid Consistency:: Regular/Thin Dietary Modifications:: Fortified Foods Neutropenic Type of Dietary Supplement:: Magic Cup Dessert Is pt able to select menu?: No Diet Comments: 240ml ensure enlive w/ breakfast; magic cup w/ lunch & dinner Routine Orders/Code Status Suppository Type: Dulcolax 10mg Suppository Frequency: Daily PRN Routine Lab Work: CBC and BMP (Weekly CBC and BMP) Code Status: DNRCC-A Wound(s) RT ILIUM: Wound Type: Puncture Therapies Weight Bearing: Weight bearing as tolerated Extremity Affected:: Bilateral Lower Physical Therapy: Eval and Treat Occupational Therapy: Eval and Treat Speech Therapy: Eval and Treat Problem/Diagnosis (1) Hypoxia: Status: Acute (2) Non Hodgkin's lymphoma: Status: Chronic (3) COVID-19: Status: Acute (4) Neutropenic fever: Status: Acute Allergies/Procedures Done in Hospital Allergies No Known Allergies Allergy (Verified 08/25/21 08:32) Type of Care/Length of Stay Estimated LOS: Convalescent Care Less Than 30 days Type of Care Needed: Skilled Rehab Potential: Fair Prognosis: Fair Additional Orders/Day of Discharge Day of Discharge: 10/04/21 Dietary and Speech Recommendations Dietitian Recommendations/Changes: Continue Regular diet with fortified foods, 240ml ensure enlive w/ breakfast, magic cup BID w/ lunch and dinner. Ensure compact 4 times per day w/medpass as tolerated. Adjust ONS as needed to optimize intake. Consider TF due to pt continued poor oral intake and declining weight if in accordance of pt/family wishes. Discharge Plan Admission Admit Date/Time: 09/23/21 21:34 Primary Reason for Your Visit: Feverof unknown origin, possible fungal Attending Provider: Pablo Sena Primary Care Provider: Mitra Lackey Consulting Providers: Kareem Jackson ; Yosef Sosa ; Chele Torres ; Rivka Johnson [employer]MER Instructions Additional Instructions / Restrictions: You might expect low-grade fever, temperature about 100-101 Fahrenheit. Patient has been thoroughly investigated for cause of fever for 17 days including bronchoscopy with BAL, bone marrow biopsy but did not find any good reason except Nica, nonalbicans in BAL. Patient on antibiotic for about 17 days and discontinued. Continue voriconazole. If patient spikes high fever more than 102 Fahrenheit, call primary care physician or ID Dr. Jackson Discharge Orders/Prescriptions Prescriptions: New acetaminophen [Tylenol] 325 mg Tablet 650 mg PO Q4H PRN PRN (Reason: Fever, pain 1-09/10) Qty: 0 RF: 0 albuterol sulfate 2.5 mg /3 mL (0.083 %) Solution For Nebulization 2.5 mg inhalation Q2H PRN PRN (Reason: Dyspnea, wheezing) Qty: 0 RF: 0 Ensure Compact Liquid 118 ml PO 4X/DAY Qty: 0 RF: 0 pantoprazole 40 mg Tablet,Delayed Release (Dr/Ec) 40 mg PO DAILY Qty: 0 RF: 0 voriconazole 200 mg Tablet 200 mg PO Q12H Qty: 20 RF: 0 Continued multivitamin with folic acid 1 TABLET tablet 1 tab PO DAILY RF: 0 aspirin 81 MG tablet,chewable 81 mg PO DAILY@0800 RF: 0 atorvastatin 40 MG tablet 20 mg PO DAILY RF: 0 metoprolol tartrate 25 MG tablet 12.5 mg PO BID RF: 0 loperamide 2 mg Capsule 2 mg PO Q2H PRN PRN (Reason: diarrhea) 3 Days Qty: 10 RF: 0 Changed potassium chloride [Klor-Con M20] 20 mEq tablet,ER particles/crystals 20 meq PO DAILY 3 Days Qty: 6 RF: 0 Discontinued amoxicillin-pot clavulanate 875-125 mg tablet 1 tab PO BID RF: 0 Referrals / Follow Up: Mitra Lackey MD [Primary Care Provider] - Within 2 Weeks Mary Paredes MD [STAFF PHYSICIAN] - Within 1 Month (for non-Hodgkin's B-cell lymphoma ) Kareem Jackson MD [STAFF PHYSICIAN] - Within 1 Week (for fever.) Disposition Disposition (needs filled in before D/C Order can be placed): [facility] Facility
--- NOTE | 2021-10-10 11:01 | PCM.DC.SUM ---
Providers Date of Admission: 09/23/21 Date of Discharge: 10/10/21 Primary Care Physician: Dr. Mitra Lackey MD Consultations 09/23/21 21:52 Consult: Infectious Disease Routine Consulting Provider: Kareem Jackson Reason for Consult: COVID 08/2021 Dx, worsening sxs, poss superimposed infection EMERGENT Consult: No MD Notified: Yes Date Notified: 09/23/21 Time Notified: 21:36 Method of Notification: Text Method of Consult:: In-Person 10/02/21 13:40 Consult: Driver Messenger / Pulmonary Medicine Routine Consulting Provider: Pulmonary Medicine [facility] Reason for Consult: neutropenic fever, consider bronch EMERGENT Consult: No Notified: Yes Date Notified: 10/02/21 Time Notified: 13:41 Method of Notification: Text Reason For Visit: COVID PNA, HYPOXIA,FEVERS,? SUPERIMPOSED INFECTION Diagnosis Discharge Diagnosis (1) Hypoxia: Status: Acute Code(s): R09.02 - Hypoxemia (2) Non Hodgkin's lymphoma: Status: Chronic Code(s): C85.90 - Non-Hodgkin lymphoma, unspecified, unspecified site (3) COVID-19: Status: Acute Code(s): U07.1 - COVID-19 (4) Neutropenic fever: Status: Acute Code(s): D70.9 - Neutropenia, unspecified; R50.81 - Fever presenting with conditions classified elsewhere Medications at Discharge Home Medications multivitamin with folic acid 1 tab PO DAILY 05/27/15 aspirin 81 mg PO DAILY@0800 05/15/19 atorvastatin 20 mg PO DAILY 05/15/19 metoprolol tartrate 12.5 mg PO BID 05/15/19 loperamide 2 mg PO Q2H PRN PRN 3 Days #10 cap 08/27/21 acetaminophen [Tylenol] 650 mg PO Q4H PRN PRN #0 tab 10/04/21 albuterol sulfate 2.5 mg INHALATION Q2H PRN PRN #0 ml 10/04/21 food supplemt, lactose-reduced [Ensure Compact] 118 ml PO 4X/DAY #0 ml 10/04/21 pantoprazole 40 mg PO DAILY #0 tab 10/10/21 potassium chloride [Klor-Con M20] 20 meq PO DAILY 3 Days #6 tab 10/10/21 voriconazole 200 mg PO Q12H #20 tab 10/10/21 Hospital Course Summary of Care Provided Minutes Spent on Discharge: 35 Hospital Course: The patient is 69-year-old female with multiple comorbidities including non-Hodgkin's B-cell lymphoma on immunotherapy was admitted until 6 weeks prior to admission was admitted with fever 104 Fahrenheit for last 4 days. noted some diarrhea. She also had Covid at the end of August and was hospitalized. Patient was also hospitalized in [facility] 2 weeks ago prior to admission for pneumonia. Her hospital course and management as followed 1. Neutropenic fever-etiology unclear: Patient is being seen by ID. Patient was seen by television journalist and plan for flexible bronchoscopy on 10/03. Most recent, BAL culture shows Nica not albicans. Besides that, infectious work-up so far negative including respiratory PCR panel, enteric bacteriology panel, C. difficile. Bone marrow biopsy was done on 09/27 reported hypocellular marrow, 10% cellularity with trilineage hematopoiesis. Negative for acid-fast bacilli and fungal organisms. Flow cytometry negative for evidence of B-cell or T-cell lymphoma. Vanco Zosyn was stopped. On meropenem. WBC count 1.2 thousand. ANC 0.8 thousand. Platelet count 108,000. Platelet count slightly downtrending therefore baby aspirin discontinued. Her ANC and numbness got improved to normal. She was treated with multiple antibiotics including vancomycin, Zosyn, meropenem and Bactrim DS. She was also on Diflucan but changed to voriconazole once BAL shows Nica not albicans. Discharge plan discussed with ID and oncologist, Dr Paredes. Patient is discharged to retirement. Patient might spike low-grade fever 99-100 but call PCP or ID or oncologist if patient spikes more than 102 Fahrenheit. Treat symptomatically with Tylenol #2 pancytopenia- Oncology does not feel the patient has an active cancer. Most recent WBC count 4.1 thousand. ANC 3.4 thousand. Rest as mentioned above #3 dementia-patient's states that the patient's mental status has declined over the last several months #4 essential hypertension #5 history of non-Hodgkin's B-cell lymphoma. #6 coronary artery disease #7 recent history of COVID-19 infection #8 acute metabolic encephalopathy, fluctuates-on a backdrop of dementia #9 hyperlipidemia #10 hypokalemia-resolved Discharge medication reconciliation done. Discharge follow-up instructions completed. Discharge process discussed with the patient and all questions were answered to patient's satisfaction. Total time spent, exact 35 minutes on discharge meds reconciliation, examination, coordination of care with nurses and ancillary staff, review of imaging and blood test and discussion with the patient on follow-up instructions Physical Exam Narrative No acute change or source of fever found. Denies burning micturition. No cough. No rash. Physical exam General: Awake, dementia. Forgetfulness. HEENT: Atraumatic, PERRLA, EOMI, Normocephalic Oral: No Gingival or Mucosal Lesions/ Ulcerations Neck: Supple, No JVD, Negative Carotid Bruits Lungs: Air entry diminished in bilateral lung bases. No crepitation/rhonchi Cardiovascular: Regular rate, Regular Rhythm, Normal S1, Normal S2, No murmurs Abdomen: Bowel Sounds Present, Soft, Non Tender, Non-Distended : No renal angle tenderness. No suprapubic tenderness. Extremities: No edema, Capillary Refill Less than 3 Seconds Skin: No rashes, No breakdown Musculoskeletal: Moderate atrophy of muscles of extremities. Neurological: Cranial nerves II-XII grossly intact, DTR 2+/4 Psych/Mental Status: Flat affect Medical Records Data Medical Nutrition Assessment Dietitian: Malnutrition Criteria Met Start: 10/01/21 14:30 Freq: Status: Active Protocol: Document 10/09/21 14:43 SCARLETT (Rec: 10/09/21 14:43 [facility] [id number]) Nutrition Malnutrition Evidence of Malnutrition Exists Yes Malnutrition (severe): Acute Illness/Injury Evidenced By Suboptimal Energy Intake ( Severe),Weight Loss (Severe), Physical Changes (Severe) Clinical Problem Acute Disease or Injury Related Malnutrition Etiology Severe protein/calorie malnutrition in the context of acute illness related to ongoing inadequate oral intake Signs/Symptoms as evidenced by ~8.5% wt loss since admission and PO meeting less than 50% estimated nutrition needs for calories and protein - pt also has fat/ muscle loss as can be seen temporal/orbital areas on face , prominent clavicle and fat/ muscle loss of legs and arms Status Active Problem Recommendation Dietitian Recommendations/Changes Continue Regular diet with fortified foods, 240ml ensure enlive w/ breakfast, magic cup BID w/ lunch and dinner. Ensure compact 4 times per day w/medpass as tolerated. Adjust ONS as needed to optimize intake. Consider TF due to pt continued poor oral intake and declining weight if in accordance of pt/family wishes . Weight / BMI Weight Weight: 103 lb 3.2 oz Body Mass Index (BMI) 17.1 ABG / Lab / Microbiology Data Result Diagrams: 10/10/21 07:30 10/09/21 06:44 Laboratory: Laboratory Results - last 24 hr 10/10/21 07:30: WBC 4.1 L, RBC 3.38 L, Hgb 10.8 L, Hct 31.6 L, MCV 93.5, MCH 32.0, MCHC 34.2, RDW Std Deviation 57.3 H, RDW Coeff of Stevenson 16.9 H, Plt Count 152, MPV 9.9, Neut % (Auto) Not Reportable, Absolute Neuts (auto) 3.4, Absolute Lymphs (auto) 0.21 L, Total Counted 100, Neutrophils % (Manual) 81 H, Band Neutrophils % 1, Lymphocytes % (Manual) 5 L, Monocytes % (Manual) 10, Metamyelocytes % 3 H, Diff Path Review April, Platelet Estimate ADEQUATE, RBC Morphology NORM C+C Microbiology: Microbiology 10/05/21 10:24 Blood Culture (Wb) - Anticubital Left Blood Culture - Final No growth in 5 days. 10/05/21 10:28 Blood Culture (Wb) - Left Forearm Blood Culture - Final No growth in 5 days. 10/03/21 08:35 Bronchial Lavage - Left Lower Lobe Gram Stain - Final 10/03/21 08:35 Bronchial Lavage - Left Lower Lobe Respiratory Culture - Final Yeast, not Nica albicans 10/03/21 08:33 Bronchial Lavage - Left Lower Lobe Gram Stain - Final 10/03/21 08:33 Bronchial Lavage - Left Lower Lobe Respiratory Culture - Final Yeast, not Nica albicans 09/28/21 09:48 Blood Culture (Wb) - Left Hand Blood Culture - Final No growth in 5 days. 09/28/21 09:48 Blood Culture (Wb) - Anticubital Left Blood Culture - Final No growth in 5 days. 09/23/21 19:10 Blood Culture (Wb) - Right Forearm Blood Culture - Final No growth in 5 days. 09/23/21 18:30 Blood Culture (Wb) - Port Blood Culture - Final No growth in 5 days. 10/23/21 20:40 Urine Catheter - Catheter Urine Culture - Final Culture exhibits no growth. 09/25/21 10:40 Stool Enteric Bacteriology - Final 09/25/21 10:40 Stool Stool Occult Blood (MERLENE) - Final 09/23/21 22:40 Mucosa - Nasopharyngeal Respiratory Panel (PCR) - Final 09/23/21 20:40 Urine Catheter - Catheter Legionella Antigen - Final 09/23/21 20:40 Urine Catheter - Catheter Streptococcus pneumoniae Antigen (M - Final 09/23/21 19:16 Mucosa - Nasopharyngeal Influenza Types A,B Direct FA (MERLENE) - Final Meaningful Use Info Meaningful Use Diagnoses (Choose all that apply): None applicable Discharge Plan Admission Admit Date/Time: 09/23/21 21:34 Primary Reason for Your Visit: Feverof unknown origin, possible fungal Attending Provider: Pablo Sena Primary Care Provider: Mitra Lackey Consulting Providers: Kareem Jackson ; Yosef Sosa ; Chele Torres ; Rivka Johnson ECONOMIC RESEARCH ASSISTANT Instructions Additional Instructions / Restrictions: You might expect low-grade fever, temperature about 100-101 Fahrenheit. Patient has been thoroughly investigated for cause of fever for 17 days including bronchoscopy with BAL, bone marrow biopsy but did not find any good reason except Nica, nonalbicans in BAL. Patient on antibiotic for about 17 days and discontinued. Continue voriconazole. If patient spikes high fever more than 102 Fahrenheit, call primary care physician or ID Dr. Jackson Discharge Orders/Prescriptions Prescriptions: New acetaminophen [Tylenol] 325 mg Tablet 650 mg PO Q4H PRN PRN (Reason: Fever, pain 1-09/10) Qty: 0 RF: 0 albuterol sulfate 2.5 mg /3 mL (0.083 %) Solution For Nebulization 2.5 mg inhalation Q2H PRN PRN (Reason: Dyspnea, wheezing) Qty: 0 RF: 0 Ensure Compact Liquid 118 ml PO 4X/DAY Qty: 0 RF: 0 pantoprazole 40 mg Tablet,Delayed Release (Dr/Ec) 40 mg PO DAILY Qty: 0 RF: 0 voriconazole 200 mg Tablet 200 mg PO Q12H Qty: 20 RF: 0 Continued multivitamin with folic acid 1 TABLET tablet 1 tab PO DAILY RF: 0 aspirin 81 MG tablet,chewable 81 mg PO DAILY@0800 RF: 0 atorvastatin 40 MG tablet 20 mg PO DAILY RF: 0 metoprolol tartrate 25 MG tablet 12.5 mg PO BID RF: 0 loperamide 2 mg Capsule 2 mg PO Q2H PRN PRN (Reason: diarrhea) 3 Days Qty: 10 RF: 0 Changed potassium chloride [Klor-Con M20] 20 mEq tablet,ER particles/crystals 20 meq PO DAILY 3 Days Qty: 6 RF: 0 Discontinued amoxicillin-pot clavulanate 875-125 mg tablet 1 tab PO BID RF: 0 Referrals / Follow Up: Mitra Lackey MD [Primary Care Provider] - Within 2 Weeks Mary Paredes MD [STAFF PHYSICIAN] - Within 1 Month (for non-Hodgkin's B-cell lymphoma ) Kareem Jackson MD [STAFF PHYSICIAN] - Within 1 Week (for fever.) Disposition Disposition (needs filled in before D/C Order can be placed): Longterm Facility Charges/Coding Visit Charges Inpatient E&M: 50873 Disch Hosp
--- NOTE | 2021-10-10 11:34 | PCM.PN.ID ---
Physical Exam Narrative Feeling better, no fever overnight. Const alert and no apparent distress General Appearance: cooperative Resp normal air movement and clear to auscultation bilaterally Cardio regular rate and regular rhythm GI normal to inspection, nondistended, normoactive bowel sounds Skin no rashes or lesions noted ID ID: Route of nutrition/ use of supplements: [] Nutritional Intake: [] IV Site: [] Putnam Catheter: [] Assessment & Plan Assessment/Plan (1) Hypoxia: (2) Non Hodgkin's lymphoma: (3) COVID-19: (4) Neutropenic fever: PLAN: Neutropenic fever with covid a month ago. Cxs neg so far. CT neg for PE on 09/23. Neg resp pcr panel. Stool pcr panel neg. Cdiff was neg last month. ANC recovered. BMBx done, path neg. Bronch done. Mild yeast-like forms seen. Still with fever intermittently, so 10/05 added fluc. Still with fever, then bryson was changed to bactrim. 10/09 fluc changed to voriconazole. No fever overnight, will change to po vori, plan on 10 more days. Will stop bactrim. Ok with d/c today or tomorrow if remains afebrile. Will follow, d/w Dr. Sena
[2021-10-10] MEDS: Voriconazole 200 MG Tablet PO (11:39)
[2021-10-10 12:12] LABS: Pathologist Review Reviewed
[2021-10-10 12:13] LABS: Pathologist Review Reviewed
[2021-10-10 12:44] VITALS: BP 99/68; PULSE 84; RESP 18; TEMP 36.7; O2SAT 94
--- NOTE | 2021-10-10 13:00 | CASEMGMT ---
Social Work Note Pt is medically ready to discharge to [facility] today. CHAUNCEY placed a call to Carmencita at [facility] and left message updating her pt will be discharged. CHAUNCEY also updated Carmencita that pt did have [facility] morning. CHAUNCEY spoke with RN. Pt to transport via cot. CHAUNCEY faxed completed discharge paperwork to Carmencita at [facility] including transfer to extended care facility, signed medication list, any scripts, COVID tool, and Convalescent 7000. Original in SNF folder and copy on pt's chart. CHAUNCEY completed convalescent 7000 in [facility]. Original in SNF folder and copy on pt's chart. CHAUNCEY accessed trip assist and arranged transportation via cot for 2:30pm. Transportation form completed and placed on SNF folder and copy on pt's chart. CHAUNCEY updated RN on transportation time. CHAUNCEY placed a call to Carmencita at [facility] and left message updating her on transportation time. SW in to speak with pt and pt's Ti. CHAUNCEY updated Ti on discharge and transportation time to [facility]. Ti states understanding. Plan: [facility] skilled today under convalescent stay with physician's transporting pt via cot at 2:30pm Socorro Rojas MSW, ROUTE SERVICE MANAGER
[2021-10-10] MEDS: 0.9% Saline Lock 10 ML Syringe IV (13:57)
--- NOTE | 2021-10-10 14:27 | NURSING ---
Attempted to call report to [place] [facility] and there was not a nurse available to speak with. Dry Transfer Worker took down this RN's name and number and states someone will call back.
[2021-10-10 14:44] LABS: Pathologist Review Reviewed
--- NOTE | 2021-10-10 15:05 | NURSING ---
Report called to [facility].
[2021-10-11 12:54] LABS: Pathologist Review Reviewed
[2021-10-27 08:04] LABS: Bone Marrow Aspiraton SEE PATHOLOGY REPORT
[2021-10-27 08:05] LABS: Acid Fast Stain SEE PATHOLOGY REPORT
== END 2021-10-10 14:44 | DRG 808 ==
LOC: ED 21:06 → MS2 21:40 → MS3 09-30 14:57
PROVIDERS: Internal Medicine; Internal Medicine Critical Care Medicine; Internal Medicine Hematology & Oncology; Internal Medicine Infectious Disease; Student in an Organized Health Care Education/Training Program; Admitting Provider Family Medicine; Emergency Provider Emergency Medicine; PCP Internal Medicine; Visit Provider Internal Medicine
PROC: 0BJ08ZZ Inspection of Tracheobronchial Tree, Via Natural or Artificial Opening Endoscopic (ICD-10-PCS; CPT 31622; principal; 2021-10-03 07:00)
DX: D70.9 Neutropenia, unspecified (principal); E43 Unspecified severe protein-calorie malnutrition; G93.41 Metabolic encephalopathy; Z68.1 Body mass index [BMI] 19.9 or less, adult; B37.89 Other sites of candidiasis; R50.81 Fever presenting with conditions classified elsewhere; R09.02 Hypoxemia; D61.818 Other pancytopenia; I25.10 Atherosclerotic heart disease of native coronary artery without angina pectoris; I10 Essential (primary) hypertension; E78.5 Hyperlipidemia, unspecified; E87.6 Hypokalemia; F03.90 Unspecified dementia, unspecified severity, without behavioral disturbance, psychotic disturbance, mood disturbance, and anxiety; R19.7 Diarrhea, unspecified; R91.8 Other nonspecific abnormal finding of lung field; Z66 Do not resuscitate; Z79.82 Long term (current) use of aspirin; Z79.899 Other long term (current) drug therapy; Z87.891 Personal history of nicotine dependence; Z85.72 Personal history of non-Hodgkin lymphomas; Z87.01 Personal history of pneumonia (recurrent); Z86.16 Personal history of COVID-19; Z85.3 Personal history of malignant neoplasm of breast
CPT/HCPCS: 36415; 36591; 70470; 71045; 71046; 71275; 74177; 77012; 80048; 80053; 80202; 81001; 82274; 82728; 83605; 83615; 83735; 83880; 84100; 84145; 84484; 85025; 85379; 85610; 85652; 85730; 86038; 86140; 86225; 86235; 86606; 86664; 86665; 86698; 86850; 86900; 86901; 86920; 86922; 87015; 87040; 87070; 87077; 87086; 87101; 87116; 87205; 87206; 87252; 87449; 87496; 87506; 87633; 87641; 87804; 88108; 88305; 88311; 88312; 88313; 89050; 93005; 93306; 97110; 97163; 97165; 97530; 97535; 97802; 97803; 99285; J2185; J7030; J7040; J7050; J7120; P9016; Q9967; A4216; J1447; J2405; J3465

== ENCOUNTER 2021-11-01 09:54 | Emergency (ER) | payer MEDICARE, SELFPAY ==
[2021-11-01 09:57] VITALS: BP 115/75; PULSE 94; RESP 14; TEMP 36.7; O2SAT 100; BMI 16.0
--- NOTE | 2021-11-01 10:26 | EDS_ITS ---
HPI History of Present Illness Chief Complaint: General Illness Detail of Chief Complaint: Intermittent fever since Saturday. Informant: patient and spouse/S.O. Onset/Context/Timing Onset: Days Context: Gradual Onset Timing: Intermittent Current Severity: Mild Maximum Severity: Mild Narrative Narrative: 70-year-old female history of prior breast cancer 1994 and lymphoma twice currently in remission. She has a left-sided chest wall Mediport. Recent hospitalization for 16 days for what her states was a fungal infection in her lung. Since Saturday she has intermittent fevers between 101/3. She denies any vomiting or diarrhea. No dysuria. No rashes. No cough or shortness of breath. She has been vaccinated against Covid. Prior similar symptoms: Yes Recent Illness/Hospitalization: Yes PFSH [facility] Medical History COVID-19 Dementia Diarrhea Former smoker History of breast cancer HTN (hypertension) Hypertension Non Hodgkin's lymphoma Pancytopenia Home Medications multivitamin with folic acid 1 tab PO DAILY 05/27/15 [History Last Taken 04/04/18 05:00] aspirin 81 mg PO DAILY@0800 05/15/19 [History Last Taken 05/17/19] atorvastatin 20 mg PO DAILY 05/15/19 [History Last Taken Unknown] metoprolol tartrate 12.5 mg PO BID 05/15/19 [History Last Taken 05/18/19] loperamide 2 mg PO Q2H PRN PRN 3 Days #10 cap 08/27/21 [Rx Last Taken Unknown] acetaminophen [Tylenol] 650 mg PO Q4H PRN PRN #0 tab 10/04/21 [Rx Last Taken Unknown] albuterol sulfate 2.5 mg INHALATION Q2H PRN PRN #0 ml 10/04/21 [Rx Last Taken Unknown] food supplemt, lactose-reduced [Ensure Compact] 118 ml PO 4X/DAY #0 ml 10/04/21 [Rx Last Taken Unknown] pantoprazole 40 mg PO DAILY #0 tab 10/10/21 [Rx Last Taken Unknown] potassium chloride [Klor-Con M20] 20 meq PO DAILY 3 Days #6 tab 10/10/21 [Rx Last Taken Unknown] voriconazole 200 mg PO Q12H #20 tab 10/10/21 [Rx Last Taken Unknown] dexamethasone [Decadron] 6 mg PO DAILY 10 Days #10 tab 11/01/21 [Rx Last Taken Unknown] Allergy/AdvReac Type Severity Reaction Status Date / Time No Known Allergies Allergy Verified 11/01/21 10:00 Family History Mother Hypertension Father Colon cancer Alzheimer disease Surgical History H/O stapedectomy Hx of cardiac catheterization S/P colonoscopy S/P fine needle aspiration S/P mastectomy Social History household members: spouse Smoking Status: Never smoker alcohol intake: never substance use type: does not use ROS ROS ED ROS Narrative Fever. Review of Systems ROS Unobtainable: Denies due to encephalopathy Constitutional Constitutional ED: Reports fever(s) Eyes Eyes: Denies change in vision ENT ENT ED: Denies ear pain or sore throat Cardiovascular Cardiovascular: Denies chest pain Respiratory/Chest Respiratory/Chest: Denies cough or dyspnea Gastrointestinal Gastrointestinal: Denies abdominal pain, constipation, diarrhea, nausea or vomiting Genitourinary Genitourinary ED: Denies dysuria or hematuria Musculoskeletal Musculoskeletal: Denies myalgias Integumentary Denies rash Neurologic Neurologic: Denies headache(s) Psychiatric Psychiatric: Denies depression Endocrine Endocrinology: Denies polyuria Allergic/Immunologic Allergic/Immunologic ED: Denies urticaria EXAM Physical Exam Narrative Exam Narrative: 70-year-old female no acute distress. Currently vital signs are stable and afebrile. Temperature 98.1. Pulse ox 9% on room air no signs hypoxia. HEENT exam unremarkable. Moist remembers. Neck nontender no lymphadenopathy. Lungs clear to auscultation bilaterally. Heart regular rate and rhythm no murmur. Chest wall nontender. No redness. No warmth. Abdomen soft nontender normal bowel sounds no peritoneal signs. Moving all 4 extremities. Nontender. No edema no cellulitis. Back nontender. Neurologically patient has a history of confusion that is not new she is awake alert. Answering questions and following commands. No focal motor deficits. is present in the room gives most of the history. Const Vital Signs: 11/01/21 09:57 11/01/21 10:42 Temperature 98.1 F Temperature Source Temporal Pulse Rate 94 Respiratory Rate 14 Respiratory Effort Normal Non-Labored Blood Pressure 115/75 Blood Pressure Mean 88 Pulse Ox 100 Oxygen Delivery Method Room Air Positive well nourished and well developed; Negative for obese, cachectic, contractures or unkempt General Appearance ED: well developed and NAD; Negative for unkempt, cachectic, contractures, cyanotic, diaphoretic or pallor Nutritional Appearance: Negative for cachectic or obese HEENT Reports moist mucous membranes Negative for trauma or tenderness Eyes PERRL and EOMs intact bilaterally Neck no lymphadenopathy, supple and no JVD General: Negative for tenderness Chest Wall inspection of chest normal and palpation of chest normal Resp normal respiratory effort and clear to auscultation bilaterally Auscultation: Negative for rales, rhonchi or wheezes Cardio regular rate, regular rhythm, S1 normal heart sound, S2 normal heart sound and no murmurs GI normal to inspection, nondistended, normoactive bowel sounds, non-tender, non- distended and no masses Inspection: Negative for abdominal distention Auscultation: normoactive bowel sounds Palpation: soft; Negative for tender, guarding or rebound tenderness present Back/Spine no CVA tenderness General Back: Negative for CVA tenderness Cervical Spine: Negative for cervical spine tenderness Extremity normal to inspection General Extremety ED: Negative for edema or tenderness General Extremity: Negative for edema Neuro CN's II-XII intact bilaterally Neuro Narrative: History of confusion states has been going on for some time. Sensorium / Orientation: alert; Negative for lethargic or stuporous Motor Exam: strength 5/5 throughout Psych Negative for mental status grossly normal Appearance: Negative for unkempt Attitude: No agitated Mood & Affect: Negative for depressed or tearful Skin no rashes or lesions noted, no wounds and skin turgor normal General Skin Exam: Negative for jaundice or pallor MDM MDM MDM Narrative Medical decision making narrative: 70-year-old female no acute distress. Intermittent fevers last several days. Benign exam. She will be worked up for infectious etiology versus possibly medication because fever versus other etiologies. Repeat exam patient is doing well at 12:35 PM. I discussed all test results with her and her . She will be referred to monoclonal antibody center here in the hospital for follow-up for her Covid. She will be referred back to her primary care physician who she has an appointment later this week to have her labs reevaluated due to her hemoglobin being 7.7. They will isolate at home. She will be started on Decadron. And referred to the monoclonal antibody center. Her vital signs are stable and her pulse ox is 100% she does not meet any criteria for admission at this time. Lab Data Attestation: I reviewed the patient's lab results. Lab results narrative: CBC shows a white count of 2.0. Hemoglobin 7.7. Hemoglobin is down from 10.8. Platelets 226. Electrolytes sodium 134 potassium of 5 gap of 8 normal BUN and creatinine. Normal liver enzymes. Urinalysis no nitrates no whites nor red cells. Rare bacteria. Labs: Laboratory Results - last 24 hr 11/01/21 11/01/21 11/01/21 10:40 10:40 10:50 WBC 2.0 L RBC 2.35 L Hgb 7.7 L Hct 22.9 L MCV 97.4 MCH 32.8 H MCHC 33.6 RDW Std Deviation 70.4 H RDW Coeff of Stevenson 19.6 H Plt Count 226 MPV 9.5 Neut % (Auto) Not Reportable Absolute Neuts (auto) 1.4 L Absolute Lymphs (auto) 0.10 L Total Counted 100 Neutrophils % (Manual) 70 Lymphocytes % (Manual) 4 L Monocytes % (Manual) 26 H Diff Path Review May foll Platelet Estimate ADEQUATE RBC Morphology N CHROM Anisocytosis 1+ Sodium 134 L Potassium 5.0 Chloride 101 Carbon Dioxide 25.0 Anion Gap 8 BUN 8 Creatinine 0.62 Estim Creat Clear Calc 39.10 Est GFR (MDRD) Af Amer 123 Est GFR (MDRD) Non-Af 102 BUN/Creatinine Ratio 13.0 Glucose 101 Calcium 8.8 Total Bilirubin 0.30 AST 25 ALT 18 Alkaline Phosphatase 68 Total Protein 5.8 L Albumin 1.8 L Globulin 4.0 Albumin/Globulin Ratio 0.4 L Urine Color Yellow Urine Clarity Sl. Cloudy Urine pH 7.0 Ur Specific [place] 1.010 Urine Protein 30 H Urine Glucose (UA) Normal Urine Ketones Negative Urine Occult Blood 10 H Urine Nitrite Negative Urine Bilirubin Negative Urine Urobilinogen Normal Ur Leukocyte Esterase 25 H Urine RBC 0-5 SEEN Urine WBC 0-5 SEEN Ur Squamous Epith Cells 0-5 SEEN Urine Bacteria RARE Urine Mucus 0 SEEN Radiography Chest X-Ray - ED: 1 View, Read by ED Physician, Heart, Mediastinum, Bony Structures, No Acute Disease and Chronic Changes Diagnostic Testing: Clinical Impression(s) from Imaging Studies Chest X-Ray 11/01/21 10:43 IMPRESSION: Persistent pleural parenchymal changes at the left lung base although there has been improvement as compared to prior study. Mild increased markings at the right lung base. Electronically Signed: Shady Fox MD at 10:59 EST , Service support , Portable, single view chest x-ray, interpreted by myself and radiologist shows chronic changes with increased lung markings in both bases. Patient is Covid positive. Discharge Plan Triage Chief Complaint: General Illness ED Provider: Marin Oropeza Dx/Rx/DC Orders Clinical Impression: COVID-19, Fever, Acute on chronic anemia Instructions: Human Coronaviruses Prescriptions: New dexamethasone [Decadron] 6 mg tablet 6 mg PO DAILY 10 Days Qty: 10 RF: 0 No Action multivitamin with folic acid 1 TABLET tablet 1 tab PO DAILY RF: 0 aspirin 81 MG tablet,chewable 81 mg PO DAILY@0800 RF: 0 atorvastatin 40 MG tablet 20 mg PO DAILY RF: 0 metoprolol tartrate 25 MG tablet 12.5 mg PO BID RF: 0 loperamide 2 mg Capsule 2 mg PO Q2H PRN PRN (Reason: diarrhea) 3 Days Qty: 10 RF: 0 acetaminophen [Tylenol] 325 mg Tablet 650 mg PO Q4H PRN PRN (Reason: Fever, pain -09/10) Qty: 0 RF: 0 albuterol sulfate 2.5 mg /3 mL (0.083 %) Solution For Nebulization 2.5 mg inhalation Q2H PRN PRN (Reason: Dyspnea, wheezing) Qty: 0 RF: 0 Ensure Compact Liquid 118 ml PO 4X/DAY Qty: 0 RF: 0 pantoprazole 40 mg Tablet,Delayed Release (Dr/Ec) 40 mg PO DAILY Qty: 0 RF: 0 voriconazole 200 mg Tablet 200 mg PO Q12H Qty: 20 RF: 0 potassium chloride [Klor-Con M20] 20 mEq tablet,ER particles/crystals 20 meq PO DAILY 3 Days Qty: 6 RF: 0 Other Ambulatory Orders: COVID Outpatient Monoclonal Antibody Referral (Routine) Timeframe: 1 Day Facility: [facility] - Location: [facility] Ordered By: Dr. Marin Oropeza Primary Care Provider: Mitra Lackey Referrals: Mitra Lackey MD [Primary Care Provider] - Keep Samara appointment Activity Restrictions/Additional Instructions: Plenty of fluids and rest. Tylenol for the fever. Use the steroid Decadron once a day for the next 10 days to help decrease the inflammation due to the Covid. Home quarantine for the next 10 days. Follow-up with your primary care physician to have your blood counts rechecked because your hemoglobin today was only 7.7 and should be higher than that. Return emergency department feeling a lot worse. You have been referred to the monoclonal antibody center here at the hospital they should call you no later than tomorrow to set up you receiving monoclonal antibodies. If at all call you by noon tomorrow follow-up with our emergency department. Disposition Disposition: Home, Self Care
--- NOTE | 2021-11-01 10:43 | RAD_ITS ---
STUDY: X-RAY CHEST REASON FOR EXAM: Female, 70 years old. Fever TECHNIQUE: Single AP portable view of the chest. COMPARISON: Comparison is made with prior study dated 02/28/2021. FINDINGS: Left-sided portacatheter is seen with the tip at the junction of the superior vena cava and right atrium. Surgical clips are seen in the right axilla. There is hyperinflation of the lungs consistent with chronic obstructive lung disease (COPD). Mild increased markings at the right lung base. Persistent pleural-parenchymal changes at the left lung base although there has been improvement. Normal size heart. Normal mediastinum and ana. Normal visualized pulmonary arteries. There is atherosclerotic calcification of the aortic arch with tortuosity. Normal visualized thoracic spine. Normal visualized ribs, clavicles, and shoulders. There is no demonstrated abnormality of the visualized soft tissue structures of the upper abdomen. RAD/Chest 1 View (Portable) IMPRESSION: Persistent pleural parenchymal changes at the left lung base although there has been improvement as compared to prior study. Mild increased markings at the right lung base. Electronically Signed: Shady Fox MD at 10:59 EST , Service support ,
[2021-11-01 10:51] LABS: Hematocrit 22.9 % (37-47); Hemoglobin 7.7 g/dL (12.0-15.0); Mean Corp Hgb Conc 33.6 g/dL (32-36); Mean Corpuscular Hgb 32.8 pg (27.0-32.0); Mean Corpuscular Volume 97.4 fL (81-99); Mean Platelet Vol. 9.5 fl (6.2-12.0); POSITIVE COUNT YES; POSITIVE DIFFERENTIAL YES; POSITIVE MORPHOLOGY YES; Platelet Count 226 K/mm3 (150-450); RBC Distribution Width CV 19.6 % (11.6-14.6); RBC Distribution Width SD 70.4 fl (35.1-43.9); Red Blood Count 2.35 M/mm3 (4.2-5.4)
[2021-11-01 10:54] LABS: Differential Indicated MANUAL DIFF
[2021-11-01 10:59] LABS: Mucous, Urine 0 SEEN /hpf (<or=2+)
[2021-11-01 11:01] LABS: Color, Urine Yellow (Yellow); Glucose, Dipstick Normal (Normal); Ketone-Dipstick Negative (Negative); Leukocyte Esterase-Dipstick 25 /ul (Negative); Nitrite-Dipstick Negative (Negative); Occult Blood-Urine 10 /ul (Negative); Protein-Dipstick 30 mg/dl (Negative); Urine Bilirubin Dipstick Negative (Negative); Urine Clarity Sl. Cloudy (Clear); Urine Urobilinogen Normal (Normal)
[2021-11-01 11:06] LABS: Bacteria RARE /hpf (None Seen); Red Blood Cells-Urine 0-5 SEEN /hpf (0-5); Squamous Epithelial Cells - UA 0-5 SEEN /hpf (5-10); White Blood Cells 0-5 SEEN /hpf (0-5)
[2021-11-01 11:09] LABS: ALB/GLOB Ratio 0.4 RATIO (0.9-2.4); AST(SGOT) 25 U/L (15-37); Alanine Aminotransfer ALT/SGPT 18 U/L (13-56); Albumin, Serum 1.8 g/dL (3.2-5.0); Alkaline Phosphatase 68 U/L (45-117); Anion Gap 8 (5-15); BUN 8 mg/dL (7-18); Calcium,Total 8.8 mg/dL (8.5-10.1); Chloride 101 mmol/L (98-107); Creatinine, Serum 0.62 mg/dL (0.55-1.02); EST Glomerular Filtration Rate 102 mL/min (>60); Est Glom Filt Rate - Afr Amer 123 mL/min (>60); Glucose 101 mg/dL (74-106); Protein, Total 5.8 g/dL (6.4-8.2); Sodium Level 134 mmol/L (136-145)
[2021-11-01 11:23] LABS: Lymphocyte 4 % (19-41); Monocyte 26 % (0-10); Neutrophil-Segmented 70 % (47-70); Platelet Estimate ADEQUATE (ADEQ); Total Cells Counted 100 (MANUAL DIFF)
[2021-11-01 11:24] LABS: Anisocytosis 1+; Red Cell Morphology N CHROM NORMAL (NORM C&C)
[2021-11-01 11:25] LABS: Absolute Neutrophil Count 1.4 X10^3/uL (2.0-7.7)
[2021-11-01 12:50] VITALS: BP 114/78; PULSE 81; RESP 16; O2SAT 100
[2021-11-02 09:46] LABS: Pathologist Review Reviewed
== END 2021-11-01 12:52 | disposition home or self-care (01) ==
PROVIDERS: Emergency Provider Emergency Medicine; PCP Internal Medicine
DX: U07.1 COVID-19 (principal); R50.9 Fever, unspecified; D64.89 Other specified anemias; Z85.3 Personal history of malignant neoplasm of breast; Z87.891 Personal history of nicotine dependence
CPT/HCPCS: 36415; 71045; 80053; 81001; 85025; 87040; 87426; 99284; A4216

== ENCOUNTER 2021-11-04 12:15 | Outpatient (CLI) | payer MEDICARE, SELFPAY ==
[2021-11-04 12:31] VITALS: BP 120/68; PULSE 75; RESP 16; TEMP 37.2; O2SAT 94; BMI 16.7
[2021-11-04] MEDS: 0.9% Saline Lock 10 ML Syringe IV (12:39)
[2021-11-04 13:10] VITALS: BP 124/78; PULSE 76; RESP 16; TEMP 37; O2SAT 96
[2021-11-04 14:10] VITALS: BP 120/70; PULSE 74; RESP 16; TEMP 36.6; O2SAT 96
== END 2021-11-04 14:10 | disposition home or self-care (01) ==
LOC: MS3OUT 12:16 → MS3 12:18
PROVIDERS: PCP Internal Medicine; Referring Provider Nurse Practitioner Adult Health; Visit Provider Nurse Practitioner Adult Health
DX: Z23 Encounter for immunization (principal); U07.1 COVID-19; D61.818 Other pancytopenia; Z51.89 Encounter for other specified aftercare; J12.82 Pneumonia due to coronavirus disease 2019
CPT/HCPCS: 85027; 86850; 86900; 86901; 86920; 86922; J7050; M0245; Q0245; A4216

== ENCOUNTER 2021-11-06 11:11 | Outpatient (CLI) | payer MEDICARE, SELFPAY ==
[2021-11-04 13:34] LABS: Hematocrit 21.5 % (37-47); Mean Corp Hgb Conc 32.6 g/dL (32-36); Mean Corpuscular Hgb 31.8 pg (27.0-32.0); Mean Corpuscular Volume 97.7 fL (81-99); Mean Platelet Vol. 9.2 fl (6.2-12.0); POSITIVE MORPHOLOGY YES; Platelet Count 267 K/mm3 (150-450); RBC Distribution Width CV 19.7 % (11.6-14.6); RBC Distribution Width SD 70.2 fl (35.1-43.9); White Blood Count 1.8 K/mm3 (4.4-11.0)
[2021-11-04 13:37] LABS: Scan Indicated on CBC? Y/N YES- FLAGS NOTED
[2021-11-04 14:40] LABS: Differential Comment SCANNED
[2021-11-06 11:27] VITALS: BP 119/60; PULSE 80; RESP 16; TEMP 36.5; O2SAT 97
[2021-11-06] MEDS: Acetaminophen 325 MG Tablet 650 MG PO (12:09)
[2021-11-06 12:34] VITALS: BP 104/65; PULSE 73; RESP 16; TEMP 36.3; O2SAT 97
[2021-11-06 13:34] VITALS: BP 114/72; PULSE 80; RESP 16; TEMP 36.8; O2SAT 100
--- NOTE | 2021-11-06 13:52 | NURSING ---
pt up to bathroom with assistance. tolerating infusion.
[2021-11-06 14:21] VITALS: BP 110/74; PULSE 71; RESP 16; TEMP 36.6; O2SAT 100
[2021-11-06 15:21] VITALS: BP 128/92; PULSE 66; RESP 16; TEMP 36.6; O2SAT 100
[2021-11-06 15:53] VITALS: BP 128/88; PULSE 67; RESP 16; TEMP 36.3; O2SAT 98
[2021-11-06] MEDS: 0.9% Saline Lock 10 ML Syringe IV (15:55)
[2021-11-06] MEDS: Furosemide 20 MG/2 ML VIAL IV (15:55)
--- NOTE | 2021-11-06 16:02 | NURSING ---
Pt discharged via wheelchair to home. Lungs clear bilaterally. No s/s of reaction noted.
== END 2021-11-06 16:02 | disposition home or self-care (01) ==
LOC: MEDOUTP 11:12 → MS3 11:13
PROVIDERS: Nurse Practitioner Adult Health; PCP Internal Medicine; Referring Provider Internal Medicine Hematology & Oncology; Visit Provider Internal Medicine Hematology & Oncology
DX: U07.1 COVID-19 (principal); J12.82 Pneumonia due to coronavirus disease 2019; R06.00 Dyspnea, unspecified
CPT/HCPCS: 36430; 85027; 86850; 86900; 86901; 86920; 86922; P9040; A4216; J1940

== ENCOUNTER 2023-07-02 07:06 | Day surgery (SDC) | payer MEDICARE, SELFPAY ==
[2023-07-02 07:30] VITALS: BP 152/90; PULSE 63; RESP 17; TEMP 35.9; O2SAT 99; BMI 18.4
[2023-07-02] MEDS: Lactated Ringers 1,000 ML 15 ML IV (07:40)
--- NOTE | 2023-07-02 07:46 | PCM.HP.BLA ---
History and Physical Date of Admission: 07/02/23 Visit Reasons: COLONOSCOPY/CANCER PATIENT - SELF REFERRED Chief Complaint: COLONOSCOPY CONSULT Allergies No Known Allergies Allergy (Verified 11/02/21 09:29) Medications multivitamin with folic acid 400 mcg tablet 1 tab PO DAILY supplement 05/27/15 [History Confirmed 06/10/23] aspirin 81 mg chewable tablet 81 mg PO DAILY@0800 05/15/19 [History Confirmed 06/10/23] atorvastatin 40 mg tablet 20 mg PO DAILY 05/15/19 [History Confirmed 06/10/23] metoprolol tartrate 25 mg tablet 12.5 mg PO BID BLOOD PRESSURE 05/15/19 [History Confirmed 11/06/21] loperamide 2 mg capsule 2 mg PO Q2H PRN PRN diarrhea 3 days #10 caps 08/27/21 [Rx Confirmed 11/06/21] acetaminophen 325 mg tablet (Tylenol) 650 mg (2 x 325 mg) PO Q4H PRN PRN Fever, pain 1-09/10 #0 tabs 10/04/21 [Rx Confirmed 06/10/23] food supplemt, lactose-reduced (Ensure Compact oral liquid) 118 ml PO 4X/DAY #0 mL 10/04/21 [Rx Confirmed 11/06/21] dexamethasone 6 mg tablet (Decadron) 6 mg PO DAILY 10 days #10 tabs 11/01/21 [Rx Confirmed 11/06/21] gabapentin 100 mg capsule 200 mg PO QHS 11/06/21 [History Confirmed 11/06/21] lisinopril 20 mg tablet 20 mg PO DAILY 11/06/21 [History Confirmed 11/06/21] potassium chloride 20 mEq tablet,extended release(part/cryst) (Klor-Con M) 40 meq PO DAILY 11/06/21 [History Confirmed 11/06/21] PFSH Medical History COVID-19 Dementia Diarrhea Former smoker History of breast cancer HTN (hypertension) Hypertension Non Hodgkin's lymphoma Pancytopenia Surgical History H/O stapedectomy Hx of cardiac catheterization S/P colonoscopy S/P fine needle aspiration S/P mastectomy Family History Mother HypertensionFather Colon cancer Alzheimer disease Social History household members: spouse Smoking Status: Never smoker alcohol intake: never substance use type: does not use HPI HPI HPI: 72-year-old female presents for screening colonoscopy. She has had a previous history of non-Hodgkin's lymphoma and she had COVID-19. She was extensively hospitalized September 2021 for that. For treatment of lymphoma Dr. Jasmin Gee placed a tunneled catheter in the left subclavian vein May 18, 2019. I have most recently seen her December 21, 2017 where I removed a left IJ port for her as she completed her therapy for her lymphoma. I had placed that port for her on June 23, 2015. I had performed a right neck lymph node biopsy for her on May 31, 2015. I have also remotely assisted her with a partial mastectomy for breast cancer. The patient is accompanied by her today. Clearly she has some fading memory abilities. She was not completely clear on the purpose of her office visit today. She does note that she is out of date on her colonoscopy. She did lose weight all the way down to 106 pounds. Perhaps she has put on a little bit since then. That was a consequence of her chemotherapy treatment. Currently she is denying of abdominal pain. No bright red blood per rectum or melena. She states that she eats. She states that with utilization of Metamucil fiber supplementation that she has regular bowel movements. The was aware that the patient's been referred for screening colonoscopy. ROS General General: Yes breast cancer; No weight change, appetite, fatigue, colon cancer or weakness HEENT HEENT: No difficulty swallowing, eye injury, eye surgery, swollen glands or hoarseness Endo Endocrine: No thyroid disease, diabetes mellitus, thyroid cancer, Hair loss, heat intolerance or cold intolerance Skin Skin: No rash or changing moles Breast Breast: No left breast lump, right breast lump, nipple discharge, breast pain, abnormal mammogram, abnormal US or breast enlargement Musc Musculoskeletal: No back problems, arthritis, rheumatoid arthritis, gout or joint pain Cardio Cardiovascular: No murmur, pacemaker, heart disease, atrial fibrillation, high blood pressure, heart attack, heart stent, palpitations, shortness of breat with exertion or chest pain Psych Psychiatric: No depression, anxiety or hearing voices Resp Respiratory: No shortness of breath, No sleep apnea, No cough, No COPD, No asthma, No emphysema and No wheezing Gastro Gastrointestinal: No abdominal pain, No nausea or vomiting, No diarrhea, No constipation, No blood in stool, No acid reflux, No hemorrhoids, No ulcers, No gallbladder problem and No black,tarry stools Romero Hematologic: No blood thinners, No blood disorders, No bleeding, No anemia and No blood clots Neuro Neurologic: No system reviewed and no additional complaints, except as documented, No as per HPI, No abnormal gait, No abnormal hearing, No abnormal movements, No abnormal speech, No behavioral changes, No burning sensations, No confusion, No convulsions, No disequilibrium, No dizziness, No localized weakness, No frequent falls, No headache(s), No lack of coordination, No loss of vision, No memory loss, No numbness, No other visual disturbances, No radicular pain, No restless legs, No sensory deficit, No syncope, No tingling, No tremor(s), No weakness and No other Exam Const General: cooperative, comfortable and no acute distress Nutritional Appearance: underweight Orientation: alert and oriented x3 HENMT Head: normal to inspection Eyes General: appearance normal, both eyes and all related structures Chest Chest palpation & inspection: normal inspection of the chest Resp Effort & Inspection: normal respiratory effort Auscultation: clear to auscultation bilaterally Cardio Rate: regular rate Rhythm: regular rhythm GI Inspection: normal to inspection Palpation: soft and no hepatosplenomegaly Auscultation: normal bowel sounds Musc Cervical Spine: normal cervical lordosis Skin General: no rashes or lesions noted Neuro General: patient alert and patient awake Extrem General: no calf tenderness Psych Appearance: grossly normal Assessment and Plan Assessment and Plan (1) Screening for intestinal cancer: Status: Acute Plan: I recommended the patient a screening colonoscopy with possible biopsy or polypectomy as indicated. She is aware of the technique, benefit, risk, alternatives. She has had an opportunity to ask and have questions answered. I appreciate the ongoing option of assisting with her surgical care. We will schedule procedure at her discretion. Copy:MD Kareem Marina M.D., F.A.C.S I have examined the patient and the H&P has been reviewed. There are no clinical changes since date of exam. Kareem Vivar M.D., F.A.C.S.
--- NOTE | 2023-07-02 08:15 | COLBX_PTH ---
PATIENT: DIANNA WEBSTER LOC: EN U#:[id number] AGE/SX: 72/F ROOM: RE07/02/[address]: Dr. Kareem Vivar MD : 1950 BED: DIS: 07/02/2023 SPEC #: [id number] RECD: 07/02/23 10:26 STATUS: GLENDA TAHMINA #: [id number] SAKSHI: 07/02/23 08:[address]: Kareem Vivar DEPT: SURGICAL PATHOLOGY RECD BY: Liliana Rojas ENTERED: 07/02/23 11:13 SP TYPE: COLON BX VIOLETTE DR: SHERIN MCKINNEY, CLINICAL SERVICES SPECIALIST-C Tissues: COLON BIOPSY Procedures: Surgery Specimen Level IV HEADER OPERATION: Colonoscopy PRE-OP DIAGNOSIS: Screening TISSUE SUBMITTED: ?6 mm polyp hepatic flexure biopsy MICROSCOPIC DIAGNOSIS Hepatic flexure polyp, biopsy: A fragment of colonic mucosa, no pathologic diagnosis. SJ:bassem 07/03/2023 MICROSCOPIC DESCRIPTION Slides are reviewed. GROSS DESCRIPTION Received in fixative is one container labeled with the patient's name and designated ?6 mm polyp hepatic flexure biopsy. The specimen consists of two irregular fragments of light beckman soft tissue that in aggregate measure 0.4 x 0.3 x 0.1 cm. The specimen is totally submitted in one cassette. / SJ:rg 07/02/2023 TC:4 CPT: 56755
[2023-07-02 09:30] VITALS: BP 111/63; BP 152/90; PULSE 76; RESP 16; TEMP 36.2; O2SAT 96
--- NOTE | 2023-07-02 09:31 | OP.COLON_ITS ---
Patient Name: Francine Polk Procedure Date: 07/02/2023 9:01 AM Date of : 1950 Age: 72 Procedure: Colonoscopy Indications: Screening for colorectal malignant neoplasm Providers: Kareem Vivar MD Medicines: See the Anesthesia note for documentation of the administered medications Patient Profile: Last Colonoscopy: date unknown. Complications: No immediate complications. Procedure: Pre-Anesthesia Assessment: - Prior to the procedure, a History and Physical was performed, and patient medications and allergies were reviewed. The patient's tolerance of previous anesthesia was also reviewed. The risks and benefits of the procedure and the sedation options and risks were discussed with the patient. All questions were answered, and informed consent was obtained. Prior Anticoagulants: The patient has taken no previous anticoagulant or antiplatelet agents. ASA Grade Assessment: II - A patient with mild systemic disease. After reviewing the risks and benefits, the patient was deemed in satisfactory condition to undergo the procedure. After I obtained informed consent, the scope was passed under direct vision. Throughout the procedure, the patient's blood pressure, pulse, and oxygen saturations were monitored continuously. The adult colonoscope was introduced through the anus and advanced to the cecum, identified by appendiceal orifice and ileocecal valve. The colonoscopy was performed with moderate difficulty due to a tortuous colon. Successful completion of the procedure was aided by applying abdominal pressure. The patient tolerated the procedure well. The quality of the bowel preparation was good. Scope In: 9:06:09 AM Scope Withdrawal Time 0 hours 8 minutes 9 seconds Scope Out: 9:25:25 AM Total Procedure Duration Time 0 hours 19 minutes 16 seconds Findings: The perianal and digital rectal examinations were normal. A 4 mm polyp was found in the hepatic flexure. The polyp was sessile. The polyp was removed with a cold biopsy forceps. Resection and retrieval were complete. To prevent bleeding post-intervention, one hemostatic clip was successfully placed. There was no bleeding at the end of the procedure. Multiple diverticula were found in the entire colon. Impression: - One 4 mm polyp at the hepatic flexure, removed with a cold biopsy forceps. Resected and retrieved. Clip was placed. Possibly just normal mucosa - Diverticulosis in the entire examined colon. Recommendation: - Discharge patient to home. - Resume previous diet. - Continue present medications. - Repeat colonoscopy in 5 years for surveillance based on pathology results. If no polyps then recommend follow-up in 10 years. - Telephone my office for pathology results in 1 week. Procedure Code(s): --- Professional --- 08299, Colonoscopy, flexible; with biopsy, single or multiple Diagnosis Code(s): --- Professional --- Z12.11, Encounter for screening for malignant neoplasm of colon D12.3, Benign neoplasm of transverse colon (hepatic flexure or splenic flexure) K57.30, Diverticulosis of large intestine without perforation or abscess without bleeding CPT copyright 2017 [employer]. All rights reserved. The codes documented in this report are preliminary and upon rescue boat operator review may be revised to meet current compliance requirements. Kareem Vivar MD 07/02/2023 9:30:54 AM This report has been signed electronically. Number of Addenda: 0 Note Initiated On: 07/02/2023 9:01 AM
--- NOTE | 2023-07-02 09:32 | OP.CCLET_ITS ---
07/02/2023 Mitra Lackey [address] [phone] Re : Colonoscopy procedure for Francine Felicitas Dear Dr. Lackey This procedure was performed on Sunday, July 02, 2023. My impressions and recommendations are as follows: Impressions : - One 4 mm polyp at the hepatic flexure, removed with a cold biopsy forceps. Resected and retrieved. Clip was placed. Possibly just normal mucosa - Diverticulosis in the entire examined colon. Recommendations : - Discharge patient to home. - Resume previous diet. - Continue present medications. - Repeat colonoscopy in 5 years for surveillance based on pathology results. If no polyps then recommend follow-up in 10 years. - Telephone my office for pathology results in 1 week. My findings are described in the full procedure note, which is enclosed. If I can be of further assistance, please feel free to contact me at Doctor phone number(s): Work: . Sincerely, Kareem Vivar MD 07/02/2023 9:30:54 AM This report has been signed electronically.
[2023-07-02 09:35] VITALS: BP 106/60; BP 152/90; PULSE 71; RESP 16; O2SAT 97
[2023-07-02 09:40] VITALS: BP 105/62; BP 152/90; PULSE 72; RESP 16; O2SAT 97
[2023-07-02 09:45] VITALS: BP 118/63; BP 152/90; PULSE 69; RESP 16; TEMP 35.8; O2SAT 97
[2023-07-02 10:13] VITALS: BP 152/90
== END 2023-07-02 10:29 | disposition home or self-care (01) ==
LOC: EN 07:12 → AC 07:14
PROVIDERS: PCP Nurse Practitioner; Referring Provider Nurse Practitioner; Visit Provider Surgery
PROC: 0DJD8ZZ Inspection of Lower Intestinal Tract, Via Natural or Artificial Opening Endoscopic (ICD-10-PCS; CPT 45378; principal; 2023-07-02 08:10)
DX: Z12.11 Encounter for screening for malignant neoplasm of colon (principal); F03.90 Unspecified dementia, unspecified severity, without behavioral disturbance, psychotic disturbance, mood disturbance, and anxiety; K57.30 Diverticulosis of large intestine without perforation or abscess without bleeding; D12.3 Benign neoplasm of transverse colon; I25.10 Atherosclerotic heart disease of native coronary artery without angina pectoris; I10 Essential (primary) hypertension; R63.6 Underweight; Z68.1 Body mass index [BMI] 19.9 or less, adult; Z79.82 Long term (current) use of aspirin; Z79.899 Other long term (current) drug therapy; Z85.3 Personal history of malignant neoplasm of breast; Z86.16 Personal history of COVID-19; Z80.0 Family history of malignant neoplasm of digestive organs
CPT/HCPCS: 45380; 88305; J7120; J2405

== ENCOUNTER → 2025-09-08 | Outpatient (CLI) | payer MEDICARE, SELFPAY ==
--- NOTE | 2025-09-08 12:38 | MRI_ITS ---
PROCEDURE: BRAIN W/WO CONTRAST 09/08/2025 REASON FOR EXAM: HEARING LOSS TECHNIQUE: Procedure Code: [id number] Modality: MR Procedure: BRAIN W/WO CONTRAST Multiplanar and multisequence images were obtained. CONTRAST: VOLUME: mL COMPARISON: 09/24/2021. FINDINGS: Moderate generalized atrophy with commensurate ventriculomegaly. The bilateral cerebellar pontine angles appear unremarkable. The bilateral internal auditory canals appear unremarkable. The cisternal and canalicular segments of cranial nerves 7 and 8 appear intact and unremarkable. The bilateral cochlea, vestibules, and semicircular canals appear grossly unremarkable. The cisternal and caval segments of bilateral cranial nerves 5 appear unremarkable. No abnormal enhancement. The remainder of the brain parenchyma appears unremarkable. The villanueva-white matter differentiation is appropriate. No midline shift. The midline structures are intact, specifically the corpus callosum, septum pellucidum, pituitary gland, and cerebellar vermis. The cervicomedullary junction appears unremarkable. The paranasal sinuses are clear. Fluid is noted within a few left mastoid air cells. The right mastoid air cells are clear. Diffusion-weighted images demonstrate no restricted diffusion. No abnormal enhancement pattern. MRI/Brain W/WO Contrast IMPRESSION: Moderate generalized atrophy. Small left mastoid effusion. Unremarkable MRI of the internal auditory canals. Reading Location: [id number]
[2025-09-08] MEDS: 0.9% Saline Lock 10 ML Syringe IV (14:01)
== END | disposition home or self-care (01) ==
PROVIDERS: PCP Nurse Practitioner; Referring Provider Otolaryngology; Visit Provider Otolaryngology
DX: H90.3 Sensorineural hearing loss, bilateral (principal)
CPT/HCPCS: 70553; A9581; A4216